=== PATIENT | male | born 1955 | race Caucasian/White ===

== ENCOUNTER → 2016-07-12 | Outpatient (CLI) | payer BC ==
[~2016-07-12] MED LIST: ATOR10TA60 PO; CONTRAST GIVEN MC PRN; DULA0.75 SQ; GLYB1.252 PO; IOHEXOL 240 MG/ML 50ML VIAL. PO ONE; IOHEXOL 300 MG/ML 100ML VIAL. IV ONE; LISI2.5T PO; SITA1TAB11 PO
--- NOTE | 2016-07-12 13:00 | KCIC ---
PROCEDURE CT chest abdomen and pelvis with contrast. HISTORY Lung mass, history of lung abscess about 20 years ago, diabetes, history of CLL, smoker for 41 years of 2.5 packs per day TECHNIQUE After the administration of intravenous and oral contrast, CT imaging was performed of the chest, abdomen, pelvis. Multiplanar reconstruction images are submitted. Exposure: One or more of the following individualized dose reduction techniques were utilized for this exam: 1. Automated exposure control. 2. Adjustment of the mA and/or kV according to patient size. 3. Use of iterative reconstruction technique. Contrast: 100 cc Omnipaque 300 COMPARISON None available FINDINGS Chest: There is prominent mediastinal and axillary lymphadenopathy, mild hilar lymphadenopathy. One of the largest masses of the right paratracheal region measures 3.9 cm short axis, transverse dimension. Largest right axillary node measures 3.7 cm short axis dimension. There is no abnormal pericardial or pleural fluid or pneumothorax. There is no significant infiltrate. Major airways are patent. There is also supraclavicular lymphadenopathy. One of the larger saeid mass of the inferior right neck measures 1.9 cm short axis dimension, located posterior to the common carotid artery. There is fairly prominent coronary calcification. There is right pericardiophrenic node 1.2 cm short axis dimension. There is multilevel thoracic spondylosis. There is centrilobular emphysema. Abdomen pelvis: Spleen is enlarged on the order of 18 x 8.6 by 17.4 cm longitudinal. There is cholelithiasis. No focal abnormality is identified of the liver or pancreas. There is no adrenal nodularity. Both kidneys enhance, no hydronephrosis. There is 3.2 centimeter right renal cyst. There is lymphadenopathy of the retroperitoneum, also of the francy hepatis and about the celiac axis. One of the largest portacaval nodes measures 2.4 cm short axis dimension. One of the larger right retroperitoneal nodes axial image 52 measures 2.4 cm short axis dimension although also other prominent nodes superiorly. There are enlarged nodes along the iliac chains bilaterally, also of the inguinal regions. One of the largest right iliac nodes measures up to 2.4 cm short axis dimension. Bowel is not significantly dilated. There is no free air, or free fluid. Normal appendix is visualized. There is minimal fat in the left inguinal canal, no bowel. There is fairly advanced degenerative disc disease with vacuum phenomenon at L5-S1. IMPRESSION 1. There is extensive lymphadenopathy of the chest, abdomen, pelvis. There is splenomegaly. 2. No discrete lung mass is identified. There is centrilobular emphysema. 3. There is prominent coronary calcification. 4. There is cholelithiasis. Electronically signed by: Govind Taveras MD (Jul 12, 2016 12:58:50)
== END | disposition home or self-care (01) ==
LOC: KCIC CT 10:36
PROVIDERS: ATTEND Internal Medicine
DX: M47.894 Other spondylosis, thoracic region (principal); R59.1 Generalized enlarged lymph nodes; R16.1 Splenomegaly, not elsewhere classified; J43.2 Centrilobular emphysema; K80.20 Calculus of gallbladder without cholecystitis without obstruction; M51.37 Other intervertebral disc degeneration, lumbosacral region; N28.1 Cyst of kidney, acquired
CPT/HCPCS: 71260; 74177; 82565; Q9966; Q9967

== ENCOUNTER 2016-09-17 14:34 | Inpatient (IN) | payer BC ==
[~2016-09-17] VITALS: Ht 182.9 cm; Wt 129.3 kg
[~2016-09-17 14:34] MED LIST changes: -CONTRAST GIVEN MC PRN; -IOHEXOL 240 MG/ML 50ML VIAL. PO ONE; -IOHEXOL 300 MG/ML 100ML VIAL. IV ONE
[2016-09-17] MEDS ORDERED: IPRATRPIUM/ALBUTEROL 0.5/2.5MG 3 ML NEBU. NEB ONE (15:00)
[2016-09-17] MEDS: IV NORMAL SALINE 1000ML BAG 1,000 ML IV SCH ×4 (15:22→20:41)
--- NOTE | 2016-09-17 15:29 | PHYS DOC ---
Past Medical History Past Medical History: Cancer, Diabetes-Type II, High Cholesterol, Hypertension , Other Additional Past Medical Histor: SLEEP APNEA, LYMPHOMA, LEFT LUNG COLLAPSE Past Surgical History: Other Additional Past Surgical Histo: LEFY LUNG SURGERY, RIGHT ARM SURGERY, LEFT KNEE Smoking: Cigarettes Additional Information: QUIT FEW DAYS AGO Alcohol Use: Rarely Drug Use: None Adult General Chief Complaint Chief Complaint: SHORTNESS OF BREATH HPI HPI Patient is a 61 year old male who presents with 2 weeks of cough, dyspnea, bilateral chest pain with cough that has been persistent and worse over the past couple of days and prior. He has chills without measured fever. States he has some diarrhea that is nonbloody as well. He denies hemoptysis, leg pain or swelling, abdominal pain, dysuria, nausea or vomiting, headache, lightheadedness. No recent hospitalizations. Quit smoking during this illness because he is too sick to smoke. Review of Systems Review of Systems Constitutional: Denies fever or chills [] Eyes: Denies change in visual acuity, redness, or eye pain [] HENT: Denies nasal congestion or sore throat [] Respiratory: Denies cough or shortness of breath [] Cardiovascular: No additional information not addressed in HPI [] GI: Denies abdominal pain, nausea, vomiting, bloody stools or diarrhea [] : Denies dysuria or hematuria [] Musculoskeletal: Denies back pain or joint pain [] Integument: Denies rash or skin lesions [] Neurologic: Denies headache, focal weakness or sensory changes [] Endocrine: Denies polyuria or polydipsia [] Current Medications Current Medications Current Medications Medications (Trade) Dose Ordered Sig/Nemesio Start Time Stop Time Status Last Admin Dose Admin Acetaminophen (Tylenol) 650 mg PRN Q4HRS PRN 09/17/16 16:45 09/18/16 16:44 Albuterol Sulfate (Ventolin Neb Soln) 10 mg 1X ONCE 09/17/16 16:00 09/17/16 16:01 DC 09/17/16 16:02 10 MG Albuterol/ Ipratropium (Duoneb) 3 ml RTQID 09/17/16 20:00 09/18/16 19:59 Fentanyl Citrate (Fentanyl 2ml Vial) 50 mcg PRN Q2HR PRN 09/17/16 16:45 09/18/16 16:44 Levofloxacin/ Dextrose 150 ml @ 100 mls/hr 1X ONCE 09/17/16 15:30 09/17/16 16:59 Levofloxacin/ Dextrose (Levaquin Per Pharmacy) 1 each PRN DAILY PRN 09/17/16 15:30 UNV Methylprednisolone Sodium Succinate (SOLU-Medrol 125MG VIAL) 125 mg 1X ONCE 09/17/16 16:00 09/17/16 16:01 DC 09/17/16 15:54 125 MG Ondansetron HCl (Zofran) 4 mg PRN Q8HRS PRN 09/17/16 16:45 09/18/16 16:44 Piperacillin Sod/ Tazobactam Sod (Zosyn Per Pharmacy) 1 each PRN DAILY PRN 09/17/16 15:30 UNV Piperacillin Sod/ Tazobactam Sod 4.5 gm/Sodium Chloride 100 ml @ 200 mls/hr 1X ONCE 09/17/16 15:30 09/17/16 15:59 DC 09/17/16 15:57 200 MLS/HR Sodium Chloride 1,000 ml @ 937.5 mls/ hr Q1H4M 09/17/16 14:49 09/17/16 18:48 09/17/16 15:22 937.5 MLS/HR Vancomycin HCl (Vanco Per Pharmacy) 1 each PRN DAILY PRN 09/17/16 15:30 UNV Vancomycin HCl 2 gm/Sodium Chloride 500 ml @ 250 mls/hr 1X ONCE 09/17/16 15:30 09/17/16 17:29 Allergies Allergies Allergies Coded Allergies Type Severity Reaction Last Updated Verified No Known Drug Allergies 07/12/16 No Physical Exam Physical Exam Constitutional: Well developed, well nourished, no acute distress, non-toxic appearance. [] HENT: Normocephalic, atraumatic, bilateral external ears normal, oropharynx moist, no oral exudates, nose normal. [] Eyes: PERRLA, EOMI, conjunctiva normal, no discharge. [] Neck: Normal range of motion, no tenderness, supple, no stridor. [] Cardiovascular:Heart rate regular rhythm, no murmur [] Lungs & Thorax: Bilateral breath sounds clear to auscultation [] Abdomen: Bowel sounds normal, soft, no tenderness, no masses, no pulsatile masses. [] Skin: Warm, dry, no erythema, no rash. [] Back: No tenderness, no CVA tenderness. [] Extremities: No tenderness, no cyanosis, no clubbing, ROM intact, no edema. [] Neurologic: Alert and oriented X 3, normal motor function, normal sensory function, no focal deficits noted. [] Psychologic: Affect normal, judgement normal, mood normal. [] Current Patient Data Vital Signs Vital Signs Date Time Temp Pulse Resp B/P (MAP) Pulse Ox O2 Delivery O2 Flow Rate FiO2 09/17/16 16:08 93 CONTINOUS TX 15.0 09/17/16 14:35 101.4 142 30 143/66 (91) 101.4 Lab Values Laboratory Tests Test 09/17/16 15:29 09/17/16 15:42 09/17/16 15:43 Influenza Type A Antigen Negative (NEGATIVE) Influenza Type B Antigen Negative (NEGATIVE) White Blood Count 52.4 x10^3/uL (4.0-11.0) *H Red Blood Count 3.85 x10^6/uL (4.30-5.70) L Hemoglobin 11.7 g/dL (13.0-17.5) L Hematocrit 36.2 % (39.0-53.0) L Mean Corpuscular Volume 94 fL (79-100) Mean Corpuscular Hemoglobin 30 pg (25-35) Mean Corpuscular Hemoglobin Concent 32 g/dL (31-37) Red Cell Distribution Width 17.5 % (11.5-14.5) H Platelet Count 117 x10^3/uL (140-400) L Neutrophils (%) (Auto) 18 % (31-73) L Lymphocytes (%) (Auto) 80 % (24-48) H Monocytes (%) (Auto) 2 % (0-9) Eosinophils (%) (Auto) 0 % (0-3) Basophils (%) (Auto) 0 % (0-3) Neutrophils # (Auto) 9.3 x10^3uL (1.8-7.7) H Lymphocytes # (Auto) 41.8 x10^3/uL (1.0-4.8) H Monocytes # (Auto) 1.2 x10^3/uL (0.0-1.1) H Eosinophils # (Auto) 0.1 x10^3/uL (0.0-0.7) Basophils # (Auto) 0.0 x10^3/uL (0.0-0.2) Platelet Estimate Pending Sodium Level 132 mmol/L (136-145) L Potassium Level 4.1 mmol/L (3.5-5.1) Chloride Level 95 mmol/L (98-107) L Carbon Dioxide Level 26 mmol/L (21-32) Anion Gap 11 (6-14) Blood Urea Nitrogen 16 mg/dL (8-26) Creatinine 1.2 mg/dL (0.7-1.3) Estimated GFR (Cockcroft-Gault) 61.8 BUN/Creatinine Ratio 13 (6-20) Glucose Level 260 mg/dL (70-99) H Lactic Acid Level 1.8 mmol/L (0.4-2.0) Calcium Level 8.5 mg/dL (8.5-10.1) Total Bilirubin 1.2 mg/dL (0.2-1.0) H Aspartate Amino Transferase (AST) 34 U/L (15-37) Alanine Aminotransferase (ALT) 35 U/L (16-63) Alkaline Phosphatase 88 U/L (46-116) Total Protein 6.6 g/dL (6.4-8.2) Albumin 2.6 g/dL (3.4-5.0) L Albumin/Globulin Ratio 0.7 (1.0-1.7) L O2 Saturation 95 % (92-99) Arterial Blood pH 7.34 (7.35-7.45) L Arterial Blood pCO2 at Patient Temp 43 mmHg (35-46) Arterial Blood pO2 at Patient Temp 85 mmHg (65-108) Arterial Blood HCO3 23 mmol/L (21-28) Arterial Blood Base Excess -3 mmol/L (-3-3) Oxyhemoglobin 93.7 % Methemoglobin 0.5 % (0.0-1.9) Carbon Monoxide, Quantitative 0.4 % (0.0-1.9) FiO2 100 Laboratory Tests 09/17/16 15:42 Laboratory Tests 09/17/16 15:42 EKG EKG EKG as interpreted by me as sinus tachycardia, rate 141, no ST-T changes, normal intervals, no ectopy Radiology/Procedures Radiology/Procedures Chest x-ray as interpreted by me showing consolidation right middle lobe and bibasilar infiltrates versus atelectasis Course & Med Decision Making Course & Med Decision Making Pertinent Labs and Imaging studies reviewed. (See chart for details) He has severe community acquired pneumonia versus postviral pneumonia. Started on broad-spectrum antibiotics and give steroids as his prior CT shows emphysema as well. Has some improvement after neb, but still require supplemental oxygen. ABG shows hypoxemia. He has elevated WBCs and low Plts with unknown baseline; laboratory evaluation is otherwise largely unremarkable. Discussed case with Dr. Worthy, who will admit. Pulmonology consults placed. Milagros Disclaimer Dragon Disclaimer This electronic medical record was generated, in whole or in part, using a voice recognition dictation system. Departure Departure Impression: Primary Impression: Acute hypoxemic respiratory failure Additional Impressions: Community acquired pneumonia Lymphoma Disposition: ADMITTED INPATIENT Condition: STABLE Referrals: JOHNNY WORTHY MD (PCP) Problem Qualifiers Additional Impressions: Lymphoma Lymphoma type: unspecified type Lymphoma site: unspecified region Qualified Codes: C85.90 - Non-Hodgkin lymphoma, unspecified, unspecified site Martínez ARRIAGA MD September 17, 2016 15:29
[2016-09-17] MEDS ORDERED: PIP/TAZO PER PHARMACY MC PRN (15:30)
[2016-09-17] MEDS ORDERED: VANCOMYCIN 2 GM in IV NORMAL SALINE 500ML BAG 500 ML IV ONE (15:30)
[2016-09-17] MEDS ORDERED: PIPERACILLIN/TAZOBACTAM 4.5 GM in IV NORMAL SALINE 100ML 100 ML IV ONE (15:30)
[2016-09-17] MEDS ORDERED: levOFLOXacin PER PHARMACY. MC PRN (15:30)
--- NOTE | 2016-09-17 15:30 | RAD ---
Indication shortness of breath. History of hypertension and diabetes. A single view of the chest was obtained. Comparison is made to a previous examination 07/03/2016. Peritracheal soft tissue mass compatible with adenopathy is noted. This is slightly less apparent than on the previous exam. (Note is made of the CT examination of the chest abdomen and pelvis 07/12/2016). There is a density overlying the right lower lung. It is uncertain whether this is secondary to a soft tissue abnormality in the lower chest or whether it is in the lung itself. Pneumonia is not excluded. There is a moderate left pleural effusion with some associated volume loss. This may reflect atelectasis or pneumonia. IMPRESSION: Paratracheal adenopathy similar to slightly improved when compared to the previous plain film exam. Left pleural effusion. Associated volume loss at the left lung base may reflect atelectasis or pneumonia. Opacity overlying the right lower lung field. See above discussion
[2016-09-17 15:57] LABS: BASE EXCESS COOX -3 mmol/L (-3-3); CARBON MONOXIDE 0.4 % (0.0-1.9); HCO3 COOX 23 mmol/L (21-28); METHEMOGLOBIN 0.5 % (0.0-1.9); OXYHEMOGLOBIN 93.7 %; PCO2 COOX 43 mmHg (35-46); PO2 COOX 85 mmHg (65-108); SAT O2 COOX 95 % (92-99); TOTAL HEMOGLOBIN 12.9 g/dL
[2016-09-17] MEDS ORDERED: methylPREDNISolone SOD SUCC PF 125 MG/2 ML VIAL. IV ONE (16:00)
[2016-09-17] MEDS ORDERED: ALBUTEROL SULFATE 2.5 MG/3 ML NEBU. CONT NEB ONE (16:00)
[2016-09-17 16:03] LABS: OBC FLU VALID
[2016-09-17 16:08] LABS: BASO % 0 % (0-3); EOS % 0 % (0-3); HEMATOCRIT 36.2 % (39.0-53.0); HEMOGLOBIN 11.7 g/dL (13.0-17.5); LYMPH # 41.8 x10^3/uL (1.0-4.8); LYMPH % 80 % (24-48); MEAN CORPUSCULAR HEMOGLOBIN 30 pg (25-35); MEAN CORPUSCULAR HGB CONC 32 g/dL (31-37); MEAN CORPUSCULAR VOLUME 94 fL (79-100); MONO % 2 % (0-9); NEUT % 18 % (31-73); PLATELET COUNT 117 x10^3/uL (140-400); RED BLOOD COUNT 3.85 x10^6/uL (4.30-5.70); RED CELL DISTRIBUTION WIDTH 17.5 % (11.5-14.5)
[2016-09-17 16:12] LABS: WHITE BLOOD COUNT 52.4 x10^3/uL (4.0-11.0)
[2016-09-17 16:13] LABS: CALCIUM 8.5 mg/dL (8.5-10.1); CREATININE 1.2 mg/dL (0.7-1.3); GFR 61.8; POTASSIUM 4.1 mmol/L (3.5-5.1)
[2016-09-17 16:13] LABS: FIO2 COOX 100; PH COOX 7.34 (7.35-7.45)
--- NOTE | 2016-09-17 16:14 | EKG ---
[facility] [address] [place] [address] Test Date: 2016-09-17 Test Time: 14:47:18 Pat Name: KATIUSKA AKERS Department: Room: Gender: M Log Deckman: : 1955 Requested By: REX CALLAHAN Order Number: [id number] Reading MD: Elise Garcia Measurements Intervals [place] Rate: 141 P: 48 ND: 138 QRS: 46 QRSD: 74 T: 26 QT: 256 QTc: 394 Interpretive Statements SINUS TACHYCARDIA QRS(T) CONTOUR ABNORMALITY RI6.01 Unconfirmed report No previous ECG available for comparison Electronically Signed On 09-20-2016 20:42:06 CDT by Elise Garcia
[2016-09-17 16:19] LABS: ALBUMIN 2.6 g/dL (3.4-5.0); ALBUMIN/GLOBULIN RATIO 0.7 (1.0-1.7); TOTAL BILIRUBIN 1.2 mg/dL (0.2-1.0); TOTAL PROTEIN 6.6 g/dL (6.4-8.2)
[2016-09-17] MEDS ORDERED: ACETAMINOPHEN 325 MG TABLET. PO PRN (16:45)
[2016-09-17] MEDS ORDERED: ONDANSETRON PF 4 MG/2 ML VIAL. IV PRN (16:45)
--- NOTE | 2016-09-17 16:51 | ACF ---
Admit Criteria Forms Admit Criteria Forms Admit Criteria Forms PNEUMONIA, COMMUNITY ACQUIRED Clinical Indications for Admission to Inpatient Care ( Place 'X' for any and all applicable criteria): Admission is indicated for ANY ONE of the following (1)(2)(3): [ ]I. Hypoxemia indicated by ANY ONE of the following: [ ]a) Oxygen saturation less than 90% while breathing room air [ ]b) PO2 less than 60 mm Hg (8.0 kPa) while breathing room air [ ]c) Chronic lung disease with significant deterioration from baseline oxygenation [ ]II. Appropriate diagnostic testing and treatment unavailable in outpatient or recovery facility (eg,testing or infection control measures unavailable(10) [ ]III. Moderate-risk or high-risk category patients (Pneumonia Severity Index (PSI) class IV or V, or CURB-65 score of 3 or greater). [ ]IV. Outpatient treatment failure as indicated by ANY ONE of the following(9) : [ ]a) Failure to respond to antibiotic (eg, resistant organism) [ ]b) Clinically significant adverse effects from medication (eg, vomiting) [ ]c) Complications of pneumonia (eg, empyema, bacteremia) [ ]d) Significant worsening of comorbid cond necessitating inpatient care (eg, chronic heart failure) [ ]V. Intermediate-risk category patients (eg, PSI class III or CURB-65 score 2) who do not improve with initial therapy and observation. [ ]. Immunocompromised patients (eg, AIDS, chronic steroid use) at moderate or high risk based on clinical evaluation. [ ]VII. Complicated pleural effusions (eg, exudative, loculated) [ ]VIII.Hemodynamic instability [ ] IX. Altered mental status that is severe or persistent. [ ]X. Dehydration that is severe or persistent. [ ]XI. Bacteremia [X]XII. Respiratory finding (eg. tachypnea) that do not respond to outpatient or observation care treatment Extended stay beyond goal length of stay may be needed for (20) [ ]a) Unclear diagnosis [ ]b) Pleural disease [ ]c) Severe pneumonia or treatment failure (25 [ ]d) Respiratory failure (anticipate invasive or noninvasive ventilatory support) [ ]e) Abnormal serum electrolytes (serum Na concentration less than 135 mEq/L (mmol/L) (32)(33) [ ]f) Clinically significant comorbid illness (eg, heart failure, atrial fibrillation with rapid heart rate, alcohol withdrawal, renal insufficiency)(34)(35) [ ]g) Comorbid acute exacerbation of COPD(36) [ ]h) Concomitant diagnosis of malignancy that may be associated with malnutrition, immunologic impairment, or bronchial obstruction. [ ]i) Concomitant altered mental status [ ]j) Culture-identified Gram-negative or antibiotic-resistant organism (eg, Pseudomonas, methicillin-resistant Staphylococcus aureus)(30) [ ]k) Healthcare-associated pneumonia The original [employer] content created by [employer] has been revised. The portions of the content which have been revised are identified through the use of italic text or in bold, and [facility] has neither reviewed nor approved the modified material. All other unmodified content is copyright [facility] [facility]. Please see references footnoted in the original [employer] [facility] edition 2016 WALLACE WRAY September 17, 2016 16:51
[2016-09-17 17:20] LABS: PLT ESTIMATE ADEQUATE (ADEQUATE)
[2016-09-17 17:21] LABS: CRENATED RBC PRESENT; OVALOCYTES OCC; SCHISTOCYTES OCC; STOMATOCYTES OCC
[2016-09-17] MEDS: fentaNYL PF VIAL 100 MCG/2 ML VIAL IV PRN ×2 (17:21→20:40)
[2016-09-17] MEDS: VANCOMYCIN PER PHARMACY MC PRN (17:57)
[2016-09-17 18:30] VITALS: BP 126/65
[2016-09-17 20:20] LABS: BILIRUBIN,URINE NEGATIVE (NEG); GLUCOSE,URINE >=1000 mg/dL (NEG); NITRITE,URINE NEGATIVE (NEG); PH,URINE 5.5; PROTEIN,URINE 100 mg/dL (NEG-TRACE); UROBILINOGEN,URINE 0.2 mg/dL (0.2 mg/dL)
[2016-09-17 20:28] LABS: BACTERIA,URINE 0 /HPF (0-FEW); SQUAMOUS EPITHELIAL CELL,UR OCC /LPF; WBC,URINE OCC /HPF (0-4)
[2016-09-17] MEDS: IPRATRPIUM/ALBUTEROL 0.5/2.5MG 3 ML NEBU. NEB SCH (20:34)
[2016-09-17] MEDS ORDERED: DEXTROSE 50% 25 GM / 50ML DISP.SYRIN. IV PRN (21:15)
[2016-09-17] MEDS: INSULIN ASPART 300 UNITS/3 ML INSULN.PEN SQ SCH (21:42)
[2016-09-17] MEDS: ATORVASTATIN CALCIUM 10 MG TABLET. PO SCH (22:00)
[2016-09-17 23:00] VITALS: BP 139/77
[2016-09-17] MEDS: PIPERACILLIN/TAZOBACTAM 4.5 GM in IV NORMAL SALINE 100ML 100 ML IV SCH (23:51)
[2016-09-17] MEDS: POTASSIUM CL 20MEQ-0.45% NACL 1,000 ML IV SCH (23:51)
[2016-09-18 03:10] VITALS: BP 130/74
[2016-09-18] MEDS: VANCOMYCIN 2 GM in IV NORMAL SALINE 500ML BAG 500 ML IV SCH ×2 (05:00→17:02)
[2016-09-18] MEDS: PIPERACILLIN/TAZOBACTAM 4.5 GM in IV NORMAL SALINE 100ML 100 ML IV SCH ×3 (05:34→20:08)
[2016-09-18 07:00] VITALS: BP 131/78
[2016-09-18] MEDS: IPRATRPIUM/ALBUTEROL 0.5/2.5MG 3 ML NEBU. NEB SCH ×3 (08:29→15:11)
[2016-09-18] MEDS: LINAGLIPTIN 5 MG TABLET PO SCH (08:59)
[2016-09-18] MEDS: LISINOPRIL 20 MG TABLET PO SCH (08:59)
[2016-09-18] MEDS: ASPIRIN ENTERIC COATED 81 MG TABLET.DR. PO SCH (09:00)
[2016-09-18] MEDS: INSULIN ASPART 300 UNITS/3 ML INSULN.PEN SQ SCH ×4 (09:06→21:08)
--- NOTE | 2016-09-18 09:34 | PDOC ---
OBJECTIVE Vital Signs Vital Signs Date Time Temp Pulse Resp B/P (MAP) Pulse Ox O2 Delivery O2 Flow Rate FiO2 09/18/16 08:59 109 131/78 09/18/16 08:32 93 NonRebreather Mask 15.0 09/18/16 07:00 97.7 109 20 131/78 (95) 100 Venturi Mask 97.7 09/18/16 03:10 97.5 118 20 130/74 (92) 95 Venturi Mask 97.5 09/17/16 23:22 93 BiPAP/CPAP 09/17/16 23:00 97.8 130 20 139/77 (97) 94 Venturi Mask 97.8 09/17/16 22:46 Non-Rebreather 15.0 09/17/16 21:10 95 15.0 09/17/16 20:40 95 15.0 09/17/16 20:36 97 NonRebreather Mask 15.0 09/17/16 20:00 Non-Rebreather 15.0 09/17/16 18:41 22 09/17/16 18:30 97.5 127 22 126/65 (85) 95 NonRebreather Mask 97.5 09/17/16 17:30 136 32 126/60 (82) 93 NonRebreather Mask 15.0 09/17/16 17:21 33 95 NonRebreather Mask 15.0 09/17/16 17:00 138 29 121/60 (80) 93 NonRebreather Mask 15.0 09/17/16 16:30 142 32 148/70 (96) 93 CONTINUOUS NEB 09/17/16 16:08 93 CONTINOUS TX 15.0 09/17/16 16:00 140 30 157/70 (99) 93 CONTINUOUS NEB 09/17/16 15:30 138 32 147/74 (98) 93 CONTINUOUS NEB 09/17/16 15:01 96 NonRebreather Mask 15.0 09/17/16 15:00 138 30 132/60 (84) 95 CONTINUOUS NEB 09/17/16 14:35 101.4 142 30 143/66 (91) 76 Room Air 101.4 I & O Intake and Output 09/18/16 07:00 Intake Total 1350 ml Output Total 1700 ml Balance -350 ml Intake IV Total 1350 ml Output Urine Total 1700 ml # Voids 2 # Bowel Movements 1 ASSESSMENT/PLAN Assessment/Plan [id number] H&P dictated Problems: COMMENT Lab Laboratory Tests Test 09/17/16 15:29 09/17/16 15:42 09/17/16 15:43 09/17/16 20:05 Influenza Type A Antigen Negative (NEGATIVE) Influenza Type B Antigen Negative (NEGATIVE) White Blood Count 52.4 x10^3/uL (4.0-11.0) Red Blood Count 3.85 x10^6/uL (4.30-5.70) Hemoglobin 11.7 g/dL (13.0-17.5) Hematocrit 36.2 % (39.0-53.0) Mean Corpuscular Volume 94 fL (79-100) Mean Corpuscular Hemoglobin 30 pg (25-35) Mean Corpuscular Hemoglobin Concent 32 g/dL (31-37) Red Cell Distribution Width 17.5 % (11.5-14.5) Platelet Count 117 x10^3/uL (140-400) Neutrophils (%) (Auto) 18 % (31-73) Lymphocytes (%) (Auto) 80 % (24-48) Monocytes (%) (Auto) 2 % (0-9) Eosinophils (%) (Auto) 0 % (0-3) Basophils (%) (Auto) 0 % (0-3) Neutrophils # (Auto) 9.3 x10^3uL (1.8-7.7) Lymphocytes # (Auto) 41.8 x10^3/uL (1.0-4.8) Monocytes # (Auto) 1.2 x10^3/uL (0.0-1.1) Eosinophils # (Auto) 0.1 x10^3/uL (0.0-0.7) Basophils # (Auto) 0.0 x10^3/uL (0.0-0.2) Segmented Neutrophils % 11 % (35-66) Lymphocytes % 87 % (24-48) Monocytes % 2 % (0-10) Platelet Estimate Adequate (ADEQUATE) Ovalocytes Occ Stomatocytes Occ Crenated Cell Present Schistocytes Occ Sodium Level 132 mmol/L (136-145) Potassium Level 4.1 mmol/L (3.5-5.1) Chloride Level 95 mmol/L (98-107) Carbon Dioxide Level 26 mmol/L (21-32) Anion Gap 11 (6-14) Blood Urea Nitrogen 16 mg/dL (8-26) Creatinine 1.2 mg/dL (0.7-1.3) Estimated GFR (Cockcroft-Gault) 61.8 BUN/Creatinine Ratio 13 (6-20) Glucose Level 260 mg/dL (70-99) Lactic Acid Level 1.8 mmol/L (0.4-2.0) Calcium Level 8.5 mg/dL (8.5-10.1) Total Bilirubin 1.2 mg/dL (0.2-1.0) Aspartate Amino Transf (AST/SGOT) 34 U/L (15-37) Alanine Aminotransferase (ALT/SGPT) 35 U/L (16-63) Alkaline Phosphatase 88 U/L (46-116) Total Protein 6.6 g/dL (6.4-8.2) Albumin 2.6 g/dL (3.4-5.0) Albumin/Globulin Ratio 0.7 (1.0-1.7) O2 Saturation 95 % (92-99) Arterial Blood pH 7.34 (7.35-7.45) Arterial Blood pCO2 at Patient Temp 43 mmHg (35-46) Arterial Blood pO2 at Patient Temp 85 mmHg (65-108) Arterial Blood HCO3 23 mmol/L (21-28) Arterial Blood Base Excess -3 mmol/L (-3-3) Oxyhemoglobin 93.7 % Methemoglobin 0.5 % (0.0-1.9) Carbon Monoxide, Quantitative 0.4 % (0.0-1.9) FiO2 100 Urine Color Yellow Urine Clarity Clear Urine pH 5.5 Urine Specific [place] >=1.030 Urine Protein 100 mg/dL (NEG-TRACE) Urine Glucose (UA) >=1000 mg/dL (NEG) Urine Ketones (Stick) 15 mg/dL (NEG) Urine Blood Moderate (NEG) Urine Nitrite Negative (NEG) Urine Bilirubin Negative (NEG) Urine Urobilinogen Dipstick 0.2 mg/dL (0.2 mg/dL) Urine Leukocyte Esterase Negative (NEG) Urine RBC 3-5 /HPF (0-2) Urine WBC Occ /HPF (0-4) Urine Squamous Epithelial Cells Occ /LPF Urine Bacteria 0 /HPF (0-FEW) Test 09/17/16 20:20 09/18/16 04:35 09/18/16 07:19 Glucose (Fingerstick) 291 mg/dL (70-99) 231 mg/dL (70-99) Vancomycin Level Trough 6.0 mcg/mL (10.0-20.0) Vancomycin Last Dose Date 09/18/16 Vancomycin Last Dose Time 2300 JOHNNY WORTHY MD September 18, 2016 09:34
[2016-09-18 11:00] VITALS: BP 134/73
--- NOTE | 2016-09-18 12:06 | HP ---
ADMIT DATE: 09/17/2016 PMCL NUMBER: [id number] HISTORY OF PRESENT ILLNESS: He is admitted to room 532. The patient is a 61-year-old gentleman who presented to the Emergency Room complaining of cough and increasing shortness of breath and chest pain due to coughing and feeling weak. The symptoms have been getting worse over the last 2 days prior to his presentation. He does report having chills and feeling cold, but no fever. He had some diarrhea on the day of admission. He denies hemoptysis. He does produce yellow sputum when coughing. He denies leg pain or swelling. Denies abdominal pain, dysuria, nausea or vomiting. PAST MEDICAL HISTORY: Significant for diabetes mellitus type 2 and chronic lymphocytic lymphoma. He is under the care of Oncology, but has not had any treatment lately. He does have a history of hypertension, hyperlipidemia, sleep apnea. He does have a remote history of pneumothorax on the left lung, history of right arm surgery and left knee surgery. FAMILY HISTORY: Positive for hypertension and diabetes. SOCIAL HISTORY: He is a smoker, continues to smoke. He drinks alcohol occasionally. Denies use of illicit drug. He had received his flu vaccine and tetanus in the past, not sure about his pneumonia vaccine. REVIEW OF SYSTEMS: CONSTITUTIONAL: He denies fever, but has experienced some chills. EYES: Denies visual changes or drainage from his eye. HENT: He does have some congestion ____ sore throat. RESPIRATORY: He does have cough as mentioned above and shortness of breath increasingly as in HPI. CARDIOVASCULAR: He only has chest pain with coughing. GASTROINTESTINAL: Denies abdominal pain, nausea, vomiting or diarrhea. GENITOURINARY: Denies dysuria or hematuria. He does have urinary frequency. MUSCULOSKELETAL: He does have osteoarthritis and back pain. NEUROLOGY: Denies headache or focal weakness. PHYSICAL EXAMINATION: GENERAL: He is a well-developed, well-nourished, obese, in mild distress due to the shortness of breath. HEENT: Normocephalic, atraumatic. Eyes, conjunctivae normal color. Pupils equal, round, reactive to light and accommodation. NECK: Supple. HEART: Tachycardic. LUNGS: With bilateral wheezes and rhonchi. ABDOMEN: Soft, obese, nontender. No organomegaly. SKIN: Warm and dry. No erythema, but he does have some bruises on his upper extremities, he reports due to trying to start an IV in the Emergency Room. BACK: Without CVA tenderness. EXTREMITIES: Without edema, clubbing or cyanosis. NEUROLOGY: Alert and oriented and does not have any focal deficits. His chest x-ray in the Emergency Room showed infiltrate on the left lower lung with pleural effusion. He did have temperature upon his arrival to the Emergency Room of 101.4. IMPRESSION: 1. Acute hypoxic respiratory failure. 2. Pneumonia, left lower lung. 3. Chronic lymphocytic leukemia. His white count normally is around 30,000. His white count on this admission is elevated ____, it is probably due to the acute illness and the pneumonia. 4. Diabetes mellitus type 2. 5. Tobaccoism. 6. Chronic obstructive pulmonary disease. 7. Hypertension and hyperlipidemia. 8. Sleep apnea. JOHNNY WORTHY MD DR: SARAH/lowell JOB#: [id number] / [id number]
[2016-09-18 15:00] VITALS: BP 122/63
--- NOTE | 2016-09-18 17:55 | PDOC ---
PULMONARY PROGRESS NOTES Vitals Vital Signs Date Time Temp Pulse Resp B/P (MAP) Pulse Ox O2 Delivery O2 Flow Rate FiO2 09/18/16 15:12 NonRebreather Mask 15.0 09/18/16 15:00 98.0 111 22 122/63 (82) 99 98.0 Labs Laboratory Tests Test 09/17/16 15:29 09/17/16 15:42 09/17/16 15:43 09/17/16 20:05 Influenza Type A Antigen Negative (NEGATIVE) Influenza Type B Antigen Negative (NEGATIVE) White Blood Count 52.4 x10^3/uL (4.0-11.0) Red Blood Count 3.85 x10^6/uL (4.30-5.70) Hemoglobin 11.7 g/dL (13.0-17.5) Hematocrit 36.2 % (39.0-53.0) Mean Corpuscular Volume 94 fL (79-100) Mean Corpuscular Hemoglobin 30 pg (25-35) Mean Corpuscular Hemoglobin Concent 32 g/dL (31-37) Red Cell Distribution Width 17.5 % (11.5-14.5) Platelet Count 117 x10^3/uL (140-400) Neutrophils (%) (Auto) 18 % (31-73) Lymphocytes (%) (Auto) 80 % (24-48) Monocytes (%) (Auto) 2 % (0-9) Eosinophils (%) (Auto) 0 % (0-3) Basophils (%) (Auto) 0 % (0-3) Neutrophils # (Auto) 9.3 x10^3uL (1.8-7.7) Lymphocytes # (Auto) 41.8 x10^3/uL (1.0-4.8) Monocytes # (Auto) 1.2 x10^3/uL (0.0-1.1) Eosinophils # (Auto) 0.1 x10^3/uL (0.0-0.7) Basophils # (Auto) 0.0 x10^3/uL (0.0-0.2) Segmented Neutrophils % 11 % (35-66) Lymphocytes % 87 % (24-48) Monocytes % 2 % (0-10) Platelet Estimate Adequate (ADEQUATE) Ovalocytes Occ Stomatocytes Occ Crenated Cell Present Schistocytes Occ Sodium Level 132 mmol/L (136-145) Potassium Level 4.1 mmol/L (3.5-5.1) Chloride Level 95 mmol/L (98-107) Carbon Dioxide Level 26 mmol/L (21-32) Anion Gap 11 (6-14) Blood Urea Nitrogen 16 mg/dL (8-26) Creatinine 1.2 mg/dL (0.7-1.3) Estimated GFR (Cockcroft-Gault) 61.8 BUN/Creatinine Ratio 13 (6-20) Glucose Level 260 mg/dL (70-99) Lactic Acid Level 1.8 mmol/L (0.4-2.0) Calcium Level 8.5 mg/dL (8.5-10.1) Total Bilirubin 1.2 mg/dL (0.2-1.0) Aspartate Amino Transf (AST/SGOT) 34 U/L (15-37) Alanine Aminotransferase (ALT/SGPT) 35 U/L (16-63) Alkaline Phosphatase 88 U/L (46-116) Total Protein 6.6 g/dL (6.4-8.2) Albumin 2.6 g/dL (3.4-5.0) Albumin/Globulin Ratio 0.7 (1.0-1.7) O2 Saturation 95 % (92-99) Arterial Blood pH 7.34 (7.35-7.45) Arterial Blood pCO2 at Patient Temp 43 mmHg (35-46) Arterial Blood pO2 at Patient Temp 85 mmHg (65-108) Arterial Blood HCO3 23 mmol/L (21-28) Arterial Blood Base Excess -3 mmol/L (-3-3) Oxyhemoglobin 93.7 % Methemoglobin 0.5 % (0.0-1.9) Carbon Monoxide, Quantitative 0.4 % (0.0-1.9) FiO2 100 Urine Color Yellow Urine Clarity Clear Urine pH 5.5 Urine Specific [place] >=1.030 Urine Protein 100 mg/dL (NEG-TRACE) Urine Glucose (UA) >=1000 mg/dL (NEG) Urine Ketones (Stick) 15 mg/dL (NEG) Urine Blood Moderate (NEG) Urine Nitrite Negative (NEG) Urine Bilirubin Negative (NEG) Urine Urobilinogen Dipstick 0.2 mg/dL (0.2 mg/dL) Urine Leukocyte Esterase Negative (NEG) Urine RBC 3-5 /HPF (0-2) Urine WBC Occ /HPF (0-4) Urine Squamous Epithelial Cells Occ /LPF Urine Bacteria 0 /HPF (0-FEW) Test 09/17/16 20:20 09/18/16 04:35 09/18/16 07:19 09/18/16 11:53 Glucose (Fingerstick) 291 mg/dL (70-99) 231 mg/dL (70-99) 278 mg/dL (70-99) Vancomycin Level Trough 6.0 mcg/mL (10.0-20.0) Vancomycin Last Dose Date 09/18/16 Vancomycin Last Dose Time 2299 Test 09/18/16 16:24 Glucose (Fingerstick) 242 mg/dL (70-99) Laboratory Tests Test 09/17/16 20:05 09/17/16 20:20 09/18/16 04:35 09/18/16 07:19 Urine Color Yellow Urine Clarity Clear Urine pH 5.5 Urine Specific [place] >=1.030 Urine Protein 100 mg/dL (NEG-TRACE) Urine Glucose (UA) >=1000 mg/dL (NEG) Urine Ketones (Stick) 15 mg/dL (NEG) Urine Blood Moderate (NEG) Urine Nitrite Negative (NEG) Urine Bilirubin Negative (NEG) Urine Urobilinogen Dipstick 0.2 mg/dL (0.2 mg/dL) Urine Leukocyte Esterase Negative (NEG) Urine RBC 3-5 /HPF (0-2) Urine WBC Occ /HPF (0-4) Urine Squamous Epithelial Cells Occ /LPF Urine Bacteria 0 /HPF (0-FEW) Glucose (Fingerstick) 291 mg/dL (70-99) 231 mg/dL (70-99) Vancomycin Level Trough 6.0 mcg/mL (10.0-20.0) Vancomycin Last Dose Date 09/18/16 Vancomycin Last Dose Time 2299 Test 09/18/16 11:53 09/18/16 16:24 Glucose (Fingerstick) 278 mg/dL (70-99) 242 mg/dL (70-99) Medications Active Scripts Medications Dose Route/Sig Max Daily Dose Days Date Category Atorvastatin Calcium 10 Mg Tablet 1 Tab PO DAILY 07/12/16 Reported Glyburide 1.25 Mg Tablet 1.25 Mg PO DAILY 07/12/16 Reported Janumet 50-1,000 Mg Tablet (Sitagliptin Phos/Metformin Hcl) 1 Each Tablet 1 Tab PO BID 07/12/16 Reported Trulicity (Dulaglutide) 0.75 Mg/0.5 Ml Pen.injctr 0.75 Mg SQ 07/12/16 Reported Lisinopril 2.5 Mg Tablet 1 Tab PO DAILY 07/12/16 Reported Impression . full note dictated will check CT of chest concur with current RX for pneumonia thanks PAYTON CHAVIRA MD September 18, 2016 17:55
[2016-09-18] MEDS: ENOXAPARIN 40 MG/0.4 ML SYRINGE. SQ SCH (18:09)
[2016-09-18 19:00] VITALS: BP 116/64
[2016-09-18] MEDS ORDERED: HYDROcodone/APAP 7.5/325MG 1 TAB TABLET PO PRN (20:45)
[2016-09-18] MEDS: ATORVASTATIN CALCIUM 10 MG TABLET. PO SCH (21:00)
[2016-09-18] MEDS: INSULIN DETEMIR 300 UNITS/3 ML INSULN.PEN. SQ SCH (21:07)
[2016-09-18] MEDS: oxyCODONE/APAP 5/325 1 TAB TABLET PO PRN (22:17)
[2016-09-18] MEDS ORDERED: ALBUTEROL SULFATE 2.5 MG/3 ML NEBU. NEB PRN (22:30)
[2016-09-18 23:00] VITALS: BP 109/59
[2016-09-19] MEDS: POTASSIUM CL 20MEQ-0.45% NACL 1,000 ML IV SCH ×3 (00:40→14:00)
[2016-09-19] MEDS: PIPERACILLIN/TAZOBACTAM 4.5 GM in IV NORMAL SALINE 100ML 100 ML IV SCH ×4 (00:54→18:44)
[2016-09-19] MEDS: ALPRAZolam 0.5 MG TABLET PO PRN (00:54)
[2016-09-19 03:00] VITALS: BP 139/72
[2016-09-19 04:52] LABS: HEMATOCRIT 35.9 % (39.0-53.0); HEMOGLOBIN 11.7 g/dL (13.0-17.5); RED BLOOD COUNT 3.82 x10^6/uL (4.30-5.70); WHITE BLOOD COUNT 37.9 x10^3/uL (4.0-11.0)
[2016-09-19 05:15] LABS: CALCIUM 8.6 mg/dL (8.5-10.1); GFR 76.2; POTASSIUM 4.8 mmol/L (3.5-5.1)
[2016-09-19] MEDS: IPRATRPIUM/ALBUTEROL 0.5/2.5MG 3 ML NEBU. NEB SCH ×4 (05:50→19:11)
--- NOTE | 2016-09-19 06:15 | CONS ---
DATE OF CONSULTATION: 09/18/2016 ATTENDING PHYSICIAN: Abdulaziz Hampton M.D. REASON FOR CONSULTATION: The patient is seen in pulmonary consultation at the request of Dr. Hampton for abnormal chest x-ray. HISTORY OF PRESENT ILLNESS: The patient is a 61-year-old who presented to the Emergency Room with increasing shortness of breath, cough productive of discolored sputum. He states he has had a cough now for several days, cough sometimes productive of mucus mixed in with blood. Denies fever or chills. No massive hemoptysis. Denies nausea, vomiting, diarrhea. PAST MEDICAL HISTORY: Type 2 diabetes, chronic lymphocytic lymphoma, hypertension, hyperlipidemia, sleep apnea, prior history of pneumothorax. PAST SURGICAL HISTORY: Status post right arm surgery, left knee surgery. FAMILY HISTORY: Positive for hypertension and diabetes. SOCIAL HISTORY: He is a smoker, continues to smoke. Denies any illicit drugs. Drinks occasional alcohol. REVIEW OF SYSTEMS: As indicated above, otherwise a 10-point system was reviewed and negative. CURRENT MEDICATIONS: List was reviewed. Please see the MRAD. ALLERGIES: No known drug allergies. PHYSICAL EXAMINATION: GENERAL: The patient appeared to be older than stated age. VITAL SIGNS: Stable. O2 saturation was greater than 92%. He had a T-max of 101.4. HEENT: Eyes: The sclerae were nonicteric. NECK: Jugular venous distention was not elevated. No lymphadenopathy. CHEST: Full expansion. LUNGS: Crackles and diminished breath sounds in the bases. CARDIOVASCULAR: Regular rate and rhythm with S1 and S2. No S3. ABDOMEN: Soft, nontender, nondistended. EXTREMITIES: No clubbing, cyanosis or edema. NEUROLOGIC: The patient was awake, alert, following commands. A detailed neuro exam was not performed. LABORATORY DATA: White count was 52,000; hemoglobin and hematocrit were noted; platelet count was 117. Arterial blood gas with pH of 7.34, PaCO2 of 43, pO2 of 85. Influenza A and B was negative. UA was noted. IMAGING DATA: Chest x-ray was reviewed. There are several findings including opacity of the right lower lobe, paratracheal adenopathy and left pleural effusion with some volume loss. IMPRESSION: 1. Abnormal x-ray revealing left pleural effusion with volume loss along with right lower lobe opacity compatible with pneumonia. 2. Fever, suspect secondary to pneumonia. 3. Acute respiratory failure secondary to above. 4. Abnormal x-ray compatible with pneumonia. Cover for both gram-positive and gram-negative organisms. 5. Chronic lymphocytic leukemia. 6. Obstructive sleep apnea. 7. Type 2 diabetes. 8. Tobacco dependence. 9. Acute exacerbation of chronic obstructive pulmonary disease. PLAN: 1. We will concur with current broad-coverage antibiotics. 2. CT of the chest. 3. I will make further recommendation depending on the CT scan findings. 4. We will add DVT prophylaxis. Dr. Hampton, I do appreciate the privilege in sharing the patient's care. PAYTON CHAVIRA MD DR: RAUL/lowell JOB#: [id number] / [id number]
[2016-09-19] MEDS: VANCOMYCIN 2 GM in IV NORMAL SALINE 500ML BAG 500 ML IV SCH (06:18)
[2016-09-19] MEDS: VANCOMYCIN PER PHARMACY MC PRN (06:35)
[2016-09-19 07:00] VITALS: BP 124/62
[2016-09-19] MEDS ORDERED: CONTRAST GIVEN MC PRN (07:00)
[2016-09-19] MEDS ORDERED: IOHEXOL 300 MG/ML 75 ML VIAL IV ONE (07:00)
[2016-09-19] MEDS: ASPIRIN ENTERIC COATED 81 MG TABLET.DR. PO SCH (09:29)
[2016-09-19] MEDS: oxyCODONE/APAP 5/325 1 TAB TABLET PO PRN (09:29)
[2016-09-19] MEDS: LINAGLIPTIN 5 MG TABLET PO SCH (09:29)
[2016-09-19] MEDS: LISINOPRIL 20 MG TABLET PO SCH (09:31)
[2016-09-19] MEDS: INSULIN ASPART 300 UNITS/3 ML INSULN.PEN SQ SCH ×4 (09:36→21:00)
--- NOTE | 2016-09-19 09:37 | PDOC ---
SUBJECTIVE Subjective feels better, less SOB but still require nonerebreather mask OBJECTIVE Vital Signs Vital Signs Date Time Temp Pulse Resp B/P (MAP) Pulse Ox O2 Delivery O2 Flow Rate FiO2 09/19/16 07:00 97.7 111 18 124/62 (82) 95 Venturi Mask 15.0 97.7 09/19/16 05:49 NonRebreather Mask 15.0 09/19/16 04:43 24 Venturi Mask 15.0 09/19/16 04:33 96.3 96.3 09/19/16 04:01 20 Ventilator 15.0 09/19/16 03:00 95.9 109 22 139/72 (94) 96 Venturi Mask 15.0 95.9 09/18/16 23:00 97.5 105 20 109/59 (76) 99 Venturi Mask 15.0 97.5 09/18/16 22:17 20 Venturi Mask 15.0 09/18/16 20:00 Venturi Mask 15.0 09/18/16 19:00 97.7 109 20 116/64 (81) 99 Venturi Mask 15.0 97.7 09/18/16 15:12 NonRebreather Mask 15.0 09/18/16 15:00 98.0 111 22 122/63 (82) 99 Venturi Mask 98.0 09/18/16 11:52 NonRebreather Mask 15.0 09/18/16 11:00 97.9 119 22 134/73 (93) 97 Venturi Mask 97.9 I & O Intake and Output 09/19/16 07:00 Intake Total 840 ml Output Total 1725 ml Balance -885 ml Intake Oral 840 ml Output Urine Total 1725 ml # Voids 1 # Bowel Movements 4 PHYSICAL EXAM Physical Exam lungs better air movement still some coarse BS heart less tachy ext no edema ASSESSMENT/PLAN Assessment/Plan 1. Acute hypoxic respiratory failure. 2. Pneumonia, both lower lobes 3. Chronic lymphocytic leukemia. His white count normally is around 30,000. improving 4. Diabetes mellitus type 2. 5. Tobaccoism. 6. Chronic obstructive pulmonary disease. 7. Hypertension and hyperlipidemia. 8. Sleep apnea. CT reviewed , continue current plans Problems: COMMENT Lab Laboratory Tests Test 09/18/16 11:53 09/18/16 16:24 09/18/16 20:48 09/19/16 01:02 Glucose (Fingerstick) 278 mg/dL (70-99) 242 mg/dL (70-99) 227 mg/dL (70-99) 180 mg/dL (70-99) Test 09/19/16 04:12 09/19/16 04:53 09/19/16 07:24 White Blood Count 37.9 x10^3/uL (4.0-11.0) Red Blood Count 3.82 x10^6/uL (4.30-5.70) Hemoglobin 11.7 g/dL (13.0-17.5) Hematocrit 35.9 % (39.0-53.0) Mean Corpuscular Volume 94 fL (79-100) Mean Corpuscular Hemoglobin 31 pg (25-35) Mean Corpuscular Hemoglobin Concent 33 g/dL (31-37) Red Cell Distribution Width 18.0 % (11.5-14.5) Platelet Count 133 x10^3/uL (140-400) Sodium Level 138 mmol/L (136-145) Potassium Level 4.8 mmol/L (3.5-5.1) Chloride Level 102 mmol/L (98-107) Carbon Dioxide Level 31 mmol/L (21-32) Anion Gap 5 (6-14) Blood Urea Nitrogen 22 mg/dL (8-26) Creatinine 1.0 mg/dL (0.7-1.3) Estimated GFR (Cockcroft-Gault) 76.2 Glucose Level 183 mg/dL (70-99) Calcium Level 8.6 mg/dL (8.5-10.1) Vancomycin Level Trough 12.4 mcg/mL (10.0-20.0) Vancomycin Last Dose Date 09/18/16 Vancomycin Last Dose Time 1702 Glucose (Fingerstick) 174 mg/dL (70-99) 173 mg/dL (70-99) JOHNNY WORTHY MD September 19, 2016 09:37
--- NOTE | 2016-09-19 09:38 | RAD ---
Indication pneumonia. Difficulty breathing. History of lymphoma. Contrast imaging through the chest was performed and is compared to an examination 07/12/2016. 75 cc of Omnipaque 300 was administered. Imaging through the upper abdomen demonstrates some mild retroperitoneal adenopathy. There is cholelithiasis. An acute finding in the upper abdomen is not seen. There is moderate splenomegaly similar to the previous exam. Bulky mediastinal adenopathy is seen similar to slightly more pronounced than on the prior exam. Extensive axillary adenopathy is noted. Mild hilar adenopathy is noted. There is dense consolidation, compatible with pneumonia in the lower lobes right greater than left. Additional patchy nonsolid parenchymal opacities are seen, also probably inflammatory in nature in the upper lobes and lingula. The right middle lobe is relatively spared. There is a small right pleural effusion and a trace amount of left. Coronary artery calcification is noted. IMPRESSION: Marked consolidation in the lower lobes right greater than left compatible with pneumonia. Additional patchy nonsolid opacities are seen in the upper lobes which are probably inflammatory in nature. Extensive axillary and mediastinal adenopathy slightly worse than on the prior exam. Known splenomegaly and cholelithiasis is reproduced PQRS Compliance Statement: One or more of the following individualized dose reduction techniques were utilized for this examination: 1. Automated exposure control 2. Adjustment of the mA and/or kV according to patient size 3. Use of iterative reconstruction technique
[2016-09-19 11:00] VITALS: BP 120/64
--- NOTE | 2016-09-19 12:41 | PDOC ---
PULMONARY PROGRESS NOTES Subjective PT FEEL BETTER LESS SOA Vitals Vital Signs Date Time Temp Pulse Resp B/P (MAP) Pulse Ox O2 Delivery O2 Flow Rate FiO2 09/19/16 11:39 93 Nasal Cannula 5.0 09/19/16 11:00 97.5 105 18 120/64 (82) 97.5 ROS: No Nausea, No Chest Pain, No Abdominal Pain, No Increase Cough General: Alert Lungs: Crackles Cardiovascular: S1, S2 Abdomen: Soft Neuro Exam: Alert Extremities: No Edema Skin: Warm Labs Laboratory Tests Test 09/17/16 15:29 09/17/16 15:42 09/17/16 15:43 09/17/16 20:05 Influenza Type A Antigen Negative (NEGATIVE) Influenza Type B Antigen Negative (NEGATIVE) White Blood Count 52.4 x10^3/uL (4.0-11.0) Red Blood Count 3.85 x10^6/uL (4.30-5.70) Hemoglobin 11.7 g/dL (13.0-17.5) Hematocrit 36.2 % (39.0-53.0) Mean Corpuscular Volume 94 fL (79-100) Mean Corpuscular Hemoglobin 30 pg (25-35) Mean Corpuscular Hemoglobin Concent 32 g/dL (31-37) Red Cell Distribution Width 17.5 % (11.5-14.5) Platelet Count 117 x10^3/uL (140-400) Neutrophils (%) (Auto) 18 % (31-73) Lymphocytes (%) (Auto) 80 % (24-48) Monocytes (%) (Auto) 2 % (0-9) Eosinophils (%) (Auto) 0 % (0-3) Basophils (%) (Auto) 0 % (0-3) Neutrophils # (Auto) 9.3 x10^3uL (1.8-7.7) Lymphocytes # (Auto) 41.8 x10^3/uL (1.0-4.8) Monocytes # (Auto) 1.2 x10^3/uL (0.0-1.1) Eosinophils # (Auto) 0.1 x10^3/uL (0.0-0.7) Basophils # (Auto) 0.0 x10^3/uL (0.0-0.2) Segmented Neutrophils % 11 % (35-66) Lymphocytes % 87 % (24-48) Monocytes % 2 % (0-10) Platelet Estimate Adequate (ADEQUATE) Ovalocytes Occ Stomatocytes Occ Crenated Cell Present Schistocytes Occ Sodium Level 132 mmol/L (136-145) Potassium Level 4.1 mmol/L (3.5-5.1) Chloride Level 95 mmol/L (98-107) Carbon Dioxide Level 26 mmol/L (21-32) Anion Gap 11 (6-14) Blood Urea Nitrogen 16 mg/dL (8-26) Creatinine 1.2 mg/dL (0.7-1.3) Estimated GFR (Cockcroft-Gault) 61.8 BUN/Creatinine Ratio 13 (6-20) Glucose Level 260 mg/dL (70-99) Lactic Acid Level 1.8 mmol/L (0.4-2.0) Calcium Level 8.5 mg/dL (8.5-10.1) Total Bilirubin 1.2 mg/dL (0.2-1.0) Aspartate Amino Transf (AST/SGOT) 34 U/L (15-37) Alanine Aminotransferase (ALT/SGPT) 35 U/L (16-63) Alkaline Phosphatase 88 U/L (46-116) Total Protein 6.6 g/dL (6.4-8.2) Albumin 2.6 g/dL (3.4-5.0) Albumin/Globulin Ratio 0.7 (1.0-1.7) O2 Saturation 95 % (92-99) Arterial Blood pH 7.34 (7.35-7.45) Arterial Blood pCO2 at Patient Temp 43 mmHg (35-46) Arterial Blood pO2 at Patient Temp 85 mmHg (65-108) Arterial Blood HCO3 23 mmol/L (21-28) Arterial Blood Base Excess -3 mmol/L (-3-3) Oxyhemoglobin 93.7 % Methemoglobin 0.5 % (0.0-1.9) Carbon Monoxide, Quantitative 0.4 % (0.0-1.9) FiO2 100 Urine Color Yellow Urine Clarity Clear Urine pH 5.5 Urine Specific [place] >=1.030 Urine Protein 100 mg/dL (NEG-TRACE) Urine Glucose (UA) >=1000 mg/dL (NEG) Urine Ketones (Stick) 15 mg/dL (NEG) Urine Blood Moderate (NEG) Urine Nitrite Negative (NEG) Urine Bilirubin Negative (NEG) Urine Urobilinogen Dipstick 0.2 mg/dL (0.2 mg/dL) Urine Leukocyte Esterase Negative (NEG) Urine RBC 3-5 /HPF (0-2) Urine WBC Occ /HPF (0-4) Urine Squamous Epithelial Cells Occ /LPF Urine Bacteria 0 /HPF (0-FEW) Test 09/17/16 20:20 09/18/16 04:35 09/18/16 07:19 09/18/16 11:53 Glucose (Fingerstick) 291 mg/dL (70-99) 231 mg/dL (70-99) 278 mg/dL (70-99) Vancomycin Level Trough 6.0 mcg/mL (10.0-20.0) Vancomycin Last Dose Date 09/18/16 Vancomycin Last Dose Time 2300 Test 09/18/16 16:24 09/18/16 20:48 09/19/16 01:02 09/19/16 04:12 Glucose (Fingerstick) 242 mg/dL (70-99) 227 mg/dL (70-99) 180 mg/dL (70-99) White Blood Count 37.9 x10^3/uL (4.0-11.0) Red Blood Count 3.82 x10^6/uL (4.30-5.70) Hemoglobin 11.7 g/dL (13.0-17.5) Hematocrit 35.9 % (39.0-53.0) Mean Corpuscular Volume 94 fL (79-100) Mean Corpuscular Hemoglobin 31 pg (25-35) Mean Corpuscular Hemoglobin Concent 33 g/dL (31-37) Red Cell Distribution Width 18.0 % (11.5-14.5) Platelet Count 133 x10^3/uL (140-400) Sodium Level 138 mmol/L (136-145) Potassium Level 4.8 mmol/L (3.5-5.1) Chloride Level 102 mmol/L (98-107) Carbon Dioxide Level 31 mmol/L (21-32) Anion Gap 5 (6-14) Blood Urea Nitrogen 22 mg/dL (8-26) Creatinine 1.0 mg/dL (0.7-1.3) Estimated GFR (Cockcroft-Gault) 76.2 Glucose Level 183 mg/dL (70-99) Calcium Level 8.6 mg/dL (8.5-10.1) Vancomycin Level Trough 12.4 mcg/mL (10.0-20.0) Vancomycin Last Dose Date 09/18/16 Vancomycin Last Dose Time 1701 Test 09/19/16 04:53 09/19/16 07:24 09/19/16 10:35 Glucose (Fingerstick) 174 mg/dL (70-99) 173 mg/dL (70-99) 206 mg/dL (70-99) Laboratory Tests Test 09/18/16 16:24 09/18/16 20:48 09/19/16 01:02 09/19/16 04:12 Glucose (Fingerstick) 242 mg/dL (70-99) 227 mg/dL (70-99) 180 mg/dL (70-99) White Blood Count 37.9 x10^3/uL (4.0-11.0) Red Blood Count 3.82 x10^6/uL (4.30-5.70) Hemoglobin 11.7 g/dL (13.0-17.5) Hematocrit 35.9 % (39.0-53.0) Mean Corpuscular Volume 94 fL (79-100) Mean Corpuscular Hemoglobin 31 pg (25-35) Mean Corpuscular Hemoglobin Concent 33 g/dL (31-37) Red Cell Distribution Width 18.0 % (11.5-14.5) Platelet Count 133 x10^3/uL (140-400) Sodium Level 138 mmol/L (136-145) Potassium Level 4.8 mmol/L (3.5-5.1) Chloride Level 102 mmol/L (98-107) Carbon Dioxide Level 31 mmol/L (21-32) Anion Gap 5 (6-14) Blood Urea Nitrogen 22 mg/dL (8-26) Creatinine 1.0 mg/dL (0.7-1.3) Estimated GFR (Cockcroft-Gault) 76.2 Glucose Level 183 mg/dL (70-99) Calcium Level 8.6 mg/dL (8.5-10.1) Vancomycin Level Trough 12.4 mcg/mL (10.0-20.0) Vancomycin Last Dose Date 09/18/16 Vancomycin Last Dose Time 1701 Test 09/19/16 04:53 09/19/16 07:24 09/19/16 10:35 Glucose (Fingerstick) 174 mg/dL (70-99) 173 mg/dL (70-99) 206 mg/dL (70-99) Medications Active Scripts Medications Dose Route/Sig Max Daily Dose Days Date Category Atorvastatin Calcium 10 Mg Tablet 1 Tab PO DAILY 07/12/16 Reported Glyburide 1.25 Mg Tablet 1.25 Mg PO DAILY 07/12/16 Reported Janumet 50-1,000 Mg Tablet (Sitagliptin Phos/Metformin Hcl) 1 Each Tablet 1 Tab PO BID 07/12/16 Reported Trulicity (Dulaglutide) 0.75 Mg/0.5 Ml Pen.injctr 0.75 Mg SQ 07/12/16 Reported Lisinopril 2.5 Mg Tablet 1 Tab PO DAILY 07/12/16 Reported Impression . 1. Abnormal x-ray revealing left pleural effusion with volume loss along with right lower lobe opacity compatible with pneumonia. 2. Fever, suspect secondary to pneumonia. 3. Acute respiratory failure secondary to above. 4. Abnormal x-ray compatible with pneumonia. Cover for both gram-positive and gram-negative organisms. 5. Chronic lymphocytic leukemia. 6. Obstructive sleep apnea. 7. Type 2 diabetes. 8. Tobacco dependence. 9. Acute exacerbation of chronic obstructive pulmonary disease. CT REPORT Marked consolidation in the lower lobes right greater than left compatible with pneumonia. Additional patchy non solid opacities are seen in the upper lobes which are probably inflammatory in nature. Extensive axillary and mediastinal adenopathy slightly worse than on the prior exam. Known splenomegaly and cholelithiasis is reproduced Plan . NO SIGN OF MALIGNANCY ON CT I THINK IT IS ALL PNEUMONIA WILL NEED A REPEAT CT IN 6 WEEKS 1. We will concur with current broad-coverage antibiotics. 2. CT of the chest.SE REPORT 3. DECREASE 02 4. We will add DVT prophylaxis. PAYTON CHAVIRA MD September 19, 2016 12:41
[2016-09-19] MEDS ORDERED: VANCOMYCIN 1.75 GM in IV NORMAL SALINE 500ML BAG 500 ML IV SCH (14:00)
[2016-09-19 15:24] VITALS: BP 112/59
[2016-09-19] MEDS: VANCOMYCIN 1.5 GM in IV NORMAL SALINE 500ML BAG 500 ML IV SCH ×2 (16:10→22:08)
[2016-09-19] MEDS: ENOXAPARIN 40 MG/0.4 ML SYRINGE. SQ SCH (18:44)
[2016-09-19 19:00] VITALS: BP 145/70
[2016-09-19] MEDS: ATORVASTATIN CALCIUM 10 MG TABLET. PO SCH (22:05)
[2016-09-19] MEDS: INSULIN DETEMIR 300 UNITS/3 ML INSULN.PEN. SQ SCH (22:20)
[2016-09-19 23:00] VITALS: BP 136/64
[2016-09-20 03:00] VITALS: BP 143/74
[2016-09-20] MEDS: POTASSIUM CL 20MEQ-0.45% NACL 1,000 ML IV SCH (03:20)
[2016-09-20] MEDS: VANCOMYCIN 1.5 GM in IV NORMAL SALINE 500ML BAG 500 ML IV SCH (06:00)
[2016-09-20 06:10] LABS: HEMATOCRIT 31.1 % (39.0-53.0); HEMOGLOBIN 10.5 g/dL (13.0-17.5); RED BLOOD COUNT 3.36 x10^6/uL (4.30-5.70); RED CELL DISTRIBUTION WIDTH 17.5 % (11.5-14.5); WHITE BLOOD COUNT 26.1 x10^3/uL (4.0-11.0)
[2016-09-20 06:23] LABS: CALCIUM 8.1 mg/dL (8.5-10.1); CREATININE 0.8 mg/dL (0.7-1.3); GFR 98.6; POTASSIUM 4.4 mmol/L (3.5-5.1)
[2016-09-20] MEDS: PIPERACILLIN/TAZOBACTAM 4.5 GM in IV NORMAL SALINE 100ML 100 ML IV SCH ×5 (06:41→18:00)
[2016-09-20 07:00] VITALS: BP 139/71
[2016-09-20] MEDS: VANCOMYCIN PER PHARMACY MC PRN (07:10)
[2016-09-20] MEDS: IPRATRPIUM/ALBUTEROL 0.5/2.5MG 3 ML NEBU. NEB SCH ×4 (07:53→20:16)
[2016-09-20] MEDS: ASPIRIN ENTERIC COATED 81 MG TABLET.DR. PO SCH (08:30)
[2016-09-20] MEDS: LINAGLIPTIN 5 MG TABLET PO SCH (08:31)
[2016-09-20] MEDS: LISINOPRIL 20 MG TABLET PO SCH (08:31)
[2016-09-20] MEDS: INSULIN ASPART 300 UNITS/3 ML INSULN.PEN SQ SCH ×4 (08:38→21:00)
--- NOTE | 2016-09-20 09:25 | PDOC ---
SUBJECTIVE Subjective feels better on O2 [facility]. OBJECTIVE Vital Signs Vital Signs Date Time Temp Pulse Resp B/P (MAP) Pulse Ox O2 Delivery O2 Flow Rate FiO2 09/20/16 08:31 139/71 09/20/16 07:55 92 Nasal Cannula 5.0 09/20/16 03:00 97.7 114 20 143/74 (97) 91 Nasal Cannula 5.0 97.7 09/19/16 23:00 97.9 116 20 136/64 (88) 92 Nasal Cannula 5.0 97.9 09/19/16 22:26 94 Nasal Cannula 5.0 09/19/16 20:00 Nasal Cannula 5.0 09/19/16 19:11 Nasal Cannula 5.0 09/19/16 19:00 97.7 118 20 145/70 (95) 94 Nasal Cannula 5.0 97.7 09/19/16 16:14 93 Nasal Cannula 5.0 09/19/16 15:24 97.7 109 18 112/59 (76) 95 Nasal Cannula 5.0 97.7 09/19/16 11:39 93 Nasal Cannula 5.0 09/19/16 11:00 97.5 105 18 120/64 (82) 93 Venturi Mask 15.0 97.5 09/19/16 10:29 Nasal Cannula 5.0 09/19/16 09:31 111 124/62 09/19/16 09:29 Room Air I & O Intake and Output 09/20/16 07:00 Output Total 725 ml Balance -725 ml Output Urine Total 725 ml # Voids 1 PHYSICAL EXAM Physical Exam lungs fairly good air movement, few ronchi in bases her RRR abd obese soft ext trace edema ASSESSMENT/PLAN Assessment/Plan 1. Acute hypoxic respiratory failure due to pneumonia and COPD execerbation 2. Pneumonia, both lower lobes 3. Chronic lymphocytic leukemia. His white count normally is around 30,000. improved significantly seeems close to baseline now 4. Diabetes mellitus type 2. 5. Tobaccoism. 6. Chronic obstructive pulmonary disease. 7. Hypertension and hyperlipidemia. 8. Sleep apnea. continue supportive plans still requiring high O2, will try to wean hope for discharge in couple more days Dr. Sinha is covering starting tomorrow Problems: COMMENT Lab Laboratory Tests Test 09/19/16 10:35 09/19/16 16:51 09/19/16 21:02 09/20/16 05:50 Glucose (Fingerstick) 206 mg/dL (70-99) 189 mg/dL (70-99) 167 mg/dL (70-99) White Blood Count 26.1 x10^3/uL (4.0-11.0) Red Blood Count 3.36 x10^6/uL (4.30-5.70) Hemoglobin 10.5 g/dL (13.0-17.5) Hematocrit 31.1 % (39.0-53.0) Mean Corpuscular Volume 92 fL (79-100) Mean Corpuscular Hemoglobin 31 pg (25-35) Mean Corpuscular Hemoglobin Concent 34 g/dL (31-37) Red Cell Distribution Width 17.5 % (11.5-14.5) Platelet Count 117 x10^3/uL (140-400) Sodium Level 137 mmol/L (136-145) Potassium Level 4.4 mmol/L (3.5-5.1) Chloride Level 101 mmol/L (98-107) Carbon Dioxide Level 32 mmol/L (21-32) Anion Gap 4 (6-14) Blood Urea Nitrogen 16 mg/dL (8-26) Creatinine 0.8 mg/dL (0.7-1.3) Estimated GFR (Cockcroft-Gault) 98.6 Glucose Level 177 mg/dL (70-99) Calcium Level 8.1 mg/dL (8.5-10.1) Vancomycin Level Trough 20.6 mcg/mL (10.0-20.0) Vancomycin Last Dose Date 09/19/16 Vancomycin Last Dose Time 2200 JOHNNY WORTHY MD September 20, 2016 09:25
--- NOTE | 2016-09-20 09:38 | RAD ---
Chest, 2 views, 09/20/2016: History: Pneumonia, shortness of breath, lymphoma Comparison is made to a study from 09/17/2016. The heart is within normal limits in size. There is ongoing mediastinal adenopathy. There are moderate infiltrates in the lower chest with bilateral pleural effusions. The infiltrates have worsened slightly with increasing pleural fluid on the right. There is no evidence of pneumothorax. Moderate spurring is present in the spine. IMPRESSION: Moderate bilateral lower chest infiltrates have worsened slightly with increasing small pleural effusions. The findings suggest pneumonia, although a component of pulmonary edema is possible.
[2016-09-20 11:00] VITALS: BP 139/72
[2016-09-20] MEDS: VANCOMYCIN 1.25 GM in IV NORMAL SALINE 250ML 250 ML IV SCH ×2 (11:18→16:00)
--- NOTE | 2016-09-20 12:22 | PDOC ---
PULMONARY PROGRESS NOTES Subjective PT FEEL BETTER LESS SOA Vitals Vital Signs Date Time Temp Pulse Resp B/P (MAP) Pulse Ox O2 Delivery O2 Flow Rate FiO2 09/20/16 11:51 Nasal Cannula 5.0 09/20/16 11:00 97.9 109 20 139/72 (94) 95 97.9 ROS: No Nausea, No Chest Pain, No Abdominal Pain, No Increase Cough General: Alert Lungs: Crackles Cardiovascular: S1, S2 Abdomen: Soft Neuro Exam: Alert Extremities: No Edema Skin: Warm Labs Laboratory Tests Test 09/18/16 16:24 09/18/16 20:48 09/19/16 01:02 09/19/16 04:12 Glucose (Fingerstick) 242 mg/dL (70-99) 227 mg/dL (70-99) 180 mg/dL (70-99) White Blood Count 37.9 x10^3/uL (4.0-11.0) Red Blood Count 3.82 x10^6/uL (4.30-5.70) Hemoglobin 11.7 g/dL (13.0-17.5) Hematocrit 35.9 % (39.0-53.0) Mean Corpuscular Volume 94 fL (79-100) Mean Corpuscular Hemoglobin 31 pg (25-35) Mean Corpuscular Hemoglobin Concent 33 g/dL (31-37) Red Cell Distribution Width 18.0 % (11.5-14.5) Platelet Count 133 x10^3/uL (140-400) Sodium Level 138 mmol/L (136-145) Potassium Level 4.8 mmol/L (3.5-5.1) Chloride Level 102 mmol/L (98-107) Carbon Dioxide Level 31 mmol/L (21-32) Anion Gap 5 (6-14) Blood Urea Nitrogen 22 mg/dL (8-26) Creatinine 1.0 mg/dL (0.7-1.3) Estimated GFR (Cockcroft-Gault) 76.2 Glucose Level 183 mg/dL (70-99) Calcium Level 8.6 mg/dL (8.5-10.1) Vancomycin Level Trough 12.4 mcg/mL (10.0-20.0) Vancomycin Last Dose Date 09/18/16 Vancomycin Last Dose Time 1702 Test 09/19/16 04:53 09/19/16 07:24 09/19/16 10:35 09/19/16 16:51 Glucose (Fingerstick) 174 mg/dL (70-99) 173 mg/dL (70-99) 206 mg/dL (70-99) 189 mg/dL (70-99) Test 09/19/16 21:02 09/20/16 05:50 09/20/16 10:49 Glucose (Fingerstick) 167 mg/dL (70-99) 221 mg/dL (70-99) White Blood Count 26.1 x10^3/uL (4.0-11.0) Red Blood Count 3.36 x10^6/uL (4.30-5.70) Hemoglobin 10.5 g/dL (13.0-17.5) Hematocrit 31.1 % (39.0-53.0) Mean Corpuscular Volume 92 fL (79-100) Mean Corpuscular Hemoglobin 31 pg (25-35) Mean Corpuscular Hemoglobin Concent 34 g/dL (31-37) Red Cell Distribution Width 17.5 % (11.5-14.5) Platelet Count 117 x10^3/uL (140-400) Sodium Level 137 mmol/L (136-145) Potassium Level 4.4 mmol/L (3.5-5.1) Chloride Level 101 mmol/L (98-107) Carbon Dioxide Level 32 mmol/L (21-32) Anion Gap 4 (6-14) Blood Urea Nitrogen 16 mg/dL (8-26) Creatinine 0.8 mg/dL (0.7-1.3) Estimated GFR (Cockcroft-Gault) 98.6 Glucose Level 177 mg/dL (70-99) Calcium Level 8.1 mg/dL (8.5-10.1) Vancomycin Level Trough 20.6 mcg/mL (10.0-20.0) Vancomycin Last Dose Date 09/19/16 Vancomycin Last Dose Time 2200 Laboratory Tests Test 09/19/16 16:51 09/19/16 21:02 09/20/16 05:50 09/20/16 10:49 Glucose (Fingerstick) 189 mg/dL (70-99) 167 mg/dL (70-99) 221 mg/dL (70-99) White Blood Count 26.1 x10^3/uL (4.0-11.0) Red Blood Count 3.36 x10^6/uL (4.30-5.70) Hemoglobin 10.5 g/dL (13.0-17.5) Hematocrit 31.1 % (39.0-53.0) Mean Corpuscular Volume 92 fL (79-100) Mean Corpuscular Hemoglobin 31 pg (25-35) Mean Corpuscular Hemoglobin Concent 34 g/dL (31-37) Red Cell Distribution Width 17.5 % (11.5-14.5) Platelet Count 117 x10^3/uL (140-400) Sodium Level 137 mmol/L (136-145) Potassium Level 4.4 mmol/L (3.5-5.1) Chloride Level 101 mmol/L (98-107) Carbon Dioxide Level 32 mmol/L (21-32) Anion Gap 4 (6-14) Blood Urea Nitrogen 16 mg/dL (8-26) Creatinine 0.8 mg/dL (0.7-1.3) Estimated GFR (Cockcroft-Gault) 98.6 Glucose Level 177 mg/dL (70-99) Calcium Level 8.1 mg/dL (8.5-10.1) Vancomycin Level Trough 20.6 mcg/mL (10.0-20.0) Vancomycin Last Dose Date 09/19/16 Vancomycin Last Dose Time 2200 Medications Active Scripts Medications Dose Route/Sig Max Daily Dose Days Date Category Atorvastatin Calcium 10 Mg Tablet 1 Tab PO DAILY 07/12/16 Reported Glyburide 1.25 Mg Tablet 1.25 Mg PO DAILY 07/12/16 Reported Janumet 50-1,000 Mg Tablet (Sitagliptin Phos/Metformin Hcl) 1 Each Tablet 1 Tab PO BID 07/12/16 Reported Trulicity (Dulaglutide) 0.75 Mg/0.5 Ml Pen.injctr 0.75 Mg SQ 07/12/16 Reported Lisinopril 2.5 Mg Tablet 1 Tab PO DAILY 07/12/16 Reported Impression . 1. Abnormal x-ray revealing left pleural effusion with volume loss along with right lower lobe opacity compatible with pneumonia. 2. Fever, suspect secondary to pneumonia. 3. Acute respiratory failure secondary to above. 4. Abnormal x-ray compatible with pneumonia. Cover for both gram-positive and gram-negative organisms. 5. Chronic lymphocytic leukemia. 6. Obstructive sleep apnea. 7. Type 2 diabetes. 8. Tobacco dependence. 9. Acute exacerbation of chronic obstructive pulmonary disease. CT REPORT Marked consolidation in the lower lobes right greater than left compatible with pneumonia. Additional patchy non solid opacities are seen in the upper lobes which are probably inflammatory in nature. Extensive axillary and mediastinal adenopathy slightly worse than on the prior exam. Known splenomegaly and cholelithiasis is reproduced Plan . NO SIGN OF MALIGNANCY ON CT I THINK IT IS ALL PNEUMONIA WILL NEED A REPEAT CT IN 6 WEEKS CONTINUE ANTIBX PT WISHES TO GO HOME PRIOR TO WEEKEND OK BY ME POSSIBLE D/C SAT WILL SET UP 02 FOLLOW UP IN MY OFFICE IN 4-6 WEEKS PAYTON CHAVIRA MD September 20, 2016 12:22
[2016-09-20 15:00] VITALS: BP 141/72
[2016-09-20] MEDS: ENOXAPARIN 40 MG/0.4 ML SYRINGE. SQ SCH (17:18)
[2016-09-20 19:00] VITALS: BP 146/77
[2016-09-20] MEDS: ALPRAZolam 0.5 MG TABLET PO PRN (21:19)
[2016-09-20] MEDS: ATORVASTATIN CALCIUM 10 MG TABLET. PO SCH (21:19)
[2016-09-20] MEDS: INSULIN DETEMIR 300 UNITS/3 ML INSULN.PEN. SQ SCH (21:32)
[2016-09-20 23:00] VITALS: BP 137/69
[2016-09-21 03:00] VITALS: BP 141/79
[2016-09-21 05:25] LABS: HEMATOCRIT 34.4 % (39.0-53.0); RED BLOOD COUNT 3.64 x10^6/uL (4.30-5.70); RED CELL DISTRIBUTION WIDTH 17.6 % (11.5-14.5)
[2016-09-21 05:52] LABS: CALCIUM 8.4 mg/dL (8.5-10.1); CREATININE 0.9 mg/dL (0.7-1.3); GFR 86.1; POTASSIUM 4.1 mmol/L (3.5-5.1)
[2016-09-21] MEDS: PIPERACILLIN/TAZOBACTAM 4.5 GM in IV NORMAL SALINE 100ML 100 ML IV SCH ×6 (06:00→23:09)
[2016-09-21 07:00] VITALS: BP 147/78
[2016-09-21] MEDS: IPRATRPIUM/ALBUTEROL 0.5/2.5MG 3 ML NEBU. NEB SCH ×4 (07:22→19:58)
[2016-09-21] MEDS: VANCOMYCIN 1.25 GM in IV NORMAL SALINE 250ML 250 ML IV SCH ×5 (08:00→20:38)
[2016-09-21] MEDS: INSULIN ASPART 300 UNITS/3 ML INSULN.PEN SQ SCH ×4 (08:21→20:42)
[2016-09-21] MEDS: LISINOPRIL 20 MG TABLET PO SCH (08:23)
[2016-09-21] MEDS: LINAGLIPTIN 5 MG TABLET PO SCH (08:24)
[2016-09-21] MEDS: ASPIRIN ENTERIC COATED 81 MG TABLET.DR. PO SCH (08:24)
--- NOTE | 2016-09-21 08:25 | PDOC ---
Provider Note Provider Note vss, no temp- still c/o prod cough, more orthoopnea- looks wet, bibasilar rales , 2+ leg edema- will give iv lasix, echo, tsh- may be Na+ retention from zosyn- vanc dose reduced re high trough level. may not need as CAP but copd/cll THOMAS TRINH MD September 21, 2016 08:25
[2016-09-21] MEDS ORDERED: FUROSEMIDE 40 MG/4 ML VIAL. IVP ONE (08:30)
[2016-09-21 11:00] VITALS: BP 151/77
--- NOTE | 2016-09-21 13:23 | CARD ---
APPROVED REPORT EXAM: Two-dimensional and M-mode echocardiogram with Doppler and color Doppler. Other Information Quality : Good Rhythm : Tachycardia INDICATION Dyspnea Peripheral Edema 2D DIMENSIONS RVDd3.0 (2.9-3.5cm)Left Atrium(2D)3.8 (1.6-4.0cm) IVSd0.9 (0.7-1.1cm)Aortic Root(2D)2.5 (2.0-3.7cm) LVDd5.1 (3.9-5.9cm)LVOT Diameter2.3 (1.8-2.4cm) PWd1.0 (0.7-1.1cm)LVDs3.1 (2.5-4.0cm) FS (%) 30.0 %SV83.8 ml LVEF(%)60.0 (>50%) Aortic Valve AoV Peak Mehran.188.2cm/sAoV VTI30.3cm AO Peak GR.14.2mmHgLVOT Peak Mehran.134.9cm/s LVOT VTI 22.72cmAO Mean GR.8mmHg ANIYA (VMAX)3.12pr5NJV (VTI)3.24cm2 Mitral Valve MV E Cqlnzkvr027.4cm/sMV DECEL IYQI169de MV A Erftoibi511.2cm/sMV RHC81vu E/A Ratio1.1MVA (PHT)3.31cm2 TDI E/Lateral E'8.7E/Medial E'13.9 Pulmonary Vein S1 Uneitwpk00.3cm/sD2 Lmddizwc33.5cm/s LEFT VENTRICLE The left ventricle is normal size. There is normal left ventricular wall thickness. The left ventricu lar systolic function is normal and the ejection fraction is within normal range. The Ejection Fracti on is 60%. There is normal LV segmental wall motion. Transmitral Doppler flow pattern is Grade I-abno rmal relaxation pattern. RIGHT VENTRICLE The right ventricle is normal size. The right ventricular systolic function is normal. ATRIA The left atrium size is normal. The right atrium size is normal. The interatrial septum is intact wit h no evidence for an atrial septal defect or patent foramen ovale as noted on 2-D or Doppler imaging. AORTIC VALVE The aortic valve is calcified but opens well. Doppler and Color Flow revealed no significant aortic r egurgitation. There is no significant aortic valvular stenosis. MITRAL VALVE The mitral valve is normal in structure There is no evidence of mitral valve prolapse. There is no mi tral valve stenosis. Doppler and Color-flow revealed mild to moderate mitral regurgitation. TRICUSPID VALVE The tricuspid valve is normal in structure and function. Doppler and Color Flow revealed no tricuspid valve regurgitation noted. There is no tricuspid valve stenosis. PULMONIC VALVE The pulmonary valve is normal in structure Doppler and Color Flow revealed trace pulmonic valvular re gurgitation. There is no pulmonic valvular stenosis. GREAT VESSELS The aortic root is normal in size. The ascending aorta is normal in size. The IVC is dilated and cameron apses >50% with inspiration. PERICARDIAL EFFUSION There is no evidence of significant pericardial effusion. Critical Notification Critical Value: No <Conclusion> The left ventricular systolic function is normal and the ejection fraction is within normal range. The Ejection Fraction is 60%. Transmitral Doppler flow pattern is Grade I-abnormal relaxation pattern. The left atrium size is normal. The right atrium size is normal. The aortic valve is calcified but opens well. Doppler and Color-flow revealed mild to moderate mitral regurgitation. The tricuspid valve is normal in structure and function. Doppler and Color Flow revealed trace pulmonic valvular regurgitation. There is no evidence of significant pericardial effusion.
[2016-09-21 14:50] VITALS: BP 128/65
[2016-09-21] MEDS: VANCOMYCIN PER PHARMACY MC PRN (14:52)
--- NOTE | 2016-09-21 16:48 | PDOC ---
PULMONARY PROGRESS NOTES Subjective PT FEEL BETTER LESS SOA Vitals Vital Signs Date Time Temp Pulse Resp B/P (MAP) Pulse Ox O2 Delivery O2 Flow Rate FiO2 09/21/16 15:31 90 Nasal Cannula 5.0 09/21/16 14:50 98.1 114 22 128/65 (86) 98.1 ROS: No Nausea, No Chest Pain, No Abdominal Pain, No Increase Cough General: Alert Lungs: Crackles Cardiovascular: S1, S2 Abdomen: Soft Neuro Exam: Alert Extremities: No Edema Skin: Warm Labs Laboratory Tests Test 09/19/16 16:51 09/19/16 21:02 09/20/16 05:50 09/20/16 08:20 Glucose (Fingerstick) 189 mg/dL (70-99) 167 mg/dL (70-99) 160 mg/dL (70-99) White Blood Count 26.1 x10^3/uL (4.0-11.0) Red Blood Count 3.36 x10^6/uL (4.30-5.70) Hemoglobin 10.5 g/dL (13.0-17.5) Hematocrit 31.1 % (39.0-53.0) Mean Corpuscular Volume 92 fL (79-100) Mean Corpuscular Hemoglobin 31 pg (25-35) Mean Corpuscular Hemoglobin Concent 34 g/dL (31-37) Red Cell Distribution Width 17.5 % (11.5-14.5) Platelet Count 117 x10^3/uL (140-400) Sodium Level 137 mmol/L (136-145) Potassium Level 4.4 mmol/L (3.5-5.1) Chloride Level 101 mmol/L (98-107) Carbon Dioxide Level 32 mmol/L (21-32) Anion Gap 4 (6-14) Blood Urea Nitrogen 16 mg/dL (8-26) Creatinine 0.8 mg/dL (0.7-1.3) Estimated GFR (Cockcroft-Gault) 98.6 Glucose Level 177 mg/dL (70-99) Calcium Level 8.1 mg/dL (8.5-10.1) Vancomycin Level Trough 20.6 mcg/mL (10.0-20.0) Vancomycin Last Dose Date 09/19/16 Vancomycin Last Dose Time 2200 Test 09/20/16 10:49 09/20/16 16:42 09/20/16 20:54 09/21/16 04:35 Glucose (Fingerstick) 221 mg/dL (70-99) 190 mg/dL (70-99) 202 mg/dL (70-99) White Blood Count 24.0 x10^3/uL (4.0-11.0) Red Blood Count 3.64 x10^6/uL (4.30-5.70) Hemoglobin 11.0 g/dL (13.0-17.5) Hematocrit 34.4 % (39.0-53.0) Mean Corpuscular Volume 95 fL (79-100) Mean Corpuscular Hemoglobin 30 pg (25-35) Mean Corpuscular Hemoglobin Concent 32 g/dL (31-37) Red Cell Distribution Width 17.6 % (11.5-14.5) Platelet Count 115 x10^3/uL (140-400) Sodium Level 138 mmol/L (136-145) Potassium Level 4.1 mmol/L (3.5-5.1) Chloride Level 99 mmol/L (98-107) Carbon Dioxide Level 32 mmol/L (21-32) Anion Gap 7 (6-14) Blood Urea Nitrogen 12 mg/dL (8-26) Creatinine 0.9 mg/dL (0.7-1.3) Estimated GFR (Cockcroft-Gault) 86.1 Glucose Level 190 mg/dL (70-99) Calcium Level 8.4 mg/dL (8.5-10.1) Thyroid Stimulating Hormone (TSH) 0.363 uIU/mL (0.358-3.74) Test 09/21/16 07:29 09/21/16 10:54 09/21/16 16:30 Glucose (Fingerstick) 178 mg/dL (70-99) 227 mg/dL (70-99) 200 mg/dL (70-99) Laboratory Tests Test 09/20/16 20:54 09/21/16 04:35 09/21/16 07:29 09/21/16 10:54 Glucose (Fingerstick) 202 mg/dL (70-99) 178 mg/dL (70-99) 227 mg/dL (70-99) White Blood Count 24.0 x10^3/uL (4.0-11.0) Red Blood Count 3.64 x10^6/uL (4.30-5.70) Hemoglobin 11.0 g/dL (13.0-17.5) Hematocrit 34.4 % (39.0-53.0) Mean Corpuscular Volume 95 fL (79-100) Mean Corpuscular Hemoglobin 30 pg (25-35) Mean Corpuscular Hemoglobin Concent 32 g/dL (31-37) Red Cell Distribution Width 17.6 % (11.5-14.5) Platelet Count 115 x10^3/uL (140-400) Sodium Level 138 mmol/L (136-145) Potassium Level 4.1 mmol/L (3.5-5.1) Chloride Level 99 mmol/L (98-107) Carbon Dioxide Level 32 mmol/L (21-32) Anion Gap 7 (6-14) Blood Urea Nitrogen 12 mg/dL (8-26) Creatinine 0.9 mg/dL (0.7-1.3) Estimated GFR (Cockcroft-Gault) 86.1 Glucose Level 190 mg/dL (70-99) Calcium Level 8.4 mg/dL (8.5-10.1) Thyroid Stimulating Hormone (TSH) 0.363 uIU/mL (0.358-3.74) Test 09/21/16 16:30 Glucose (Fingerstick) 200 mg/dL (70-99) Medications Active Scripts Medications Dose Route/Sig Max Daily Dose Days Date Category Atorvastatin Calcium 10 Mg Tablet 1 Tab PO DAILY 07/12/16 Reported Glyburide 1.25 Mg Tablet 1.25 Mg PO DAILY 07/12/16 Reported Janumet 50-1,000 Mg Tablet (Sitagliptin Phos/Metformin Hcl) 1 Each Tablet 1 Tab PO BID 07/12/16 Reported Trulicity (Dulaglutide) 0.75 Mg/0.5 Ml Pen.injctr 0.75 Mg SQ 07/12/16 Reported Lisinopril 2.5 Mg Tablet 1 Tab PO DAILY 07/12/16 Reported Impression . 1. Abnormal x-ray revealing left pleural effusion with volume loss along with right lower lobe opacity compatible with pneumonia. 2. Fever, suspect secondary to pneumonia. 3. Acute respiratory failure secondary to above. 4. Abnormal x-ray compatible with pneumonia. Cover for both gram-positive and gram-negative organisms. 5. Chronic lymphocytic leukemia. 6. Obstructive sleep apnea. 7. Type 2 diabetes. 8. Tobacco dependence. 9. Acute exacerbation of chronic obstructive pulmonary disease. CT REPORT Marked consolidation in the lower lobes right greater than left compatible with pneumonia. Additional patchy non solid opacities are seen in the upper lobes which are probably inflammatory in nature. Extensive axillary and mediastinal adenopathy slightly worse than on the prior exam. Known splenomegaly and cholelithiasis is reproduced Plan . DIURESE AGREE NO SIGN OF MALIGNANCY ON CT I THINK IT IS ALL PNEUMONIA WILL NEED A REPEAT CT IN 6 WEEKS CONTINUE ANTIBX POSSIBLE D/C SAT WILL SET UP 02 FOLLOW UP IN MY OFFICE IN 4-6 WEEKS ECHO The left ventricular systolic function is normal and the ejection fraction is within normal range. The Ejection Fraction is 60%. Transmitral Doppler flow pattern is Grade I-abnormal relaxation pattern. The left atrium size is normal. The right atrium size is normal. The aortic valve is calcified but opens well. Doppler and Color-flow revealed mild to moderate mitral regurgitation. The tricuspid valve is normal in structure and function. Doppler and Color Flow revealed trace pulmonic valvular regurgitation. There is no evidence of significant pericardial effusion. PAYTON CHAVIRA MD September 21, 2016 16:48
[2016-09-21] MEDS: ENOXAPARIN 40 MG/0.4 ML SYRINGE. SQ SCH (17:21)
[2016-09-21 19:00] VITALS: BP 120/65
[2016-09-21] MEDS: ATORVASTATIN CALCIUM 10 MG TABLET. PO SCH (20:37)
[2016-09-21] MEDS: INSULIN DETEMIR 300 UNITS/3 ML INSULN.PEN. SQ SCH (20:41)
[2016-09-21 23:00] VITALS: BP 128/67
[2016-09-22] MEDS ORDERED: ALPRAZolam 0.5 MG TABLET PO PRN (00:45)
[2016-09-22 03:00] VITALS: BP 134/73
[2016-09-22] MEDS: oxyCODONE/APAP 5/325 1 TAB TABLET PO PRN ×2 (05:30→21:39)
[2016-09-22] MEDS: PIPERACILLIN/TAZOBACTAM 4.5 GM in IV NORMAL SALINE 100ML 100 ML IV SCH (05:30)
[2016-09-22 07:00] VITALS: BP 110/61
[2016-09-22] MEDS: IPRATRPIUM/ALBUTEROL 0.5/2.5MG 3 ML NEBU. NEB SCH ×4 (07:01→20:02)
[2016-09-22] MEDS: LINAGLIPTIN 5 MG TABLET PO SCH (08:26)
[2016-09-22] MEDS: ASPIRIN ENTERIC COATED 81 MG TABLET.DR. PO SCH (08:26)
[2016-09-22] MEDS: INSULIN ASPART 300 UNITS/3 ML INSULN.PEN SQ SCH ×4 (08:33→21:00)
[2016-09-22] MEDS: VANCOMYCIN PER PHARMACY MC PRN (08:37)
[2016-09-22] MEDS: LISINOPRIL 20 MG TABLET PO SCH (08:56)
[2016-09-22] MEDS ORDERED: VANCOMYCIN 1.25 GM in IV NORMAL SALINE 250ML 250 ML IV SCH (09:00)
--- NOTE | 2016-09-22 10:30 | PDOC ---
PULMONARY PROGRESS NOTES Subjective PT FEEL BETTER LESS SOA Vitals Vital Signs Date Time Temp Pulse Resp B/P (MAP) Pulse Ox O2 Delivery O2 Flow Rate FiO2 09/22/16 08:56 103 134/73 09/22/16 07:01 97 Nasal Cannula 5.0 09/22/16 07:00 97.8 20 97.8 ROS: No Nausea, No Chest Pain, No Abdominal Pain, No Increase Cough General: Alert Lungs: Crackles Cardiovascular: S1, S2 Abdomen: Soft Neuro Exam: Alert Extremities: No Edema Skin: Warm Labs Laboratory Tests Test 09/20/16 10:49 09/20/16 16:42 09/20/16 20:54 09/21/16 04:35 Glucose (Fingerstick) 221 mg/dL (70-99) 190 mg/dL (70-99) 202 mg/dL (70-99) White Blood Count 24.0 x10^3/uL (4.0-11.0) Red Blood Count 3.64 x10^6/uL (4.30-5.70) Hemoglobin 11.0 g/dL (13.0-17.5) Hematocrit 34.4 % (39.0-53.0) Mean Corpuscular Volume 95 fL (79-100) Mean Corpuscular Hemoglobin 30 pg (25-35) Mean Corpuscular Hemoglobin Concent 32 g/dL (31-37) Red Cell Distribution Width 17.6 % (11.5-14.5) Platelet Count 115 x10^3/uL (140-400) Sodium Level 138 mmol/L (136-145) Potassium Level 4.1 mmol/L (3.5-5.1) Chloride Level 99 mmol/L (98-107) Carbon Dioxide Level 32 mmol/L (21-32) Anion Gap 7 (6-14) Blood Urea Nitrogen 12 mg/dL (8-26) Creatinine 0.9 mg/dL (0.7-1.3) Estimated GFR (Cockcroft-Gault) 86.1 Glucose Level 190 mg/dL (70-99) Hemoglobin A1c 7.3 % (4.8-5.6) Calcium Level 8.4 mg/dL (8.5-10.1) Thyroid Stimulating Hormone (TSH) 0.363 uIU/mL (0.358-3.74) Test 09/21/16 07:29 09/21/16 10:54 09/21/16 16:30 09/22/16 08:13 Glucose (Fingerstick) 178 mg/dL (70-99) 227 mg/dL (70-99) 200 mg/dL (70-99) 179 mg/dL (70-99) Laboratory Tests Test 09/21/16 10:54 09/21/16 16:30 09/22/16 08:13 Glucose (Fingerstick) 227 mg/dL (70-99) 200 mg/dL (70-99) 179 mg/dL (70-99) Medications Active Scripts Medications Dose Route/Sig Max Daily Dose Days Date Category Atorvastatin Calcium 10 Mg Tablet 1 Tab PO DAILY 07/12/16 Reported Glyburide 1.25 Mg Tablet 1.25 Mg PO DAILY 07/12/16 Reported Janumet 50-1,000 Mg Tablet (Sitagliptin Phos/Metformin Hcl) 1 Each Tablet 1 Tab PO BID 07/12/16 Reported Trulicity (Dulaglutide) 0.75 Mg/0.5 Ml Pen.injctr 0.75 Mg SQ 07/12/16 Reported Lisinopril 2.5 Mg Tablet 1 Tab PO DAILY 07/12/16 Reported Impression . 1. Abnormal x-ray revealing left pleural effusion with volume loss along with right lower lobe opacity compatible with pneumonia. 2. Fever, suspect secondary to pneumonia. 3. Acute respiratory failure secondary to above. 4. Abnormal x-ray compatible with pneumonia. Cover for both gram-positive and gram-negative organisms. 5. Chronic lymphocytic leukemia. 6. Obstructive sleep apnea. 7. Type 2 diabetes. 8. Tobacco dependence. 9. Acute exacerbation of chronic obstructive pulmonary disease. CT REPORT Marked consolidation in the lower lobes right greater than left compatible with pneumonia. Additional patchy non solid opacities are seen in the upper lobes which are probably inflammatory in nature. Extensive axillary and mediastinal adenopathy slightly worse than on the prior exam. Known splenomegaly and cholelithiasis is reproduced Plan . DIURESE DAILY LASIX REPEAT CXR NO SIGN OF MALIGNANCY ON CT I THINK IT IS ALL PNEUMONIA, D/C VANCO, PO ANTIBX WILL NEED A REPEAT CT IN 6 WEEKS CONTINUE ANTIBX WILL SET UP 02 ONCE D/C FOLLOW UP IN MY OFFICE IN 4-6 WEEKS ECHO The left ventricular systolic function is normal and the ejection fraction is within normal range. The Ejection Fraction is 60%. Transmitral Doppler flow pattern is Grade I-abnormal relaxation pattern. The left atrium size is normal. The right atrium size is normal. The aortic valve is calcified but opens well. Doppler and Color-flow revealed mild to moderate mitral regurgitation. The tricuspid valve is normal in structure and function. Doppler and Color Flow revealed trace pulmonic valvular regurgitation. There is no evidence of significant pericardial effusion. PAYTON CHAVIRA MD September 22, 2016 10:30
--- NOTE | 2016-09-22 10:50 | PDOC ---
Provider Note Provider Note vss, no temp, still high flow O2- feels /looks a little better, still sleepy- echo ok, ef 60%, high PA, tsh ok, edema less w/ lasix- cont same today, maybe home 09/23 but will need home O2 THOMAS TRINH MD September 22, 2016 10:50
[2016-09-22] MEDS: FUROSEMIDE 40 MG TABLET. PO SCH (10:52)
[2016-09-22 11:00] VITALS: BP 120/62
[2016-09-22] MEDS: POTASSIUM CHLORIDE 10 MEQ TABLET.ER. PO SCH ×2 (12:15→18:00)
[2016-09-22 15:58] VITALS: BP 136/69
[2016-09-22] MEDS: ENOXAPARIN 40 MG/0.4 ML SYRINGE. SQ SCH (17:42)
[2016-09-22 19:00] VITALS: BP 126/66
[2016-09-22] MEDS: ATORVASTATIN CALCIUM 10 MG TABLET. PO SCH (21:39)
[2016-09-22] MEDS: INSULIN DETEMIR 300 UNITS/3 ML INSULN.PEN. SQ SCH (21:45)
[2016-09-22 23:00] VITALS: BP 121/63
[2016-09-23 03:00] VITALS: BP 125/67
[2016-09-23 07:00] VITALS: BP 123/69
[2016-09-23] MEDS: IPRATRPIUM/ALBUTEROL 0.5/2.5MG 3 ML NEBU. NEB SCH ×4 (07:37→19:21)
[2016-09-23] MEDS: POTASSIUM CHLORIDE 10 MEQ TABLET.ER. PO SCH ×2 (08:04→17:27)
[2016-09-23] MEDS: FUROSEMIDE 40 MG TABLET. PO SCH (08:04)
[2016-09-23] MEDS: ASPIRIN ENTERIC COATED 81 MG TABLET.DR. PO SCH (08:05)
[2016-09-23] MEDS: LISINOPRIL 20 MG TABLET PO SCH (08:05)
[2016-09-23] MEDS: INSULIN ASPART 300 UNITS/3 ML INSULN.PEN SQ SCH (08:10)
--- NOTE | 2016-09-23 09:04 | PDOC ---
PULMONARY PROGRESS NOTES Subjective PT FEEL BETTER LESS SOA Vitals Vital Signs Date Time Temp Pulse Resp B/P (MAP) Pulse Ox O2 Delivery O2 Flow Rate FiO2 09/23/16 08:05 95 123/69 09/23/16 07:41 93 Nasal Cannula 4.0 09/23/16 07:00 97.9 22 97.9 ROS: No Nausea, No Chest Pain, No Abdominal Pain, No Increase Cough General: Alert Lungs: Crackles Cardiovascular: S1, S2 Abdomen: Soft Neuro Exam: Alert Extremities: No Edema Skin: Warm Labs Laboratory Tests Test 09/21/16 10:54 09/21/16 16:30 09/21/16 20:41 09/22/16 08:13 Glucose (Fingerstick) 227 mg/dL (70-99) 200 mg/dL (70-99) 222 mg/dL (70-99) 179 mg/dL (70-99) Test 09/22/16 11:31 09/22/16 16:49 09/22/16 20:45 09/23/16 07:35 Glucose (Fingerstick) 231 mg/dL (70-99) 244 mg/dL (70-99) 187 mg/dL (70-99) 185 mg/dL (70-99) Test 09/23/16 08:20 Vancomycin Level Trough 4.3 mcg/mL (10.0-20.0) Vancomycin Last Dose Date 09/23/16 Vancomycin Last Dose Time 99 Laboratory Tests Test 09/22/16 11:31 09/22/16 16:49 09/22/16 20:45 09/23/16 07:35 Glucose (Fingerstick) 231 mg/dL (70-99) 244 mg/dL (70-99) 187 mg/dL (70-99) 185 mg/dL (70-99) Test 09/23/16 08:20 Vancomycin Level Trough 4.3 mcg/mL (10.0-20.0) Vancomycin Last Dose Date 09/23/16 Vancomycin Last Dose Time 99 Medications Active Scripts Medications Dose Route/Sig Max Daily Dose Days Date Category Atorvastatin Calcium 10 Mg Tablet 1 Tab PO DAILY 07/12/16 Reported Glyburide 1.25 Mg Tablet 1.25 Mg PO DAILY 07/12/16 Reported Janumet 50-1,000 Mg Tablet (Sitagliptin Phos/Metformin Hcl) 1 Each Tablet 1 Tab PO BID 07/12/16 Reported Trulicity (Dulaglutide) 0.75 Mg/0.5 Ml Pen.injctr 0.75 Mg SQ 07/12/16 Reported Lisinopril 2.5 Mg Tablet 1 Tab PO DAILY 07/12/16 Reported Impression . 1. Abnormal x-ray revealing left pleural effusion with volume loss along with right lower lobe opacity compatible with pneumonia. 2. Fever, suspect secondary to pneumonia. 3. Acute respiratory failure secondary to above. 4. Abnormal x-ray compatible with pneumonia. Cover for both gram-positive and gram-negative organisms. 5. Chronic lymphocytic leukemia. 6. Obstructive sleep apnea. 7. Type 2 diabetes. 8. Tobacco dependence. 9. Acute exacerbation of chronic obstructive pulmonary disease. CT REPORT Marked consolidation in the lower lobes right greater than left compatible with pneumonia. Additional patchy non solid opacities are seen in the upper lobes which are probably inflammatory in nature. Extensive axillary and mediastinal adenopathy slightly worse than on the prior exam. Known splenomegaly and cholelithiasis is reproduced Plan . DIURESE DAILY LASIX, CLINICALLY IMPROVED 6 MIN WALK REPEAT CXR NO SIGN OF MALIGNANCY ON CT I THINK IT IS ALL PNEUMONIA, D/C VANCO, PO ANTIBX WILL NEED A REPEAT CT IN 6 WEEKS CONTINUE ANTIBX WILL SET UP 02 ONCE D/C FOLLOW UP IN MY OFFICE IN 4-6 WEEKS ECHO The left ventricular systolic function is normal and the ejection fraction is within normal range. The Ejection Fraction is 60%. Transmitral Doppler flow pattern is Grade I-abnormal relaxation pattern. The left atrium size is normal. The right atrium size is normal. The aortic valve is calcified but opens well. Doppler and Color-flow revealed mild to moderate mitral regurgitation. The tricuspid valve is normal in structure and function. Doppler and Color Flow revealed trace pulmonic valvular regurgitation. There is no evidence of significant pericardial effusion. PAYTON CHAVIRA MD September 23, 2016 09:04
--- NOTE | 2016-09-23 09:26 | RAD ---
EXAM: Chest, single view. HISTORY: Congestive heart failure. COMPARISON: 09/20/2016. FINDINGS: A frontal view of the chest is obtained. There is minimal interval decrease in diffuse lower lobe predominant interstitial infiltrate. There is stable small pleural effusions. The heart is normal in size for portable technique. There is stable widening of the right paratracheal stripe. There is no pneumothorax. IMPRESSION: 1. Minimal interval decrease in diffuse lower lobe predominant infiltrate. 2. Stable small pleural effusions.
--- NOTE | 2016-09-23 10:53 | PDOC ---
Provider Note Provider Note still mildly dyspneic at rest , mild orthopnea- edema same as is cxr- on 4 l at rest, need 8 l per 6 min walk - will resume home metformin and dc insulin he does not take at home- one dose iv lasix as po ineffective clinically THOMAS TRINH MD September 23, 2016 10:53
[2016-09-23 11:00] VITALS: BP 111/59
[2016-09-23] MEDS ORDERED: FUROSEMIDE 100 MG/10 ML VIAL. IVP ONE (11:30)
[2016-09-23] MEDS: GLIMEPIRIDE 2 MG TABLET. PO SCH (11:33)
[2016-09-23] MEDS: LISINOPRIL 2.5 MG TABLET PO SCH (11:33)
[2016-09-23] MEDS: LINAGLIPTIN 5 MG TABLET PO SCH (11:34)
[2016-09-23] MEDS ORDERED: LINAGLIPTIN 5 MG TABLET PO SCH (12:00)
[2016-09-23] MEDS: oxyCODONE/APAP 5/325 1 TAB TABLET PO PRN (12:06)
[2016-09-23] MEDS: glyBURIDE 1.25 MG TABLET PO SCH (12:06)
[2016-09-23 15:00] VITALS: BP 97/56
[2016-09-23] MEDS: ENOXAPARIN 40 MG/0.4 ML SYRINGE. SQ SCH (17:28)
[2016-09-23 19:00] VITALS: BP 118/68
[2016-09-23] MEDS: ATORVASTATIN CALCIUM 10 MG TABLET. PO SCH (20:55)
[2016-09-23] MEDS ORDERED: NON FORMULARY ITEM (Sitagliptin Phos/Metformin Hcl (Janumet 50-1,000 Mg Tablet) 1 TAB) PO SCH (21:00)
[2016-09-23] MEDS ORDERED: ATORVASTATIN CALCIUM 10 MG TABLET. PO SCH (21:00)
[2016-09-23 23:00] VITALS: BP 90/49
[2016-09-24 03:00] VITALS: BP 117/63
[2016-09-24] MEDS: IPRATRPIUM/ALBUTEROL 0.5/2.5MG 3 ML NEBU. NEB SCH ×4 (07:22→19:46)
[2016-09-24 07:40] VITALS: BP 102/57
[2016-09-24] MEDS: glyBURIDE 1.25 MG TABLET PO SCH (08:45)
[2016-09-24] MEDS: LINAGLIPTIN 5 MG TABLET PO SCH (08:45)
[2016-09-24] MEDS: POTASSIUM CHLORIDE 10 MEQ TABLET.ER. PO SCH ×2 (08:46→17:51)
[2016-09-24] MEDS: GLIMEPIRIDE 2 MG TABLET. PO SCH (08:46)
[2016-09-24] MEDS: ASPIRIN ENTERIC COATED 81 MG TABLET.DR. PO SCH (08:46)
[2016-09-24] MEDS: LISINOPRIL 2.5 MG TABLET PO SCH (09:00)
[2016-09-24] MEDS: LISINOPRIL 20 MG TABLET PO SCH (09:00)
[2016-09-24 11:00] VITALS: BP 115/65
--- NOTE | 2016-09-24 12:21 | PDOC ---
PULMONARY PROGRESS NOTES Subjective PT FEEL BETTER LESS SOA Vitals Vital Signs Date Time Temp Pulse Resp B/P (MAP) Pulse Ox O2 Delivery O2 Flow Rate FiO2 09/24/16 11:07 Nasal Cannula 4.0 09/24/16 11:00 98.0 107 20 115/65 (82) 94 98.0 ROS: No Nausea, No Chest Pain, No Abdominal Pain, No Increase Cough General: Alert Lungs: Crackles Cardiovascular: S1, S2 Abdomen: Soft Neuro Exam: Alert Extremities: No Edema Skin: Warm Labs Laboratory Tests Test 09/22/16 16:49 09/22/16 20:45 09/23/16 07:35 09/23/16 08:20 Glucose (Fingerstick) 244 mg/dL (70-99) 187 mg/dL (70-99) 185 mg/dL (70-99) Vancomycin Level Trough 4.3 mcg/mL (10.0-20.0) Vancomycin Last Dose Date 09/23/16 Vancomycin Last Dose Time 0100 Test 09/23/16 10:54 09/23/16 15:59 09/23/16 20:35 09/24/16 08:22 Glucose (Fingerstick) 300 mg/dL (70-99) 152 mg/dL (70-99) 211 mg/dL (70-99) 186 mg/dL (70-99) Test 09/24/16 08:45 09/24/16 11:34 Potassium Level 4.2 mmol/L (3.5-5.1) Glucose (Fingerstick) 169 mg/dL (70-99) Laboratory Tests Test 09/23/16 15:59 09/23/16 20:35 09/24/16 08:22 09/24/16 08:45 Glucose (Fingerstick) 152 mg/dL (70-99) 211 mg/dL (70-99) 186 mg/dL (70-99) Potassium Level 4.2 mmol/L (3.5-5.1) Test 09/24/16 11:34 Glucose (Fingerstick) 169 mg/dL (70-99) Medications Active Scripts Medications Dose Route/Sig Max Daily Dose Days Date Category Atorvastatin Calcium 10 Mg Tablet 1 Tab PO DAILY 07/12/16 Reported Glyburide 1.25 Mg Tablet 1.25 Mg PO DAILY 07/12/16 Reported Janumet 50-1,000 Mg Tablet (Sitagliptin Phos/Metformin Hcl) 1 Each Tablet 1 Tab PO BID 07/12/16 Reported Trulicity (Dulaglutide) 0.75 Mg/0.5 Ml Pen.injctr 0.75 Mg SQ 07/12/16 Reported Lisinopril 2.5 Mg Tablet 1 Tab PO DAILY 07/12/16 Reported Impression . 1. Abnormal x-ray revealing left pleural effusion with volume loss along with right lower lobe opacity compatible with pneumonia. 2. Fever, suspect secondary to pneumonia. 3. Acute respiratory failure secondary to above. 4. Abnormal x-ray compatible with pneumonia. Cover for both gram-positive and gram-negative organisms. 5. Chronic lymphocytic leukemia. 6. Obstructive sleep apnea. 7. Type 2 diabetes. 8. Tobacco dependence. 9. Acute exacerbation of chronic obstructive pulmonary disease. CT REPORT Marked consolidation in the lower lobes right greater than left compatible with pneumonia. Additional patchy non solid opacities are seen in the upper lobes which are probably inflammatory in nature. Extensive axillary and mediastinal adenopathy slightly worse than on the prior exam. Known splenomegaly and cholelithiasis is reproduced Plan . DIURESE DAILY LASIX, CLINICALLY IMPROVED 6 MIN WALK NEEDS 4 AT REST AND 8 EXERTION REPEAT CXR IMPROVING NO SIGN OF MALIGNANCY ON CT I THINK IT IS ALL PNEUMONIA, D/C VANCO, PO ANTIBX WILL NEED A REPEAT CT IN 6 WEEKS CONTINUE ANTIBX WILL SET UP 02 ONCE D/C FOLLOW UP IN MY OFFICE IN 4-6 WEEKS ECHO The left ventricular systolic function is normal and the ejection fraction is within normal range. The Ejection Fraction is 60%. Transmitral Doppler flow pattern is Grade I-abnormal relaxation pattern. The left atrium size is normal. The right atrium size is normal. The aortic valve is calcified but opens well. Doppler and Color-flow revealed mild to moderate mitral regurgitation. The tricuspid valve is normal in structure and function. Doppler and Color Flow revealed trace pulmonic valvular regurgitation. There is no evidence of significant pericardial effusion. PAYTON CHAVIRA MD September 24, 2016 12:21
--- NOTE | 2016-09-24 13:38 | PDOC ---
Provider Note Provider Note vss, no temp- K+ 4.2, glucose ok back on po dm meds- less cough and edema less in less w/ iv lasix- looks pale but no recent melena etc- cont same, repeat hb , po lasix now, home soon if ok THOMAS TRINH MD September 24, 2016 13:38
--- NOTE | 2016-09-24 13:41 | PDOC ---
Provider Note Provider Note will hold acei re lower bp, dc lovenox re pallor/cll, pending hb/hct THOMAS TRINH MD September 24, 2016 13:41
[2016-09-24 13:48] LABS: HEMOGLOBIN 11.5 g/dL (13.0-17.5); RED BLOOD COUNT 3.82 x10^6/uL (4.30-5.70); RED CELL DISTRIBUTION WIDTH 17.7 % (11.5-14.5); WHITE BLOOD COUNT 23.1 x10^3/uL (4.0-11.0)
[2016-09-24 15:00] VITALS: BP 110/57
[2016-09-24 19:44] VITALS: BP 108/62
[2016-09-24] MEDS: oxyCODONE/APAP 5/325 1 TAB TABLET PO PRN (19:48)
[2016-09-24] MEDS: ATORVASTATIN CALCIUM 10 MG TABLET. PO SCH (20:36)
[2016-09-24 23:52] VITALS: BP 111/63
[2016-09-25 03:40] VITALS: BP 112/60
[2016-09-25 07:00] VITALS: BP 117/65
[2016-09-25] MEDS: IPRATRPIUM/ALBUTEROL 0.5/2.5MG 3 ML NEBU. NEB SCH ×2 (08:00→11:24)
[2016-09-25] MEDS: LINAGLIPTIN 5 MG TABLET PO SCH (08:25)
[2016-09-25] MEDS: glyBURIDE 1.25 MG TABLET PO SCH (08:25)
[2016-09-25] MEDS: ASPIRIN ENTERIC COATED 81 MG TABLET.DR. PO SCH (08:25)
[2016-09-25] MEDS: POTASSIUM CHLORIDE 10 MEQ TABLET.ER. PO SCH (08:25)
--- NOTE | 2016-09-25 08:45 | PDOC ---
PULMONARY PROGRESS NOTES Subjective PT FEEL BETTER LESS SOA Vitals Vital Signs Date Time Temp Pulse Resp B/P (MAP) Pulse Ox O2 Delivery O2 Flow Rate FiO2 09/25/16 08:02 93 Nasal Cannula 4.0 09/25/16 07:00 97.9 100 20 117/65 (82) 97.9 ROS: No Nausea, No Chest Pain, No Abdominal Pain, No Increase Cough General: Alert Lungs: Crackles (bases) Cardiovascular: S1, S2 Abdomen: Soft Neuro Exam: Alert Extremities: No Edema Skin: Warm Labs Laboratory Tests Test 09/23/16 10:54 09/23/16 15:59 09/23/16 20:35 09/24/16 08:22 Glucose (Fingerstick) 300 mg/dL (70-99) 152 mg/dL (70-99) 211 mg/dL (70-99) 186 mg/dL (70-99) Test 09/24/16 08:45 09/24/16 11:34 09/24/16 16:52 09/24/16 20:37 White Blood Count 23.1 x10^3/uL (4.0-11.0) Red Blood Count 3.82 x10^6/uL (4.30-5.70) Hemoglobin 11.5 g/dL (13.0-17.5) Hematocrit 36.0 % (39.0-53.0) Mean Corpuscular Volume 94 fL (79-100) Mean Corpuscular Hemoglobin 30 pg (25-35) Mean Corpuscular Hemoglobin Concent 32 g/dL (31-37) Red Cell Distribution Width 17.7 % (11.5-14.5) Platelet Count 125 x10^3/uL (140-400) Potassium Level 4.2 mmol/L (3.5-5.1) Glucose (Fingerstick) 169 mg/dL (70-99) 120 mg/dL (70-99) 143 mg/dL (70-99) Test 09/25/16 07:28 Glucose (Fingerstick) 173 mg/dL (70-99) Laboratory Tests Test 09/24/16 08:45 09/24/16 11:34 09/24/16 16:52 09/24/16 20:37 White Blood Count 23.1 x10^3/uL (4.0-11.0) Red Blood Count 3.82 x10^6/uL (4.30-5.70) Hemoglobin 11.5 g/dL (13.0-17.5) Hematocrit 36.0 % (39.0-53.0) Mean Corpuscular Volume 94 fL (79-100) Mean Corpuscular Hemoglobin 30 pg (25-35) Mean Corpuscular Hemoglobin Concent 32 g/dL (31-37) Red Cell Distribution Width 17.7 % (11.5-14.5) Platelet Count 125 x10^3/uL (140-400) Potassium Level 4.2 mmol/L (3.5-5.1) Glucose (Fingerstick) 169 mg/dL (70-99) 120 mg/dL (70-99) 143 mg/dL (70-99) Test 09/25/16 07:28 Glucose (Fingerstick) 173 mg/dL (70-99) Medications Active Scripts Medications Dose Route/Sig Max Daily Dose Days Date Category Atorvastatin Calcium 10 Mg Tablet 1 Tab PO DAILY 07/12/16 Reported Glyburide 1.25 Mg Tablet 1.25 Mg PO DAILY 07/12/16 Reported Janumet 50-1,000 Mg Tablet (Sitagliptin Phos/Metformin Hcl) 1 Each Tablet 1 Tab PO BID 07/12/16 Reported Trulicity (Dulaglutide) 0.75 Mg/0.5 Ml Pen.injctr 0.75 Mg SQ 07/12/16 Reported Lisinopril 2.5 Mg Tablet 1 Tab PO DAILY 07/12/[address] REPORT Marked consolidation in the lower lobes right greater than left compatible with pneumonia. Additional patchy non solid opacities are seen in the upper lobes which are probably inflammatory in nature. Extensive axillary and mediastinal adenopathy slightly worse than on the prior exam. Known splenomegaly and cholelithiasis is reproduced Impression . 1. Abnormal x-ray revealing left pleural effusion with volume loss along with right lower lobe opacity compatible with pneumonia. para pneumonic effusion 2. Fever, suspect secondary to pneumonia. resolved 3. Acute respiratory failure secondary to above. 4. Abnormal x-ray compatible with pneumonia. Cover for both gram-positive and gram-negative organisms. 5. Chronic lymphocytic leukemia. 6. Obstructive sleep apnea. 7. Type 2 diabetes. 8. Tobacco dependence. 9. Acute exacerbation of chronic obstructive pulmonary disease. 10. Mediastinal/axillary adenopathy Plan . DIURESE DAILY LASIX, CLINICALLY IMPROVED 6 MIN WALK NEEDS 4 AT REST AND 8 EXERTION REPEAT CXR IMPROVING NO SIGN OF MALIGNANCY ON CT I THINK IT IS ALL PNEUMONIA, WILL NEED A REPEAT CT IN 6 WEEKS CONTINUE ANTIBX D/W RN. F/U WITH DR CHAVIRA IN 4-[address] CHEST PRIOR TO VISIT WILL SET UP 02 ONCE D/C ECHO The left ventricular systolic function is normal and the ejection fraction is within normal range. The Ejection Fraction is 60%. Transmitral Doppler flow pattern is Grade I-abnormal relaxation pattern. The left atrium size is normal. The right atrium size is normal. The aortic valve is calcified but opens well. Doppler and Color-flow revealed mild to moderate mitral regurgitation. The tricuspid valve is normal in structure and function. Doppler and Color Flow revealed trace pulmonic valvular regurgitation. There is no evidence of significant pericardial effusion. JUDIE MAGANA MD September 25, 2016 08:45
[2016-09-25] MEDS ORDERED: IPRA3AMP NEB (09:42)
[2016-09-25] MEDS ORDERED: LEVO750T31 PO (09:42)
[2016-09-25] MEDS ORDERED: ASPI81TA9 PO (09:42)
--- NOTE | 2016-09-25 09:59 | PDOC ---
SUBJECTIVE Subjective feels better , anxious to go home, requiring O2 OBJECTIVE Vital Signs Vital Signs Date Time Temp Pulse Resp B/P (MAP) Pulse Ox O2 Delivery O2 Flow Rate FiO2 09/25/16 08:02 93 Nasal Cannula 4.0 09/25/16 08:00 Nasal Cannula 4.0 09/25/16 07:00 97.9 100 20 117/65 (82) 94 Nasal Cannula 4.0 97.9 09/25/16 03:40 97.5 98 20 112/60 (77) 94 Nasal Cannula 4.0 97.5 09/24/16 23:52 97.9 88 20 111/63 (79) 94 Nasal Cannula 4.0 97.9 09/24/16 20:47 16 98 Nasal Cannula 4.0 09/24/16 19:48 18 98 Nasal Cannula 4.0 09/24/16 19:46 98 Nasal Cannula 4.0 09/24/16 19:44 98.1 78 20 108/62 (77) 96 Nasal Cannula 4.0 98.1 09/24/16 19:10 Nasal Cannula 4.0 09/24/16 15:36 94 Nasal Cannula 4.0 09/24/16 15:00 98.2 106 24 110/57 (74) 96 Nasal Cannula 4.0 98.2 09/24/16 11:07 Nasal Cannula 4.0 09/24/16 11:00 98.0 107 20 115/65 (82) 94 Nasal Cannula 4.0 98.0 I & O Intake and Output 09/25/16 07:00 Intake Total 2300 ml Output Total 650 ml Balance 1650 ml Intake Oral 2300 ml Output Urine Total 650 ml # Voids 5 # Bowel Movements 1 PHYSICAL EXAM Physical Exam lungs clear upper lobes heart RRR abd soft ext trace edema ASSESSMENT/PLAN Assessment/Plan plan home today Problems: COMMENT Lab Laboratory Tests Test 09/24/16 11:34 09/24/16 16:52 09/24/16 20:37 09/25/16 07:28 Glucose (Fingerstick) 169 mg/dL (70-99) 120 mg/dL (70-99) 143 mg/dL (70-99) 173 mg/dL (70-99) JOHNNY WORTHY MD September 25, 2016 09:59
--- NOTE | 2016-09-25 10:06 | PDOC3 ---
Discharge Summary* Date of Admission: September 17, 2016 Date of Discharge: September 25, 2016 Admitting Diagnosis Problems Medical Problems: (1) Acute hypoxemic respiratory failure Status: Acute (2) Community acquired pneumonia Status: Acute (3) Lymphoma Status: Acute Final Diagnosis 1. Acute hypoxic respiratory failure due to pneumonia and COPD execerbation 2. Pneumonia, both lower lobes worse Right 3. Chronic lymphocytic leukemia. 4. Diabetes mellitus type 2. 5. Tobaccoism. 6. Chronic obstructive pulmonary disease. 7. Hypertension and hyperlipidemia. 8. Sleep apnea. 9. luekocytosis Problems Medical Problems: (1) Acute hypoxemic respiratory failure Status: Acute (2) Community acquired pneumonia Status: Acute (3) Lymphoma Status: Acute CONSULTS pulmonary Procedures CXRseveral last 09/23, CT chest Brief Hospital Course Mr. Baker is a 61 old M who presented with SOB and pneumonia his WBC was 53, 000 treated with ABx and bronchodilators, gradually improved WBC down to 23,000 which is his base line due to CLL, he still requirre O2 will send home with O2 need pulmonaid mashine and finish Abx, repeat CT chest 6 weeks , stress test out pt Disposition/Orders: D/C to Home w/ HH CONDITION AT DISCHARGE: Improved Diet: Cardiac, Consistent Carbohydrate Scheduled Atorvastatin Calcium (Atorvastatin Calcium), 1 TAB PO DAILY, (Reported) Glyburide (Glyburide), 1.25 MG PO DAILY, (Reported) Lisinopril (Lisinopril), 1 TAB PO DAILY, (Reported) Sitagliptin Phos/Metformin Hcl (Janumet 50-1,000 Mg Tablet), 1 TAB PO BID, ( Reported) Miscellaneous Medications Dulaglutide (Trulicity), 0.75 MG SQ, (Reported) FOLLOW UP APPOINTMENT: Dr. Worthy 1 week , need CT chest 6 week and out pt stress test see Dr. Vizcarra [address] results need pulmonaid mashine and O2 at home Time Spent Total time spent with patient [] minutes for coordination of care, counseling, and education. JOHNNY WORTHY MD September 25, 2016 10:06
== END 2016-09-25 12:00 | DRG 193 ==
LOC: ER 14:34 → 5 NORTH 15:30
PROVIDERS: ADMIT Internal Medicine; ATTEND Internal Medicine
PROC: 5A09357 Assistance with Respiratory Ventilation, Less than 24 Consecutive Hours, Continuous Positive Airway Pressure (ICD-10-PCS; principal; 2016-09-17)
DX: J18.9 Pneumonia, unspecified organism (principal); J96.01 Acute respiratory failure with hypoxia; C85.90 Non-Hodgkin lymphoma, unspecified, unspecified site; C91.10 Chronic lymphocytic leukemia of B-cell type not having achieved remission; J44.0 Chronic obstructive pulmonary disease with (acute) lower respiratory infection; J44.1 Chronic obstructive pulmonary disease with (acute) exacerbation; J90 Pleural effusion, not elsewhere classified; Y95 Nosocomial condition; M19.90 Unspecified osteoarthritis, unspecified site; K80.20 Calculus of gallbladder without cholecystitis without obstruction; E66.9 Obesity, unspecified; R16.1 Splenomegaly, not elsewhere classified; I10 Essential (primary) hypertension; E11.9 Type 2 diabetes mellitus without complications; E78.00 Pure hypercholesterolemia, unspecified; G47.33 Obstructive sleep apnea (adult) (pediatric); F17.210 Nicotine dependence, cigarettes, uncomplicated; E78.5 Hyperlipidemia, unspecified; Z82.49 Family history of ischemic heart disease and other diseases of the circulatory system; Z83.3 Family history of diabetes mellitus; Z79.899 Other long term (current) drug therapy; Z68.38 Body mass index [BMI] 38.0-38.9, adult; Z79.1 Long term (current) use of non-steroidal anti-inflammatories (NSAID); Z79.2 Long term (current) use of antibiotics
CPT/HCPCS: 36415; 36600; 71010; 71020; 71260; 80048; 80053; 80202; 81001; 82805; 82962; 83036; 83605; 84132; 84443; 85007; 85027; 87040; 87804; 93005; 93306; 94250; 94620; 94640; 94644; 94660; 94760; 96365; 96374; 96375; J1650; J1815; J1940; J1956; J2543; J2930; J3010; J3370; J7030; J7040; J7050; J7620; Q9967; 97116; 97530; 99285-25

== ENCOUNTER → 2016-11-02 | Outpatient (CLI) | payer BC ==
[~2016-11-02] MED LIST changes: +ASPI-612 PO; +IPRA3AMP NEB; +LEVO750T31 PO
== END | disposition home or self-care (01) ==
LOC: PMGWOUND 08:59
PROVIDERS: ATTEND Preventive Medicine Undersea and Hyperbaric Medicine
DX: I87.2 Venous insufficiency (chronic) (peripheral) (principal); E11.622 Type 2 diabetes mellitus with other skin ulcer; L97.821 Non-pressure chronic ulcer of other part of left lower leg limited to breakdown of skin; E78.00 Pure hypercholesterolemia, unspecified; I10 Essential (primary) hypertension; F17.210 Nicotine dependence, cigarettes, uncomplicated; Z72.89 Other problems related to lifestyle; J44.9 Chronic obstructive pulmonary disease, unspecified; E78.5 Hyperlipidemia, unspecified; M19.90 Unspecified osteoarthritis, unspecified site; J90 Pleural effusion, not elsewhere classified; E66.01 Morbid (severe) obesity due to excess calories; Z68.38 Body mass index [BMI] 38.0-38.9, adult; Z85.6 Personal history of leukemia
CPT/HCPCS: 99214

== ENCOUNTER → 2016-11-07 | Outpatient (CLI) | payer BC ==
--- NOTE | 2016-11-08 11:57 | PDOC4 ---
PROCEDURE Procedure Polysomnography report Date of service 11/07/[address] Abdulaziz Hampton Misael is 61 years old who weighs 280 pounds with a BMI of 38. His [place] score was 5. He had history of sleep apnea diagnosed 3 years ago at another facility and another split night study was requested by primary care physician. During the night's study patient spent 413 minutes in bed and slept for 340 minutes with a sleep efficiency of 82%. Sleep latency was prolonged at 43 minutes with a REM latency of 245 minutes. Overall sleep architecture showed increased stage I and stage II sleep, normal slow wave and reduced REM sleep. During the initial diagnostic portion of the study patient's slept for 126 minutes. During this time there were 48 obstructive apneas, no mixed or central apneas. There were 106 hypopneas. EKG monitoring revealed an average heart rate of 98 bpm. No sustained arrhythmias were observed. normal sinus rhythm. Review of nocturnal oximetry study during the diagnostic portion revealed a mean oxygen saturation of 92% with the lowest of 75%. 74% of the time oxygen saturation remained between 80 and 89%. Periodic limb movements were not seen. Patient met the criteria for CPAP initiation. Patient could not tolerate CPAP pressure lower than 9 cm water. At a maximum CPAP pressure of 16 cm water patient's slept for 30 minutes. Supine sleep was seen as well as REM sleep was observed. AHI was reduced to 2 per hour. Oxygen saturations remained above 88% at the final pressure. Patient used a small size nasal pillows. Impression 1. Severe sleep apnea hypopnea syndrome with an AHI of 74 per hour 2. Severe nocturnal hypoxia secondary to [place], but resolved with CPAP. 3. No clinically significant periodic limb movements. Recommendations 1. CPAP at 16 cm water completely eliminated patient's sleep apnea and should be used on a nightly basis. 2. Follow-up in 4-6 weeks to assess compliance with CPAP and to document clinical improvement. 3. Avoid central nervous system depressants. 4. Cautioned regarding driving until symptoms of sleep apnea have resolved with the use of CPAP. JUDIE MAGANA MD Nov 08, 2016 11:57
== END | disposition home or self-care (01) ==
LOC: SLPLAB 18:34
PROVIDERS: ATTEND Physician Assistant Surgical
DX: G47.33 Obstructive sleep apnea (adult) (pediatric) (principal)
CPT/HCPCS: 95810

== ENCOUNTER 2018-03-31 14:33 | Inpatient (IN) | payer BC ==
[~2018-03-31] VITALS: Ht 182.9 cm; Wt 121.4 kg
[~2018-03-31 14:33] MED LIST changes: -IPRA3AMP NEB; +IPRA3AMP29 NEB
--- NOTE | 2018-03-31 14:59 | EKG ---
[facility] [address] [place] [address] Test Date: 2018-03-31 Test Time: 14:45:41 Pat Name: KATIUSKA AKERS Department: Room: Gender: M Reporting Specialist: : [id number] Requested By: THOMAS PEARCE Order Number: [id number] Reading MD: Farooq Watkins MD Measurements Intervals Fults Rate: 108 P: 146 HI: 140 QRS: 65 QRSD: 84 T: -36 QT: 284 QTc: 383 Interpretive Statements SINUS TACHYCARDIA LVH Electronically Signed On 04-02-2018 18:22:44 [employer] by Farooq Watkins MD
[2018-03-31] MEDS ORDERED: AZITHRMYCN 500MG IVPB FOR OMNI 250 ML IV ONE (15:00)
[2018-03-31] MEDS ORDERED: methylPREDNISolone SOD SUCC PF 125 MG/2 ML VIAL. IV ONE (15:00)
[2018-03-31] MEDS ORDERED: cefTRIAXone IV Push 1 GM VIAL. IVP ONE (15:00)
[2018-03-31] MEDS ORDERED: IPRATRPIUM/ALBUTEROL 0.5/2.5MG 3 ML NEBU. NEB ONE (15:00)
[2018-03-31 15:11] LABS: BASE EXCESS ABG 3 mmol/L (-3-3); HCO3 ABG 31 mmol/L (21-28); PO2 ABG 65 mmHg (65-108)
--- NOTE | 2018-03-31 15:14 | PHYS DOC ---
Past Medical History Past Medical History: Cancer, COPD, Diabetes-Type II, High Cholesterol, Hypertension, Other Additional Past Medical Histor: SLEEP APNEA, LYMPHOMA, LEFT LUNG COLLAPSE Past Surgical History: Other Additional Past Surgical Histo: LEFY LUNG SURGERY, RIGHT ARM SURGERY, LEFT KNEE Alcohol Use: None Drug Use: None Adult General Chief Complaint Chief Complaint: DYSPNEA/RESPIRATOY DISTRESS HPI HPI Patient is a 62-year-old male who presents to the emergency room for evaluation. He states he has been having gradually worsening shortness of breath over the past several weeks. He has had a nonproductive cough. He denies any definite pain. EMS found the patient cyanotic, but without altered mental status, and respiratory distress. His initial oxygen saturation was in the 70s, improved to the 90s on a nonrebreather and a nebulizer treatment. The patient is tachypneic, with a borderline oxygen saturation on 2 L nasal cannula, on 4 L nasal cannula his oxygen saturations rise to the low 90s. He denies any definite pleuritic pain. He does have a history of lymphoma. There are no alleviating or exacerbating factors to his symptoms, although exertion seems to worsen his shortness of breath. Review of Systems Review of Systems Constitutional: Denies fever or chills [] Eyes: Denies change in visual acuity, redness, or eye pain [] HENT: Denies nasal congestion or sore throat [] Respiratory: Denies pleuritic pain.[] Cardiovascular: Denies chest pain. Denies prior history of CHF.[] GI: Denies abdominal pain, nausea, vomiting, bloody stools or diarrhea [] : Denies dysuria or hematuria [] Musculoskeletal: Denies back pain or joint pain [] Integument: Denies rash or skin lesions [] Neurologic: Denies headache, focal weakness or sensory changes [] Endocrine: Denies polyuria or polydipsia [] All other systems were reviewed and found to be within normal limits, except as documented in this note. Current Medications Current Medications Current Medications Medications (Trade) Dose Ordered Sig/Nemesio Start Time Stop Time Status Last Admin Dose Admin Albuterol/ Ipratropium (Duoneb) 3 ml 1X ONCE 03/31/18 15:00 03/31/18 15:01 DC 03/31/18 15:26 3 ML Azithromycin 250 ml @ 250 mls/hr 1X ONCE 03/31/18 15:00 03/31/18 15:59 Ceftriaxone Sodium (Rocephin) 1 gm 1X ONCE 03/31/18 15:00 03/31/18 15:01 DC 03/31/18 15:38 1 GM Methylprednisolone Sodium Succinate (SOLU-Medrol 125MG VIAL) 125 mg 1X ONCE 03/31/18 15:00 03/31/18 15:01 DC 03/31/18 15:35 125 MG Allergies Allergies Allergies Coded Allergies Type Severity Reaction Last Updated Verified No Known Drug Allergies 07/12/16 No Physical Exam Physical Exam PHYSICAL EXAM: CONSTITUTIONAL: Well developed, well nourished HEAD: normocephalic, atraumatic EENT: PERRL, EOMI. Conjunctivae normal color, sclerae non-icteric; moist mucous membranes. NECK: Supple, non-tender; no meningismus. LUNGS: Patient is in moderate respiratory distress, with increased work of breathing. There are globally diminished breath sounds, and the right greater than left bases, with crackles in the bases right greater than left. HEART: Regular rate and rhythm, no murmur CHEST: No deformity; non-tender ABDOMEN: The abdomen is soft, and non-tender, no masses or bruits. EXTREM: Normal ROM; no deformity, no calf tenderness. Normal pulses palpable in all extremities. There are skin changes of the lower extremities bilaterally suggestive of chronic venous stasis, with 2+ pitting pedal edema. SKIN: No rash; no diaphoresis NEURO: Alert; normal speech and cognition; CN's grossly intact; strength grossly intact without focal deficit. BACK: No CVA TTP. Current Patient Data Vital Signs Vital Signs Date Time Temp Pulse Resp B/P (MAP) Pulse Ox O2 Delivery O2 Flow Rate FiO2 03/31/18 15:19 99 BiPAP/CPAP 03/31/18 14:41 98.5 113 23 131/66 (87) 4.0 98.5 Lab Values Laboratory Tests Test 03/31/18 15:00 03/31/18 15:10 O2 Saturation 93 % (92-99) Arterial Blood pH 7.31 (7.35-7.45) L Arterial Blood pCO2 at Patient Temp 63 mmHg (35-46) *H Arterial Blood pO2 at Patient Temp 65 mmHg (65-108) Arterial Blood HCO3 31 mmol/L (21-28) H Arterial Blood Base Excess 3 mmol/L (-3-3) FiO2 4 lpm nc White Blood Count 12.8 x10^3/uL (4.0-11.0) H Red Blood Count 5.32 x10^6/uL (4.30-5.70) Hemoglobin 11.3 g/dL (13.0-17.5) L Hematocrit 36.8 % (39.0-53.0) L Mean Corpuscular Volume 69 fL (79-100) L Mean Corpuscular Hemoglobin 21 pg (25-35) L Mean Corpuscular Hemoglobin Concent 31 g/dL (31-37) Red Cell Distribution Width 16.4 % (11.5-14.5) H Platelet Count 359 x10^3/uL (140-400) Neutrophils (%) (Auto) 74 % (31-73) H Lymphocytes (%) (Auto) 14 % (24-48) L Monocytes (%) (Auto) 10 % (0-9) H Eosinophils (%) (Auto) 1 % (0-3) Basophils (%) (Auto) 2 % (0-3) Neutrophils # (Auto) 9.5 x10^3uL (1.8-7.7) H Lymphocytes # (Auto) 1.7 x10^3/uL (1.0-4.8) Monocytes # (Auto) 1.2 x10^3/uL (0.0-1.1) H Eosinophils # (Auto) 0.1 x10^3/uL (0.0-0.7) Basophils # (Auto) 0.2 x10^3/uL (0.0-0.2) Platelet Estimate Pending Prothrombin Time 14.4 SEC (11.7-14.0) H Prothrombin Time INR 1.2 (0.8-1.1) H Sodium Level 138 mmol/L (136-145) Potassium Level 4.1 mmol/L (3.5-5.1) Chloride Level 100 mmol/L (98-107) Carbon Dioxide Level 31 mmol/L (21-32) Anion Gap 7 (6-14) Blood Urea Nitrogen 10 mg/dL (8-26) Creatinine 0.9 mg/dL (0.7-1.3) Estimated GFR (Cockcroft-Gault) 85.8 BUN/Creatinine Ratio 11 (6-20) Glucose Level 106 mg/dL (70-99) H Lactic Acid Level 1.0 mmol/L (0.4-2.0) Calcium Level 9.1 mg/dL (8.5-10.1) Magnesium Level 1.9 mg/dL (1.8-2.4) Total Bilirubin 0.7 mg/dL (0.2-1.0) Aspartate Amino Transferase (AST) 13 U/L (15-37) L Alanine Aminotransferase (ALT) 17 U/L (16-63) Alkaline Phosphatase 81 U/L (46-116) Creatine Kinase 56 U/L (39-308) Creatine Kinase MB (Mass) 3.6 ng/mL (0.0-3.6) Creatine Kinase MB Relative Index % (0-4) Troponin I Quantitative 0.363 ng/mL (0.000-0.055) IM-Gpr-S-Type Natriuretic Peptide 1245 pg/mL (0-124) H Total Protein 6.7 g/dL (6.4-8.2) Albumin 3.1 g/dL (3.4-5.0) L Albumin/Globulin Ratio 0.9 (1.0-1.7) L Laboratory Tests 03/31/18 15:10 Laboratory Tests 03/31/18 15:10 EKG EKG [Sinus tachycardia at a rate of 108 beats for minute, normal axis, normal intervals, nonspecific ST/T changes. There are no acute ischemic changes noted.] Radiology/Procedures Radiology/Procedures [PROCEDURE: PORTABLE CHEST 1V Portable chest, 03/31/2018: HISTORY: Shortness of breath Comparison is made to a study from 10/11/2016. The heart size is normal. There is calcific plaquing the aorta. A moderate size right pleural effusion has developed. There is moderate underlying infiltrate in the right lower chest. There is unchanged blunting of the left lateral costophrenic angle which may be due to scarring or a small amount of pleural fluid. IMPRESSION: New moderate size right pleural effusion with underlying consolidation in the right lower chest. The findings may represent pneumonia with pleural fluid or empyema. A neoplastic etiology cannot be excluded. ] Course & Med Decision Making Course & Med Decision Making Pertinent Labs and Imaging studies reviewed. (See chart for details) [3:50 PM: The patient's condition remains stable. His respiratory status improved on BiPAP. I spoke with the hospitalist, who accepted the patient to the hospital for further evaluation and treatment. CRITICAL CARE TIME: 45 Minutes, excluding any procedures and care of other patients. Dragon Disclaimer Dragon Disclaimer This electronic medical record was generated, in whole or in part, using a voice recognition dictation system. Departure Departure Impression: Primary Impression: Respiratory distress Additional Impressions: COPD (chronic obstructive pulmonary disease) Lymphoma Elevated troponin Pleural effusion Disposition: ADMITTED INPATIENT Admitting Physician: Xie. Magaña Condition: GUARDED Referrals: JOHNNY WORTHY MD (PCP) Problem Qualifiers THOMAS PEARCE MD Mar 31, 2018 15:14
[2018-03-31 15:15] LABS: PCO2 ABG 63 mmHg (35-46)
[2018-03-31 15:16] LABS: SAT O2 ABG 93 % (92-99)
[2018-03-31 15:22] LABS: BASO # 0.2 x10^3/uL (0.0-0.2); BASO % 2 % (0-3); EOS # 0.1 x10^3/uL (0.0-0.7); EOS % 1 % (0-3); HEMATOCRIT 36.8 % (39.0-53.0); HEMOGLOBIN 11.3 g/dL (13.0-17.5); LYMPH # 1.7 x10^3/uL (1.0-4.8); LYMPH % 14 % (24-48); MEAN CORPUSCULAR HEMOGLOBIN 21 pg (25-35); MEAN CORPUSCULAR HGB CONC 31 g/dL (31-37); MEAN CORPUSCULAR VOLUME 69 fL (79-100); MONO # 1.2 x10^3/uL (0.0-1.1); MONO % 10 % (0-9); NEUT # 9.5 x10^3uL (1.8-7.7); NEUT % 74 % (31-73); PLATELET COUNT 359 x10^3/uL (140-400); RED BLOOD COUNT 5.32 x10^6/uL (4.30-5.70); RED CELL DISTRIBUTION WIDTH 16.4 % (11.5-14.5); WHITE BLOOD COUNT 12.8 x10^3/uL (4.0-11.0)
[2018-03-31 15:32] LABS: PROTHROMBIN TIME PATIENT 14.4 SEC (11.7-14.0)
[2018-03-31 15:35] LABS: CALCIUM 9.1 mg/dL (8.5-10.1); CREATININE 0.9 mg/dL (0.7-1.3); GFR 85.8; POTASSIUM 4.1 mmol/L (3.5-5.1)
--- NOTE | 2018-03-31 15:39 | RAD ---
Portable chest, 03/31/2018: HISTORY: Shortness of breath Comparison is made to a study from 10/11/2016. The heart size is normal. There is calcific plaquing the aorta. A moderate size right pleural effusion has developed. There is moderate underlying infiltrate in the right lower chest. There is unchanged blunting of the left lateral costophrenic angle which may be due to scarring or a small amount of pleural fluid. IMPRESSION: New moderate size right pleural effusion with underlying consolidation in the right lower chest. The findings may represent pneumonia with pleural fluid or empyema. A neoplastic etiology cannot be excluded. Electronically signed by: Rusty Austin MD (03/31/2018 3:35 PM) [facility]
[2018-03-31 15:41] LABS: ALBUMIN 3.1 g/dL (3.4-5.0); ALBUMIN/GLOBULIN RATIO 0.9 (1.0-1.7); MAGNESIUM 1.9 mg/dL (1.8-2.4); TOTAL BILIRUBIN 0.7 mg/dL (0.2-1.0); TOTAL PROTEIN 6.7 g/dL (6.4-8.2)
[2018-03-31 15:48] LABS: CREATINE KINASE 56 U/L (39-308)
[2018-03-31 16:16] LABS: PLT ESTIMATE ADEQUATE (ADEQUATE)
[2018-03-31] MEDS ORDERED: ICOS1CAP PO (16:21)
[2018-03-31] MEDS ORDERED: DULA1.5P SQ (16:21)
[2018-03-31] MEDS ORDERED: FLUT1BLS3 IH (16:21)
[2018-03-31] MEDS ORDERED: ALLO100T PO (16:21)
[2018-03-31] MEDS ORDERED: IBRU140C PO (16:21)
[2018-03-31] MEDS ORDERED: ATOR20TA58 PO (16:21)
[2018-03-31] MEDS ORDERED: GLIM4TAB2 PO (16:21)
[2018-03-31] MEDS ORDERED: LOSA25TA54 PO (16:21)
[2018-03-31 16:26] LABS: HYPOCHROMIA MOD; MICROCYTOSIS MARKED; POLYCHROMASIA SLIGHT
[2018-03-31 16:27] LABS: TOXIC GRANULATION SLIGHT; TOXIC VACUOLATION SLIGHT
[2018-03-31] MEDS ORDERED: ALBUTEROL SULFATE 2.5 MG/3 ML NEBU. NEB PRN (17:15)
[2018-03-31] MEDS ORDERED: DOCUSATE SODIUM 100 MG CAPSULE. PO PRN (17:15)
[2018-03-31] MEDS ORDERED: ACETAMINOPHEN 325 MG TABLET. PO PRN (17:15)
[2018-03-31] MEDS ORDERED: DEXTROSE 50% 25 GM / 50ML DISP.SYRIN. IV PRN (17:15)
[2018-03-31] MEDS ORDERED: traMADol 50 MG TABLET PO PRN (17:15)
[2018-03-31] MEDS ORDERED: ONDANSETRON PF 4 MG/2 ML VIAL. IV PRN (17:15)
--- NOTE | 2018-03-31 17:24 | PDOC1 ---
History and Physical Date of Admission Date of Admission 03/31/18 Identification/Chief Complaint Chief Complaint sob Source Source: Chart review, Patient History of Present Illness History of Present Illness HPI HPI Patient is a 62-year-old male who presents to the emergency room for evaluation Of sob. VERy poor historian. He kept telling me he has been feeling sob for " 6months" , ERP told me 3ds. He also denies other medical problems except lymphoma, and previous records says he has DM, COPD, HTN. HE also denies lymphoma in other places except abd, CT last year showed enlarged lymphonodes everywhere, including chest . Pt has been feeling sob, cough for 6months, seems worse recently with some yellow sputum. denies fever, chills, sick contact. on chemo therapy for lymphoma. as per ERP, EMS found the patient cyanotic, but without altered mental status, and respiratory distress. His initial oxygen saturation was in the 70s, improved to the 90s on a nonrebreather and a nebulizer treatment. The patient is tachypneic, with a borderline oxygen saturation on 2 L nasal cannula, on 4 L nasal cannula his oxygen saturations rise to the low 90s. He denies any definite pleuritic pain. ABG in ER showed PH 7.31. PCO2 63. wbc 112. on bipap. no home o2 Past Medical History Cardiovascular: HTN Endocrine: Diabetes Past Surgical History Past Surgical History lung lobectomy for lung abscess Family History Family History: Hypertension Social History Smoke: 1 pack per day ALCOHOL: rare Drugs: None Current Problem List Problem List Problems Medical Problems: (1) COPD (chronic obstructive pulmonary disease) Status: Acute (2) Elevated troponin Status: Acute (3) Lymphoma Status: Acute (4) Pleural effusion Status: Acute (5) Respiratory distress Status: Acute Current Medications Current Medications Current Medications Medications (Trade) Dose Ordered Sig/Nemesio Start Time Stop Time Status Last Admin Dose Admin Albuterol/ Ipratropium (Duoneb) 3 ml 1X ONCE 03/31/18 15:00 03/31/18 15:01 DC 03/31/18 15:26 3 ML Azithromycin 250 ml @ 250 mls/hr 1X ONCE 03/31/18 15:00 03/31/18 15:59 DC 03/31/18 16:00 250 MLS/HR Ceftriaxone Sodium (Rocephin) 1 gm 1X ONCE 03/31/18 15:00 03/31/18 15:01 DC 03/31/18 15:38 1 GM Lorazepam (Ativan) 1 mg 1X ONCE 03/31/18 16:15 03/31/18 16:16 DC 03/31/18 16:11 1 MG Methylprednisolone Sodium Succinate (SOLU-Medrol 125MG VIAL) 125 mg 1X ONCE 03/31/18 15:00 03/31/18 15:01 DC 03/31/18 15:35 125 MG Allergies Allergies Allergies Coded Allergies Type Severity Reaction Last Updated Verified No Known Drug Allergies 07/12/16 No ROS Review of System CONSTITUTIONAL: No fever or chills EYES: No recent changes SKIN: No rash or itching CARDIOVASCULAR: No chest pain, syncope, palpitations, or edema RESPIRATORY: No SOB or cough GASTROINTESTINAL: No nausea, vomiting or abdominal pain NEUROLOGICAL: No headaches or weakness ENDOCRINE: No cold or heat intolerance GENITOURINARY: No urgency or frequency of urination MUSCULOSKELETAL: No back pain or joint pain LYMPHATICS: No enlarged lymph nodes PSYCHIATRIC: No anxiety or depression Physical Exam Physical Exam GEN.: No apparent distress. Alert and oriented. HEENT: Head is normocephalic, atraumatic NECK: Supple. LUNGS: rt decreased bs. left basilar mild crackles. HEART: RRR, S1, S2 present. Peripheral pulses intact ABDOMEN: Soft, nontender. Positive bowel sounds. EXTREMITIES: Without any cyanosis. NEUROLOGIC: Normal speech, normal tone PSYCHIATRIC: Normal affect, normal mood. SKIN: No ulcerations Vitals Vitals Vital Signs Date Time Temp Pulse Resp B/P (MAP) Pulse Ox O2 Delivery O2 Flow Rate FiO2 03/31/18 16:58 98 BiPAP/CPAP 03/31/18 14:41 98.5 113 23 131/66 (87) 4.0 98.5 Labs Labs Laboratory Tests Test 03/31/18 15:00 03/31/18 15:10 O2 Saturation 93 % (92-99) Arterial Blood pH 7.31 (7.35-7.45) Arterial Blood pCO2 at Patient Temp 63 mmHg (35-46) Arterial Blood pO2 at Patient Temp 65 mmHg (65-108) Arterial Blood HCO3 31 mmol/L (21-28) Arterial Blood Base Excess 3 mmol/L (-3-3) FiO2 4 lpm nc White Blood Count 12.8 x10^3/uL (4.0-11.0) Red Blood Count 5.32 x10^6/uL (4.30-5.70) Hemoglobin 11.3 g/dL (13.0-17.5) Hematocrit 36.8 % (39.0-53.0) Mean Corpuscular Volume 69 fL (79-100) Mean Corpuscular Hemoglobin 21 pg (25-35) Mean Corpuscular Hemoglobin Concent 31 g/dL (31-37) Red Cell Distribution Width 16.4 % (11.5-14.5) Platelet Count 359 x10^3/uL (140-400) Neutrophils (%) (Auto) 74 % (31-73) Lymphocytes (%) (Auto) 14 % (24-48) Monocytes (%) (Auto) 10 % (0-9) Eosinophils (%) (Auto) 1 % (0-3) Basophils (%) (Auto) 2 % (0-3) Neutrophils # (Auto) 9.5 x10^3uL (1.8-7.7) Lymphocytes # (Auto) 1.7 x10^3/uL (1.0-4.8) Monocytes # (Auto) 1.2 x10^3/uL (0.0-1.1) Eosinophils # (Auto) 0.1 x10^3/uL (0.0-0.7) Basophils # (Auto) 0.2 x10^3/uL (0.0-0.2) Toxic Granulation Slight Toxic Vacuolation Slight Platelet Estimate Adequate (ADEQUATE) Polychromasia Slight Hypochromasia Mod Microcytosis Marked Prothrombin Time 14.4 SEC (11.7-14.0) Prothromb Time International Ratio 1.2 (0.8-1.1) Sodium Level 138 mmol/L (136-145) Potassium Level 4.1 mmol/L (3.5-5.1) Chloride Level 100 mmol/L (98-107) Carbon Dioxide Level 31 mmol/L (21-32) Anion Gap 7 (6-14) Blood Urea Nitrogen 10 mg/dL (8-26) Creatinine 0.9 mg/dL (0.7-1.3) Estimated GFR (Cockcroft-Gault) 85.8 BUN/Creatinine Ratio 11 (6-20) Glucose Level 106 mg/dL (70-99) Lactic Acid Level 1.0 mmol/L (0.4-2.0) Calcium Level 9.1 mg/dL (8.5-10.1) Magnesium Level 1.9 mg/dL (1.8-2.4) Total Bilirubin 0.7 mg/dL (0.2-1.0) Aspartate Amino Transf (AST/SGOT) 13 U/L (15-37) Alanine Aminotransferase (ALT/SGPT) 17 U/L (16-63) Alkaline Phosphatase 81 U/L (46-116) Creatine Kinase 56 U/L (39-308) Creatine Kinase MB (Mass) 3.6 ng/mL (0.0-3.6) Creatine Kinase MB Relative Index % (0-4) Troponin I Quantitative 0.363 ng/mL (0.000-0.055) [id number]-Type Natriuretic Peptide 1245 pg/mL (0-124) Total Protein 6.7 g/dL (6.4-8.2) Albumin 3.1 g/dL (3.4-5.0) Albumin/Globulin Ratio 0.9 (1.0-1.7) Laboratory Tests Test 03/31/18 15:00 03/31/18 15:10 O2 Saturation 93 % (92-99) Arterial Blood pH 7.31 (7.35-7.45) Arterial Blood pCO2 at Patient Temp 63 mmHg (35-46) Arterial Blood pO2 at Patient Temp 65 mmHg (65-108) Arterial Blood HCO3 31 mmol/L (21-28) Arterial Blood Base Excess 3 mmol/L (-3-3) FiO2 4 lpm nc White Blood Count 12.8 x10^3/uL (4.0-11.0) Red Blood Count 5.32 x10^6/uL (4.30-5.70) Hemoglobin 11.3 g/dL (13.0-17.5) Hematocrit 36.8 % (39.0-53.0) Mean Corpuscular Volume 69 fL (79-100) Mean Corpuscular Hemoglobin 21 pg (25-35) Mean Corpuscular Hemoglobin Concent 31 g/dL (31-37) Red Cell Distribution Width 16.4 % (11.5-14.5) Platelet Count 359 x10^3/uL (140-400) Neutrophils (%) (Auto) 74 % (31-73) Lymphocytes (%) (Auto) 14 % (24-48) Monocytes (%) (Auto) 10 % (0-9) Eosinophils (%) (Auto) 1 % (0-3) Basophils (%) (Auto) 2 % (0-3) Neutrophils # (Auto) 9.5 x10^3uL (1.8-7.7) Lymphocytes # (Auto) 1.7 x10^3/uL (1.0-4.8) Monocytes # (Auto) 1.2 x10^3/uL (0.0-1.1) Eosinophils # (Auto) 0.1 x10^3/uL (0.0-0.7) Basophils # (Auto) 0.2 x10^3/uL (0.0-0.2) Toxic Granulation Slight Toxic Vacuolation Slight Platelet Estimate Adequate (ADEQUATE) Polychromasia Slight Hypochromasia Mod Microcytosis Marked Prothrombin Time 14.4 SEC (11.7-14.0) Prothromb Time International Ratio 1.2 (0.8-1.1) Sodium Level 138 mmol/L (136-145) Potassium Level 4.1 mmol/L (3.5-5.1) Chloride Level 100 mmol/L (98-107) Carbon Dioxide Level 31 mmol/L (21-32) Anion Gap 7 (6-14) Blood Urea Nitrogen 10 mg/dL (8-26) Creatinine 0.9 mg/dL (0.7-1.3) Estimated GFR (Cockcroft-Gault) 85.8 BUN/Creatinine Ratio 11 (6-20) Glucose Level 106 mg/dL (70-99) Lactic Acid Level 1.0 mmol/L (0.4-2.0) Calcium Level 9.1 mg/dL (8.5-10.1) Magnesium Level 1.9 mg/dL (1.8-2.4) Total Bilirubin 0.7 mg/dL (0.2-1.0) Aspartate Amino Transf (AST/SGOT) 13 U/L (15-37) Alanine Aminotransferase (ALT/SGPT) 17 U/L (16-63) Alkaline Phosphatase 81 U/L (46-116) Creatine Kinase 56 U/L (39-308) Creatine Kinase MB (Mass) 3.6 ng/mL (0.0-3.6) Creatine Kinase MB Relative Index % (0-4) Troponin I Quantitative 0.363 ng/mL (0.000-0.055) BC-[id number]-Type Natriuretic Peptide 1245 pg/mL (0-124) Total Protein 6.7 g/dL (6.4-8.2) Albumin 3.1 g/dL (3.4-5.0) Albumin/Globulin Ratio 0.9 (1.0-1.7) VTE Prophylaxis Ordered VTE Prophylaxis Devices: Yes VTE Pharmacological Prophylaxi: Yes Assessment/Plan Assessment/Plan dyspnea acute hypoxic and hypercapnic resp failure with rt pleural effusion,pna lymphoma on chemo august on cpap dm2 htn tobaccoism copd plan: pulm consult Chest ct, may need thoracentesis add shona rosario for now Onco consult, pt still on chemo cont most home meds, ssi bipap as needed, otherwise NC as needed labs tmr dvt ppx KISHA RICKS MD Mar 31, 2018 17:24
[2018-03-31] MEDS ORDERED: PIP/TAZO PER PHARMACY MC PRN (17:30)
[2018-03-31] MEDS ORDERED: VANCOMYCIN 2 GM in IV NORMAL SALINE 500ML BAG 500 ML IV SCH (17:30)
[2018-03-31] MEDS ORDERED: PIPERACILLIN/TAZOBACTAM 4.5 GM in IV NORMAL SALINE 100ML 100 ML IV ONE (17:30)
[2018-03-31] MEDS ORDERED: VANCOMYCIN 2 GM in IV NORMAL SALINE 500ML BAG 500 ML IV ONE (17:30)
[2018-03-31] MEDS ORDERED: PIPERACILLIN/TAZOBACTAM 4.5 GM in IV NORMAL SALINE 100ML 100 ML IV SCH (18:00)
[2018-03-31 19:00] VITALS: BP 135/69
--- NOTE | 2018-03-31 19:22 | RAD ---
CT chest without contrast dated 03/31/2018. Comparison made to 09/19/2016. Clinical data indication: Evaluate right-sided pleural effusion. Possible pneumonia. TECHNIQUE: Per contiguous axial imaging of the chest performed with thin cut coronal and sagittal reconstruction. No contrast administered. One or more of the following individualized dose reduction techniques were utilized for this examination: 1. Automated exposure control 2. Adjustment of the mA and/or kV according to patient size 3. Use of iterative reconstruction technique. FINDINGS: There is a large heterogeneous right pleural effusion that is partially loculated laterally and anteriorly. There is some associated pleural thickening at the right base. Subtotal collapse of the right lower lobe and right middle lobe. There is no significant left-sided pleural effusion. Patchy groundglass opacity throughout both lungs. No pneumothorax. Heart size within normal limits. Scattered coronary calcifications. No pericardial effusion. There are enlarged mediastinal and hilar lymph nodes. A subcarinal lymph node measures up to 2.4 cm short axis versus 3.5 cm previously. Additional lymph nodes are also decreased in size. Thyroid gland unremarkable. No axillary adenopathy. Images of upper abdomen show calcified gallstones. No acute bony abnormality. Multilevel spondylosis. IMPRESSION: 1. Large heterogeneous loculated right-sided pleural effusion with associated pleural thickening. This is indeterminate and could represent empyema or hemothorax. Correlate clinically. 2. Right-sided airspace disease with subtotal collapse of the right lower lobe and right middle lobe, atelectasis versus pneumonia. 3. Extensive mediastinal and hilar adenopathy, somewhat improved from the 09/19/2016 exam. Consider infectious, inflammatory or neoplastic etiology. 4. Coronary artery calcifications. 5. Cholelithiasis. Electronically signed by: Avelino Varner MD (03/31/2018 7:19 PM) [facility]
[2018-03-31] MEDS: IPRATRPIUM/ALBUTEROL 0.5/2.5MG 3 ML NEBU. NEB SCH (19:37)
[2018-03-31] MEDS: ENOXAPARIN 40 MG/0.4 ML SYRINGE. SQ SCH (20:32)
[2018-03-31] MEDS: ALLOPURINOL 100 MG TABLET. PO SCH (21:00)
[2018-03-31] MEDS ORDERED: LOSARTAN POTASSIUM 25 MG TABLET. PO SCH (21:00)
[2018-03-31] MEDS: ATORVASTATIN CALCIUM 20 MG TABLET PO SCH (21:00)
[2018-03-31] MEDS: VANCOMYCIN PER PHARMACY MC PRN (21:17)
[2018-03-31 23:00] VITALS: BP 117/65
[2018-04-01] VITALS (8 sets, daily range): BP systolic 93–135; BP diastolic 46–73
[2018-04-01] MEDS: PIPERACILLIN/TAZOBACTAM 4.5 GM in IV NORMAL SALINE 100ML 100 ML IV SCH ×4 (00:17→18:00)
[2018-04-01] MEDS: VANCOMYCIN 1.5 GM in IV NORMAL SALINE 500ML BAG 500 ML IV SCH ×3 (04:14→22:42)
[2018-04-01] MEDS: methylPREDNISolone SOD SUCC PF 125 MG/2 ML VIAL. IV SCH ×2 (05:33→18:00)
[2018-04-01 06:20] LABS: BASO % 0 % (0-3); EOS % 0 % (0-3); HEMOGLOBIN 11.4 g/dL (13.0-17.5); LYMPH # 0.9 x10^3/uL (1.0-4.8); LYMPH % 8 % (24-48); MEAN CORPUSCULAR HEMOGLOBIN 21 pg (25-35); MEAN CORPUSCULAR HGB CONC 31 g/dL (31-37); MEAN CORPUSCULAR VOLUME 70 fL (79-100); MONO # 0.4 x10^3/uL (0.0-1.1); MONO % 4 % (0-9); NEUT # 10.5 x10^3uL (1.8-7.7); NEUT % 89 % (31-73); PLATELET COUNT 360 x10^3/uL (140-400); RED BLOOD COUNT 5.33 x10^6/uL (4.30-5.70); RED CELL DISTRIBUTION WIDTH 16.8 % (11.5-14.5); WHITE BLOOD COUNT 11.9 x10^3/uL (4.0-11.0)
[2018-04-01 06:22] LABS: HEMATOCRIT 36.4 % (39.0-53.0)
[2018-04-01 06:46] LABS: CALCIUM 8.6 mg/dL (8.5-10.1); POTASSIUM 4.6 mmol/L (3.5-5.1)
[2018-04-01] MEDS: IPRATRPIUM/ALBUTEROL 0.5/2.5MG 3 ML NEBU. NEB SCH ×4 (08:29→20:00)
[2018-04-01] MEDS: INSULIN LISPRO 300 UNITS/3 ML INSULN.PEN. SQ SCH ×3 (08:48→17:00)
[2018-04-01] MEDS: ALLOPURINOL 100 MG TABLET. PO SCH ×2 (08:56→20:38)
[2018-04-01] MEDS: metFORMIN 500 MG TABLET PO SCH ×2 (08:56→17:33)
[2018-04-01] MEDS: ASPIRIN ENTERIC COATED 81 MG TABLET.DR. PO SCH (08:57)
[2018-04-01] MEDS: LINAGLIPTIN 5 MG TABLET PO SCH (08:57)
[2018-04-01] MEDS ORDERED: IBRUTINIB 420 MG PO SCH (09:00)
[2018-04-01] MEDS: LISINOPRIL 5 MG TABLET. PO SCH (09:04)
--- NOTE | 2018-04-01 11:19 | PDOC ---
PROGRESS NOTES Chief Complaint Chief Complaint Respiratory Distress History of Present Illness History of Present Illness Pt was seen and examined at bedside in the ICU today. He is on Bipap PRN but he was not using it while we were in the room. He is still having trouble breathing and has to take deep breaths at the end of each sentence in order to carry on a conversation. A chest CT was performed yesterday (03/31) and shoed a large Rt sided pleural effusion - he will be getting a Thoracentesis done. He has pipercillin IV hanging and pulmonology and oncology are following. He is currently on chemo for Lymphoma. Vitals Vitals Vital Signs Date Time Temp Pulse Resp B/P (MAP) Pulse Ox O2 Delivery O2 Flow Rate FiO2 04/01/18 09:04 106 129/67 04/01/18 08:29 96 Nasal Cannula 6.0 04/01/18 03:00 21 03/31/18 23:00 98.0 98.0 Physical Exam General: Alert, Oriented X3, Cooperative, No acute distress Heart: Regular rate, Normal S1, Normal S2 Lungs: Crackles, Other (Left basilar mild crackles; Rt lungs decreased BS) Abdomen: Normal bowel sounds, Soft Extremities: No clubbing, No cyanosis Skin: No significant lesion, Other (dry, scaly skin BLE) Labs LABS Laboratory Tests Test 03/31/18 15:00 03/31/18 15:10 04/01/18 00:57 04/01/18 05:00 O2 Saturation 93 % (92-99) Arterial Blood pH 7.31 (7.35-7.45) Arterial Blood pCO2 at Patient Temp 63 mmHg (35-46) Arterial Blood pO2 at Patient Temp 65 mmHg (65-108) Arterial Blood HCO3 31 mmol/L (21-28) Arterial Blood Base Excess 3 mmol/L (-3-3) FiO2 4 lpm nc White Blood Count 12.8 x10^3/uL (4.0-11.0) 11.9 x10^3/uL (4.0-11.0) Red Blood Count 5.32 x10^6/uL (4.30-5.70) 5.33 x10^6/uL (4.30-5.70) Hemoglobin 11.3 g/dL (13.0-17.5) 11.4 g/dL (13.0-17.5) Hematocrit 36.8 % (39.0-53.0) 36.4 % (39.0-53.0) Mean Corpuscular Volume 69 fL (79-100) 70 fL (79-100) Mean Corpuscular Hemoglobin 21 pg (25-35) 21 pg (25-35) Mean Corpuscular Hemoglobin Concent 31 g/dL (31-37) 31 g/dL (31-37) Red Cell Distribution Width 16.4 % (11.5-14.5) 16.8 % (11.5-14.5) Platelet Count 359 x10^3/uL (140-400) 360 x10^3/uL (140-400) Neutrophils (%) (Auto) 74 % (31-73) 89 % (31-73) Lymphocytes (%) (Auto) 14 % (24-48) 8 % (24-48) Monocytes (%) (Auto) 10 % (0-9) 4 % (0-9) Eosinophils (%) (Auto) 1 % (0-3) 0 % (0-3) Basophils (%) (Auto) 2 % (0-3) 0 % (0-3) Neutrophils # (Auto) 9.5 x10^3uL (1.8-7.7) 10.5 x10^3uL (1.8-7.7) Lymphocytes # (Auto) 1.7 x10^3/uL (1.0-4.8) 0.9 x10^3/uL (1.0-4.8) Monocytes # (Auto) 1.2 x10^3/uL (0.0-1.1) 0.4 x10^3/uL (0.0-1.1) Eosinophils # (Auto) 0.1 x10^3/uL (0.0-0.7) 0.0 x10^3/uL (0.0-0.7) Basophils # (Auto) 0.2 x10^3/uL (0.0-0.2) 0.0 x10^3/uL (0.0-0.2) Toxic Granulation Slight Toxic Vacuolation Slight Platelet Estimate Adequate (ADEQUATE) Polychromasia Slight Hypochromasia Mod Microcytosis Marked Prothrombin Time 14.4 SEC (11.7-14.0) Prothromb Time International Ratio 1.2 (0.8-1.1) Sodium Level 138 mmol/L (136-145) 139 mmol/L (136-145) Potassium Level 4.1 mmol/L (3.5-5.1) 4.6 mmol/L (3.5-5.1) Chloride Level 100 mmol/L (98-107) 101 mmol/L (98-107) Carbon Dioxide Level 31 mmol/L (21-32) 31 mmol/L (21-32) Anion Gap 7 (6-14) 7 (6-14) Blood Urea Nitrogen 10 mg/dL (8-26) 13 mg/dL (8-26) Creatinine 0.9 mg/dL (0.7-1.3) 1.0 mg/dL (0.7-1.3) Estimated GFR (Cockcroft-Gault) 85.8 76.0 BUN/Creatinine Ratio 11 (6-20) Glucose Level 106 mg/dL (70-99) 282 mg/dL (70-99) Lactic Acid Level 1.0 mmol/L (0.4-2.0) Calcium Level 9.1 mg/dL (8.5-10.1) 8.6 mg/dL (8.5-10.1) Magnesium Level 1.9 mg/dL (1.8-2.4) Total Bilirubin 0.7 mg/dL (0.2-1.0) Aspartate Amino Transf (AST/SGOT) 13 U/L (15-37) Alanine Aminotransferase (ALT/SGPT) 17 U/L (16-63) Alkaline Phosphatase 81 U/L (46-116) Creatine Kinase 56 U/L (39-308) Creatine Kinase MB (Mass) 3.6 ng/mL (0.0-3.6) Creatine Kinase MB Relative Index % (0-4) Troponin I Quantitative 0.363 ng/mL (0.000-0.055) SX-Pxc-B-Type Natriuretic Peptide 1245 pg/mL (0-124) Total Protein 6.7 g/dL (6.4-8.2) Albumin 3.1 g/dL (3.4-5.0) Albumin/Globulin Ratio 0.9 (1.0-1.7) Glucose (Fingerstick) 154 mg/dL (70-99) Reticulocyte Count (auto) 1.9 % (0.5-2.5) Iron Level 11 ug/dL (65-175) Total Iron Binding Capacity 374 ug/dL (250-450) Iron Saturation 3 % (15-34) Ferritin 35 ng/mL (26-388) Test 04/01/18 08:41 Glucose (Fingerstick) 289 mg/dL (70-99) Review of Systems Review of Systems PULM: Yes sob, cough GENERAL: no fevers, chills HEENT: No visual changes, hearing changes CV: No chest pain, palpitations Assessment and Plan Assessmemt and Plan ASSESSMENT: COPD (chronic obstructive pulmonary disease) Elevated troponin Lymphoma Pleural effusion Respiratory distress PLAN: ICU Monitoring Thoracentesis tbd Subspecialty input appreciated Recheck labs in AM Consult PT/OT Continue abx's Home meds DVT Prophylaxis Comment Review of Relevant I have reviewed the following items kadie (where applicable) has been applied. Labs Laboratory Tests Test 03/31/18 15:00 03/31/18 15:10 04/01/18 00:57 04/01/18 05:00 O2 Saturation 93 % (92-99) Arterial Blood pH 7.31 (7.35-7.45) Arterial Blood pCO2 at Patient Temp 63 mmHg (35-46) Arterial Blood pO2 at Patient Temp 65 mmHg (65-108) Arterial Blood HCO3 31 mmol/L (21-28) Arterial Blood Base Excess 3 mmol/L (-3-3) FiO2 4 lpm nc White Blood Count 12.8 x10^3/uL (4.0-11.0) 11.9 x10^3/uL (4.0-11.0) Red Blood Count 5.32 x10^6/uL (4.30-5.70) 5.33 x10^6/uL (4.30-5.70) Hemoglobin 11.3 g/dL (13.0-17.5) 11.4 g/dL (13.0-17.5) Hematocrit 36.8 % (39.0-53.0) 36.4 % (39.0-53.0) Mean Corpuscular Volume 69 fL (79-100) 70 fL (79-100) Mean Corpuscular Hemoglobin 21 pg (25-35) 21 pg (25-35) Mean Corpuscular Hemoglobin Concent 31 g/dL (31-37) 31 g/dL (31-37) Red Cell Distribution Width 16.4 % (11.5-14.5) 16.8 % (11.5-14.5) Platelet Count 359 x10^3/uL (140-400) 360 x10^3/uL (140-400) Neutrophils (%) (Auto) 74 % (31-73) 89 % (31-73) Lymphocytes (%) (Auto) 14 % (24-48) 8 % (24-48) Monocytes (%) (Auto) 10 % (0-9) 4 % (0-9) Eosinophils (%) (Auto) 1 % (0-3) 0 % (0-3) Basophils (%) (Auto) 2 % (0-3) 0 % (0-3) Neutrophils # (Auto) 9.5 x10^3uL (1.8-7.7) 10.5 x10^3uL (1.8-7.7) Lymphocytes # (Auto) 1.7 x10^3/uL (1.0-4.8) 0.9 x10^3/uL (1.0-4.8) Monocytes # (Auto) 1.2 x10^3/uL (0.0-1.1) 0.4 x10^3/uL (0.0-1.1) Eosinophils # (Auto) 0.1 x10^3/uL (0.0-0.7) 0.0 x10^3/uL (0.0-0.7) Basophils # (Auto) 0.2 x10^3/uL (0.0-0.2) 0.0 x10^3/uL (0.0-0.2) Toxic Granulation Slight Toxic Vacuolation Slight Platelet Estimate Adequate (ADEQUATE) Polychromasia Slight Hypochromasia Mod Microcytosis Marked Prothrombin Time 14.4 SEC (11.7-14.0) Prothromb Time International Ratio 1.2 (0.8-1.1) Sodium Level 138 mmol/L (136-145) 139 mmol/L (136-145) Potassium Level 4.1 mmol/L (3.5-5.1) 4.6 mmol/L (3.5-5.1) Chloride Level 100 mmol/L (98-107) 101 mmol/L (98-107) Carbon Dioxide Level 31 mmol/L (21-32) 31 mmol/L (21-32) Anion Gap 7 (6-14) 7 (6-14) Blood Urea Nitrogen 10 mg/dL (8-26) 13 mg/dL (8-26) Creatinine 0.9 mg/dL (0.7-1.3) 1.0 mg/dL (0.7-1.3) Estimated GFR (Cockcroft-Gault) 85.8 76.0 BUN/Creatinine Ratio 11 (6-20) Glucose Level 106 mg/dL (70-99) 282 mg/dL (70-99) Lactic Acid Level 1.0 mmol/L (0.4-2.0) Calcium Level 9.1 mg/dL (8.5-10.1) 8.6 mg/dL (8.5-10.1) Magnesium Level 1.9 mg/dL (1.8-2.4) Total Bilirubin 0.7 mg/dL (0.2-1.0) Aspartate Amino Transf (AST/SGOT) 13 U/L (15-37) Alanine Aminotransferase (ALT/SGPT) 17 U/L (16-63) Alkaline Phosphatase 81 U/L (46-116) Creatine Kinase 56 U/L (39-308) Creatine Kinase MB (Mass) 3.6 ng/mL (0.0-3.6) Creatine Kinase MB Relative Index % (0-4) Troponin I Quantitative 0.363 ng/mL (0.000-0.055) AQ-Vpv-K-Type Natriuretic Peptide 1245 pg/mL (0-124) Total Protein 6.7 g/dL (6.4-8.2) Albumin 3.1 g/dL (3.4-5.0) Albumin/Globulin Ratio 0.9 (1.0-1.7) Glucose (Fingerstick) 154 mg/dL (70-99) Reticulocyte Count (auto) 1.9 % (0.5-2.5) Iron Level 11 ug/dL (65-175) Total Iron Binding Capacity 374 ug/dL (250-450) Iron Saturation 3 % (15-34) Ferritin 35 ng/mL (26-388) Test 04/01/18 08:41 Glucose (Fingerstick) 289 mg/dL (70-99) Laboratory Tests Test 03/31/18 15:00 03/31/18 15:10 04/01/18 00:57 04/01/18 05:00 O2 Saturation 93 % (92-99) Arterial Blood pH 7.31 (7.35-7.45) Arterial Blood pCO2 at Patient Temp 63 mmHg (35-46) Arterial Blood pO2 at Patient Temp 65 mmHg (65-108) Arterial Blood HCO3 31 mmol/L (21-28) Arterial Blood Base Excess 3 mmol/L (-3-3) FiO2 4 lpm nc White Blood Count 12.8 x10^3/uL (4.0-11.0) 11.9 x10^3/uL (4.0-11.0) Red Blood Count 5.32 x10^6/uL (4.30-5.70) 5.33 x10^6/uL (4.30-5.70) Hemoglobin 11.3 g/dL (13.0-17.5) 11.4 g/dL (13.0-17.5) Hematocrit 36.8 % (39.0-53.0) 36.4 % (39.0-53.0) Mean Corpuscular Volume 69 fL (79-100) 70 fL (79-100) Mean Corpuscular Hemoglobin 21 pg (25-35) 21 pg (25-35) Mean Corpuscular Hemoglobin Concent 31 g/dL (31-37) 31 g/dL (31-37) Red Cell Distribution Width 16.4 % (11.5-14.5) 16.8 % (11.5-14.5) Platelet Count 359 x10^3/uL (140-400) 360 x10^3/uL (140-400) Neutrophils (%) (Auto) 74 % (31-73) 89 % (31-73) Lymphocytes (%) (Auto) 14 % (24-48) 8 % (24-48) Monocytes (%) (Auto) 10 % (0-9) 4 % (0-9) Eosinophils (%) (Auto) 1 % (0-3) 0 % (0-3) Basophils (%) (Auto) 2 % (0-3) 0 % (0-3) Neutrophils # (Auto) 9.5 x10^3uL (1.8-7.7) 10.5 x10^3uL (1.8-7.7) Lymphocytes # (Auto) 1.7 x10^3/uL (1.0-4.8) 0.9 x10^3/uL (1.0-4.8) Monocytes # (Auto) 1.2 x10^3/uL (0.0-1.1) 0.4 x10^3/uL (0.0-1.1) Eosinophils # (Auto) 0.1 x10^3/uL (0.0-0.7) 0.0 x10^3/uL (0.0-0.7) Basophils # (Auto) 0.2 x10^3/uL (0.0-0.2) 0.0 x10^3/uL (0.0-0.2) Toxic Granulation Slight Toxic Vacuolation Slight Platelet Estimate Adequate (ADEQUATE) Polychromasia Slight Hypochromasia Mod Microcytosis Marked Prothrombin Time 14.4 SEC (11.7-14.0) Prothromb Time International Ratio 1.2 (0.8-1.1) Sodium Level 138 mmol/L (136-145) 139 mmol/L (136-145) Potassium Level 4.1 mmol/L (3.5-5.1) 4.6 mmol/L (3.5-5.1) Chloride Level 100 mmol/L (98-107) 101 mmol/L (98-107) Carbon Dioxide Level 31 mmol/L (21-32) 31 mmol/L (21-32) Anion Gap 7 (6-14) 7 (6-14) Blood Urea Nitrogen 10 mg/dL (8-26) 13 mg/dL (8-26) Creatinine 0.9 mg/dL (0.7-1.3) 1.0 mg/dL (0.7-1.3) Estimated GFR (Cockcroft-Gault) 85.8 76.0 BUN/Creatinine Ratio 11 (6-20) Glucose Level 106 mg/dL (70-99) 282 mg/dL (70-99) Lactic Acid Level 1.0 mmol/L (0.4-2.0) Calcium Level 9.1 mg/dL (8.5-10.1) 8.6 mg/dL (8.5-10.1) Magnesium Level 1.9 mg/dL (1.8-2.4) Total Bilirubin 0.7 mg/dL (0.2-1.0) Aspartate Amino Transf (AST/SGOT) 13 U/L (15-37) Alanine Aminotransferase (ALT/SGPT) 17 U/L (16-63) Alkaline Phosphatase 81 U/L (46-116) Creatine Kinase 56 U/L (39-308) Creatine Kinase MB (Mass) 3.6 ng/mL (0.0-3.6) Creatine Kinase MB Relative Index % (0-4) Troponin I Quantitative 0.363 ng/mL (0.000-0.055) OV-Wlz-B-Type Natriuretic Peptide 1245 pg/mL (0-124) Total Protein 6.7 g/dL (6.4-8.2) Albumin 3.1 g/dL (3.4-5.0) Albumin/Globulin Ratio 0.9 (1.0-1.7) Glucose (Fingerstick) 154 mg/dL (70-99) Reticulocyte Count (auto) 1.9 % (0.5-2.5) Iron Level 11 ug/dL (65-175) Total Iron Binding Capacity 374 ug/dL (250-450) Iron Saturation 3 % (15-34) Ferritin 35 ng/mL (26-388) Test 04/01/18 08:41 Glucose (Fingerstick) 289 mg/dL (70-99) Medications Current Medications Albuterol/ Ipratropium (Duoneb) 3 ml 1X ONCE NEB Last administered on at 15:26; Start 03/31/18 at 15:00; Stop 03/31/18 at 15:01; Status DC Methylprednisolone Sodium Succinate (SOLU-Medrol 125MG VIAL) 125 mg 1X ONCE IV Last administered on 03/31/18at 15:35; Start 03/31/18 at 15:00; Stop 03/31/18 at 15:01; Status DC Ceftriaxone Sodium 50 ml @ 100 mls/hr 1X ONCE IV ; Start 03/31/18 at 15:00; Stop 03/31/18 at 15:29; Status UNV Azithromycin 250 ml @ 250 mls/hr 1X ONCE IV Last administered on 03/31/18at 16 :00; Start 03/31/18 at 15:00; Stop 03/31/18 at 15:59; Status DC Ceftriaxone Sodium (Rocephin) 1 gm 1X ONCE IVP Last administered on 03/31/18at 15:38; Start 03/31/18 at 15:00; Stop 03/31/18 at 15:01; Status DC Lorazepam (Ativan) 1 mg 1X ONCE IV Last administered on 03/31/18at 16:11; Start 03/31/18 at 16:15; Stop 03/31/18 at 16:16; Status DC Allopurinol (Zyloprim) 100 mg BID PO Last administered on 04/01/18at 08:56; Start 03/31/18 at 21:00 Aspirin (Ecotrin) 81 mg DAILYWBKFT PO Last administered on 04/01/18at 08:57; Start 04/01/18 at 08:00 Atorvastatin Calcium (Lipitor) 20 mg HS PO ; Start 03/31/18 at 21:00 Albuterol/ Ipratropium (Duoneb) 3 ml RTQID NEB Last administered on 04/01/18at 08:29; Start 03/31/18 at 20:00 Losartan Potassium (Cozaar) 25 mg BID PO ; Start 03/31/18 at 21:00; Stop at 21:00; Status DC Non-Formulary Medication (Ibrutinib (Imbruvica)) 420 mg DAILY PO ; Start at 09:00; Status UNV Lisinopril (Prinivil) 2.5 mg DAILY PO Last administered on 04/01/18at 09:04; Start 04/01/18 at 09:00 Linagliptin (Tradjenta) 5 mg DAILY PO Last administered on 04/01/18at 08:57; Start 04/01/18 at 09:00 Levofloxacin/ Dextrose 150 ml @ 100 mls/hr Q24H IV ; Start 03/31/18 at 17:15; Stop 03/31/18 at 17:21; Status DC Acetaminophen (Tylenol) 650 mg PRN Q6HRS PRN PO FEVER; Start 03/31/18 at 17:15 Ondansetron HCl (Zofran) 4 mg PRN Q6HRS PRN IV NAUSEA/VOMITING; Start 03/31/18 at 17:15 Morphine Sulfate (Morphine Sulfate) 2 mg PRN Q2HR PRN IV MODERATE TO SEVERE PAIN; Start 03/31/18 at 17:15 Tramadol HCl (Ultram) 50 mg PRN Q6HRS PRN PO MILD TO MODERATE PAIN; Start 03/31 at 17:15 Docusate Sodium (Colace) 100 mg PRN DAILY PRN PO CONSTIPATION; Start 03/31/18 at 17:15 Insulin Human Lispro (HumaLOG) 0-9 UNITS TIDWMEALS SQ Last administered on 04/01at 08:48; Start 04/01/18 at 08:00 Dextrose (Dextrose 50%-Water Syringe) 12.5 gm PRN Q15MIN PRN IV SEE COMMENTS; Start 03/31/18 at 17:15 Guaifenesin (Mucinex) 600 mg BID PO Last administered on 04/01/18at 08:57; Start 03/31/18 at 21:00 Albuterol Sulfate (Ventolin Neb Soln) 2.5 mg PRN Q4HRS PRN NEB SHORTNESS OF BREATH; Start 03/31/18 at 17:15 Enoxaparin Sodium (Lovenox 40mg Syringe) 40 mg Q24H SQ Last administered on 03/31/18at 20:32; Start 03/31/18 at 18:00 Piperacillin Sod/ Tazobactam Sod 4.5 gm/Sodium Chloride 100 ml @ 200 mls/hr Q6HRS IV ; Start 03/31/18 at 18:00; Stop 03/31/18 at 18:53; Status DC Piperacillin Sod/ Tazobactam Sod (Zosyn Per Pharmacy) 1 each PRN DAILY PRN MC SEE COMMENTS; Start 03/31/18 at 17:30; Stop 03/31/18 at 18:53; Status DC Vancomycin HCl 2 gm/Sodium Chloride 500 ml @ 250 mls/hr Q12H IV ; Start at 17:30; Status UNV Vancomycin HCl (Vanco Per Pharmacy) 1 each PRN DAILY PRN MC SEE COMMENTS Last administered on 03/31/18at 21:17; Start 03/31/18 at 17:30 Levofloxacin/ Dextrose 150 ml @ 100 mls/hr ONCE ONCE IV ; Start 03/31/18 at 17 :30; Stop 03/31/18 at 18:59; Status Cancel Vancomycin HCl 2 gm/Sodium Chloride 500 ml @ 250 mls/hr 1X ONCE IV Last administered on 03/31/18at 20:32; Start 03/31/18 at 17:30; Stop 03/31/18 at 19:29 ; Status DC Piperacillin Sod/ Tazobactam Sod 4.5 gm/Sodium Chloride 100 ml @ 200 mls/hr 1X ONCE IV Last administered on 03/31/18at 20:32; Start 03/31/18 at 17:30; Stop 03/31/18 at 17:59; Status DC Piperacillin Sod/ Tazobactam Sod 4.5 gm/Sodium Chloride 100 ml @ 200 mls/hr Q6HRS IV Last administered on 04/01/18at 05:33; Start 04/01/18 at 00:00 Metformin HCl (Glucophage) 1,000 mg BIDWMEALS PO Last administered on at 08:56; Start 04/01/18 at 08:00 Methylprednisolone Sodium Succinate (SOLU-Medrol 125MG VIAL) 62.5 mg [id number] IV Last administered on 04/01/18at 05:33; Start 04/01/18 at 06:00 Vancomycin HCl 1.5 gm/Sodium Chloride 500 ml @ 250 mls/hr Q8H IV Last administered on 04/01/18at 04:14; Start 04/01/18 at 04:00 Vancomycin HCl (Vancomycin Trough Level) 1 each 1X ONCE MC ; Start 04/01/18 at 19:30; Stop 04/01/18 at 19:31 Influenza Virus Vaccine (Afluria Trivalent 4665-1545 Syringe) 0.5 ml ONCE ONCE VAX IM ; Start 04/02/18 at 09:00; Stop 04/02/18 at 09:01 Active Scripts Active Levaquin (Levofloxacin) 750 Mg Tablet 750 Mg PO DAILY16 7 Days Duoneb 0.5-3(2.5) Mg/3 Ml (Albuterol/Ipratropium) 3 Ml Ampul.neb 3 Ml NEB RTQID 30 Days Aspirin Ec (Aspirin) 81 Mg Tablet. 81 Mg PO DAILYWBKFT 30 Days Reported Glimepiride 4 Mg Tablet 8 Mg PO DAILY Imbruvica (Ibrutinib) 140 Mg Capsule 420 Mg PO DAILY Vascepa (Icosapent Ethyl) 1 Gm Capsule 2 Gm PO Trelegy Ellipta 100-62.5-25 (Fluticasone/Umeclidin/Vilanter) 1 Each Blst.w.dev 1 Each IH Losartan Potassium 25 Mg Tablet 25 Mg PO BID Allopurinol 100 Mg Tablet 100 Mg PO BID Atorvastatin Calcium 20 Mg Tablet 20 Mg PO HS Trulicity (Dulaglutide) 1.5 Mg/0.5 Ml Pen.injctr 1.5 Mg SQ WEEKLY Janumet 50-1,000 Mg Tablet (Sitagliptin Phos/Metformin Hcl) 1 Each Tablet 1 Tab PO BID Lisinopril 2.5 Mg Tablet 1 Tab PO DAILY Vitals/I & O Vital Sign - Last 24 Hours 03/31/18 03/31/18 03/31/18 03/31/18 14:39 14:41 15:19 16:58 Temp 98.5 98.5 Pulse 112 113 Resp 26 23 B/P (MAP) 131/66 (87) 131/66 (87) Pulse Ox 92 99 98 O2 Delivery BiPAP/CPAP Nasal Cannula BiPAP/CPAP BiPAP/CPAP O2 Flow Rate 4.0 03/31/18 03/31/18 03/31/18 03/31/18 17:42 18:12 19:00 19:30 Temp 97.7 97.7 Pulse 106 104 102 Resp 21 20 21 B/P (MAP) 119/58 (78) 118/57 (77) 135/69 (91) Pulse Ox 96 91 94 O2 Delivery BiPAP/CPAP BiPAP/CPAP BiPAP/CPAP Bi-pap 03/31/18 03/31/18 03/31/18 04/01/18 19:37 21:26 23:00 00:05 Temp 98.0 98.0 Pulse 94 Resp 21 B/P (MAP) 117/65 (82) Pulse Ox 95 95 94 95 O2 Delivery BiPAP/CPAP BiPAP/CPAP BiPAP/CPAP BiPAP/CPAP 04/01/18 04/01/18 04/01/18 04/01/18 03:00 08:00 08:29 09:04 Pulse 102 106 Resp 21 B/P (MAP) 135/73 (93) 129/67 Pulse Ox 94 96 O2 Delivery BiPAP/CPAP Nasal Cannula Nasal Cannula O2 Flow Rate 6.0 6.0 Intake and Output 1203/31/18 04/01/18 15:00 23:00 07:00 Intake Total 250 ml 700 ml Output Total 400 ml 650 ml Balance -150 ml 50 ml KRAIG MARSH III DO Apr 01, 2018 11:19
--- NOTE | 2018-04-01 11:25 | PDOC ---
PULMONARY PROGRESS NOTES Vitals Vital Signs Date Time Temp Pulse Resp B/P (MAP) Pulse Ox O2 Delivery O2 Flow Rate FiO2 04/01/18 09:04 106 129/67 04/01/18 08:29 96 Nasal Cannula 6.0 04/01/18 03:00 21 03/31/18 23:00 98.0 98.0 Labs Laboratory Tests Test 03/31/18 15:00 03/31/18 15:10 04/01/18 00:57 04/01/18 05:00 O2 Saturation 93 % (92-99) Arterial Blood pH 7.31 (7.35-7.45) Arterial Blood pCO2 at Patient Temp 63 mmHg (35-46) Arterial Blood pO2 at Patient Temp 65 mmHg (65-108) Arterial Blood HCO3 31 mmol/L (21-28) Arterial Blood Base Excess 3 mmol/L (-3-3) FiO2 4 lpm nc White Blood Count 12.8 x10^3/uL (4.0-11.0) 11.9 x10^3/uL (4.0-11.0) Red Blood Count 5.32 x10^6/uL (4.30-5.70) 5.33 x10^6/uL (4.30-5.70) Hemoglobin 11.3 g/dL (13.0-17.5) 11.4 g/dL (13.0-17.5) Hematocrit 36.8 % (39.0-53.0) 36.4 % (39.0-53.0) Mean Corpuscular Volume 69 fL (79-100) 70 fL (79-100) Mean Corpuscular Hemoglobin 21 pg (25-35) 21 pg (25-35) Mean Corpuscular Hemoglobin Concent 31 g/dL (31-37) 31 g/dL (31-37) Red Cell Distribution Width 16.4 % (11.5-14.5) 16.8 % (11.5-14.5) Platelet Count 359 x10^3/uL (140-400) 360 x10^3/uL (140-400) Neutrophils (%) (Auto) 74 % (31-73) 89 % (31-73) Lymphocytes (%) (Auto) 14 % (24-48) 8 % (24-48) Monocytes (%) (Auto) 10 % (0-9) 4 % (0-9) Eosinophils (%) (Auto) 1 % (0-3) 0 % (0-3) Basophils (%) (Auto) 2 % (0-3) 0 % (0-3) Neutrophils # (Auto) 9.5 x10^3uL (1.8-7.7) 10.5 x10^3uL (1.8-7.7) Lymphocytes # (Auto) 1.7 x10^3/uL (1.0-4.8) 0.9 x10^3/uL (1.0-4.8) Monocytes # (Auto) 1.2 x10^3/uL (0.0-1.1) 0.4 x10^3/uL (0.0-1.1) Eosinophils # (Auto) 0.1 x10^3/uL (0.0-0.7) 0.0 x10^3/uL (0.0-0.7) Basophils # (Auto) 0.2 x10^3/uL (0.0-0.2) 0.0 x10^3/uL (0.0-0.2) Toxic Granulation Slight Toxic Vacuolation Slight Platelet Estimate Adequate (ADEQUATE) Polychromasia Slight Hypochromasia Mod Microcytosis Marked Prothrombin Time 14.4 SEC (11.7-14.0) Prothromb Time International Ratio 1.2 (0.8-1.1) Sodium Level 138 mmol/L (136-145) 139 mmol/L (136-145) Potassium Level 4.1 mmol/L (3.5-5.1) 4.6 mmol/L (3.5-5.1) Chloride Level 100 mmol/L (98-107) 101 mmol/L (98-107) Carbon Dioxide Level 31 mmol/L (21-32) 31 mmol/L (21-32) Anion Gap 7 (6-14) 7 (6-14) Blood Urea Nitrogen 10 mg/dL (8-26) 13 mg/dL (8-26) Creatinine 0.9 mg/dL (0.7-1.3) 1.0 mg/dL (0.7-1.3) Estimated GFR (Cockcroft-Gault) 85.8 76.0 BUN/Creatinine Ratio 11 (6-20) Glucose Level 106 mg/dL (70-99) 282 mg/dL (70-99) Lactic Acid Level 1.0 mmol/L (0.4-2.0) Calcium Level 9.1 mg/dL (8.5-10.1) 8.6 mg/dL (8.5-10.1) Magnesium Level 1.9 mg/dL (1.8-2.4) Total Bilirubin 0.7 mg/dL (0.2-1.0) Aspartate Amino Transf (AST/SGOT) 13 U/L (15-37) Alanine Aminotransferase (ALT/SGPT) 17 U/L (16-63) Alkaline Phosphatase 81 U/L (46-116) Creatine Kinase 56 U/L (39-308) Creatine Kinase MB (Mass) 3.6 ng/mL (0.0-3.6) Creatine Kinase MB Relative Index % (0-4) Troponin I Quantitative 0.363 ng/mL (0.000-0.055) OE-Wsj-Z-Type Natriuretic Peptide 1245 pg/mL (0-124) Total Protein 6.7 g/dL (6.4-8.2) Albumin 3.1 g/dL (3.4-5.0) Albumin/Globulin Ratio 0.9 (1.0-1.7) Glucose (Fingerstick) 154 mg/dL (70-99) Reticulocyte Count (auto) 1.9 % (0.5-2.5) Iron Level 11 ug/dL (65-175) Total Iron Binding Capacity 374 ug/dL (250-450) Iron Saturation 3 % (15-34) Ferritin 35 ng/mL (26-388) Test 04/01/18 08:41 Glucose (Fingerstick) 289 mg/dL (70-99) Laboratory Tests Test 03/31/18 15:00 03/31/18 15:10 04/01/18 00:57 04/01/18 05:00 O2 Saturation 93 % (92-99) Arterial Blood pH 7.31 (7.35-7.45) Arterial Blood pCO2 at Patient Temp 63 mmHg (35-46) Arterial Blood pO2 at Patient Temp 65 mmHg (65-108) Arterial Blood HCO3 31 mmol/L (21-28) Arterial Blood Base Excess 3 mmol/L (-3-3) FiO2 4 lpm nc White Blood Count 12.8 x10^3/uL (4.0-11.0) 11.9 x10^3/uL (4.0-11.0) Red Blood Count 5.32 x10^6/uL (4.30-5.70) 5.33 x10^6/uL (4.30-5.70) Hemoglobin 11.3 g/dL (13.0-17.5) 11.4 g/dL (13.0-17.5) Hematocrit 36.8 % (39.0-53.0) 36.4 % (39.0-53.0) Mean Corpuscular Volume 69 fL (79-100) 70 fL (79-100) Mean Corpuscular Hemoglobin 21 pg (25-35) 21 pg (25-35) Mean Corpuscular Hemoglobin Concent 31 g/dL (31-37) 31 g/dL (31-37) Red Cell Distribution Width 16.4 % (11.5-14.5) 16.8 % (11.5-14.5) Platelet Count 359 x10^3/uL (140-400) 360 x10^3/uL (140-400) Neutrophils (%) (Auto) 74 % (31-73) 89 % (31-73) Lymphocytes (%) (Auto) 14 % (24-48) 8 % (24-48) Monocytes (%) (Auto) 10 % (0-9) 4 % (0-9) Eosinophils (%) (Auto) 1 % (0-3) 0 % (0-3) Basophils (%) (Auto) 2 % (0-3) 0 % (0-3) Neutrophils # (Auto) 9.5 x10^3uL (1.8-7.7) 10.5 x10^3uL (1.8-7.7) Lymphocytes # (Auto) 1.7 x10^3/uL (1.0-4.8) 0.9 x10^3/uL (1.0-4.8) Monocytes # (Auto) 1.2 x10^3/uL (0.0-1.1) 0.4 x10^3/uL (0.0-1.1) Eosinophils # (Auto) 0.1 x10^3/uL (0.0-0.7) 0.0 x10^3/uL (0.0-0.7) Basophils # (Auto) 0.2 x10^3/uL (0.0-0.2) 0.0 x10^3/uL (0.0-0.2) Toxic Granulation Slight Toxic Vacuolation Slight Platelet Estimate Adequate (ADEQUATE) Polychromasia Slight Hypochromasia Mod Microcytosis Marked Prothrombin Time 14.4 SEC (11.7-14.0) Prothromb Time International Ratio 1.2 (0.8-1.1) Sodium Level 138 mmol/L (136-145) 139 mmol/L (136-145) Potassium Level 4.1 mmol/L (3.5-5.1) 4.6 mmol/L (3.5-5.1) Chloride Level 100 mmol/L (98-107) 101 mmol/L (98-107) Carbon Dioxide Level 31 mmol/L (21-32) 31 mmol/L (21-32) Anion Gap 7 (6-14) 7 (6-14) Blood Urea Nitrogen 10 mg/dL (8-26) 13 mg/dL (8-26) Creatinine 0.9 mg/dL (0.7-1.3) 1.0 mg/dL (0.7-1.3) Estimated GFR (Cockcroft-Gault) 85.8 76.0 BUN/Creatinine Ratio 11 (6-20) Glucose Level 106 mg/dL (70-99) 282 mg/dL (70-99) Lactic Acid Level 1.0 mmol/L (0.4-2.0) Calcium Level 9.1 mg/dL (8.5-10.1) 8.6 mg/dL (8.5-10.1) Magnesium Level 1.9 mg/dL (1.8-2.4) Total Bilirubin 0.7 mg/dL (0.2-1.0) Aspartate Amino Transf (AST/SGOT) 13 U/L (15-37) Alanine Aminotransferase (ALT/SGPT) 17 U/L (16-63) Alkaline Phosphatase 81 U/L (46-116) Creatine Kinase 56 U/L (39-308) Creatine Kinase MB (Mass) 3.6 ng/mL (0.0-3.6) Creatine Kinase MB Relative Index % (0-4) Troponin I Quantitative 0.363 ng/mL (0.000-0.055) HI-Aww-V-Type Natriuretic Peptide 1245 pg/mL (0-124) Total Protein 6.7 g/dL (6.4-8.2) Albumin 3.1 g/dL (3.4-5.0) Albumin/Globulin Ratio 0.9 (1.0-1.7) Glucose (Fingerstick) 154 mg/dL (70-99) Reticulocyte Count (auto) 1.9 % (0.5-2.5) Iron Level 11 ug/dL (65-175) Total Iron Binding Capacity 374 ug/dL (250-450) Iron Saturation 3 % (15-34) Ferritin 35 ng/mL (26-388) Test 04/01/18 08:41 Glucose (Fingerstick) 289 mg/dL (70-99) Medications Active Scripts Medications Dose Route/Sig Max Daily Dose Days Date Category Glimepiride 4 Mg Tablet 8 Mg PO DAILY 03/31/18 Reported Imbruvica (Ibrutinib) 140 Mg Capsule 420 Mg PO DAILY 03/31/18 Reported Vascepa (Icosapent Ethyl) 1 Gm Capsule 2 Gm PO 03/31/18 Reported Trelegy Ellipta 100-62.5-25 (Fluticasone/Umeclidin/Vilanter) 1 Each Blst.w.dev 1 Each IH 03/31/18 Reported Losartan Potassium 25 Mg Tablet 25 Mg PO BID 03/31/18 Reported Allopurinol 100 Mg Tablet 100 Mg PO BID 03/31/18 Reported Atorvastatin Calcium 20 Mg Tablet 20 Mg PO HS 03/31/18 Reported Trulicity (Dulaglutide) 1.5 Mg/0.5 Ml Pen.injctr 1.5 Mg SQ WEEKLY 03/31/18 Reported Levaquin (Levofloxacin) 750 Mg Tablet 750 Mg PO DAILY16 7 09/25/16 Rx Duoneb 0.5-3(2.5) Mg/3 Ml (Albuterol/Ipratropium) 3 Ml Ampul.neb 3 Ml NEB RTQID 30 09/25/16 Rx Aspirin Ec (Aspirin) 81 Mg Tablet.dr 81 Mg PO DAILYWBKFT 30 09/25/16 Rx Janumet 50-1,000 Mg Tablet (Sitagliptin Phos/Metformin Hcl) 1 Each Tablet 1 Tab PO BID 07/12/16 Reported Lisinopril 2.5 Mg Tablet 1 Tab PO DAILY 07/12/16 Reported Impression . FULL NOTE DICTATED THANK POSSIBLE PNEUMONIA WITH PARAPNEUMONIC EFFUSION SEE ORDERS PAYTON CHAVIRA MD Apr 01, 2018 11:25
--- NOTE | 2018-04-01 11:33 | CARD ---
MR#: [id number] Date of Study: 04/01/2018 Ordering Physician: KISHA RICKS, Referring Physician: KISHA RICKS, Tech: Marian Seymour [facility] APPROVED REPORT EXAM: Two-dimensional and M-mode echocardiogram with Doppler and color Doppler. Other Information Quality : AverageHR: 105bpm Rhythm : TachycardiaTechnically limited study due to COPD. INDICATION Congestive Heart Failure 2D DIMENSIONS RVDd3.1 (2.9-3.5cm)Left Atrium(2D)3.4 (1.6-4.0cm) IVSd1.1 (0.7-1.1cm)Aortic Root(2D)3.1 (2.0-3.7cm) LVDd4.7 (3.9-5.9cm)LVOT Diameter2.4 (1.8-2.4cm) PWd0.9 (0.7-1.1cm)LVDs2.6 (2.5-4.0cm) FS (%) 44.6 %SV78.2 ml LVEF(%)75.0 (>50%) Aortic Valve AoV Peak Mehran.163.0cm/sAoV VTI24.8cm AO Peak GR.10.6mmHgLVOT VTI 16.47cm AO Mean GR.5mmHgAVA (VTI)3.00cm2 Mitral Valve MV E Aspkenyp27.4cm/sMV DECEL [id number] MV A Azieohqf20.2cm/sE/A Ratio1.2 MV A [id number] TDI Lateral E' P. V12.74cm/sMedial E' P. V11.84cm/s E/Lateral E'6.6E/Medial E'7.1 Tricuspid Valve TR P. [id number]/sRAP [id number] TR Peak Gr.31auRxMLAV63rxHm LEFT VENTRICLE The left ventricle is normal size. There is normal left ventricular wall thickness. The left ventricu lar systolic function is normal and the ejection fraction is within normal range. The Ejection Fracti on is 65-70%. There is normal LV segmental wall motion. Transmitral Doppler flow pattern is Grade II- pseudonormal filling dynamics. RIGHT VENTRICLE The right ventricle is mildly dilated. There is normal right ventricular wall thickness. The right ve ntricular systolic function is normal. ATRIA The left atrium size is normal. The right atrium is mildly dilated. The interatrial septum is intact with no evidence for an atrial septal defect or patent foramen ovale as noted on 2-D or Doppler imagi ng. AORTIC VALVE The aortic valve is thickened but opens well. The aortic valve is normal in structure and function. D oppler and Color Flow revealed no significant aortic regurgitation. There is no significant aortic va lvular stenosis. MITRAL VALVE The mitral valve is normal in structure and function. There is no evidence of mitral valve prolapse. There is no mitral valve stenosis. Doppler and Color Flow revealed no mitral valve regurgitation note d. TRICUSPID VALVE The tricuspid valve is normal in structure and function. Doppler and Color Flow revealed mild tricusp id regurgitation. There is moderate pulmonary hypertension. The PA pressure was estimated at 52 mmHg. There is no tricuspid valve prolapse or vegetation. There is no tricuspid valve stenosis. PULMONIC VALVE Pulmonic valve not well visualized. GREAT VESSELS The aortic root is normal in size. The ascending aorta is normal in size. The IVC is dilated and cameron apses <50% with inspiration. PERICARDIAL EFFUSION There is a trace pericardial effusion. Critical Notification Critical Value: No <Conclusion> The left ventricular systolic function is normal and the ejection fraction is within normal range. Th e Ejection Fraction is 65-70%. There is normal LV segmental wall motion. Doppler and Color Flow revealed mild tricuspid regurgitation. There is moderate pulmonary hypertensio n. The PA pressure was estimated at 52 mmHg. Signed by : Farooq Watkins, Electronically Approved : 04/01/2018 11:31:52
--- NOTE | 2018-04-01 11:36 | CONS ---
DATE OF CONSULTATION: 04/01/2018 REQUESTING PHYSICIAN: Dr. Radha Pendleton. REASON FOR CONSULTATION: CLL, now admitted with dyspnea and right-sided pleural effusion. HISTORY OF PRESENT ILLNESS: The patient is a 62-year-old gentleman who reports being diagnosed with CLL in [address] bx. He was started on Imbruvica 420 mg daily in [address] Norah Wright at [facility]. He continues to follow up with Dr. Norah Wright for management of CLL. He was admitted to [facility] on 03/31/2018 with complaints of dyspnea that has been going on for several months, but much worse recently that prompted him to be admitted to the hospital. He underwent a CT scan of the chest on 03/31/2018 which revealed large heterogenous right-sided pleural effusion with associated pleural thickening, which is indeterminate and could represent empyema or hemothorax. There is evidence of atelectasis versus pneumonia in the right lower lobe, extensive lymphadenopathy which is slightly better when compared to 2017. I was asked to see the patient for further management of CLL and recommendations regarding treatment. He denies fevers or chills. No nose bleeds or gum bleeding. No hematemesis, melena or hematochezia. PAST MEDICAL HISTORY: Hypertension, diabetes. FAMILY HISTORY: Positive for hypertension. Sister had uterine cancer. Father had blood cancer. SOCIAL HISTORY: He has history of smoking 2-1/2 packs of cigarettes per day since the age of 20 up until 03/30/2018. No alcohol abuse. REVIEW OF SYSTEMS: A 12-point review of systems was performed. Pertinent positives are mentioned in the history of present illness. Rest of the system review is negative. PHYSICAL EXAMINATION: GENERAL APPEARANCE: The patient is a 62-year-old gentleman who is in the ICU, in mild respiratory distress. VITAL SIGNS: Blood pressure 135/73, temperature 98.0. HEENT: Head atraumatic, normocephalic. Eyes: No icterus. NECK: Supple. CHEST: Bilaterally symmetrical, decreased air entry bilaterally. HEART: S1, S2 normal. ABDOMEN: Soft, nontender. CENTRAL NERVOUS SYSTEM: No focal deficits. LYMPHATICS: No lymphadenopathy. SKIN: No rashes. PSYCHOLOGIC: Mood and affect are appropriate. LABORATORY DATA: WBC 11.9, hemoglobin 11.4, platelet count 360. Creatinine 1.0. IMPRESSION AND PLAN: 1. Chronic lymphocytic leukemia. The patient reports that he was diagnosed in 2013 and he is on treatment with Imbruvica and he sees his oncologist at [facility], Dr. Norah Wright, for followup and management. Imbruvica can increase the risk of infection and it can also increase the risk of hemorrhage. He has now developed possible pneumonia and right-sided pleural effusion, which could be empyema versus hemothorax. Hence, I have advised him to hold Imbruvica for now. I also advised him to follow up with his oncologist after discharge. His WBC count is at 11.9 with 89% neutrophils. Review of the old records indicates that his WBC was 52.4 on 09/17/2016 with an absolute lymphocyte count of 41. This indicates that he has been responding to Imbruvica. 2. Right-sided pleural effusion. Consult Pulmonary Medicine for further management. 3. Dyspnea. I suspect this is due to possible pneumonia versus underlying chronic obstructive pulmonary disease, management per Pulmonary Medicine. 4. Anemia with MCV of 69. I will check iron studies. MICHAEL HENRIQUEZ MD DR: GEOVANI/lowell JOB#: [id number] / [id number] ALLA
--- NOTE | 2018-04-01 11:57 | CONS ---
DATE OF CONSULTATION: 04/01/2018 ATTENDING PHYSICIAN: Dr. Pendleton. REASON FOR CONSULTATION: The patient is seen in pulmonary consultation at the request of Dr. Pendleton for abnormal CT chest, acute respiratory failure. HISTORY OF PRESENT ILLNESS: The patient is a 62-year-old male that is somewhat of a poor historian. He actually monitors his saturations at home, but does not wear oxygen at home. He has been having low O2 saturation for several months, but did not seek any medical attention, presented yesterday because his O2 saturations at home were in the 70s. He quit tobacco several weeks ago because he was too sick to smoke. Last night, I was called with this admission information. He had an arterial blood gas revealing a pH of 7.31, PaCO2 of 63, pO2 of 65. The patient was placed on BiPAP overnight. He also had a chest x-ray and CT chest. I reviewed the CT of the chest, which revealed a loculated right pleural effusion with some pleural thickening. He also had some right-sided airspace disease and some collapse of right lower lobe and right middle lobe. He also had some extensive mediastinal and hilar adenopathy, which had improved from the previous film on 09/09/2016. I reviewed old records, the patient was last seen by our service back in 08/2016. He was actually due to follow up in the office with a repeat scan, but failed to do so. He denies hemoptysis. No fever or chills. No nausea, vomiting, diarrhea. PAST MEDICAL HISTORY: Otherwise remarkable for 1. Chronic lymphocytic lymphoma. The patient is currently at home receiving Imbruvica 420 mg p.o. daily. 2. COPD, utilizes nebulizers at home. 3. Hyperlipidemia, is currently on atorvastatin. 4. He has a history of hypertension, currently taking lisinopril. 5. Type 2 diabetes, on metformin, Trulicity, along with glyburide. He is also taking allopurinol. There is a prior history of sleep apnea, uses CPAP at home and prior pneumothorax. PAST SURGICAL HISTORY: He has had right arm surgery, left knee surgery. FAMILY HISTORY: Positive for hypertension, diabetes. 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 He continues to smoke. Denies any illicit drugs. REVIEW OF SYSTEMS: CONSTITUTIONAL: No fever or chills. EYES: No change in visual acuity. HENT: No nasal congestion or sore throat. PULMONARY: As indicated above. He has not had a previous PPD, no recent travel. CARDIOVASCULAR: As indicated above. GASTROINTESTINAL: No nausea, vomiting, diarrhea. GENITOURINARY: No dysuria or frequency. MUSCULOSKELETAL: No localized muscle aches or joint pain. SKIN: No new skin lesions. NEUROLOGIC: No headaches, diplopia or blurred vision. PHYSICAL EXAMINATION: VITAL SIGNS: The patient was in no respiratory distress. Since admission, he has been afebrile, currently on 6 liters. HEENT: Eyes, the sclerae were nonicteric. NECK: Jugular venous distention was not elevated. No lymphadenopathy. CHEST: Full expansion. LUNGS: Diminished breath sounds in the right. No wheezes. CARDIOVASCULAR: Regular rate and rhythm with S1, S2, no S3. ABDOMEN: Soft, nontender, nondistended. EXTREMITIES: No clubbing, cyanosis, some edema. SKIN: He has some chronic skin changes in the lower extremities compatible with venous insufficiency. NEUROLOGIC: The patient was awake, alert, following commands. A detailed neuro exam was not performed. LABORATORY DATA: White count was elevated at 12,000, hemoglobin and hematocrit were noted. Arterial blood gas as indicated above. INR was 1.2. Electrolytes were normal. Iron level was low. Troponin was elevated. BNP was elevated. Albumin was low. CT as indicated above. IMPRESSION: 1. Yvtod-gu-zrhnajg hypercapnic hypoxemic respiratory failure. 2. Abnormal CT of the chest revealing loculated effusion on the right, along with some airspace disease and atelectasis. 3. Mediastinal hilar adenopathy, somewhat improved in comparison of film of 09/19/2016. 4. Chronic lymphocytic leukemia. 5. Tobacco dependent. 6. Chronic obstructive pulmonary disease. 7. Obstructive sleep apnea. 8. Type 2 diabetes. 9. Leukocytosis. 10. Protein malnutrition, present upon admission. PLAN: 1. We will continue empiric antibiotics. 2. Case discussed with interventional radiologist, will insert chest tube. 3. Pleural fluid analysis. 4. DVT and GI prophylaxis. 5. Continue home meds. 6. We will make further recommendations depending on the pleural fluid analysis. 7. Continue p.r.n. BiPAP and BiPAP at bedtime. The patient is encouraged to discontinue tobacco use. I suspect patient has pneumonia with parapneumonic effusion versus a malignant effusion. I do appreciate the privilege in sharing in the patient's care. Total cumulative critical care time of 50 minutes. PAYTON CHAVIRA MD DR: RAUL/lowell JOB#: [id number] / [id number]
[2018-04-01 12:02] LABS: TOTAL PROTEIN 5.9 g/dL (6.4-8.2)
[2018-04-01] MEDS: VANCOMYCIN PER PHARMACY MC PRN ×3 (12:34→23:17)
[2018-04-01 16:12] LABS: HEMOGLOBIN 8.2 g/dL (13.0-17.5); RED BLOOD COUNT 3.79 x10^6/uL (4.30-5.70); RED CELL DISTRIBUTION WIDTH 16.7 % (11.5-14.5); WHITE BLOOD COUNT 13.1 x10^3/uL (4.0-11.0)
--- NOTE | 2018-04-01 16:21 | RAD ---
Ultrasound-guided placement of a right thoracostomy tube 04/01/2018 Indication: Complex right pleural fluid collection Discussion: The risks and benefits of the procedure were discussed the patient. Informed consent was obtained. Timeout procedure was performed. The right posterior chest was prepped and draped using sterile barrier technique. 1% lidocaine was measured for local anesthesia. Ultrasound demonstrates a multiloculated right pleural effusion. This was accessed using a 5 Spanish Yueh needle. A guidewire was advanced into the pleural space under ultrasound. Following dilatation a 12 Spanish pigtail catheter was placed. Serosanguineous aspirate was obtained. The catheter was connected to a Pleur-evac device at -20 cm of water. Sterile dressings were applied. Impression: Ultrasound-guided placement of a right-sided pigtail thoracostomy tube
--- NOTE | 2018-04-01 16:40 | RAD ---
Portable chest, 04/01/2018: HISTORY: Chest tube placement Comparison is made to yesterday's study. A pigtail pleural drain has been placed on the right with decrease in volume of the right pleural effusion. There is considerable residual pleural thickening on the right. There is moderate persistent atelectasis and consolidation in the right middle and lower lobes. There is no evidence of pneumothorax. The heart size and pulmonary vascularity are normal. There is unchanged blunting of the left lateral costophrenic angle which has been shown to be due to scarring. No left lung infiltrate is seen. IMPRESSION: 1. Decrease in volume of the right pleural effusion status post right pleural drain placement. 2. Moderate ongoing atelectasis and consolidation in the right middle and lower lobes. Electronically signed by: Rusty Austin MD (04/01/2018 4:36 PM) [facility]
[2018-04-01] MEDS: ENOXAPARIN 40 MG/0.4 ML SYRINGE. SQ SCH (17:33)
[2018-04-01] MEDS: ATORVASTATIN CALCIUM 20 MG TABLET PO SCH (20:38)
[2018-04-01] MEDS: MORPHINE SULFATE 2 MG/ML VIAL. IV PRN (20:41)
[2018-04-01 22:09] LABS: HEMATOCRIT 36.1 % (39.0-53.0); RED BLOOD COUNT 5.14 x10^6/uL (4.30-5.70); WHITE BLOOD COUNT 18.1 x10^3/uL (4.0-11.0)
[2018-04-01 22:31] LABS: VANC TR 16.6 mcg/mL (10.0-20.0)
[2018-04-02] MEDS: PIPERACILLIN/TAZOBACTAM 4.5 GM in IV NORMAL SALINE 100ML 100 ML IV SCH ×4 (00:15→18:04)
[2018-04-02] MEDS: methylPREDNISolone SOD SUCC PF 125 MG/2 ML VIAL. IV SCH ×2 (05:45→18:05)
[2018-04-02] MEDS: MORPHINE SULFATE 2 MG/ML VIAL. IV PRN (05:46)
[2018-04-02 06:08] LABS: CREATININE 1.3 mg/dL (0.7-1.3); GFR 56.1
[2018-04-02] MEDS: VANCOMYCIN 1.5 GM in IV NORMAL SALINE 500ML BAG 500 ML IV SCH ×3 (06:12→22:50)
[2018-04-02 06:42] LABS: HEMATOCRIT 36.8 % (39.0-53.0); HEMOGLOBIN 11.1 g/dL (13.0-17.5); RED BLOOD COUNT 5.17 x10^6/uL (4.30-5.70); RED CELL DISTRIBUTION WIDTH 17.2 % (11.5-14.5); WHITE BLOOD COUNT 15.2 x10^3/uL (4.0-11.0)
[2018-04-02 07:00] VITALS: BP 110/58
[2018-04-02] MEDS: INSULIN LISPRO 300 UNITS/3 ML INSULN.PEN. SQ SCH ×3 (08:00→18:07)
[2018-04-02] MEDS: IPRATRPIUM/ALBUTEROL 0.5/2.5MG 3 ML NEBU. NEB SCH ×4 (08:17→19:42)
[2018-04-02] MEDS: ASPIRIN ENTERIC COATED 81 MG TABLET.DR. PO SCH (09:11)
[2018-04-02] MEDS: LINAGLIPTIN 5 MG TABLET PO SCH (09:11)
[2018-04-02] MEDS: ALLOPURINOL 100 MG TABLET. PO SCH ×2 (09:11→21:26)
[2018-04-02] MEDS: LISINOPRIL 5 MG TABLET. PO SCH (09:13)
[2018-04-02] MEDS: metFORMIN 500 MG TABLET PO SCH ×2 (09:13→18:04)
[2018-04-02 11:00] VITALS: BP 126/55
[2018-04-02] MEDS: VANCOMYCIN PER PHARMACY MC PRN (11:14)
--- NOTE | 2018-04-02 12:47 | PDOC ---
PROGRESS NOTES Chief Complaint Chief Complaint Respiratory Distress History of Present Illness History of Present Illness Pt was seen and examined at bedside in the ICU today.He had a chest tube placed yesterday (04/01) and seems to be breathing much better, can now talk in multiple sentences without having to pause to take a deep breath after each sentence. he has no new complaints. Pulm and Onc are following, cards has been consulted for possible heart failure (BNP was > than 1000). Vitals Vitals Vital Signs Date Time Temp Pulse Resp B/P (MAP) Pulse Ox O2 Delivery O2 Flow Rate FiO2 04/02/18 11:37 95 Nasal Cannula 4.0 04/02/18 11:00 98.0 102 20 126/55 (78) 98.0 Physical Exam General: Alert, Oriented X3, Cooperative, No acute distress Heart: Regular rate, Normal S1, Normal S2 Lungs: Crackles, Other (distant bs b/l) Abdomen: Normal bowel sounds, Soft Extremities: No clubbing, No cyanosis Skin: No significant lesion, Other (dry, scaly skin BLE) Labs LABS Laboratory Tests Test 04/01/18 13:35 04/01/18 14:57 04/01/18 16:10 04/01/18 16:15 Body Fluid pH 7.15 Body Fluid Total Protein 3.6 g/dL (.) Body Fluid Lactate Dehydrogenase 608 IU/L (.) Glucose (Fingerstick) 150 mg/dL (70-99) White Blood Count 13.1 x10^3/uL (4.0-11.0) Red Blood Count 3.79 x10^6/uL (4.30-5.70) Hemoglobin 8.2 g/dL (13.0-17.5) Hematocrit 27.0 % (39.0-53.0) Mean Corpuscular Volume 71 fL (79-100) Mean Corpuscular Hemoglobin 22 pg (25-35) Mean Corpuscular Hemoglobin Concent 31 g/dL (31-37) Red Cell Distribution Width 16.7 % (11.5-14.5) Platelet Count 273 x10^3/uL (140-400) Special Test - Miscellaneous See separate report Test 04/01/18 17:40 04/01/18 22:00 04/02/18 04:50 04/02/18 09:00 Glucose (Fingerstick) 147 mg/dL (70-99) 169 mg/dL (70-99) White Blood Count 18.1 x10^3/uL (4.0-11.0) 15.2 x10^3/uL (4.0-11.0) Red Blood Count 5.14 x10^6/uL (4.30-5.70) 5.17 x10^6/uL (4.30-5.70) Hemoglobin 11.0 g/dL (13.0-17.5) 11.1 g/dL (13.0-17.5) Hematocrit 36.1 % (39.0-53.0) 36.8 % (39.0-53.0) Mean Corpuscular Volume 70 fL (79-100) 71 fL (79-100) Mean Corpuscular Hemoglobin 22 pg (25-35) 21 pg (25-35) Mean Corpuscular Hemoglobin Concent 31 g/dL (31-37) 30 g/dL (31-37) Red Cell Distribution Width 17.0 % (11.5-14.5) 17.2 % (11.5-14.5) Platelet Count 398 x10^3/uL (140-400) 390 x10^3/uL (140-400) Vancomycin Level Trough 16.6 mcg/mL (10.0-20.0) Vancomycin Last Dose Date Unk Vancomycin Last Dose Time Unk Creatinine 1.3 mg/dL (0.7-1.3) Estimated GFR (Cockcroft-Gault) 56.1 Review of Systems Review of Systems CV: No chest pain, palpitations PULM: Yes sob, cough GI: No n/v, abdominal pain Assessment and Plan Assessmemt and Plan ASSESSMENT: COPD (chronic obstructive pulmonary disease) Elevated troponin Lymphoma Pleural effusion Respiratory distress PLAN: Chest tube in place and still draining Continue pleural suction continue IV Abx's Recheck labs in am Home meds Consult PT/OT Subspecialty input appreciated Cardiology has been consulted Comment Review of Relevant I have reviewed the following items kadie (where applicable) has been applied. Labs Laboratory Tests Test 03/31/18 15:00 03/31/18 15:10 03/31/18 18:40 04/01/18 00:57 O2 Saturation 93 % (92-99) Arterial Blood pH 7.31 (7.35-7.45) Arterial Blood pCO2 at Patient Temp 63 mmHg (35-46) Arterial Blood pO2 at Patient Temp 65 mmHg (65-108) Arterial Blood HCO3 31 mmol/L (21-28) Arterial Blood Base Excess 3 mmol/L (-3-3) FiO2 4 lpm nc White Blood Count 12.8 x10^3/uL (4.0-11.0) Red Blood Count 5.32 x10^6/uL (4.30-5.70) Hemoglobin 11.3 g/dL (13.0-17.5) Hematocrit 36.8 % (39.0-53.0) Mean Corpuscular Volume 69 fL (79-100) Mean Corpuscular Hemoglobin 21 pg (25-35) Mean Corpuscular Hemoglobin Concent 31 g/dL (31-37) Red Cell Distribution Width 16.4 % (11.5-14.5) Platelet Count 359 x10^3/uL (140-400) Neutrophils (%) (Auto) 74 % (31-73) Lymphocytes (%) (Auto) 14 % (24-48) Monocytes (%) (Auto) 10 % (0-9) Eosinophils (%) (Auto) 1 % (0-3) Basophils (%) (Auto) 2 % (0-3) Neutrophils # (Auto) 9.5 x10^3uL (1.8-7.7) Lymphocytes # (Auto) 1.7 x10^3/uL (1.0-4.8) Monocytes # (Auto) 1.2 x10^3/uL (0.0-1.1) Eosinophils # (Auto) 0.1 x10^3/uL (0.0-0.7) Basophils # (Auto) 0.2 x10^3/uL (0.0-0.2) Toxic Granulation Slight Toxic Vacuolation Slight Platelet Estimate Adequate (ADEQUATE) Polychromasia Slight Hypochromasia Mod Microcytosis Marked Prothrombin Time 14.4 SEC (11.7-14.0) Prothromb Time International Ratio 1.2 (0.8-1.1) Sodium Level 138 mmol/L (136-145) Potassium Level 4.1 mmol/L (3.5-5.1) Chloride Level 100 mmol/L (98-107) Carbon Dioxide Level 31 mmol/L (21-32) Anion Gap 7 (6-14) Blood Urea Nitrogen 10 mg/dL (8-26) Creatinine 0.9 mg/dL (0.7-1.3) Estimated GFR (Cockcroft-Gault) 85.8 BUN/Creatinine Ratio 11 (6-20) Glucose Level 106 mg/dL (70-99) Lactic Acid Level 1.0 mmol/L (0.4-2.0) Calcium Level 9.1 mg/dL (8.5-10.1) Magnesium Level 1.9 mg/dL (1.8-2.4) Total Bilirubin 0.7 mg/dL (0.2-1.0) Aspartate Amino Transf (AST/SGOT) 13 U/L (15-37) Alanine Aminotransferase (ALT/SGPT) 17 U/L (16-63) Alkaline Phosphatase 81 U/L (46-116) Creatine Kinase 56 U/L (39-308) Creatine Kinase MB (Mass) 3.6 ng/mL (0.0-3.6) Creatine Kinase MB Relative Index % (0-4) Troponin I Quantitative 0.363 ng/mL (0.000-0.055) HB-Jdo-A-Type Natriuretic Peptide 1245 pg/mL (0-124) Total Protein 6.7 g/dL (6.4-8.2) Albumin 3.1 g/dL (3.4-5.0) Albumin/Globulin Ratio 0.9 (1.0-1.7) Nasal Screen MRSA (PCR) Negative (Negative) Glucose (Fingerstick) 154 mg/dL (70-99) Test 04/01/18 05:00 04/01/18 08:41 04/01/18 13:35 04/01/18 14:57 White Blood Count 11.9 x10^3/uL (4.0-11.0) Red Blood Count 5.33 x10^6/uL (4.30-5.70) Hemoglobin 11.4 g/dL (13.0-17.5) Hematocrit 36.4 % (39.0-53.0) Mean Corpuscular Volume 70 fL (79-100) Mean Corpuscular Hemoglobin 21 pg (25-35) Mean Corpuscular Hemoglobin Concent 31 g/dL (31-37) Red Cell Distribution Width 16.8 % (11.5-14.5) Platelet Count 360 x10^3/uL (140-400) Neutrophils (%) (Auto) 89 % (31-73) Lymphocytes (%) (Auto) 8 % (24-48) Monocytes (%) (Auto) 4 % (0-9) Eosinophils (%) (Auto) 0 % (0-3) Basophils (%) (Auto) 0 % (0-3) Neutrophils # (Auto) 10.5 x10^3uL (1.8-7.7) Lymphocytes # (Auto) 0.9 x10^3/uL (1.0-4.8) Monocytes # (Auto) 0.4 x10^3/uL (0.0-1.1) Eosinophils # (Auto) 0.0 x10^3/uL (0.0-0.7) Basophils # (Auto) 0.0 x10^3/uL (0.0-0.2) Reticulocyte Count (auto) 1.9 % (0.5-2.5) Sodium Level 139 mmol/L (136-145) Potassium Level 4.6 mmol/L (3.5-5.1) Chloride Level 101 mmol/L (98-107) Carbon Dioxide Level 31 mmol/L (21-32) Anion Gap 7 (6-14) Blood Urea Nitrogen 13 mg/dL (8-26) Creatinine 1.0 mg/dL (0.7-1.3) Estimated GFR (Cockcroft-Gault) 76.0 Glucose Level 282 mg/dL (70-99) Calcium Level 8.6 mg/dL (8.5-10.1) Iron Level 11 ug/dL (65-175) Total Iron Binding Capacity 374 ug/dL (250-450) Iron Saturation 3 % (15-34) Ferritin 35 ng/mL (26-388) Lactate Dehydrogenase 156 U/L (85-227) Total Protein 5.9 g/dL (6.4-8.2) Glucose (Fingerstick) 289 mg/dL (70-99) 150 mg/dL (70-99) Body Fluid pH 7.15 Body Fluid Total Protein 3.6 g/dL (.) Body Fluid Lactate Dehydrogenase 608 IU/L (.) Test 04/01/18 16:10 04/01/18 16:15 04/01/18 17:40 04/01/18 22:00 White Blood Count 13.1 x10^3/uL (4.0-11.0) 18.1 x10^3/uL (4.0-11.0) Red Blood Count 3.79 x10^6/uL (4.30-5.70) 5.14 x10^6/uL (4.30-5.70) Hemoglobin 8.2 g/dL (13.0-17.5) 11.0 g/dL (13.0-17.5) Hematocrit 27.0 % (39.0-53.0) 36.1 % (39.0-53.0) Mean Corpuscular Volume 71 fL (79-100) 70 fL (79-100) Mean Corpuscular Hemoglobin 22 pg (25-35) 22 pg (25-35) Mean Corpuscular Hemoglobin Concent 31 g/dL (31-37) 31 g/dL (31-37) Red Cell Distribution Width 16.7 % (11.5-14.5) 17.0 % (11.5-14.5) Platelet Count 273 x10^3/uL (140-400) 398 x10^3/uL (140-400) Special Test - Miscellaneous See separate report Glucose (Fingerstick) 147 mg/dL (70-99) Vancomycin Level Trough 16.6 mcg/mL (10.0-20.0) Vancomycin Last Dose Date Unk Vancomycin Last Dose Time Unk Test 04/02/18 04:50 04/02/18 09:00 White Blood Count 15.2 x10^3/uL (4.0-11.0) Red Blood Count 5.17 x10^6/uL (4.30-5.70) Hemoglobin 11.1 g/dL (13.0-17.5) Hematocrit 36.8 % (39.0-53.0) Mean Corpuscular Volume 71 fL (79-100) Mean Corpuscular Hemoglobin 21 pg (25-35) Mean Corpuscular Hemoglobin Concent 30 g/dL (31-37) Red Cell Distribution Width 17.2 % (11.5-14.5) Platelet Count 390 x10^3/uL (140-400) Creatinine 1.3 mg/dL (0.7-1.3) Estimated GFR (Cockcroft-Gault) 56.1 Glucose (Fingerstick) 169 mg/dL (70-99) Laboratory Tests Test 04/01/18 13:35 04/01/18 14:57 04/01/18 16:10 04/01/18 16:15 Body Fluid pH 7.15 Body Fluid Total Protein 3.6 g/dL (.) Body Fluid Lactate Dehydrogenase 608 IU/L (.) Glucose (Fingerstick) 150 mg/dL (70-99) White Blood Count 13.1 x10^3/uL (4.0-11.0) Red Blood Count 3.79 x10^6/uL (4.30-5.70) Hemoglobin 8.2 g/dL (13.0-17.5) Hematocrit 27.0 % (39.0-53.0) Mean Corpuscular Volume 71 fL (79-100) Mean Corpuscular Hemoglobin 22 pg (25-35) Mean Corpuscular Hemoglobin Concent 31 g/dL (31-37) Red Cell Distribution Width 16.7 % (11.5-14.5) Platelet Count 273 x10^3/uL (140-400) Special Test - Miscellaneous See separate report Test 04/01/18 17:40 04/01/18 22:00 04/02/18 04:50 04/02/18 09:00 Glucose (Fingerstick) 147 mg/dL (70-99) 169 mg/dL (70-99) White Blood Count 18.1 x10^3/uL (4.0-11.0) 15.2 x10^3/uL (4.0-11.0) Red Blood Count 5.14 x10^6/uL (4.30-5.70) 5.17 x10^6/uL (4.30-5.70) Hemoglobin 11.0 g/dL (13.0-17.5) 11.1 g/dL (13.0-17.5) Hematocrit 36.1 % (39.0-53.0) 36.8 % (39.0-53.0) Mean Corpuscular Volume 70 fL (79-100) 71 fL (79-100) Mean Corpuscular Hemoglobin 22 pg (25-35) 21 pg (25-35) Mean Corpuscular Hemoglobin Concent 31 g/dL (31-37) 30 g/dL (31-37) Red Cell Distribution Width 17.0 % (11.5-14.5) 17.2 % (11.5-14.5) Platelet Count 398 x10^3/uL (140-400) 390 x10^3/uL (140-400) Vancomycin Level Trough 16.6 mcg/mL (10.0-20.0) Vancomycin Last Dose Date Unk Vancomycin Last Dose Time Unk Creatinine 1.3 mg/dL (0.7-1.3) Estimated GFR (Cockcroft-Gault) 56.1 Microbiology 03/31/18 Blood Culture - Preliminary, Resulted NO GROWTH AFTER 1 DAY Medications Current Medications Albuterol/ Ipratropium (Duoneb) 3 ml 1X ONCE NEB Last administered on at 15:26; Start 03/31/18 at 15:00; Stop 03/31/18 at 15:01; Status DC Methylprednisolone Sodium Succinate (SOLU-Medrol 125MG VIAL) 125 mg 1X ONCE IV Last administered on 03/31/18at 15:35; Start 03/31/18 at 15:00; Stop 03/31/18 at 15:01; Status DC Ceftriaxone Sodium 50 ml @ 100 mls/hr 1X ONCE IV ; Start 03/31/18 at 15:00; Stop 03/31/18 at 15:29; Status UNV Azithromycin 250 ml @ 250 mls/hr 1X ONCE IV Last administered on 03/31/18at 16 :00; Start 03/31/18 at 15:00; Stop 03/31/18 at 15:59; Status DC Ceftriaxone Sodium (Rocephin) 1 gm 1X ONCE IVP Last administered on 03/31/18at 15:38; Start 03/31/18 at 15:00; Stop 03/31/18 at 15:01; Status DC Lorazepam (Ativan) 1 mg 1X ONCE IV Last administered on 03/31/18at 16:11; Start 03/31/18 at 16:15; Stop 03/31/18 at 16:16; Status DC Allopurinol (Zyloprim) 100 mg BID PO Last administered on 04/02/18at 09:11; Start 03/31/18 at 21:00 Aspirin (Ecotrin) 81 mg DAILYWBKFT PO Last administered on 04/02/18at 09:11; Start 04/01/18 at 08:00 Atorvastatin Calcium (Lipitor) 20 mg HS PO Last administered on 04/01/18at 20:38 ; Start 03/31/18 at 21:00 Albuterol/ Ipratropium (Duoneb) 3 ml RTQID NEB Last administered on 04/02/18at 08:17; Start 03/31/18 at 20:00 Losartan Potassium (Cozaar) 25 mg BID PO ; Start 03/31/18 at 21:00; Stop at 21:00; Status DC Non-Formulary Medication (Ibrutinib (Imbruvica)) 420 mg DAILY PO ; Start at 09:00; Stop 04/01/18 at 12:30; Status DC Lisinopril (Prinivil) 2.5 mg DAILY PO Last administered on 04/02/18at 09:13; Start 04/01/18 at 09:00 Linagliptin (Tradjenta) 5 mg DAILY PO Last administered on 04/02/18at 09:11; Start 04/01/18 at 09:00 Levofloxacin/ Dextrose 150 ml @ 100 mls/hr Q24H IV ; Start 03/31/18 at 17:15; Stop 03/31/18 at 17:21; Status DC Acetaminophen (Tylenol) 650 mg PRN Q6HRS PRN PO FEVER; Start 03/31/18 at 17:15 Ondansetron HCl (Zofran) 4 mg PRN Q6HRS PRN IV NAUSEA/VOMITING; Start 03/31/18 at 17:15 Morphine Sulfate (Morphine Sulfate) 2 mg PRN Q2HR PRN IV MODERATE TO SEVERE PAIN Last administered on 04/02/18at 05:46; Start 03/31/18 at 17:15 Tramadol HCl (Ultram) 50 mg PRN Q6HRS PRN PO MILD TO MODERATE PAIN; Start 03/31 at 17:15 Docusate Sodium (Colace) 100 mg PRN DAILY PRN PO CONSTIPATION; Start 03/31/18 at 17:15 Insulin Human Lispro (HumaLOG) 0-9 UNITS TIDWMEALS SQ Last administered on 04/01at 08:48; Start 04/01/18 at 08:00 Dextrose (Dextrose 50%-Water Syringe) 12.5 gm PRN Q15MIN PRN IV SEE COMMENTS; Start 03/31/18 at 17:15 Guaifenesin (Mucinex) 600 mg BID PO Last administered on 04/02/18at 09:11; Start 03/31/18 at 21:00 Albuterol Sulfate (Ventolin Neb Soln) 2.5 mg PRN Q4HRS PRN NEB SHORTNESS OF BREATH; Start 03/31/18 at 17:15 Enoxaparin Sodium (Lovenox 40mg Syringe) 40 mg Q24H SQ Last administered on 04/01/18at 17:33; Start 03/31/18 at 18:00 Piperacillin Sod/ Tazobactam Sod 4.5 gm/Sodium Chloride 100 ml @ 200 mls/hr Q6HRS IV ; Start 03/31/18 at 18:00; Stop 03/31/18 at 18:53; Status DC Piperacillin Sod/ Tazobactam Sod (Zosyn Per Pharmacy) 1 each PRN DAILY PRN MC SEE COMMENTS; Start 03/31/18 at 17:30; Stop 03/31/18 at 18:53; Status DC Vancomycin HCl 2 gm/Sodium Chloride 500 ml @ 250 mls/hr Q12H IV ; Start at 17:30; Status UNV Vancomycin HCl (Vanco Per Pharmacy) 1 each PRN DAILY PRN MC SEE COMMENTS Last administered on 04/02/18at 11:14; Start 03/31/18 at 17:30 Levofloxacin/ Dextrose 150 ml @ 100 mls/hr ONCE ONCE IV ; Start 03/31/18 at 17 :30; Stop 03/31/18 at 18:59; Status Cancel Vancomycin HCl 2 gm/Sodium Chloride 500 ml @ 250 mls/hr 1X ONCE IV Last administered on 03/31/18at 20:32; Start 03/31/18 at 17:30; Stop 03/31/18 at 19:29 ; Status DC Piperacillin Sod/ Tazobactam Sod 4.5 gm/Sodium Chloride 100 ml @ 200 mls/hr 1X ONCE IV Last administered on 03/31/18at 20:32; Start 03/31/18 at 17:30; Stop 03/31/18 at 17:59; Status DC Piperacillin Sod/ Tazobactam Sod 4.5 gm/Sodium Chloride 100 ml @ 200 mls/hr Q6HRS IV Last administered on 04/02/18at 05:45; Start 04/01/18 at 00:00 Metformin HCl (Glucophage) 1,000 mg BIDWMEALS PO Last administered on at 09:13; Start 04/01/18 at 08:00 Methylprednisolone Sodium Succinate (SOLU-Medrol 125MG VIAL) 62.5 mg BID66 IV Last administered on 04/02/18at 05:45; Start 04/01/18 at 06:00 Vancomycin HCl 1.5 gm/Sodium Chloride 500 ml @ 250 mls/hr Q8H IV Last administered on 04/02/18at 06:12; Start 04/01/18 at 04:00 Vancomycin HCl (Vancomycin Trough Level) 1 each 1X ONCE MC Last administered on 04/01/18at 22:00; Start 04/01/18 at 22:00; Stop 04/01/18 at 22:01; Status DC Influenza Virus Vaccine (Afluria Trivalent 2541-1188 Syringe) 0.5 ml ONCE ONCE VAX IM ; Start 04/02/18 at 09:00; Stop 04/02/18 at 09:01; Status DC Active Scripts Active Levaquin (Levofloxacin) 750 Mg Tablet 750 Mg PO DAILY16 7 Days Duoneb 0.5-3(2.5) Mg/3 Ml (Albuterol/Ipratropium) 3 Ml Ampul.neb 3 Ml NEB RTQID 30 Days Aspirin Ec (Aspirin) 81 Mg Tablet.dr 81 Mg PO DAILYWBKFT 30 Days Reported Glimepiride 4 Mg Tablet 8 Mg PO DAILY Imbruvica (Ibrutinib) 140 Mg Capsule 420 Mg PO DAILY Vascepa (Icosapent Ethyl) 1 Gm Capsule 2 Gm PO Trelegy Ellipta 100-62.5-25 (Fluticasone/Umeclidin/Vilanter) 1 Each Blst.w.dev 1 Each IH Losartan Potassium 25 Mg Tablet 25 Mg PO BID Allopurinol 100 Mg Tablet 100 Mg PO BID Atorvastatin Calcium 20 Mg Tablet 20 Mg PO HS Trulicity (Dulaglutide) 1.5 Mg/0.5 Ml Pen.injctr 1.5 Mg SQ WEEKLY Janumet 50-1,000 Mg Tablet (Sitagliptin Phos/Metformin Hcl) 1 Each Tablet 1 Tab PO BID Lisinopril 2.5 Mg Tablet 1 Tab PO DAILY Vitals/I & O Vital Sign - Last 24 Hours 04/01/18 04/01/18 04/01/18 04/01/18 13:45 14:00 14:30 15:30 Pulse 102 98 94 Resp 14 16 22 B/P (MAP) 131/61 (84) 119/58 (78) 104/51 (68) Pulse Ox 99 99 99 O2 Delivery Nasal Cannula Nasal Cannula Nasal Cannula Nasal Cannula O2 Flow Rate 6.0 6.0 6.0 4.0 04/01/18 04/01/18 04/01/18 04/01/18 16:50 19:00 20:00 20:00 Pulse 94 Resp 22 B/P (MAP) 105/54 (71) Pulse Ox 96 96 96 O2 Delivery BiPAP/CPAP Nasal Cannula Nasal Cannula Nasal Cannula O2 Flow Rate 6.0 6.0 3.0 04/01/18 04/01/18 04/02/18 04/02/18 20:41 23:00 00:16 00:20 Temp 97.8 97.8 Pulse 84 88 Resp 18 22 22 B/P (MAP) 93/46 (62) Pulse Ox 98 97 99 96 O2 Delivery Nasal Cannula Nasal Cannula BiPAP/CPAP BiPAP/CPAP O2 Flow Rate 6.0 6.0 04/02/18 04/02/18 04/02/18 04/02/18 01:05 03:00 03:20 05:46 Pulse 87 Resp 18 14 Pulse Ox 94 100 100 O2 Delivery BiPAP/CPAP BiPAP/CPAP BiPAP/CPAP Nasal Cannula O2 Flow Rate 6.0 04/02/18 04/02/18 04/02/18 04/02/18 06:16 07:00 08:00 08:20 Temp 98.0 98.0 Pulse 90 Resp 15 20 B/P (MAP) 110/58 (75) Pulse Ox 100 94 94 O2 Delivery Nasal Cannula Nasal Cannula Nasal Cannula Nasal Cannula O2 Flow Rate 6.0 5.0 6.0 4.0 04/02/18 04/02/18 04/02/18 09:13 11:00 11:37 Temp 98.0 98.0 Pulse 90 102 Resp 20 B/P (MAP) 110/58 126/55 (78) Pulse Ox 94 95 O2 Delivery Nasal Cannula Nasal Cannula O2 Flow Rate 3.0 4.0 Intake and Output 04/01/18 04/01/18 04/02/18 15:00 23:00 07:00 Intake Total 400 ml 720 ml 1600 ml Output Total 2150 ml 501 ml 400 ml Balance -1750 ml 219 ml 1200 ml Nutrition Consultation Dietary Evaluation: Recommendations by RD: Increase Calorie Intake Comments: REC continue w/cardiac diet, honor food preferences, and provide snacks as requested Will offer/encourage oral supplements if unable to meet nutrition needs via PO intake of meals Expected Outcomes/Goals: PO intake to meet >75% est needs Interpretation of weight loss: >7.5% in 3 months Malnutrition Findings: Food and Nutrition Intake (Mod: <75% est energy req 7days Weight Status: Obese KRAIG MARSH III DO Apr 02, 2018 12:47
--- NOTE | 2018-04-02 13:39 | PDOC2 ---
DARIEN MONTOYA [facility]MENT[employer] HELPER 04/02/18 1339: CARDIAC CONSULT DATE OF CONSULT Date of Consult DATE: 04/02/18 TIME: 13:10 REASON FOR CONSULT Reason for Consult: CHF, elevated BNP REFERRING PHYSICIAN Referring Physician: bree SOURCE Source: Chart review, Patient HISTORY OF PRESENT ILLNESS HISTORY OF PRESENT ILLNESS This is a 62 yo male admitted for complains of increasing SOA. This has been going on and getting worse in the last several weeks with nonproductive cough. 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 Upon admission he was noted to be hypoxic with significant right pleural effusion prompting chest tube placement. Reports no chest pain, no palpitations. Denies any indigestion or intermittent nausea, jaw or arm pain. No prior cardiac workup and denies any past hx of VTE, CAD or arrhythmias. PAST MEDICAL HISTORY Cardiovascular: HTN, Hyperlipidemia Pulmonary: COPD, Other (TRINIDAD; left chest penumothorax) Heme/Onc: Cancer Musculoskeletal: Osteoarthritis Endocrine: Diabetes (2) PAST SURGICAL HISTORY Past Surgical History: Arthroscopy (right arm and left knee) FAMILY HISTORY Family History noncontributory to CV SOCIAL HISTORY Smoke: <1 pack per day ALCOHOL: occassional Drugs: None Lives: with Family CURRENT MEDICATIONS CURRENT MEDICATIONS Current Medications Medications (Trade) Dose Ordered Sig/Nemesio Route PRN Reason Start Time Stop Time Status Last Admin Dose Admin Vancomycin HCl (Vancomycin Trough Level) 1 each 1X ONCE 04/01/18 22:00 04/01/18 22:01 DC 04/01/18 22:00 ALLERGIES ALLERGIES: Coded Allergies: No Known Drug Allergies (Unverified , 07/12/16) ROS Review of System 14 point ROS evaluated with pertinent positives noted per HPI PHYSICAL EXAM Lungs: Other (basilar crackles, right chest tube with serosanguinous drain) Heart: Regular rate (SR/ST), Other (2/6 systolic murmur to LLS border) Abdomen: Soft, No tenderness Extremities: No cyanosis, Other (trace to 1+ bilateral LE pitting edema) Skin: No breakdown, No significant lesion Neuro: Normal speech, Sensation intact Psych/Mental Status: Mental status NL, Mood NL MUSCULOSKELETAL: Osteoarthritic changes both hands VITALS VITALS Vital Signs Date Time Temp Pulse Resp B/P (MAP) Pulse Ox O2 Delivery O2 Flow Rate FiO2 04/02/18 11:37 95 Nasal Cannula 4.0 04/02/18 11:00 98.0 102 20 126/55 (78) 98.0 LABS Lab: Laboratory Tests Test 04/01/18 13:35 04/01/18 14:57 04/01/18 16:10 04/01/18 16:15 Body Fluid pH 7.15 Body Fluid Total Protein 3.6 g/dL (.) Body Fluid Lactate Dehydrogenase 608 IU/L (.) Glucose (Fingerstick) 150 mg/dL (70-99) White Blood Count 13.1 x10^3/uL (4.0-11.0) Red Blood Count 3.79 x10^6/uL (4.30-5.70) Hemoglobin 8.2 g/dL (13.0-17.5) Hematocrit 27.0 % (39.0-53.0) Mean Corpuscular Volume 71 fL (79-100) Mean Corpuscular Hemoglobin 22 pg (25-35) Mean Corpuscular Hemoglobin Concent 31 g/dL (31-37) Red Cell Distribution Width 16.7 % (11.5-14.5) Platelet Count 273 x10^3/uL (140-400) Special Test - Miscellaneous See separate report Test 04/01/18 17:40 04/01/18 22:00 04/02/18 04:50 04/02/18 09:00 Glucose (Fingerstick) 147 mg/dL (70-99) 169 mg/dL (70-99) White Blood Count 18.1 x10^3/uL (4.0-11.0) 15.2 x10^3/uL (4.0-11.0) Red Blood Count 5.14 x10^6/uL (4.30-5.70) 5.17 x10^6/uL (4.30-5.70) Hemoglobin 11.0 g/dL (13.0-17.5) 11.1 g/dL (13.0-17.5) Hematocrit 36.1 % (39.0-53.0) 36.8 % (39.0-53.0) Mean Corpuscular Volume 70 fL (79-100) 71 fL (79-100) Mean Corpuscular Hemoglobin 22 pg (25-35) 21 pg (25-35) Mean Corpuscular Hemoglobin Concent 31 g/dL (31-37) 30 g/dL (31-37) Red Cell Distribution Width 17.0 % (11.5-14.5) 17.2 % (11.5-14.5) Platelet Count 398 x10^3/uL (140-400) 390 x10^3/uL (140-400) Vancomycin Level Trough 16.6 mcg/mL (10.0-20.0) Vancomycin Last Dose Date Unk Vancomycin Last Dose Time Unk Creatinine 1.3 mg/dL (0.7-1.3) Estimated GFR (Cockcroft-Gault) 56.1 ECHOCARDIOGRAM ECHOCARDIOGRAM <Conclusion> The left ventricular systolic function is normal and the ejection fraction is within normal range. The Ejection Fraction is 65-70%. There is normal LV segmental wall motion. Doppler and Color Flow revealed mild tricuspid regurgitation. There is moderate pulmonary hypertension. The PA pressure was estimated at 52 mmHg. DATE: 04/01/18 1131 ASSESSMENT/PLAN ASSESSMENT/PLAN 1. Acute on chronic respiratory failure with COPD/TRINIDAD/right pleural effusion with possible pneumonia 2. Chronic lymphocytic leukemia: on imbruvika. No arrhythmias. 3. Chronic diastolic CHF: dyspnea more from pulmonary issues. EF and WM nml no significant valvular abn. 4. DM2/HLP 5. Obesity 6. Tobaccoism 7. elevated troponin: x1 trop at 0.363. CP free. Suspect demand mediated, type 2. 8. HTN: controlled 9. Tobaccoism Recommendations 1. S/P right chest tube placement, antibiotics per pulmonary 2. Continue ASA. BP meds per BP trend and statin. Motion artifact, repeat EKG. Repeat trop 3. Follow up as an outpt, will consider for outpt stress test pending pulmonary workup. 4. Smoking cessation DELILAH HARDY MD 04/02/18 3721: CARDIAC CONSULT ASSESSMENT/PLAN ASSESSMENT/PLAN Pt. seen and examined. Agree with above [employer] ADMINISTRATOR note with following comments: 62 y.o male with complex right pleural effusion s/p chest tube. Continue drainage per pulmonary He has extensive coronary calcifications with normal echo and no clear cardiac symptoms at this time. Will plan for outpatient stress test and f/u in the office when acute pulm issues resolved. Thanks for the consultation. We will follow along peripherally. Continue asa. Monitor for anemia with CLL. No need for ayan-inh from CV standpoint, ok to use for BP if needed. Supportive care. DARIEN MONTOYA APRN Apr 02, 2018 13:39 DELILAH HARDY MD Apr 02, 2018 18:31
--- NOTE | 2018-04-02 14:03 | PDOC ---
PULMONARY PROGRESS NOTES Subjective PT FEEL LESS SOA WITH TUBE IN PLACE Vitals Vital Signs Date Time Temp Pulse Resp B/P (MAP) Pulse Ox O2 Delivery O2 Flow Rate FiO2 04/02/18 11:37 95 Nasal Cannula 4.0 04/02/18 11:00 98.0 102 20 126/55 (78) 98.0 ROS: No Nausea, No Chest Pain, No Abdominal Pain, No Increase Cough Lungs: Crackles, Other (distant bs b/l) Cardiovascular: S1, S2 Abdomen: Soft Neuro Exam: Alert Extremities: Other (EDEMA) Skin: Warm Labs Laboratory Tests Test 03/31/18 15:00 03/31/18 15:10 03/31/18 18:40 04/01/18 00:57 O2 Saturation 93 % (92-99) Arterial Blood pH 7.31 (7.35-7.45) Arterial Blood pCO2 at Patient Temp 63 mmHg (35-46) Arterial Blood pO2 at Patient Temp 65 mmHg (65-108) Arterial Blood HCO3 31 mmol/L (21-28) Arterial Blood Base Excess 3 mmol/L (-3-3) FiO2 4 lpm nc White Blood Count 12.8 x10^3/uL (4.0-11.0) Red Blood Count 5.32 x10^6/uL (4.30-5.70) Hemoglobin 11.3 g/dL (13.0-17.5) Hematocrit 36.8 % (39.0-53.0) Mean Corpuscular Volume 69 fL (79-100) Mean Corpuscular Hemoglobin 21 pg (25-35) Mean Corpuscular Hemoglobin Concent 31 g/dL (31-37) Red Cell Distribution Width 16.4 % (11.5-14.5) Platelet Count 359 x10^3/uL (140-400) Neutrophils (%) (Auto) 74 % (31-73) Lymphocytes (%) (Auto) 14 % (24-48) Monocytes (%) (Auto) 10 % (0-9) Eosinophils (%) (Auto) 1 % (0-3) Basophils (%) (Auto) 2 % (0-3) Neutrophils # (Auto) 9.5 x10^3uL (1.8-7.7) Lymphocytes # (Auto) 1.7 x10^3/uL (1.0-4.8) Monocytes # (Auto) 1.2 x10^3/uL (0.0-1.1) Eosinophils # (Auto) 0.1 x10^3/uL (0.0-0.7) Basophils # (Auto) 0.2 x10^3/uL (0.0-0.2) Toxic Granulation Slight Toxic Vacuolation Slight Platelet Estimate Adequate (ADEQUATE) Polychromasia Slight Hypochromasia Mod Microcytosis Marked Prothrombin Time 14.4 SEC (11.7-14.0) Prothromb Time International Ratio 1.2 (0.8-1.1) Sodium Level 138 mmol/L (136-145) Potassium Level 4.1 mmol/L (3.5-5.1) Chloride Level 100 mmol/L (98-107) Carbon Dioxide Level 31 mmol/L (21-32) Anion Gap 7 (6-14) Blood Urea Nitrogen 10 mg/dL (8-26) Creatinine 0.9 mg/dL (0.7-1.3) Estimated GFR (Cockcroft-Gault) 85.8 BUN/Creatinine Ratio 11 (6-20) Glucose Level 106 mg/dL (70-99) Lactic Acid Level 1.0 mmol/L (0.4-2.0) Calcium Level 9.1 mg/dL (8.5-10.1) Magnesium Level 1.9 mg/dL (1.8-2.4) Total Bilirubin 0.7 mg/dL (0.2-1.0) Aspartate Amino Transf (AST/SGOT) 13 U/L (15-37) Alanine Aminotransferase (ALT/SGPT) 17 U/L (16-63) Alkaline Phosphatase 81 U/L (46-116) Creatine Kinase 56 U/L (39-308) Creatine Kinase MB (Mass) 3.6 ng/mL (0.0-3.6) Creatine Kinase MB Relative Index % (0-4) Troponin I Quantitative 0.363 ng/mL (0.000-0.055) XU-Ard-C-Type Natriuretic Peptide 1245 pg/mL (0-124) Total Protein 6.7 g/dL (6.4-8.2) Albumin 3.1 g/dL (3.4-5.0) Albumin/Globulin Ratio 0.9 (1.0-1.7) Nasal Screen MRSA (PCR) Negative (Negative) Glucose (Fingerstick) 154 mg/dL (70-99) Test 04/01/18 05:00 04/01/18 08:41 04/01/18 13:35 04/01/18 14:57 White Blood Count 11.9 x10^3/uL (4.0-11.0) Red Blood Count 5.33 x10^6/uL (4.30-5.70) Hemoglobin 11.4 g/dL (13.0-17.5) Hematocrit 36.4 % (39.0-53.0) Mean Corpuscular Volume 70 fL (79-100) Mean Corpuscular Hemoglobin 21 pg (25-35) Mean Corpuscular Hemoglobin Concent 31 g/dL (31-37) Red Cell Distribution Width 16.8 % (11.5-14.5) Platelet Count 360 x10^3/uL (140-400) Neutrophils (%) (Auto) 89 % (31-73) Lymphocytes (%) (Auto) 8 % (24-48) Monocytes (%) (Auto) 4 % (0-9) Eosinophils (%) (Auto) 0 % (0-3) Basophils (%) (Auto) 0 % (0-3) Neutrophils # (Auto) 10.5 x10^3uL (1.8-7.7) Lymphocytes # (Auto) 0.9 x10^3/uL (1.0-4.8) Monocytes # (Auto) 0.4 x10^3/uL (0.0-1.1) Eosinophils # (Auto) 0.0 x10^3/uL (0.0-0.7) Basophils # (Auto) 0.0 x10^3/uL (0.0-0.2) Reticulocyte Count (auto) 1.9 % (0.5-2.5) Sodium Level 139 mmol/L (136-145) Potassium Level 4.6 mmol/L (3.5-5.1) Chloride Level 101 mmol/L (98-107) Carbon Dioxide Level 31 mmol/L (21-32) Anion Gap 7 (6-14) Blood Urea Nitrogen 13 mg/dL (8-26) Creatinine 1.0 mg/dL (0.7-1.3) Estimated GFR (Cockcroft-Gault) 76.0 Glucose Level 282 mg/dL (70-99) Calcium Level 8.6 mg/dL (8.5-10.1) Iron Level 11 ug/dL (65-175) Total Iron Binding Capacity 374 ug/dL (250-450) Iron Saturation 3 % (15-34) Ferritin 35 ng/mL (26-388) Lactate Dehydrogenase 156 U/L (85-227) Total Protein 5.9 g/dL (6.4-8.2) Glucose (Fingerstick) 289 mg/dL (70-99) 150 mg/dL (70-99) Body Fluid pH 7.15 Body Fluid Total Protein 3.6 g/dL (.) Body Fluid Lactate Dehydrogenase 608 IU/L (.) Test 04/01/18 16:10 04/01/18 16:15 04/01/18 17:40 04/01/18 22:00 White Blood Count 13.1 x10^3/uL (4.0-11.0) 18.1 x10^3/uL (4.0-11.0) Red Blood Count 3.79 x10^6/uL (4.30-5.70) 5.14 x10^6/uL (4.30-5.70) Hemoglobin 8.2 g/dL (13.0-17.5) 11.0 g/dL (13.0-17.5) Hematocrit 27.0 % (39.0-53.0) 36.1 % (39.0-53.0) Mean Corpuscular Volume 71 fL (79-100) 70 fL (79-100) Mean Corpuscular Hemoglobin 22 pg (25-35) 22 pg (25-35) Mean Corpuscular Hemoglobin Concent 31 g/dL (31-37) 31 g/dL (31-37) Red Cell Distribution Width 16.7 % (11.5-14.5) 17.0 % (11.5-14.5) Platelet Count 273 x10^3/uL (140-400) 398 x10^3/uL (140-400) Special Test - Miscellaneous See separate report Glucose (Fingerstick) 147 mg/dL (70-99) Vancomycin Level Trough 16.6 mcg/mL (10.0-20.0) Vancomycin Last Dose Date Unk Vancomycin Last Dose Time Unk Test 04/02/18 04:50 04/02/18 09:00 White Blood Count 15.2 x10^3/uL (4.0-11.0) Red Blood Count 5.17 x10^6/uL (4.30-5.70) Hemoglobin 11.1 g/dL (13.0-17.5) Hematocrit 36.8 % (39.0-53.0) Mean Corpuscular Volume 71 fL (79-100) Mean Corpuscular Hemoglobin 21 pg (25-35) Mean Corpuscular Hemoglobin Concent 30 g/dL (31-37) Red Cell Distribution Width 17.2 % (11.5-14.5) Platelet Count 390 x10^3/uL (140-400) Creatinine 1.3 mg/dL (0.7-1.3) Estimated GFR (Cockcroft-Gault) 56.1 Troponin I Quantitative 0.740 ng/mL (0.000-0.055) Glucose (Fingerstick) 169 mg/dL (70-99) Laboratory Tests Test 04/01/18 14:57 04/01/18 16:10 04/01/18 16:15 04/01/18 17:40 Glucose (Fingerstick) 150 mg/dL (70-99) 147 mg/dL (70-99) White Blood Count 13.1 x10^3/uL (4.0-11.0) Red Blood Count 3.79 x10^6/uL (4.30-5.70) Hemoglobin 8.2 g/dL (13.0-17.5) Hematocrit 27.0 % (39.0-53.0) Mean Corpuscular Volume 71 fL (79-100) Mean Corpuscular Hemoglobin 22 pg (25-35) Mean Corpuscular Hemoglobin Concent 31 g/dL (31-37) Red Cell Distribution Width 16.7 % (11.5-14.5) Platelet Count 273 x10^3/uL (140-400) Special Test - Miscellaneous See separate report Test 04/01/18 22:00 04/02/18 04:50 04/02/18 09:00 White Blood Count 18.1 x10^3/uL (4.0-11.0) 15.2 x10^3/uL (4.0-11.0) Red Blood Count 5.14 x10^6/uL (4.30-5.70) 5.17 x10^6/uL (4.30-5.70) Hemoglobin 11.0 g/dL (13.0-17.5) 11.1 g/dL (13.0-17.5) Hematocrit 36.1 % (39.0-53.0) 36.8 % (39.0-53.0) Mean Corpuscular Volume 70 fL (79-100) 71 fL (79-100) Mean Corpuscular Hemoglobin 22 pg (25-35) 21 pg (25-35) Mean Corpuscular Hemoglobin Concent 31 g/dL (31-37) 30 g/dL (31-37) Red Cell Distribution Width 17.0 % (11.5-14.5) 17.2 % (11.5-14.5) Platelet Count 398 x10^3/uL (140-400) 390 x10^3/uL (140-400) Vancomycin Level Trough 16.6 mcg/mL (10.0-20.0) Vancomycin Last Dose Date Unk Vancomycin Last Dose Time Unk Creatinine 1.3 mg/dL (0.7-1.3) Estimated GFR (Cockcroft-Gault) 56.1 Troponin I Quantitative 0.740 ng/mL (0.000-0.055) Glucose (Fingerstick) 169 mg/dL (70-99) Medications Active Scripts Medications Dose Route/Sig Max Daily Dose Days Date Category Glimepiride 4 Mg Tablet 8 Mg PO DAILY 03/31/18 Reported Imbruvica (Ibrutinib) 140 Mg Capsule 420 Mg PO DAILY 03/31/18 Reported Vascepa (Icosapent Ethyl) 1 Gm Capsule 2 Gm PO 03/31/18 Reported Trelegy Ellipta 100-62.5-25 (Fluticasone/Umeclidin/Vilanter) 1 Each Blst.w.dev 1 Each IH 03/31/18 Reported Losartan Potassium 25 Mg Tablet 25 Mg PO BID 03/31/18 Reported Allopurinol 100 Mg Tablet 100 Mg PO BID 03/31/18 Reported Atorvastatin Calcium 20 Mg Tablet 20 Mg PO HS 03/31/18 Reported Trulicity (Dulaglutide) 1.5 Mg/0.5 Ml Pen.injctr 1.5 Mg SQ WEEKLY 03/31/18 Reported Levaquin (Levofloxacin) 750 Mg Tablet 750 Mg PO DAILY16 7 09/25/16 Rx Duoneb 0.5-3(2.5) Mg/3 Ml (Albuterol/Ipratropium) 3 Ml Ampul.neb 3 Ml NEB RTQID 30 09/25/16 Rx Aspirin Ec (Aspirin) 81 Mg Tablet.dr 81 Mg PO DAILYWBKFT 30 09/25/16 Rx Janumet 50-1,000 Mg Tablet (Sitagliptin Phos/Metformin Hcl) 1 Each Tablet 1 Tab PO BID 07/12/16 Reported Lisinopril 2.5 Mg Tablet 1 Tab PO DAILY 07/12/16 Reported Impression . 1. Lmxyj-[id number] hypercapnic hypoxemic respiratory failure. 2. Abnormal CT of the chest revealing loculated effusion on the right, along with some airspace disease and atelectasis. 3. Mediastinal hilar adenopathy, somewhat improved in comparison of film of . 4. Chronic lymphocytic leukemia. 5. Tobacco dependent. 6. Chronic obstructive pulmonary disease. 7. Obstructive sleep apnea. 8. Type 2 diabetes. 9. Leukocytosis. 10. Protein malnutrition, present upon admission. 11. S/P THORACENTESIS Plan . WILL REPAT CT CHEST PRN BIPAP 1. We will continue empiric antibiotics. 2. FOLLOW FLUID ANALYSIS 3. Pleural fluid analysis. 4. DVT and GI prophylaxis. PAYTON CHAVIRA MD Apr 02, 2018 14:03
[2018-04-02 15:00] VITALS: BP 117/55
--- NOTE | 2018-04-02 16:09 | RAD ---
CT of the chest without contrast, 04/02/2018: HISTORY: Lymphoma, effusion Noncontrast scans were obtained as requested and compared to a study from 03/31/2018. A right pleural drain has been inserted with decrease in volume of the right pleural effusion. There is residual pleural fluid which contains medium density complex appearing components. There is a small amount of gas in the pleural space on an iatrogenic basis. No large pneumothorax is evident. There is considerable residual atelectasis/infiltrate in the right lower lobe. No central bronchial obstructive process is seen. There is mild streaky atelectasis/infiltrate inferiorly in the right middle lobe. There is minimal linear atelectasis or scarring in the left base. There is minimal mosaic attenuation in the left lung which appears to be due to minimal nonspecific scattered groundglass opacities. No dense consolidation or significant pleural fluid is evident on the left. Mild mediastinal adenopathy is unchanged. There is calcific plaquing of the aorta with extensive coronary artery calcifications again noted. IMPRESSION: 1. Decrease in volume of the complicated right pleural effusion following pleural tube placement. 2. Moderate residual right lower lobe atelectasis/consolidation. 3. Mild mediastinal adenopathy. 4. Extensive coronary artery disease. PQRS Compliance Statement: One or more of the following individualized dose reduction techniques were utilized for this examination: 1. Automated exposure control 2. Adjustment of the mA and/or kV according to patient size 3. Use of iterative reconstruction technique Electronically signed by: Rusty Austin MD (04/02/2018 4:05 PM) [facility]
--- NOTE | 2018-04-02 17:10 | PATHOLOGY ---
Note [facility] Accession Number: [id number] TESTS RESULT FLAG UNITS REF RANGE LAB Clinician Provided Cytology Information No. of containers..01 Other (Miscellaneous) Source: RIGHT PLEURAL FLUID DIAGNOSIS: RIGHT PLEURAL FLUID NEGATIVE FOR MALIGNANT CELLS. SCANT CELLULARITY. RARE MESOTHELIAL CELLS, FEW INFLAMMATORY CELLS,AND RED BLOOD CELLS PRESENT. THIS INTERPRETATION INCLUDES EVALUATION OF A CELL BLOCK. Signed out by: 02 Emeterio Hodgson MD, Pathologist NPI- [id number] Performed by: Noé Hope, Electronics Instructor ([facility]) Gross description: 32ML, RED, SOLID /LCS FLAG LEGEND: L-Low Normal,H-High Normal,LL-Alert Low,HH-Alert High <-Panic Low,>-Panic High,A-Abnormal,AA-Critical Abnormal Performed at: [address] [id number] Ken Mcghee MD, 02 [facility] [address] [place] [address] Emeterio Hodgson MD, Specimen Comment: A courtesy copy of this report has been sent to Specimen Comment: [phone]. Specimen Comment: Report sent to Specimen Comment: A duplicate report has been generated due to demographic updates. Performed at: [address], [place] [id number] MD Ken Mcghee MD Phone: [phone]
[2018-04-02] MEDS: ENOXAPARIN 40 MG/0.4 ML SYRINGE. SQ SCH (18:05)
[2018-04-02 20:00] VITALS: BP 101/56
[2018-04-02] MEDS: ATORVASTATIN CALCIUM 20 MG TABLET PO SCH (21:26)
[2018-04-02 23:00] VITALS: BP 104/53
[2018-04-03] MEDS: PIPERACILLIN/TAZOBACTAM 4.5 GM in IV NORMAL SALINE 100ML 100 ML IV SCH ×4 (00:10→17:48)
[2018-04-03 03:30] VITALS: BP 119/59
[2018-04-03 03:39] LABS: BASO % 0 % (0-3); EOS % 0 % (0-3); HEMATOCRIT 33.9 % (39.0-53.0); HEMOGLOBIN 10.5 g/dL (13.0-17.5); LYMPH # 0.8 x10^3/uL (1.0-4.8); LYMPH % 6 % (24-48); MEAN CORPUSCULAR HEMOGLOBIN 22 pg (25-35); MEAN CORPUSCULAR HGB CONC 31 g/dL (31-37); MEAN CORPUSCULAR VOLUME 70 fL (79-100); MONO # 0.4 x10^3/uL (0.0-1.1); MONO % 3 % (0-9); NEUT # 12.2 x10^3uL (1.8-7.7); NEUT % 91 % (31-73); PLATELET COUNT 336 x10^3/uL (140-400); RED BLOOD COUNT 4.84 x10^6/uL (4.30-5.70); RED CELL DISTRIBUTION WIDTH 16.7 % (11.5-14.5); WHITE BLOOD COUNT 13.4 x10^3/uL (4.0-11.0)
[2018-04-03 03:50] LABS: CALCIUM 8.5 mg/dL (8.5-10.1); POTASSIUM 4.9 mmol/L (3.5-5.1)
[2018-04-03 04:16] LABS: % LYMPHS 4 % (24-48); % MONOS 3 % (0-10); % SEGS 93 % (35-66); ANISOCYTOSIS SLIGHT; HYPOCHROMIA MOD; MICROCYTOSIS MOD; NUCLEATED RBC 1; OVALOCYTES FEW; PLT ESTIMATE ADEQUATE (ADEQUATE); POIKILOCYTOSIS SLIGHT
[2018-04-03] MEDS: methylPREDNISolone SOD SUCC PF 125 MG/2 ML VIAL. IV SCH ×2 (05:47→17:48)
[2018-04-03] MEDS: VANCOMYCIN 1.5 GM in IV NORMAL SALINE 500ML BAG 500 ML IV SCH ×3 (06:30→21:34)
--- NOTE | 2018-04-03 06:48 | EKG ---
[facility] [address] [place] [address] Test Date: 2018-04-03 Test Time: 03:49:49 Pat Name: KATIUSKA AKERS Department: Room: 104 1 Gender: M Insurance Processor: WILTON : 1955 Requested By: DARIEN MONTOYA Order Number: [id number] Reading MD: Measurements Intervals [place] Rate: 92 P: 66 AL: 142 QRS: 56 QRSD: 84 T: -28 QT: 330 QTc: 413 Interpretive Statements SINUS RHYTHM QRS(T) CONTOUR ABNORMALITY CONSISTENT WITH ANTEROSEPTAL INFARCT AGE UNDETERMINED T ABNORMALITY IN ANTERIOR LEADS INFEROLATERAL LEADS ABNORMAL ECG RI6.01 Compared to ECG 03/31/2018 14:45:41 Myocardial infarct finding now present T-wave abnormality now present Sinus tachycardia no longer present Left ventricular hypertrophy no longer present
[2018-04-03 07:00] VITALS: BP 109/61
[2018-04-03] MEDS: IPRATRPIUM/ALBUTEROL 0.5/2.5MG 3 ML NEBU. NEB SCH ×4 (07:48→20:47)
--- NOTE | 2018-04-03 08:26 | PDOC ---
PULMONARY PROGRESS NOTES Subjective BETTER EATING BREAKFAST Vitals Vital Signs Date Time Temp Pulse Resp B/P (MAP) Pulse Ox O2 Delivery O2 Flow Rate FiO2 04/03/18 07:51 97 Nasal Cannula 3.0 04/03/18 07:00 97.9 86 18 109/61 (77) 97.9 ROS: No Nausea, No Chest Pain, No Abdominal Pain, No Increase Cough Lungs: Crackles, Other (distant bs b/l) Cardiovascular: S1, S2 Abdomen: Soft Neuro Exam: Alert Extremities: Other (EDEMA) Skin: Warm Labs Laboratory Tests Test 04/01/18 08:41 04/01/18 13:35 04/01/18 14:57 04/01/18 16:10 Glucose (Fingerstick) 289 mg/dL (70-99) 150 mg/dL (70-99) Body Fluid pH 7.15 Body Fluid Total Protein 3.6 g/dL (.) Body Fluid Lactate Dehydrogenase 608 IU/L (.) White Blood Count 13.1 x10^3/uL (4.0-11.0) Red Blood Count 3.79 x10^6/uL (4.30-5.70) Hemoglobin 8.2 g/dL (13.0-17.5) Hematocrit 27.0 % (39.0-53.0) Mean Corpuscular Volume 71 fL (79-100) Mean Corpuscular Hemoglobin 22 pg (25-35) Mean Corpuscular Hemoglobin Concent 31 g/dL (31-37) Red Cell Distribution Width 16.7 % (11.5-14.5) Platelet Count 273 x10^3/uL (140-400) Test 04/01/18 16:15 04/01/18 17:40 04/01/18 22:00 04/02/18 04:50 Special Test - Miscellaneous See separate report Glucose (Fingerstick) 147 mg/dL (70-99) White Blood Count 18.1 x10^3/uL (4.0-11.0) 15.2 x10^3/uL (4.0-11.0) Red Blood Count 5.14 x10^6/uL (4.30-5.70) 5.17 x10^6/uL (4.30-5.70) Hemoglobin 11.0 g/dL (13.0-17.5) 11.1 g/dL (13.0-17.5) Hematocrit 36.1 % (39.0-53.0) 36.8 % (39.0-53.0) Mean Corpuscular Volume 70 fL (79-100) 71 fL (79-100) Mean Corpuscular Hemoglobin 22 pg (25-35) 21 pg (25-35) Mean Corpuscular Hemoglobin Concent 31 g/dL (31-37) 30 g/dL (31-37) Red Cell Distribution Width 17.0 % (11.5-14.5) 17.2 % (11.5-14.5) Platelet Count 398 x10^3/uL (140-400) 390 x10^3/uL (140-400) Vancomycin Level Trough 16.6 mcg/mL (10.0-20.0) Vancomycin Last Dose Date Unk Vancomycin Last Dose Time Unk Creatinine 1.3 mg/dL (0.7-1.3) Estimated GFR (Cockcroft-Gault) 56.1 Troponin I Quantitative 0.740 ng/mL (0.000-0.055) Test 04/02/18 09:00 04/02/18 17:39 04/02/18 21:27 04/03/18 03:25 Glucose (Fingerstick) 169 mg/dL (70-99) 179 mg/dL (70-99) 171 mg/dL (70-99) White Blood Count 13.4 x10^3/uL (4.0-11.0) Red Blood Count 4.84 x10^6/uL (4.30-5.70) Hemoglobin 10.5 g/dL (13.0-17.5) Hematocrit 33.9 % (39.0-53.0) Mean Corpuscular Volume 70 fL (79-100) Mean Corpuscular Hemoglobin 22 pg (25-35) Mean Corpuscular Hemoglobin Concent 31 g/dL (31-37) Red Cell Distribution Width 16.7 % (11.5-14.5) Platelet Count 336 x10^3/uL (140-400) Neutrophils (%) (Auto) 91 % (31-73) Lymphocytes (%) (Auto) 6 % (24-48) Monocytes (%) (Auto) 3 % (0-9) Eosinophils (%) (Auto) 0 % (0-3) Basophils (%) (Auto) 0 % (0-3) Neutrophils # (Auto) 12.2 x10^3uL (1.8-7.7) Lymphocytes # (Auto) 0.8 x10^3/uL (1.0-4.8) Monocytes # (Auto) 0.4 x10^3/uL (0.0-1.1) Eosinophils # (Auto) 0.0 x10^3/uL (0.0-0.7) Basophils # (Auto) 0.0 x10^3/uL (0.0-0.2) Segmented Neutrophils % 93 % (35-66) Lymphocytes % 4 % (24-48) Monocytes % 3 % (0-10) Nucleated Red Blood Cells 1 Platelet Estimate Adequate (ADEQUATE) Hypochromasia Mod Poikilocytosis Slight Anisocytosis Slight Microcytosis Mod Ovalocytes Few Sodium Level 138 mmol/L (136-145) Potassium Level 4.9 mmol/L (3.5-5.1) Chloride Level 102 mmol/L (98-107) Carbon Dioxide Level 31 mmol/L (21-32) Anion Gap 5 (6-14) Blood Urea Nitrogen 17 mg/dL (8-26) Creatinine 1.0 mg/dL (0.7-1.3) Estimated GFR (Cockcroft-Gault) 76.0 Glucose Level 223 mg/dL (70-99) Calcium Level 8.5 mg/dL (8.5-10.1) Laboratory Tests Test 04/02/18 09:00 04/02/18 17:39 04/02/18 21:27 04/03/18 03:25 Glucose (Fingerstick) 169 mg/dL (70-99) 179 mg/dL (70-99) 171 mg/dL (70-99) White Blood Count 13.4 x10^3/uL (4.0-11.0) Red Blood Count 4.84 x10^6/uL (4.30-5.70) Hemoglobin 10.5 g/dL (13.0-17.5) Hematocrit 33.9 % (39.0-53.0) Mean Corpuscular Volume 70 fL (79-100) Mean Corpuscular Hemoglobin 22 pg (25-35) Mean Corpuscular Hemoglobin Concent 31 g/dL (31-37) Red Cell Distribution Width 16.7 % (11.5-14.5) Platelet Count 336 x10^3/uL (140-400) Neutrophils (%) (Auto) 91 % (31-73) Lymphocytes (%) (Auto) 6 % (24-48) Monocytes (%) (Auto) 3 % (0-9) Eosinophils (%) (Auto) 0 % (0-3) Basophils (%) (Auto) 0 % (0-3) Neutrophils # (Auto) 12.2 x10^3uL (1.8-7.7) Lymphocytes # (Auto) 0.8 x10^3/uL (1.0-4.8) Monocytes # (Auto) 0.4 x10^3/uL (0.0-1.1) Eosinophils # (Auto) 0.0 x10^3/uL (0.0-0.7) Basophils # (Auto) 0.0 x10^3/uL (0.0-0.2) Segmented Neutrophils % 93 % (35-66) Lymphocytes % 4 % (24-48) Monocytes % 3 % (0-10) Nucleated Red Blood Cells 1 Platelet Estimate Adequate (ADEQUATE) Hypochromasia Mod Poikilocytosis Slight Anisocytosis Slight Microcytosis Mod Ovalocytes Few Sodium Level 138 mmol/L (136-145) Potassium Level 4.9 mmol/L (3.5-5.1) Chloride Level 102 mmol/L (98-107) Carbon Dioxide Level 31 mmol/L (21-32) Anion Gap 5 (6-14) Blood Urea Nitrogen 17 mg/dL (8-26) Creatinine 1.0 mg/dL (0.7-1.3) Estimated GFR (Cockcroft-Gault) 76.0 Glucose Level 223 mg/dL (70-99) Calcium Level 8.5 mg/dL (8.5-10.1) Medications Active Scripts Medications Dose Route/Sig Max Daily Dose Days Date Category Glimepiride 4 Mg Tablet 8 Mg PO DAILY 03/31/18 Reported Imbruvica (Ibrutinib) 140 Mg Capsule 420 Mg PO DAILY 03/31/18 Reported Vascepa (Icosapent Ethyl) 1 Gm Capsule 2 Gm PO 03/31/18 Reported Trelegy Ellipta 100-62.5-25 (Fluticasone/Umeclidin/Vilanter) 1 Each Blst.w.dev 1 Each IH 03/31/18 Reported Losartan Potassium 25 Mg Tablet 25 Mg PO BID 03/31/18 Reported Allopurinol 100 Mg Tablet 100 Mg PO BID 03/31/18 Reported Atorvastatin Calcium 20 Mg Tablet 20 Mg PO HS 03/31/18 Reported Trulicity (Dulaglutide) 1.5 Mg/0.5 Ml Pen.injctr 1.5 Mg SQ WEEKLY 03/31/18 Reported Levaquin (Levofloxacin) 750 Mg Tablet 750 Mg PO DAILY16 7 09/25/16 Rx Duoneb 0.5-3(2.5) Mg/3 Ml (Albuterol/Ipratropium) 3 Ml Ampul.neb 3 Ml NEB RTQID 30 09/25/16 Rx Aspirin Ec (Aspirin) 81 Mg Tablet.dr 81 Mg PO DAILYWBKFT 30 09/25/16 Rx Janumet 50-1,000 Mg Tablet (Sitagliptin Phos/Metformin Hcl) 1 Each Tablet 1 Tab PO BID 07/12/16 Reported Lisinopril 2.5 Mg Tablet 1 Tab PO DAILY 07/12/16 Reported Comments IMPRESSION: CT CHEST REPEAT . Decrease in volume of the complicated right pleural effusion following pleural tube placement. 2. Moderate residual right lower lobe atelectasis/consolidation. 3. Mild mediastinal adenopathy. 4. Extensive coronary artery disease. Impression . 1. [id number]-jv-rulixzl hypercapnic hypoxemic respiratory failure. 2. Abnormal CT of the chest revealing loculated effusion on the right, along with some airspace disease and atelectasis. 3. Mediastinal hilar adenopathy, somewhat improved in comparison of film of . 4. Chronic lymphocytic leukemia. 5. Tobacco dependent. 6. Chronic obstructive pulmonary disease. 7. Obstructive sleep apnea. 8. Type 2 diabetes. 9. Leukocytosis. 10. Protein malnutrition, present upon admission. 11. S/P THORACENTESIS EXUDATE EFFUSION REPEAT CT BETTER CYTOLOGY RIGHT PLEURAL FLUID DIAGNOSIS: 02 RIGHT PLEURAL FLUID NEGATIVE FOR MALIGNANT CELLS. SCANT CELLULARITY. RARE MESOTHELIAL CELLS, FEW INFLAMMATORY CELLS,AND RED BLOOD CELLS PRESENT. THIS INTERPRETATION INCLUDES EVALUATION OF A CELL BLOCK. ANAEROBIC-AEROBIC CULTURE PENDING ANAEROBIC RES 1 PENDING AEROBIC CULT PENDING AEROBIC RES 1 PENDING GRAM STAIN Final Final report GRAM STAIN RES 1 Final No organisms seen GRAM STAIN RES 2 Final Comment No white blood cells seen. Performed at: DA - [facility] [address], [place], [place] [id number] Certified Health Education Specialist: SIMONE Richards MD, Phone: [phone] Plan . PT BETTER SO FAR CULTURES NEGATIVE NO FURTHER DRAINAGE WILL DC TUBE TRANSFER OUT OF ICU SPOKE WITH DR FLORENCE LEVINE CLL MED ON SATURDAY HOME ON [place] AND FOLLOW UP WITH ME IN 2 MONTHS WITH A REPEAT CT CHEST PT OT PAYTON CHAVIRA MD Apr 03, 2018 08:26
--- NOTE | 2018-04-03 09:01 | RAD ---
Portable chest, 04/03/2018: HISTORY: Follow-up effusion Comparison is made to a study from 04/01/2018. The pigtail pleural drain in the right lower chest is unchanged. There is residual pleural thickening and right basilar atelectasis/ infiltrate which is unchanged. No significant pneumothorax is seen. There is unchanged blunting of the left lateral costophrenic angle. The heart size and pulmonary vascularity appear to be within normal limits. No new abnormality is detected. IMPRESSION: Unchanged residual right pleural fluid and right basilar atelectasis/consolidation. Electronically signed by: Rusty Austin MD (04/03/2018 8:58 AM) [facility]
[2018-04-03] MEDS: ASPIRIN ENTERIC COATED 81 MG TABLET.DR. PO SCH (09:34)
[2018-04-03] MEDS: metFORMIN 500 MG TABLET PO SCH ×2 (09:34→17:48)
[2018-04-03] MEDS: LISINOPRIL 5 MG TABLET. PO SCH (09:35)
[2018-04-03] MEDS: LINAGLIPTIN 5 MG TABLET PO SCH (09:35)
[2018-04-03] MEDS: ALLOPURINOL 100 MG TABLET. PO SCH ×2 (09:35→21:28)
[2018-04-03] MEDS: INSULIN LISPRO 300 UNITS/3 ML INSULN.PEN. SQ SCH ×3 (09:38→17:58)
[2018-04-03] MEDS: MORPHINE SULFATE 2 MG/ML VIAL. IV PRN (09:54)
--- NOTE | 2018-04-03 10:55 | PDOC ---
PROGRESS NOTES Subjective Subjective HPI - f/u of Chronic lymphocytic leukemia. ROS - no CP, dyspnea better Objective Objective Vital Signs Date Time Temp Pulse Resp B/P (MAP) Pulse Ox O2 Delivery O2 Flow Rate FiO2 04/03/18 10:34 16 94 Nasal Cannula 2.0 04/03/18 09:35 96 137/63 04/03/18 07:00 97.9 97.9 Intake and Output 04/03/18 07:00 Intake Total 1820 ml Output Total 1395 ml Balance 425 ml Intake Oral 650 ml IV Total 1170 ml Output Urine Total 1200 ml Chest Tube Drainage Total 195 ml # Bowel Movements 3 Physical Exam Heart: Normal S1, Normal S2 General: Alert, Oriented X3 Lungs: Clear to auscultation Neuro: Normal speech Psych/Mental Status: Mental status NL Assessment Assessment Problems Medical Problems: (1) COPD (chronic obstructive pulmonary disease) Status: Acute (2) Elevated troponin Status: Acute (3) Lymphoma Status: Acute (4) Pleural effusion Status: Acute (5) Respiratory distress Status: Acute IMPRESSION AND PLAN: 1. Chronic lymphocytic leukemia. The patient reports that he was diagnosed in 2013 and he is on treatment with Imbruvica and he sees his oncologist at [facility], Dr. Norah Wright, for followup and management. Imbruvica can increase the risk of infection and it can also increase the risk of hemorrhage. He has now developed possible pneumonia and right-sided pleural effusion, which could be empyema versus hemothorax. Hence, I have advised him to hold Imbruvica for now. I also advised him to follow up with his oncologist after discharge. His WBC count is at 11.9 with 89% neutrophils. Review of the old records indicates that his WBC was 52.4 on 09/17/2016 with an absolute lymphocyte count of 41. This indicates that he has been responding to Imbruvica. Plan to resume Imbrivica on 04/07/18. 2. Right-sided pleural effusion. Consulted Pulmonary Medicine for further management. s/p CT placement. No hemorrhagic fluid. Serosanguineous fluid thought to be exudate, likely parapneumonic effusion. 3. Dyspnea. I suspect this is due to possible pneumonia versus underlying chronic obstructive pulmonary disease, management per Pulmonary Medicine. 4. Anemia with MCV of 69. I will check iron studies. Comment Review of Relevant I have reviewed the following items kadie (where applicable) has been applied. Labs Laboratory Tests Test 04/01/18 13:35 04/01/18 14:57 04/01/18 16:10 04/01/18 16:15 Body Fluid pH 7.15 Body Fluid Total Protein 3.6 g/dL (.) Body Fluid Lactate Dehydrogenase 608 IU/L (.) Glucose (Fingerstick) 150 mg/dL (70-99) White Blood Count 13.1 x10^3/uL (4.0-11.0) Red Blood Count 3.79 x10^6/uL (4.30-5.70) Hemoglobin 8.2 g/dL (13.0-17.5) Hematocrit 27.0 % (39.0-53.0) Mean Corpuscular Volume 71 fL (79-100) Mean Corpuscular Hemoglobin 22 pg (25-35) Mean Corpuscular Hemoglobin Concent 31 g/dL (31-37) Red Cell Distribution Width 16.7 % (11.5-14.5) Platelet Count 273 x10^3/uL (140-400) Special Test - Miscellaneous See separate report Test 04/01/18 17:40 04/01/18 22:00 04/02/18 04:50 04/02/18 09:00 Glucose (Fingerstick) 147 mg/dL (70-99) 169 mg/dL (70-99) White Blood Count 18.1 x10^3/uL (4.0-11.0) 15.2 x10^3/uL (4.0-11.0) Red Blood Count 5.14 x10^6/uL (4.30-5.70) 5.17 x10^6/uL (4.30-5.70) Hemoglobin 11.0 g/dL (13.0-17.5) 11.1 g/dL (13.0-17.5) Hematocrit 36.1 % (39.0-53.0) 36.8 % (39.0-53.0) Mean Corpuscular Volume 70 fL (79-100) 71 fL (79-100) Mean Corpuscular Hemoglobin 22 pg (25-35) 21 pg (25-35) Mean Corpuscular Hemoglobin Concent 31 g/dL (31-37) 30 g/dL (31-37) Red Cell Distribution Width 17.0 % (11.5-14.5) 17.2 % (11.5-14.5) Platelet Count 398 x10^3/uL (140-400) 390 x10^3/uL (140-400) Vancomycin Level Trough 16.6 mcg/mL (10.0-20.0) Vancomycin Last Dose Date Unk Vancomycin Last Dose Time Unk Creatinine 1.3 mg/dL (0.7-1.3) Estimated GFR (Cockcroft-Gault) 56.1 Troponin I Quantitative 0.740 ng/mL (0.000-0.055) Test 04/02/18 17:39 04/02/18 21:27 04/03/18 03:25 Glucose (Fingerstick) 179 mg/dL (70-99) 171 mg/dL (70-99) White Blood Count 13.4 x10^3/uL (4.0-11.0) Red Blood Count 4.84 x10^6/uL (4.30-5.70) Hemoglobin 10.5 g/dL (13.0-17.5) Hematocrit 33.9 % (39.0-53.0) Mean Corpuscular Volume 70 fL (79-100) Mean Corpuscular Hemoglobin 22 pg (25-35) Mean Corpuscular Hemoglobin Concent 31 g/dL (31-37) Red Cell Distribution Width 16.7 % (11.5-14.5) Platelet Count 336 x10^3/uL (140-400) Neutrophils (%) (Auto) 91 % (31-73) Lymphocytes (%) (Auto) 6 % (24-48) Monocytes (%) (Auto) 3 % (0-9) Eosinophils (%) (Auto) 0 % (0-3) Basophils (%) (Auto) 0 % (0-3) Neutrophils # (Auto) 12.2 x10^3uL (1.8-7.7) Lymphocytes # (Auto) 0.8 x10^3/uL (1.0-4.8) Monocytes # (Auto) 0.4 x10^3/uL (0.0-1.1) Eosinophils # (Auto) 0.0 x10^3/uL (0.0-0.7) Basophils # (Auto) 0.0 x10^3/uL (0.0-0.2) Segmented Neutrophils % 93 % (35-66) Lymphocytes % 4 % (24-48) Monocytes % 3 % (0-10) Nucleated Red Blood Cells 1 Platelet Estimate Adequate (ADEQUATE) Hypochromasia Mod Poikilocytosis Slight Anisocytosis Slight Microcytosis Mod Ovalocytes Few Sodium Level 138 mmol/L (136-145) Potassium Level 4.9 mmol/L (3.5-5.1) Chloride Level 102 mmol/L (98-107) Carbon Dioxide Level 31 mmol/L (21-32) Anion Gap 5 (6-14) Blood Urea Nitrogen 17 mg/dL (8-26) Creatinine 1.0 mg/dL (0.7-1.3) Estimated GFR (Cockcroft-Gault) 76.0 Glucose Level 223 mg/dL (70-99) Calcium Level 8.5 mg/dL (8.5-10.1) Laboratory Tests Test 04/02/18 17:39 04/02/18 21:27 04/03/18 03:25 Glucose (Fingerstick) 179 mg/dL (70-99) 171 mg/dL (70-99) White Blood Count 13.4 x10^3/uL (4.0-11.0) Red Blood Count 4.84 x10^6/uL (4.30-5.70) Hemoglobin 10.5 g/dL (13.0-17.5) Hematocrit 33.9 % (39.0-53.0) Mean Corpuscular Volume 70 fL (79-100) Mean Corpuscular Hemoglobin 22 pg (25-35) Mean Corpuscular Hemoglobin Concent 31 g/dL (31-37) Red Cell Distribution Width 16.7 % (11.5-14.5) Platelet Count 336 x10^3/uL (140-400) Neutrophils (%) (Auto) 91 % (31-73) Lymphocytes (%) (Auto) 6 % (24-48) Monocytes (%) (Auto) 3 % (0-9) Eosinophils (%) (Auto) 0 % (0-3) Basophils (%) (Auto) 0 % (0-3) Neutrophils # (Auto) 12.2 x10^3uL (1.8-7.7) Lymphocytes # (Auto) 0.8 x10^3/uL (1.0-4.8) Monocytes # (Auto) 0.4 x10^3/uL (0.0-1.1) Eosinophils # (Auto) 0.0 x10^3/uL (0.0-0.7) Basophils # (Auto) 0.0 x10^3/uL (0.0-0.2) Segmented Neutrophils % 93 % (35-66) Lymphocytes % 4 % (24-48) Monocytes % 3 % (0-10) Nucleated Red Blood Cells 1 Platelet Estimate Adequate (ADEQUATE) Hypochromasia Mod Poikilocytosis Slight Anisocytosis Slight Microcytosis Mod Ovalocytes Few Sodium Level 138 mmol/L (136-145) Potassium Level 4.9 mmol/L (3.5-5.1) Chloride Level 102 mmol/L (98-107) Carbon Dioxide Level 31 mmol/L (21-32) Anion Gap 5 (6-14) Blood Urea Nitrogen 17 mg/dL (8-26) Creatinine 1.0 mg/dL (0.7-1.3) Estimated GFR (Cockcroft-Gault) 76.0 Glucose Level 223 mg/dL (70-99) Calcium Level 8.5 mg/dL (8.5-10.1) Microbiology 03/31/18 Blood Culture - Preliminary, Resulted NO GROWTH AFTER 2 DAYS 04/01/18 Anaerobic/Aerobic Culture, Resulted Pending 04/01/18 Anaerobic Culture Result 1 (GERARDO), Resulted Pending 04/01/18 Aerobic Culture, Resulted Pending 04/01/18 Aerobic Culture Result 1 (GERARDO), Resulted Pending 04/01/18 Gram Stain - Final, Resulted 04/01/18 Gram Stain Result 1 (GERARDO) - Final, Resulted 04/01/18 Gram Stain Result 2 (GERARDO) - Final, Resulted 04/01/18 - Final, Resulted 04/01/18 - Final, Resulted 04/01/18 - Final, Resulted 04/01/18 - Final, Resulted 04/01/18 Gram Stain Evaluation - Final, Resulted 04/01/18 Sputum Culture, Resulted Pending Medications Current Medications Albuterol/ Ipratropium (Duoneb) 3 ml 1X ONCE NEB Last administered on at 15:26; Start 03/31/18 at 15:00; Stop 03/31/18 at 15:01; Status DC Methylprednisolone Sodium Succinate (SOLU-Medrol 125MG VIAL) 125 mg 1X ONCE IV Last administered on 03/31/18at 15:35; Start 03/31/18 at 15:00; Stop 03/31/18 at 15:01; Status DC Ceftriaxone Sodium 50 ml @ 100 mls/hr 1X ONCE IV ; Start 03/31/18 at 15:00; Stop 03/31/18 at 15:29; Status UNV Azithromycin 250 ml @ 250 mls/hr 1X ONCE IV Last administered on 03/31/18at 16 :00; Start 03/31/18 at 15:00; Stop 03/31/18 at 15:59; Status DC Ceftriaxone Sodium (Rocephin) 1 gm 1X ONCE IVP Last administered on 03/31/18at 15:38; Start 03/31/18 at 15:00; Stop 03/31/18 at 15:01; Status DC Lorazepam (Ativan) 1 mg 1X ONCE IV Last administered on 03/31/18at 16:11; Start 03/31/18 at 16:15; Stop 03/31/18 at 16:16; Status DC Allopurinol (Zyloprim) 100 mg BID PO Last administered on 04/03/18at 09:35; Start 03/31/18 at 21:00 Aspirin (Ecotrin) 81 mg DAILYWBKFT PO Last administered on 04/03/18at 09:34; Start 04/01/18 at 08:00 Atorvastatin Calcium (Lipitor) 20 mg HS PO Last administered on 04/02/18at 21:26 ; Start 03/31/18 at 21:00 Albuterol/ Ipratropium (Duoneb) 3 ml RTQID NEB Last administered on 04/03/18at 07:48; Start 03/31/18 at 20:00 Losartan Potassium (Cozaar) 25 mg BID PO ; Start 03/31/18 at 21:00; Stop at 21:00; Status DC Non-Formulary Medication (Ibrutinib (Imbruvica)) 420 mg DAILY PO ; Start at 09:00; Stop 04/01/18 at 12:30; Status DC Lisinopril (Prinivil) 2.5 mg DAILY PO Last administered on 04/03/18at 09:35; Start 04/01/18 at 09:00 Linagliptin (Tradjenta) 5 mg DAILY PO Last administered on 04/03/18at 09:35; Start 04/01/18 at 09:00 Levofloxacin/ Dextrose 150 ml @ 100 mls/hr Q24H IV ; Start 03/31/18 at 17:15; Stop 03/31/18 at 17:21; Status DC Acetaminophen (Tylenol) 650 mg PRN Q6HRS PRN PO FEVER; Start 03/31/18 at 17:15 Ondansetron HCl (Zofran) 4 mg PRN Q6HRS PRN IV NAUSEA/VOMITING; Start 03/31/18 at 17:15 Morphine Sulfate (Morphine Sulfate) 2 mg PRN Q2HR PRN IV MODERATE TO SEVERE PAIN Last administered on 04/03/18at 09:54; Start 03/31/18 at 17:15 Tramadol HCl (Ultram) 50 mg PRN Q6HRS PRN PO MILD TO MODERATE PAIN; Start 03/31 at 17:15 Docusate Sodium (Colace) 100 mg PRN DAILY PRN PO CONSTIPATION; Start 03/31/18 at 17:15 Insulin Human Lispro (HumaLOG) 0-9 UNITS TIDWMEALS SQ Last administered on 04/03at 09:38; Start 04/01/18 at 08:00 Dextrose (Dextrose 50%-Water Syringe) 12.5 gm PRN Q15MIN PRN IV SEE COMMENTS; Start 03/31/18 at 17:15 Guaifenesin (Mucinex) 600 mg BID PO Last administered on 04/03/18at 09:35; Start 03/31/18 at 21:00 Albuterol Sulfate (Ventolin Neb Soln) 2.5 mg PRN Q4HRS PRN NEB SHORTNESS OF BREATH; Start 03/31/18 at 17:15 Enoxaparin Sodium (Lovenox 40mg Syringe) 40 mg Q24H SQ Last administered on 04/02/18at 18:05; Start 03/31/18 at 18:00 Piperacillin Sod/ Tazobactam Sod 4.5 gm/Sodium Chloride 100 ml @ 200 mls/hr Q6HRS IV ; Start 03/31/18 at 18:00; Stop 03/31/18 at 18:53; Status DC Piperacillin Sod/ Tazobactam Sod (Zosyn Per Pharmacy) 1 each PRN DAILY PRN MC SEE COMMENTS; Start 03/31/18 at 17:30; Stop 03/31/18 at 18:53; Status DC Vancomycin HCl 2 gm/Sodium Chloride 500 ml @ 250 mls/hr Q12H IV ; Start at 17:30; Status UNV Vancomycin HCl (Vanco Per Pharmacy) 1 each PRN DAILY PRN MC SEE COMMENTS Last administered on 04/02/18at 11:14; Start 03/31/18 at 17:30 Levofloxacin/ Dextrose 150 ml @ 100 mls/hr ONCE ONCE IV ; Start 03/31/18 at 17 :30; Stop 03/31/18 at 18:59; Status Cancel Vancomycin HCl 2 gm/Sodium Chloride 500 ml @ 250 mls/hr 1X ONCE IV Last administered on 03/31/18at 20:32; Start 03/31/18 at 17:30; Stop 03/31/18 at 19:29 ; Status DC Piperacillin Sod/ Tazobactam Sod 4.5 gm/Sodium Chloride 100 ml @ 200 mls/hr 1X ONCE IV Last administered on 03/31/18at 20:32; Start 03/31/18 at 17:30; Stop 03/31/18 at 17:59; Status DC Piperacillin Sod/ Tazobactam Sod 4.5 gm/Sodium Chloride 100 ml @ 200 mls/hr Q6HRS IV Last administered on 04/03/18at 05:48; Start 04/01/18 at 00:00 Metformin HCl (Glucophage) 1,000 mg BIDWMEALS PO Last administered on at 09:34; Start 04/01/18 at 08:00 Methylprednisolone Sodium Succinate (SOLU-Medrol 125MG VIAL) 62.5 mg BID66 IV Last administered on 04/03/18at 05:47; Start 04/01/18 at 06:00 Vancomycin HCl 1.5 gm/Sodium Chloride 500 ml @ 250 mls/hr Q8H IV Last administered on 04/03/18at 06:30; Start 04/01/18 at 04:00 Vancomycin HCl (Vancomycin Trough Level) 1 each 1X ONCE MC Last administered on 04/01/18at 22:00; Start 04/01/18 at 22:00; Stop 04/01/18 at 22:01; Status DC Influenza Virus Vaccine (Afluria Trivalent [id number] Syringe) 0.5 ml ONCE ONCE VAX IM ; Start 04/02/18 at 09:00; Stop 04/02/18 at 09:01; Status DC Active Scripts Active Levaquin (Levofloxacin) 750 Mg Tablet 750 Mg PO DAILY16 7 Days Duoneb 0.5-3(2.5) Mg/3 Ml (Albuterol/Ipratropium) 3 Ml Ampul.neb 3 Ml NEB RTQID 30 Days Aspirin Ec (Aspirin) 81 Mg Tablet.dr 81 Mg PO DAILYWBKFT 30 Days Reported Glimepiride 4 Mg Tablet 8 Mg PO DAILY Imbruvica (Ibrutinib) 140 Mg Capsule 420 Mg PO DAILY Vascepa (Icosapent Ethyl) 1 Gm Capsule 2 Gm PO Trelegy Ellipta 100-62.5-25 (Fluticasone/Umeclidin/Vilanter) 1 Each Blst.w.dev 1 Each IH Losartan Potassium 25 Mg Tablet 25 Mg PO BID Allopurinol 100 Mg Tablet 100 Mg PO BID Atorvastatin Calcium 20 Mg Tablet 20 Mg PO HS Trulicity (Dulaglutide) 1.5 Mg/0.5 Ml Pen.injctr 1.5 Mg SQ WEEKLY Janumet 50-1,000 Mg Tablet (Sitagliptin Phos/Metformin Hcl) 1 Each Tablet 1 Tab PO BID Lisinopril 2.5 Mg Tablet 1 Tab PO DAILY Vitals/I & O Vital Sign - Last 24 Hours 04/02/18 04/02/18 04/02/18 04/02/18 11:00 11:37 15:00 15:25 Temp 98.0 98.0 98.0 98.0 Pulse 102 103 Resp 20 20 B/P (MAP) 126/55 (78) 117/55 (75) Pulse Ox 94 95 94 94 O2 Delivery Nasal Cannula Nasal Cannula Nasal Cannula Nasal Cannula O2 Flow Rate 3.0 4.0 3.0 3.0 04/02/18 04/02/18 04/02/18 04/02/18 19:41 20:00 20:00 23:00 Temp 98.1 98.3 98.1 98.3 Pulse 95 105 Resp 18 19 B/P (MAP) 101/56 (71) 104/53 (70) Pulse Ox 96 99 92 O2 Delivery Nasal Cannula Nasal Cannula Nasal Cannula Nasal Cannula O2 Flow Rate 3.0 3.0 3.0 3.0 04/02/18 04/03/18 04/03/18 04/03/18 23:29 03:30 07:00 07:51 Temp 98.4 97.9 98.4 97.9 Pulse 96 86 Resp 19 18 B/P (MAP) 119/59 (79) 109/61 (77) Pulse Ox 94 98 97 O2 Delivery BiPAP/CPAP Nasal Cannula Room Air Nasal Cannula O2 Flow Rate 3.0 3.0 04/03/18 04/03/18 04/03/18 09:35 09:54 10:34 Pulse 96 Resp 18 16 B/P (MAP) 137/63 Pulse Ox 94 94 O2 Delivery Nasal Cannula Nasal Cannula O2 Flow Rate 2.0 2.0 Intake and Output 04/02/18 04/02/18 04/03/18 15:00 23:00 07:00 Intake Total 200 ml 1120 ml 500 ml Output Total 725 ml 670 ml Balance 200 ml 395 ml -170 ml Nutrition Consultation Dietary Evaluation: Recommendations by RD: Increase Calorie Intake Comments: REC continue w/cardiac diet, honor food preferences, and provide snacks as requested Will offer/encourage oral supplements if unable to meet nutrition needs via PO intake of meals Expected Outcomes/Goals: PO intake to meet >75% est needs Interpretation of weight loss: >7.5% in 3 months Malnutrition Findings: Food and Nutrition Intake (Mod: <75% est energy req 7days Weight Status: Obese MICHAEL HENRIQUEZ MD Apr 03, 2018 10:55
[2018-04-03 11:00] VITALS: BP 126/59
--- NOTE | 2018-04-03 11:16 | PDOC ---
PROGRESS NOTES Chief Complaint Chief Complaint Respiratory Distress History of Present Illness History of Present Illness Pt was seen and examined at bedside in the ICU today.His chest tube (placed 04/01 ) is still draining some bloody fluid, but much less compared to yesterday. Path report on the pleural fluid analysis showed no malignant cells. CT done yesterday (04/02) showed decrease of pt's effusion and extensive CAD. Cardiology was consulted and they believe pt would be benefited by getting an outpatient stress test. Pulm, card, and Onc are following. Vitals Vitals Vital Signs Date Time Temp Pulse Resp B/P (MAP) Pulse Ox O2 Delivery O2 Flow Rate FiO2 04/03/18 10:34 16 94 Nasal Cannula 2.0 04/03/18 09:35 96 137/63 04/03/18 07:00 97.9 97.9 Physical Exam General: Alert, Oriented X3, Cooperative Heart: Regular rate, Normal S1, Normal S2 Lungs: Crackles, Other (distant bs b/l) Abdomen: Soft, No tenderness Extremities: No cyanosis, Other (trace to 1+ bilateral LE pitting edema) Skin: No breakdown, No significant lesion Labs LABS Laboratory Tests Test 04/02/18 17:39 04/02/18 21:27 04/03/18 03:25 Glucose (Fingerstick) 179 mg/dL (70-99) 171 mg/dL (70-99) White Blood Count 13.4 x10^3/uL (4.0-11.0) Red Blood Count 4.84 x10^6/uL (4.30-5.70) Hemoglobin 10.5 g/dL (13.0-17.5) Hematocrit 33.9 % (39.0-53.0) Mean Corpuscular Volume 70 fL (79-100) Mean Corpuscular Hemoglobin 22 pg (25-35) Mean Corpuscular Hemoglobin Concent 31 g/dL (31-37) Red Cell Distribution Width 16.7 % (11.5-14.5) Platelet Count 336 x10^3/uL (140-400) Neutrophils (%) (Auto) 91 % (31-73) Lymphocytes (%) (Auto) 6 % (24-48) Monocytes (%) (Auto) 3 % (0-9) Eosinophils (%) (Auto) 0 % (0-3) Basophils (%) (Auto) 0 % (0-3) Neutrophils # (Auto) 12.2 x10^3uL (1.8-7.7) Lymphocytes # (Auto) 0.8 x10^3/uL (1.0-4.8) Monocytes # (Auto) 0.4 x10^3/uL (0.0-1.1) Eosinophils # (Auto) 0.0 x10^3/uL (0.0-0.7) Basophils # (Auto) 0.0 x10^3/uL (0.0-0.2) Segmented Neutrophils % 93 % (35-66) Lymphocytes % 4 % (24-48) Monocytes % 3 % (0-10) Nucleated Red Blood Cells 1 Platelet Estimate Adequate (ADEQUATE) Hypochromasia Mod Poikilocytosis Slight Anisocytosis Slight Microcytosis Mod Ovalocytes Few Sodium Level 138 mmol/L (136-145) Potassium Level 4.9 mmol/L (3.5-5.1) Chloride Level 102 mmol/L (98-107) Carbon Dioxide Level 31 mmol/L (21-32) Anion Gap 5 (6-14) Blood Urea Nitrogen 17 mg/dL (8-26) Creatinine 1.0 mg/dL (0.7-1.3) Estimated GFR (Cockcroft-Gault) 76.0 Glucose Level 223 mg/dL (70-99) Calcium Level 8.5 mg/dL (8.5-10.1) Review of Systems Review of Systems PULM: Yes sob, cough GI: No abd pain, n/v GENERAL: No unexpected wt loss, fever/chills Assessment and Plan Assessmemt and Plan ASSESSMENT: Respiratory Distress COPD (chronic obstructive pulmonary disease) Elevated troponin Lymphoma Pleural effusion PLAN: ICU Monitoring Recheck labs in AM Home meds Consult PT/OT DVT Prophylaxis Subspecialty input appreciated Comment Review of Relevant I have reviewed the following items kadie (where applicable) has been applied. Labs Laboratory Tests Test 04/01/18 13:35 04/01/18 14:57 04/01/18 16:10 04/01/18 16:15 Body Fluid pH 7.15 Body Fluid Total Protein 3.6 g/dL (.) Body Fluid Lactate Dehydrogenase 608 IU/L (.) Glucose (Fingerstick) 150 mg/dL (70-99) White Blood Count 13.1 x10^3/uL (4.0-11.0) Red Blood Count 3.79 x10^6/uL (4.30-5.70) Hemoglobin 8.2 g/dL (13.0-17.5) Hematocrit 27.0 % (39.0-53.0) Mean Corpuscular Volume 71 fL (79-100) Mean Corpuscular Hemoglobin 22 pg (25-35) Mean Corpuscular Hemoglobin Concent 31 g/dL (31-37) Red Cell Distribution Width 16.7 % (11.5-14.5) Platelet Count 273 x10^3/uL (140-400) Special Test - Miscellaneous See separate report Test 04/01/18 17:40 04/01/18 22:00 04/02/18 04:50 04/02/18 09:00 Glucose (Fingerstick) 147 mg/dL (70-99) 169 mg/dL (70-99) White Blood Count 18.1 x10^3/uL (4.0-11.0) 15.2 x10^3/uL (4.0-11.0) Red Blood Count 5.14 x10^6/uL (4.30-5.70) 5.17 x10^6/uL (4.30-5.70) Hemoglobin 11.0 g/dL (13.0-17.5) 11.1 g/dL (13.0-17.5) Hematocrit 36.1 % (39.0-53.0) 36.8 % (39.0-53.0) Mean Corpuscular Volume 70 fL (79-100) 71 fL (79-100) Mean Corpuscular Hemoglobin 22 pg (25-35) 21 pg (25-35) Mean Corpuscular Hemoglobin Concent 31 g/dL (31-37) 30 g/dL (31-37) Red Cell Distribution Width 17.0 % (11.5-14.5) 17.2 % (11.5-14.5) Platelet Count 398 x10^3/uL (140-400) 390 x10^3/uL (140-400) Vancomycin Level Trough 16.6 mcg/mL (10.0-20.0) Vancomycin Last Dose Date Unk Vancomycin Last Dose Time Unk Creatinine 1.3 mg/dL (0.7-1.3) Estimated GFR (Cockcroft-Gault) 56.1 Troponin I Quantitative 0.740 ng/mL (0.000-0.055) Test 04/02/18 17:39 04/02/18 21:27 04/03/18 03:25 Glucose (Fingerstick) 179 mg/dL (70-99) 171 mg/dL (70-99) White Blood Count 13.4 x10^3/uL (4.0-11.0) Red Blood Count 4.84 x10^6/uL (4.30-5.70) Hemoglobin 10.5 g/dL (13.0-17.5) Hematocrit 33.9 % (39.0-53.0) Mean Corpuscular Volume 70 fL (79-100) Mean Corpuscular Hemoglobin 22 pg (25-35) Mean Corpuscular Hemoglobin Concent 31 g/dL (31-37) Red Cell Distribution Width 16.7 % (11.5-14.5) Platelet Count 336 x10^3/uL (140-400) Neutrophils (%) (Auto) 91 % (31-73) Lymphocytes (%) (Auto) 6 % (24-48) Monocytes (%) (Auto) 3 % (0-9) Eosinophils (%) (Auto) 0 % (0-3) Basophils (%) (Auto) 0 % (0-3) Neutrophils # (Auto) 12.2 x10^3uL (1.8-7.7) Lymphocytes # (Auto) 0.8 x10^3/uL (1.0-4.8) Monocytes # (Auto) 0.4 x10^3/uL (0.0-1.1) Eosinophils # (Auto) 0.0 x10^3/uL (0.0-0.7) Basophils # (Auto) 0.0 x10^3/uL (0.0-0.2) Segmented Neutrophils % 93 % (35-66) Lymphocytes % 4 % (24-48) Monocytes % 3 % (0-10) Nucleated Red Blood Cells 1 Platelet Estimate Adequate (ADEQUATE) Hypochromasia Mod Poikilocytosis Slight Anisocytosis Slight Microcytosis Mod Ovalocytes Few Sodium Level 138 mmol/L (136-145) Potassium Level 4.9 mmol/L (3.5-5.1) Chloride Level 102 mmol/L (98-107) Carbon Dioxide Level 31 mmol/L (21-32) Anion Gap 5 (6-14) Blood Urea Nitrogen 17 mg/dL (8-26) Creatinine 1.0 mg/dL (0.7-1.3) Estimated GFR (Cockcroft-Gault) 76.0 Glucose Level 223 mg/dL (70-99) Calcium Level 8.5 mg/dL (8.5-10.1) Laboratory Tests Test 04/02/18 17:39 04/02/18 21:27 04/03/18 03:25 Glucose (Fingerstick) 179 mg/dL (70-99) 171 mg/dL (70-99) White Blood Count 13.4 x10^3/uL (4.0-11.0) Red Blood Count 4.84 x10^6/uL (4.30-5.70) Hemoglobin 10.5 g/dL (13.0-17.5) Hematocrit 33.9 % (39.0-53.0) Mean Corpuscular Volume 70 fL (79-100) Mean Corpuscular Hemoglobin 22 pg (25-35) Mean Corpuscular Hemoglobin Concent 31 g/dL (31-37) Red Cell Distribution Width 16.7 % (11.5-14.5) Platelet Count 336 x10^3/uL (140-400) Neutrophils (%) (Auto) 91 % (31-73) Lymphocytes (%) (Auto) 6 % (24-48) Monocytes (%) (Auto) 3 % (0-9) Eosinophils (%) (Auto) 0 % (0-3) Basophils (%) (Auto) 0 % (0-3) Neutrophils # (Auto) 12.2 x10^3uL (1.8-7.7) Lymphocytes # (Auto) 0.8 x10^3/uL (1.0-4.8) Monocytes # (Auto) 0.4 x10^3/uL (0.0-1.1) Eosinophils # (Auto) 0.0 x10^3/uL (0.0-0.7) Basophils # (Auto) 0.0 x10^3/uL (0.0-0.2) Segmented Neutrophils % 93 % (35-66) Lymphocytes % 4 % (24-48) Monocytes % 3 % (0-10) Nucleated Red Blood Cells 1 Platelet Estimate Adequate (ADEQUATE) Hypochromasia Mod Poikilocytosis Slight Anisocytosis Slight Microcytosis Mod Ovalocytes Few Sodium Level 138 mmol/L (136-145) Potassium Level 4.9 mmol/L (3.5-5.1) Chloride Level 102 mmol/L (98-107) Carbon Dioxide Level 31 mmol/L (21-32) Anion Gap 5 (6-14) Blood Urea Nitrogen 17 mg/dL (8-26) Creatinine 1.0 mg/dL (0.7-1.3) Estimated GFR (Cockcroft-Gault) 76.0 Glucose Level 223 mg/dL (70-99) Calcium Level 8.5 mg/dL (8.5-10.1) Microbiology 03/31/18 Blood Culture - Preliminary, Resulted NO GROWTH AFTER 2 DAYS 04/01/18 Anaerobic/Aerobic Culture, Resulted Pending 04/01/18 Anaerobic Culture Result 1 (GERARDO), Resulted Pending 04/01/18 Aerobic Culture, Resulted Pending 04/01/18 Aerobic Culture Result 1 (GERARDO), Resulted Pending 04/01/18 Gram Stain - Final, Resulted 04/01/18 Gram Stain Result 1 (GERARDO) - Final, Resulted 04/01/18 Gram Stain Result 2 (GERARDO) - Final, Resulted 04/01/18 - Final, Resulted 04/01/18 - Final, Resulted 04/01/18 - Final, Resulted 04/01/18 - Final, Resulted 04/01/18 Gram Stain Evaluation - Final, Resulted 04/01/18 Sputum Culture, Resulted Pending Medications Current Medications Albuterol/ Ipratropium (Duoneb) 3 ml 1X ONCE NEB Last administered on at 15:26; Start 03/31/18 at 15:00; Stop 03/31/18 at 15:01; Status DC Methylprednisolone Sodium Succinate (SOLU-Medrol 125MG VIAL) 125 mg 1X ONCE IV Last administered on 03/31/18at 15:35; Start 03/31/18 at 15:00; Stop 03/31/18 at 15:01; Status DC Ceftriaxone Sodium 50 ml @ 100 mls/hr 1X ONCE IV ; Start 03/31/18 at 15:00; Stop 03/31/18 at 15:29; Status UNV Azithromycin 250 ml @ 250 mls/hr 1X ONCE IV Last administered on 03/31/18at 16 :00; Start 03/31/18 at 15:00; Stop 03/31/18 at 15:59; Status DC Ceftriaxone Sodium (Rocephin) 1 gm 1X ONCE IVP Last administered on 03/31/18at 15:38; Start 03/31/18 at 15:00; Stop 03/31/18 at 15:01; Status DC Lorazepam (Ativan) 1 mg 1X ONCE IV Last administered on 03/31/18at 16:11; Start 03/31/18 at 16:15; Stop 03/31/18 at 16:16; Status DC Allopurinol (Zyloprim) 100 mg BID PO Last administered on 04/03/18at 09:35; Start 03/31/18 at 21:00 Aspirin (Ecotrin) 81 mg DAILYWBKFT PO Last administered on 04/03/18at 09:34; Start 04/01/18 at 08:00 Atorvastatin Calcium (Lipitor) 20 mg HS PO Last administered on 04/02/18at 21:26 ; Start 03/31/18 at 21:00 Albuterol/ Ipratropium (Duoneb) 3 ml RTQID NEB Last administered on 04/03/18at 07:48; Start 03/31/18 at 20:00 Losartan Potassium (Cozaar) 25 mg BID PO ; Start 03/31/18 at 21:00; Stop at 21:00; Status DC Non-Formulary Medication (Ibrutinib (Imbruvica)) 420 mg DAILY PO ; Start at 09:00; Stop 04/01/18 at 12:30; Status DC Lisinopril (Prinivil) 2.5 mg DAILY PO Last administered on 04/03/18at 09:35; Start 04/01/18 at 09:00 Linagliptin (Tradjenta) 5 mg DAILY PO Last administered on 04/03/18at 09:35; Start 04/01/18 at 09:00 Levofloxacin/ Dextrose 150 ml @ 100 mls/hr Q24H IV ; Start 03/31/18 at 17:15; Stop 03/31/18 at 17:21; Status DC Acetaminophen (Tylenol) 650 mg PRN Q6HRS PRN PO FEVER; Start 03/31/18 at 17:15 Ondansetron HCl (Zofran) 4 mg PRN Q6HRS PRN IV NAUSEA/VOMITING; Start 03/31/18 at 17:15 Morphine Sulfate (Morphine Sulfate) 2 mg PRN Q2HR PRN IV MODERATE TO SEVERE PAIN Last administered on 04/03/18at 09:54; Start 03/31/18 at 17:15 Tramadol HCl (Ultram) 50 mg PRN Q6HRS PRN PO MILD TO MODERATE PAIN; Start 03/31 at 17:15 Docusate Sodium (Colace) 100 mg PRN DAILY PRN PO CONSTIPATION; Start 03/31/18 at 17:15 Insulin Human Lispro (HumaLOG) 0-9 UNITS TIDWMEALS SQ Last administered on 04/03at 09:38; Start 04/01/18 at 08:00 Dextrose (Dextrose 50%-Water Syringe) 12.5 gm PRN Q15MIN PRN IV SEE COMMENTS; Start 03/31/18 at 17:15 Guaifenesin (Mucinex) 600 mg BID PO Last administered on 04/03/18at 09:35; Start 03/31/18 at 21:00 Albuterol Sulfate (Ventolin Neb Soln) 2.5 mg PRN Q4HRS PRN NEB SHORTNESS OF BREATH; Start 03/31/18 at 17:15 Enoxaparin Sodium (Lovenox 40mg Syringe) 40 mg Q24H SQ Last administered on 04/02/18at 18:05; Start 03/31/18 at 18:00 Piperacillin Sod/ Tazobactam Sod 4.5 gm/Sodium Chloride 100 ml @ 200 mls/hr Q6HRS IV ; Start 03/31/18 at 18:00; Stop 03/31/18 at 18:53; Status DC Piperacillin Sod/ Tazobactam Sod (Zosyn Per Pharmacy) 1 each PRN DAILY PRN MC SEE COMMENTS; Start 03/31/18 at 17:30; Stop 03/31/18 at 18:53; Status DC Vancomycin HCl 2 gm/Sodium Chloride 500 ml @ 250 mls/hr Q12H IV ; Start at 17:30; Status UNV Vancomycin HCl (Vanco Per Pharmacy) 1 each PRN DAILY PRN MC SEE COMMENTS Last administered on 04/02/18at 11:14; Start 03/31/18 at 17:30 Levofloxacin/ Dextrose 150 ml @ 100 mls/hr ONCE ONCE IV ; Start 03/31/18 at 17 :30; Stop 03/31/18 at 18:59; Status Cancel Vancomycin HCl 2 gm/Sodium Chloride 500 ml @ 250 mls/hr 1X ONCE IV Last administered on 03/31/18at 20:32; Start 03/31/18 at 17:30; Stop 03/31/18 at 19:29 ; Status DC Piperacillin Sod/ Tazobactam Sod 4.5 gm/Sodium Chloride 100 ml @ 200 mls/hr 1X ONCE IV Last administered on 03/31/18at 20:32; Start 03/31/18 at 17:30; Stop 03/31/18 at 17:59; Status DC Piperacillin Sod/ Tazobactam Sod 4.5 gm/Sodium Chloride 100 ml @ 200 mls/hr Q6HRS IV Last administered on 04/03/18at 05:48; Start 04/01/18 at 00:00 Metformin HCl (Glucophage) 1,000 mg BIDWMEALS PO Last administered on at 09:34; Start 04/01/18 at 08:00 Methylprednisolone Sodium Succinate (SOLU-Medrol 125MG VIAL) 62.5 mg BID66 IV Last administered on 04/03/18at 05:47; Start 04/01/18 at 06:00 Vancomycin HCl 1.5 gm/Sodium Chloride 500 ml @ 250 mls/hr Q8H IV Last administered on 04/03/18at 06:30; Start 04/01/18 at 04:00 Vancomycin HCl (Vancomycin Trough Level) 1 each 1X ONCE MC Last administered on 04/01/18at 22:00; Start 04/01/18 at 22:00; Stop 04/01/18 at 22:01; Status DC Influenza Virus Vaccine (Afluria Trivalent 3912-1893 Syringe) 0.5 ml ONCE ONCE VAX IM ; Start 04/02/18 at 09:00; Stop 04/02/18 at 09:01; Status DC Active Scripts Active Levaquin (Levofloxacin) 750 Mg Tablet 750 Mg PO DAILY16 7 Days Duoneb 0.5-3(2.5) Mg/3 Ml (Albuterol/Ipratropium) 3 Ml Ampul.neb 3 Ml NEB RTQID 30 Days Aspirin Ec (Aspirin) 81 Mg Tablet.dr 81 Mg PO DAILYWBKFT 30 Days Reported Glimepiride 4 Mg Tablet 8 Mg PO DAILY Imbruvica (Ibrutinib) 140 Mg Capsule 420 Mg PO DAILY Vascepa (Icosapent Ethyl) 1 Gm Capsule 2 Gm PO Trelegy Ellipta 100-62.5-25 (Fluticasone/Umeclidin/Vilanter) 1 Each Blst.w.dev 1 Each IH Losartan Potassium 25 Mg Tablet 25 Mg PO BID Allopurinol 100 Mg Tablet 100 Mg PO BID Atorvastatin Calcium 20 Mg Tablet 20 Mg PO HS Trulicity (Dulaglutide) 1.5 Mg/0.5 Ml Pen.injctr 1.5 Mg SQ WEEKLY Janumet 50-1,000 Mg Tablet (Sitagliptin Phos/Metformin Hcl) 1 Each Tablet 1 Tab PO BID Lisinopril 2.5 Mg Tablet 1 Tab PO DAILY Vitals/I & O Vital Sign - Last 24 Hours 04/02/18 04/02/18 04/02/18 04/02/18 11:37 15:00 15:25 19:41 Temp 98.0 98.0 Pulse 103 Resp 20 B/P (MAP) 117/55 (75) Pulse Ox 95 94 94 96 O2 Delivery Nasal Cannula Nasal Cannula Nasal Cannula Nasal Cannula O2 Flow Rate 4.0 3.0 3.0 3.0 04/02/18 04/02/18 04/02/18 04/02/18 20:00 20:00 23:00 23:29 Temp 98.1 98.3 98.1 98.3 Pulse 95 105 Resp 18 19 B/P (MAP) 101/56 (71) 104/53 (70) Pulse Ox 99 92 O2 Delivery Nasal Cannula Nasal Cannula Nasal Cannula BiPAP/CPAP O2 Flow Rate 3.0 3.0 3.0 04/03/18 04/03/18 04/03/18 04/03/18 03:30 07:00 07:51 09:35 Temp 98.4 97.9 98.4 97.9 Pulse 96 86 96 Resp 19 18 B/P (MAP) 119/59 (79) 109/61 (77) 137/63 Pulse Ox 94 98 97 O2 Delivery Nasal Cannula Room Air Nasal Cannula O2 Flow Rate 3.0 3.0 04/03/18 04/03/18 09:54 10:34 Resp 18 16 Pulse Ox 94 94 O2 Delivery Nasal Cannula Nasal Cannula O2 Flow Rate 2.0 2.0 Intake and Output 04/02/18 04/02/18 04/03/18 15:00 23:00 07:00 Intake Total 200 ml 1120 ml 500 ml Output Total 725 ml 670 ml Balance 200 ml 395 ml -170 ml Nutrition Consultation Dietary Evaluation: Recommendations by RD: Increase Calorie Intake Comments: REC continue w/cardiac diet, honor food preferences, and provide snacks as requested Will offer/encourage oral supplements if unable to meet nutrition needs via PO intake of meals Expected Outcomes/Goals: PO intake to meet >75% est needs Interpretation of weight loss: >7.5% in 3 months Malnutrition Findings: Food and Nutrition Intake (Mod: <75% est energy req 7days Weight Status: Obese KRAIG MARSH III DO Apr 03, 2018 11:16
[2018-04-03] MEDS: VANCOMYCIN PER PHARMACY MC PRN (11:40)
[2018-04-03 15:00] VITALS: BP 123/68
[2018-04-03] MEDS: ENOXAPARIN 40 MG/0.4 ML SYRINGE. SQ SCH (17:47)
[2018-04-03 19:55] VITALS: BP 133/60
[2018-04-03] MEDS: ATORVASTATIN CALCIUM 20 MG TABLET PO SCH (21:28)
[2018-04-03 22:52] VITALS: BP 139/61
[2018-04-04 02:27] VITALS: BP 127/57
[2018-04-04 03:29] LABS: BASO % 0 % (0-3); EOS % 0 % (0-3); HEMATOCRIT 33.3 % (39.0-53.0); HEMOGLOBIN 10.2 g/dL (13.0-17.5); LYMPH # 0.9 x10^3/uL (1.0-4.8); LYMPH % 8 % (24-48); MEAN CORPUSCULAR HEMOGLOBIN 21 pg (25-35); MEAN CORPUSCULAR HGB CONC 31 g/dL (31-37); MEAN CORPUSCULAR VOLUME 70 fL (79-100); MONO # 0.5 x10^3/uL (0.0-1.1); MONO % 4 % (0-9); NEUT # 10.4 x10^3uL (1.8-7.7); NEUT % 88 % (31-73); PLATELET COUNT 316 x10^3/uL (140-400); RED BLOOD COUNT 4.75 x10^6/uL (4.30-5.70); RED CELL DISTRIBUTION WIDTH 16.5 % (11.5-14.5); WHITE BLOOD COUNT 11.8 x10^3/uL (4.0-11.0)
[2018-04-04 03:44] LABS: CALCIUM 8.7 mg/dL (8.5-10.1); POTASSIUM 4.2 mmol/L (3.5-5.1)
[2018-04-04] MEDS: methylPREDNISolone SOD SUCC PF 125 MG/2 ML VIAL. IV SCH ×2 (06:15→17:45)
[2018-04-04] MEDS: PIPERACILLIN/TAZOBACTAM 4.5 GM in IV NORMAL SALINE 100ML 100 ML IV SCH ×5 (06:16→17:46)
[2018-04-04] MEDS: VANCOMYCIN 1.5 GM in IV NORMAL SALINE 500ML BAG 500 ML IV SCH (06:30)
[2018-04-04 07:00] VITALS: BP 132/63
--- NOTE | 2018-04-04 08:40 | PDOC ---
PROGRESS NOTES Subjective Subjective HPI - f/u of Chronic lymphocytic leukemia. ROS - dyspnea stable Objective Objective Vital Signs Date Time Temp Pulse Resp B/P (MAP) Pulse Ox O2 Delivery O2 Flow Rate FiO2 04/04/18 07:00 98.4 87 18 132/63 (86) 95 Nasal Cannula 2.0 98.4 Intake and Output 04/04/18 07:00 Intake Total 3680 ml Output Total 120 ml Balance 3560 ml Intake Oral 2580 ml IV Total 1100 ml Output Urine Total 0 ml Chest Tube Drainage Total 120 ml # Voids 1 # Bowel Movements 1 Physical Exam Heart: Normal S1, Normal S2 General: Alert, Oriented X3, No acute distress Lungs: Clear to auscultation Neuro: Normal speech Psych/Mental Status: Mental status NL Assessment Assessment Problems Medical Problems: (1) COPD (chronic obstructive pulmonary disease) Status: Acute (2) Elevated troponin Status: Acute (3) Lymphoma Status: Acute (4) Pleural effusion Status: Acute (5) Respiratory distress Status: Acute IMPRESSION AND PLAN: 1. Chronic lymphocytic leukemia. The patient reports that he was diagnosed in 2013 and he is on treatment with Imbruvica and he sees his oncologist at [facility], Dr. Norah Wright, for followup and management. Imbruvica can increase the risk of infection and it can also increase the risk of hemorrhage. He has now developed possible pneumonia and right-sided pleural effusion, which could be empyema versus hemothorax. Hence, I have advised him to hold Imbruvica for now. I also advised him to follow up with his oncologist after discharge. His WBC count is at 11.9 with 89% neutrophils. Review of the old records indicates that his WBC was 52.4 on 09/17/2016 with an absolute lymphocyte count of 41. This indicates that he has been responding to Imbruvica. s/p thoracentesis, no hemothorax. Plan to resume Imbrivica on 04/07/18. 2. Right-sided pleural effusion. Consulted Pulmonary Medicine for further management. s/p CT placement. No hemorrhagic fluid. Serosanguineous fluid thought to be exudate, likely parapneumonic effusion. 3. Dyspnea. I suspect this is due to possible pneumonia versus underlying chronic obstructive pulmonary disease, management per Pulmonary Medicine. 4. Anemia with MCV of 69. Iron studies are consistent with anemia due to chronic disease.. Comment Review of Relevant I have reviewed the following items kadie (where applicable) has been applied. Labs Laboratory Tests Test 04/02/18 09:00 04/02/18 17:39 04/02/18 21:27 04/03/18 03:25 Glucose (Fingerstick) 169 mg/dL (70-99) 179 mg/dL (70-99) 171 mg/dL (70-99) White Blood Count 13.4 x10^3/uL (4.0-11.0) Red Blood Count 4.84 x10^6/uL (4.30-5.70) Hemoglobin 10.5 g/dL (13.0-17.5) Hematocrit 33.9 % (39.0-53.0) Mean Corpuscular Volume 70 fL (79-100) Mean Corpuscular Hemoglobin 22 pg (25-35) Mean Corpuscular Hemoglobin Concent 31 g/dL (31-37) Red Cell Distribution Width 16.7 % (11.5-14.5) Platelet Count 336 x10^3/uL (140-400) Neutrophils (%) (Auto) 91 % (31-73) Lymphocytes (%) (Auto) 6 % (24-48) Monocytes (%) (Auto) 3 % (0-9) Eosinophils (%) (Auto) 0 % (0-3) Basophils (%) (Auto) 0 % (0-3) Neutrophils # (Auto) 12.2 x10^3uL (1.8-7.7) Lymphocytes # (Auto) 0.8 x10^3/uL (1.0-4.8) Monocytes # (Auto) 0.4 x10^3/uL (0.0-1.1) Eosinophils # (Auto) 0.0 x10^3/uL (0.0-0.7) Basophils # (Auto) 0.0 x10^3/uL (0.0-0.2) Segmented Neutrophils % 93 % (35-66) Lymphocytes % 4 % (24-48) Monocytes % 3 % (0-10) Nucleated Red Blood Cells 1 Platelet Estimate Adequate (ADEQUATE) Hypochromasia Mod Poikilocytosis Slight Anisocytosis Slight Microcytosis Mod Ovalocytes Few Sodium Level 138 mmol/L (136-145) Potassium Level 4.9 mmol/L (3.5-5.1) Chloride Level 102 mmol/L (98-107) Carbon Dioxide Level 31 mmol/L (21-32) Anion Gap 5 (6-14) Blood Urea Nitrogen 17 mg/dL (8-26) Creatinine 1.0 mg/dL (0.7-1.3) Estimated GFR (Cockcroft-Gault) 76.0 Glucose Level 223 mg/dL (70-99) Calcium Level 8.5 mg/dL (8.5-10.1) Test 04/03/18 12:09 04/03/18 16:48 04/04/18 03:00 04/04/18 08:08 Glucose (Fingerstick) 292 mg/dL (70-99) 205 mg/dL (70-99) 179 mg/dL (70-99) White Blood Count 11.8 x10^3/uL (4.0-11.0) Red Blood Count 4.75 x10^6/uL (4.30-5.70) Hemoglobin 10.2 g/dL (13.0-17.5) Hematocrit 33.3 % (39.0-53.0) Mean Corpuscular Volume 70 fL (79-100) Mean Corpuscular Hemoglobin 21 pg (25-35) Mean Corpuscular Hemoglobin Concent 31 g/dL (31-37) Red Cell Distribution Width 16.5 % (11.5-14.5) Platelet Count 316 x10^3/uL (140-400) Neutrophils (%) (Auto) 88 % (31-73) Lymphocytes (%) (Auto) 8 % (24-48) Monocytes (%) (Auto) 4 % (0-9) Eosinophils (%) (Auto) 0 % (0-3) Basophils (%) (Auto) 0 % (0-3) Neutrophils # (Auto) 10.4 x10^3uL (1.8-7.7) Lymphocytes # (Auto) 0.9 x10^3/uL (1.0-4.8) Monocytes # (Auto) 0.5 x10^3/uL (0.0-1.1) Eosinophils # (Auto) 0.0 x10^3/uL (0.0-0.7) Basophils # (Auto) 0.0 x10^3/uL (0.0-0.2) Sodium Level 139 mmol/L (136-145) Potassium Level 4.2 mmol/L (3.5-5.1) Chloride Level 102 mmol/L (98-107) Carbon Dioxide Level 31 mmol/L (21-32) Anion Gap 6 (6-14) Blood Urea Nitrogen 18 mg/dL (8-26) Creatinine 1.0 mg/dL (0.7-1.3) Estimated GFR (Cockcroft-Gault) 76.0 Glucose Level 249 mg/dL (70-99) Calcium Level 8.7 mg/dL (8.5-10.1) Laboratory Tests Test 04/03/18 12:09 04/03/18 16:48 04/04/18 03:00 04/04/18 08:08 Glucose (Fingerstick) 292 mg/dL (70-99) 205 mg/dL (70-99) 179 mg/dL (70-99) White Blood Count 11.8 x10^3/uL (4.0-11.0) Red Blood Count 4.75 x10^6/uL (4.30-5.70) Hemoglobin 10.2 g/dL (13.0-17.5) Hematocrit 33.3 % (39.0-53.0) Mean Corpuscular Volume 70 fL (79-100) Mean Corpuscular Hemoglobin 21 pg (25-35) Mean Corpuscular Hemoglobin Concent 31 g/dL (31-37) Red Cell Distribution Width 16.5 % (11.5-14.5) Platelet Count 316 x10^3/uL (140-400) Neutrophils (%) (Auto) 88 % (31-73) Lymphocytes (%) (Auto) 8 % (24-48) Monocytes (%) (Auto) 4 % (0-9) Eosinophils (%) (Auto) 0 % (0-3) Basophils (%) (Auto) 0 % (0-3) Neutrophils # (Auto) 10.4 x10^3uL (1.8-7.7) Lymphocytes # (Auto) 0.9 x10^3/uL (1.0-4.8) Monocytes # (Auto) 0.5 x10^3/uL (0.0-1.1) Eosinophils # (Auto) 0.0 x10^3/uL (0.0-0.7) Basophils # (Auto) 0.0 x10^3/uL (0.0-0.2) Sodium Level 139 mmol/L (136-145) Potassium Level 4.2 mmol/L (3.5-5.1) Chloride Level 102 mmol/L (98-107) Carbon Dioxide Level 31 mmol/L (21-32) Anion Gap 6 (6-14) Blood Urea Nitrogen 18 mg/dL (8-26) Creatinine 1.0 mg/dL (0.7-1.3) Estimated GFR (Cockcroft-Gault) 76.0 Glucose Level 249 mg/dL (70-99) Calcium Level 8.7 mg/dL (8.5-10.1) Microbiology 03/31/18 Blood Culture - Preliminary, Resulted NO GROWTH AFTER 3 DAYS 04/01/18 Anaerobic/Aerobic Culture, Resulted Pending 04/01/18 Anaerobic Culture Result 1 (GERARDO), Resulted Pending 04/01/18 Aerobic Culture - Preliminary, Resulted 04/01/18 Aerobic Culture Result 1 (GERARDO) - Preliminary, Resulted 04/01/18 Gram Stain - Final, Resulted 04/01/18 Gram Stain Result 1 (GERARDO) - Final, Resulted 04/01/18 Gram Stain Result 2 (GERARDO) - Final, Resulted 04/01/18 - Final, Complete 04/01/18 - Final, Complete 04/01/18 - Final, Complete 04/01/18 - Final, Complete 04/01/18 Gram Stain Evaluation - Final, Complete 04/01/18 Sputum Culture - Final, Complete 04/01/18 Sputum Result 1 - Final, Complete 04/01/18 Sputum Result 2 - Final, Complete Medications Current Medications Albuterol/ Ipratropium (Duoneb) 3 ml 1X ONCE NEB Last administered on at 15:26; Start 03/31/18 at 15:00; Stop 03/31/18 at 15:01; Status DC Methylprednisolone Sodium Succinate (SOLU-Medrol 125MG VIAL) 125 mg 1X ONCE IV Last administered on 03/31/18at 15:35; Start 03/31/18 at 15:00; Stop 03/31/18 at 15:01; Status DC Ceftriaxone Sodium 50 ml @ 100 mls/hr 1X ONCE IV ; Start 03/31/18 at 15:00; Stop 03/31/18 at 15:29; Status UNV Azithromycin 250 ml @ 250 mls/hr 1X ONCE IV Last administered on 03/31/18at 16 :00; Start 03/31/18 at 15:00; Stop 03/31/18 at 15:59; Status DC Ceftriaxone Sodium (Rocephin) 1 gm 1X ONCE IVP Last administered on 03/31/18at 15:38; Start 03/31/18 at 15:00; Stop 03/31/18 at 15:01; Status DC Lorazepam (Ativan) 1 mg 1X ONCE IV Last administered on 03/31/18at 16:11; Start 03/31/18 at 16:15; Stop 03/31/18 at 16:16; Status DC Allopurinol (Zyloprim) 100 mg BID PO Last administered on 04/03/18at 21:28; Start 03/31/18 at 21:00 Aspirin (Ecotrin) 81 mg DAILYWBKFT PO Last administered on 04/03/18at 09:34; Start 04/01/18 at 08:00 Atorvastatin Calcium (Lipitor) 20 mg HS PO Last administered on 04/03/18at 21:28 ; Start 03/31/18 at 21:00 Albuterol/ Ipratropium (Duoneb) 3 ml RTQID NEB Last administered on 04/03/18at 20:47; Start 03/31/18 at 20:00 Losartan Potassium (Cozaar) 25 mg BID PO ; Start 03/31/18 at 21:00; Stop at 21:00; Status DC Non-Formulary Medication (Ibrutinib (Imbruvica)) 420 mg DAILY PO ; Start at 09:00; Stop 04/01/18 at 12:30; Status DC Lisinopril (Prinivil) 2.5 mg DAILY PO Last administered on 04/03/18at 09:35; Start 04/01/18 at 09:00 Linagliptin (Tradjenta) 5 mg DAILY PO Last administered on 04/03/18at 09:35; Start 04/01/18 at 09:00 Levofloxacin/ Dextrose 150 ml @ 100 mls/hr Q24H IV ; Start 03/31/18 at 17:15; Stop 03/31/18 at 17:21; Status DC Acetaminophen (Tylenol) 650 mg PRN Q6HRS PRN PO FEVER; Start 03/31/18 at 17:15 Ondansetron HCl (Zofran) 4 mg PRN Q6HRS PRN IV NAUSEA/VOMITING; Start 03/31/18 at 17:15 Morphine Sulfate (Morphine Sulfate) 2 mg PRN Q2HR PRN IV MODERATE TO SEVERE PAIN Last administered on 04/03/18at 09:54; Start 03/31/18 at 17:15 Tramadol HCl (Ultram) 50 mg PRN Q6HRS PRN PO MILD TO MODERATE PAIN; Start 03/31 at 17:15 Docusate Sodium (Colace) 100 mg PRN DAILY PRN PO CONSTIPATION; Start 03/31/18 at 17:15 Insulin Human Lispro (HumaLOG) 0-9 UNITS TIDWMEALS SQ Last administered on 04/03at 17:58; Start 04/01/18 at 08:00 Dextrose (Dextrose 50%-Water Syringe) 12.5 gm PRN Q15MIN PRN IV SEE COMMENTS; Start 03/31/18 at 17:15 Guaifenesin (Mucinex) 600 mg BID PO Last administered on 04/03/18at 21:28; Start 03/31/18 at 21:00 Albuterol Sulfate (Ventolin Neb Soln) 2.5 mg PRN Q4HRS PRN NEB SHORTNESS OF BREATH; Start 03/31/18 at 17:15 Enoxaparin Sodium (Lovenox 40mg Syringe) 40 mg Q24H SQ Last administered on 04/03/18at 17:47; Start 03/31/18 at 18:00 Piperacillin Sod/ Tazobactam Sod 4.5 gm/Sodium Chloride 100 ml @ 200 mls/hr Q6HRS IV ; Start 03/31/18 at 18:00; Stop 03/31/18 at 18:53; Status DC Piperacillin Sod/ Tazobactam Sod (Zosyn Per Pharmacy) 1 each PRN DAILY PRN MC SEE COMMENTS; Start 03/31/18 at 17:30; Stop 03/31/18 at 18:53; Status DC Vancomycin HCl 2 gm/Sodium Chloride 500 ml @ 250 mls/hr Q12H IV ; Start at 17:30; Status UNV Vancomycin HCl (Vanco Per Pharmacy) 1 each PRN DAILY PRN MC SEE COMMENTS Last administered on 04/03/18at 11:40; Start 03/31/18 at 17:30 Levofloxacin/ Dextrose 150 ml @ 100 mls/hr ONCE ONCE IV ; Start 03/31/18 at 17 :30; Stop 03/31/18 at 18:59; Status Cancel Vancomycin HCl 2 gm/Sodium Chloride 500 ml @ 250 mls/hr 1X ONCE IV Last administered on 03/31/18at 20:32; Start 03/31/18 at 17:30; Stop 03/31/18 at 19:29 ; Status DC Piperacillin Sod/ Tazobactam Sod 4.5 gm/Sodium Chloride 100 ml @ 200 mls/hr 1X ONCE IV Last administered on 03/31/18at 20:32; Start 03/31/18 at 17:30; Stop 03/31/18 at 17:59; Status DC Piperacillin Sod/ Tazobactam Sod 4.5 gm/Sodium Chloride 100 ml @ 200 mls/hr Q6HRS IV Last administered on 04/04/18at 06:16; Start 04/01/18 at 00:00 Metformin HCl (Glucophage) 1,000 mg BIDWMEALS PO Last administered on at 17:48; Start 04/01/18 at 08:00 Methylprednisolone Sodium Succinate (SOLU-Medrol 125MG VIAL) 62.5 mg BID66 IV Last administered on 04/04/18at 06:15; Start 04/01/18 at 06:00 Vancomycin HCl 1.5 gm/Sodium Chloride 500 ml @ 250 mls/hr Q8H IV Last administered on 04/04/18at 06:30; Start 04/01/18 at 04:00 Vancomycin HCl (Vancomycin Trough Level) 1 each 1X ONCE MC Last administered on 04/01/18at 22:00; Start 04/01/18 at 22:00; Stop 04/01/18 at 22:01; Status DC Influenza Virus Vaccine (Afluria Trivalent 2534-2984 Syringe) 0.5 ml ONCE ONCE VAX IM ; Start 04/02/18 at 09:00; Stop 04/02/18 at 09:01; Status DC Active Scripts Active Levaquin (Levofloxacin) 750 Mg Tablet 750 Mg PO DAILY16 7 Days Duoneb 0.5-3(2.5) Mg/3 Ml (Albuterol/Ipratropium) 3 Ml Ampul.neb 3 Ml NEB RTQID 30 Days Aspirin Ec (Aspirin) 81 Mg Tablet. 81 Mg PO DAILYWBKFT 30 Days Reported Glimepiride 4 Mg Tablet 8 Mg PO DAILY Imbruvica (Ibrutinib) 140 Mg Capsule 420 Mg PO DAILY Vascepa (Icosapent Ethyl) 1 Gm Capsule 2 Gm PO Trelegy Ellipta 100-62.5-25 (Fluticasone/Umeclidin/Vilanter) 1 Each Blst.w.dev 1 Each IH Losartan Potassium 25 Mg Tablet 25 Mg PO BID Allopurinol 100 Mg Tablet 100 Mg PO BID Atorvastatin Calcium 20 Mg Tablet 20 Mg PO HS Trulicity (Dulaglutide) 1.5 Mg/0.5 Ml Pen.injctr 1.5 Mg SQ WEEKLY Janumet 50-1,000 Mg Tablet (Sitagliptin Phos/Metformin Hcl) 1 Each Tablet 1 Tab PO BID Lisinopril 2.5 Mg Tablet 1 Tab PO DAILY Vitals/I & O Vital Sign - Last 24 Hours 04/03/18 04/03/18 04/03/18 04/03/18 09:35 09:54 10:34 11:00 Temp 98.6 98.6 Pulse 96 97 Resp 18 16 20 B/P (MAP) 137/63 126/59 (81) Pulse Ox 94 94 97 O2 Delivery Nasal Cannula Nasal Cannula Nasal Cannula O2 Flow Rate 2.0 2.0 2.0 04/03/18 04/03/18 04/03/18 04/03/18 12:01 15:00 15:58 19:55 Temp 97.8 97.4 97.8 97.4 Pulse 97 90 Resp 18 18 B/P (MAP) 123/68 (86) 133/60 (84) Pulse Ox 95 96 95 95 O2 Delivery Nasal Cannula Nasal Cannula Nasal Cannula Nasal Cannula O2 Flow Rate 2.0 2.0 2.0 2.0 04/03/18 04/03/18 04/03/18 04/04/18 20:29 20:48 22:52 02:27 Temp 97.8 98.1 97.8 98.1 Pulse 102 97 Resp 18 B/P (MAP) 139/61 (87) 127/57 (80) Pulse Ox 95 94 95 O2 Delivery Nasal Cannula Nasal Cannula Nasal Cannula Nasal Cannula O2 Flow Rate 2.0 2.0 2.0 2.0 04/04/18 07:00 Temp 98.4 98.4 Pulse 87 Resp 18 B/P (MAP) 132/63 (86) Pulse Ox 95 O2 Delivery Nasal Cannula O2 Flow Rate 2.0 Intake and Output 04/03/18 04/03/18 04/04/18 15:00 23:00 07:00 Intake Total 1210 ml 2070 ml 400 ml Output Total 120 ml Balance 1090 ml 2070 ml 400 ml Nutrition Consultation Dietary Evaluation: Recommendations by RD: Increase Calorie Intake Comments: REC continue w/cardiac diet, honor food preferences, and provide snacks as requested Will offer/encourage oral supplements if unable to meet nutrition needs via PO intake of meals Expected Outcomes/Goals: PO intake to meet >75% est needs Interpretation of weight loss: >7.5% in 3 months Malnutrition Findings: Food and Nutrition Intake (Mod: <75% est energy req 7days Weight Status: Obese MICHAEL HENRIQUEZ MD Apr 04, 2018 08:40
[2018-04-04] MEDS: metFORMIN 500 MG TABLET PO SCH ×2 (08:45→17:35)
[2018-04-04] MEDS: ALLOPURINOL 100 MG TABLET. PO SCH ×2 (08:45→20:36)
[2018-04-04] MEDS: ASPIRIN ENTERIC COATED 81 MG TABLET.DR. PO SCH (08:46)
[2018-04-04] MEDS: LINAGLIPTIN 5 MG TABLET PO SCH (08:46)
[2018-04-04] MEDS: LISINOPRIL 5 MG TABLET. PO SCH (08:47)
[2018-04-04] MEDS: INSULIN LISPRO 300 UNITS/3 ML INSULN.PEN. SQ SCH ×3 (08:51→17:41)
[2018-04-04] MEDS: IPRATRPIUM/ALBUTEROL 0.5/2.5MG 3 ML NEBU. NEB SCH ×4 (09:16→20:04)
--- NOTE | 2018-04-04 10:59 | PDOC ---
PULMONARY PROGRESS NOTES Subjective BETTER EATING BREAKFAST Vitals Vital Signs Date Time Temp Pulse Resp B/P (MAP) Pulse Ox O2 Delivery O2 Flow Rate FiO2 04/04/18 09:17 91 Nasal Cannula 2.0 04/04/18 08:47 87 132/63 04/04/18 07:00 98.4 18 98.4 ROS: No Nausea, No Chest Pain, No Abdominal Pain, No Increase Cough Lungs: Other (distant bs b/l) Cardiovascular: S1, S2 Abdomen: Soft Neuro Exam: Alert Extremities: Other (EDEMA) Skin: Warm Labs Laboratory Tests Test 04/02/18 17:39 04/02/18 21:27 04/03/18 03:25 04/03/18 12:09 Glucose (Fingerstick) 179 mg/dL (70-99) 171 mg/dL (70-99) 292 mg/dL (70-99) White Blood Count 13.4 x10^3/uL (4.0-11.0) Red Blood Count 4.84 x10^6/uL (4.30-5.70) Hemoglobin 10.5 g/dL (13.0-17.5) Hematocrit 33.9 % (39.0-53.0) Mean Corpuscular Volume 70 fL (79-100) Mean Corpuscular Hemoglobin 22 pg (25-35) Mean Corpuscular Hemoglobin Concent 31 g/dL (31-37) Red Cell Distribution Width 16.7 % (11.5-14.5) Platelet Count 336 x10^3/uL (140-400) Neutrophils (%) (Auto) 91 % (31-73) Lymphocytes (%) (Auto) 6 % (24-48) Monocytes (%) (Auto) 3 % (0-9) Eosinophils (%) (Auto) 0 % (0-3) Basophils (%) (Auto) 0 % (0-3) Neutrophils # (Auto) 12.2 x10^3uL (1.8-7.7) Lymphocytes # (Auto) 0.8 x10^3/uL (1.0-4.8) Monocytes # (Auto) 0.4 x10^3/uL (0.0-1.1) Eosinophils # (Auto) 0.0 x10^3/uL (0.0-0.7) Basophils # (Auto) 0.0 x10^3/uL (0.0-0.2) Segmented Neutrophils % 93 % (35-66) Lymphocytes % 4 % (24-48) Monocytes % 3 % (0-10) Nucleated Red Blood Cells 1 Platelet Estimate Adequate (ADEQUATE) Hypochromasia Mod Poikilocytosis Slight Anisocytosis Slight Microcytosis Mod Ovalocytes Few Sodium Level 138 mmol/L (136-145) Potassium Level 4.9 mmol/L (3.5-5.1) Chloride Level 102 mmol/L (98-107) Carbon Dioxide Level 31 mmol/L (21-32) Anion Gap 5 (6-14) Blood Urea Nitrogen 17 mg/dL (8-26) Creatinine 1.0 mg/dL (0.7-1.3) Estimated GFR (Cockcroft-Gault) 76.0 Glucose Level 223 mg/dL (70-99) Calcium Level 8.5 mg/dL (8.5-10.1) Test 04/03/18 16:48 04/04/18 03:00 04/04/18 08:08 Glucose (Fingerstick) 205 mg/dL (70-99) 179 mg/dL (70-99) White Blood Count 11.8 x10^3/uL (4.0-11.0) Red Blood Count 4.75 x10^6/uL (4.30-5.70) Hemoglobin 10.2 g/dL (13.0-17.5) Hematocrit 33.3 % (39.0-53.0) Mean Corpuscular Volume 70 fL (79-100) Mean Corpuscular Hemoglobin 21 pg (25-35) Mean Corpuscular Hemoglobin Concent 31 g/dL (31-37) Red Cell Distribution Width 16.5 % (11.5-14.5) Platelet Count 316 x10^3/uL (140-400) Neutrophils (%) (Auto) 88 % (31-73) Lymphocytes (%) (Auto) 8 % (24-48) Monocytes (%) (Auto) 4 % (0-9) Eosinophils (%) (Auto) 0 % (0-3) Basophils (%) (Auto) 0 % (0-3) Neutrophils # (Auto) 10.4 x10^3uL (1.8-7.7) Lymphocytes # (Auto) 0.9 x10^3/uL (1.0-4.8) Monocytes # (Auto) 0.5 x10^3/uL (0.0-1.1) Eosinophils # (Auto) 0.0 x10^3/uL (0.0-0.7) Basophils # (Auto) 0.0 x10^3/uL (0.0-0.2) Sodium Level 139 mmol/L (136-145) Potassium Level 4.2 mmol/L (3.5-5.1) Chloride Level 102 mmol/L (98-107) Carbon Dioxide Level 31 mmol/L (21-32) Anion Gap 6 (6-14) Blood Urea Nitrogen 18 mg/dL (8-26) Creatinine 1.0 mg/dL (0.7-1.3) Estimated GFR (Cockcroft-Gault) 76.0 Glucose Level 249 mg/dL (70-99) Calcium Level 8.7 mg/dL (8.5-10.1) Laboratory Tests Test 04/03/18 12:09 04/03/18 16:48 04/04/18 03:00 04/04/18 08:08 Glucose (Fingerstick) 292 mg/dL (70-99) 205 mg/dL (70-99) 179 mg/dL (70-99) White Blood Count 11.8 x10^3/uL (4.0-11.0) Red Blood Count 4.75 x10^6/uL (4.30-5.70) Hemoglobin 10.2 g/dL (13.0-17.5) Hematocrit 33.3 % (39.0-53.0) Mean Corpuscular Volume 70 fL (79-100) Mean Corpuscular Hemoglobin 21 pg (25-35) Mean Corpuscular Hemoglobin Concent 31 g/dL (31-37) Red Cell Distribution Width 16.5 % (11.5-14.5) Platelet Count 316 x10^3/uL (140-400) Neutrophils (%) (Auto) 88 % (31-73) Lymphocytes (%) (Auto) 8 % (24-48) Monocytes (%) (Auto) 4 % (0-9) Eosinophils (%) (Auto) 0 % (0-3) Basophils (%) (Auto) 0 % (0-3) Neutrophils # (Auto) 10.4 x10^3uL (1.8-7.7) Lymphocytes # (Auto) 0.9 x10^3/uL (1.0-4.8) Monocytes # (Auto) 0.5 x10^3/uL (0.0-1.1) Eosinophils # (Auto) 0.0 x10^3/uL (0.0-0.7) Basophils # (Auto) 0.0 x10^3/uL (0.0-0.2) Sodium Level 139 mmol/L (136-145) Potassium Level 4.2 mmol/L (3.5-5.1) Chloride Level 102 mmol/L (98-107) Carbon Dioxide Level 31 mmol/L (21-32) Anion Gap 6 (6-14) Blood Urea Nitrogen 18 mg/dL (8-26) Creatinine 1.0 mg/dL (0.7-1.3) Estimated GFR (Cockcroft-Gault) 76.0 Glucose Level 249 mg/dL (70-99) Calcium Level 8.7 mg/dL (8.5-10.1) Medications Active Scripts Medications Dose Route/Sig Max Daily Dose Days Date Category Glimepiride 4 Mg Tablet 8 Mg PO DAILY 03/31/18 Reported Imbruvica (Ibrutinib) 140 Mg Capsule 420 Mg PO DAILY 03/31/18 Reported Vascepa (Icosapent Ethyl) 1 Gm Capsule 2 Gm PO 03/31/18 Reported Trelegy Ellipta 100-62.5-25 (Fluticasone/Umeclidin/Vilanter) 1 Each Blst.w.dev 1 Each IH 03/31/18 Reported Losartan Potassium 25 Mg Tablet 25 Mg PO BID 03/31/18 Reported Allopurinol 100 Mg Tablet 100 Mg PO BID 03/31/18 Reported Atorvastatin Calcium 20 Mg Tablet 20 Mg PO HS 03/31/18 Reported Trulicity (Dulaglutide) 1.5 Mg/0.5 Ml Pen.injctr 1.5 Mg SQ WEEKLY 03/31/18 Reported Levaquin (Levofloxacin) 750 Mg Tablet 750 Mg PO DAILY16 7 09/25/16 Rx Duoneb 0.5-3(2.5) Mg/3 Ml (Albuterol/Ipratropium) 3 Ml Ampul.neb 3 Ml NEB RTQID 30 09/25/16 Rx Aspirin Ec (Aspirin) 81 Mg Tablet. 81 Mg PO DAILYWBKFT 30 09/25/16 Rx Janumet 50-1,000 Mg Tablet (Sitagliptin Phos/Metformin Hcl) 1 Each Tablet 1 Tab PO BID 07/12/16 Reported Lisinopril 2.5 Mg Tablet 1 Tab PO DAILY 07/12/16 Reported Comments IMPRESSION: CT CHEST REPEAT . Decrease in volume of the complicated right pleural effusion following pleural tube placement. 2. Moderate residual right lower lobe atelectasis/consolidation. 3. Mild mediastinal adenopathy. 4. Extensive coronary artery disease. Impression . 1. [id number] hypercapnic hypoxemic respiratory failure. 2. Abnormal CT of the chest revealing loculated effusion on the right, along with some airspace disease and atelectasis. 3. Mediastinal hilar adenopathy, somewhat improved in comparison of film of . 4. Chronic lymphocytic leukemia. 5. Tobacco dependent. 6. Chronic obstructive pulmonary disease. 7. Obstructive sleep apnea. 8. Type 2 diabetes. 9. Leukocytosis. 10. Protein malnutrition, present upon admission. 11. S/P THORACENTESIS EXUDATE EFFUSION REPEAT CT BETTER CYTOLOGY RIGHT PLEURAL FLUID DIAGNOSIS: 02 RIGHT PLEURAL FLUID NEGATIVE FOR MALIGNANT CELLS. SCANT CELLULARITY. RARE MESOTHELIAL CELLS, FEW INFLAMMATORY CELLS,AND RED BLOOD CELLS PRESENT. THIS INTERPRETATION INCLUDES EVALUATION OF A CELL BLOCK. ANAEROBIC-AEROBIC CULTURE PENDING ANAEROBIC RES 1 PENDING AEROBIC CULT PENDING AEROBIC RES 1 PENDING GRAM STAIN Final Final report GRAM STAIN RES 1 Final No organisms seen GRAM STAIN RES 2 Final Comment No white blood cells seen. Performed at: DA - [facility], [place], [place] [id number] Power Superintendent: SIMONE Richards MD, Phone: [phone] Plan . PT BETTER SO FAR CULTURES NEGATIVE CHEST TUBE OUT PER DR HENRIQUEZ RESUME CLL MED ON SATURDAY HOME ON AUGMENTIN / DC VANC TODAY AND ZOSYN IN AM. FOLLOW UP WITH DR CHAVIRA IN 2 MONTHS WITH A REPEAT CT CHEST PT JUDIE BANKS MD Apr 04, 2018 10:59
[2018-04-04 11:10] VITALS: BP 130/61
--- NOTE | 2018-04-04 11:12 | PDOC ---
PROGRESS NOTES Chief Complaint Chief Complaint Respiratory Distress History of Present Illness History of Present Illness Pt was seen and examined at bedside today.His chest tube (placed 04/01) is still draining some bloody fluid, but much less compared to yesterday. Path report on the pleural fluid analysis showed no malignant cells. CT done yesterday (04/02) showed decrease of pt's effusion and extensive CAD. Cardiology was consulted and they believe pt would be benefited by getting an outpatient stress test. Pulm, card, and Onc are following. post thoracentesis Decrease in volume of the complicated right pleural effusion following pleural tube placement. Moderate residual right lower lobe atelectasis/consolidation. d/c iv zosyn in AM, D/C IN AM planned Vitals Vitals Vital Signs Date Time Temp Pulse Resp B/P (MAP) Pulse Ox O2 Delivery O2 Flow Rate FiO2 04/04/18 11:10 98.4 103 20 130/61 (84) 92 Nasal Cannula 2.0 98.4 Physical Exam General: Alert, Oriented X3, No acute distress Heart: Normal S1, Normal S2 Lungs: Other (distant bs b/l) Abdomen: Soft, No tenderness Extremities: No cyanosis, Other (trace to 1+ bilateral LE pitting edema) Skin: No breakdown, No significant lesion Labs LABS CT of the chest without contrast, 04/02/2018: HISTORY: Lymphoma, effusion Noncontrast scans were obtained as requested and compared to a study from 03/31/2018. A right pleural drain has been inserted with decrease in volume of the right pleural effusion. There is residual pleural fluid which contains medium density complex appearing components. There is a small amount of gas in the pleural space on an iatrogenic basis. No large pneumothorax is evident. There is considerable residual atelectasis/infiltrate in the right lower lobe. No central bronchial obstructive process is seen. There is mild streaky atelectasis/infiltrate inferiorly in the right middle lobe. There is minimal linear atelectasis or scarring in the left base. There is minimal mosaic attenuation in the left lung which appears to be due to minimal nonspecific scattered groundglass opacities. No dense consolidation or significant pleural fluid is evident on the left. Mild mediastinal adenopathy is unchanged. There is calcific plaquing of the aorta with extensive coronary artery calcifications again noted. IMPRESSION: 1. Decrease in volume of the complicated right pleural effusion following pleural tube placement. 2. Moderate residual right lower lobe atelectasis/consolidation. 3. Mild mediastinal adenopathy. 4. Extensive coronary artery disease. Portable chest, 04/04/2018: HISTORY: Pleural effusion Comparison is made to yesterday's study. The right pleural drain has been removed. There is moderate residual pleural thickening on the right with underlying right basilar atelectasis/infiltrate. This is unchanged. There is no evidence of pneumothorax. There is unchanged blunting of the left lateral costophrenic angle. No left lung infiltrate is seen. No new abnormality is detected. IMPRESSION: 1. The right pleural drain has been removed with no significant pneumothorax. 2. Unchanged pleural thickening and residual infiltrate on the right. Electronically signed by: Rusty Austin MD (04/04/2018 11:55 AM) [facility] DICTATED and SIGNED BY: RUSTY AUSTIN MD DATE: 04/04/18 1154 Laboratory Tests Test 04/03/18 12:09 04/03/18 16:48 04/04/18 03:00 04/04/18 08:08 Glucose (Fingerstick) 292 mg/dL (70-99) 205 mg/dL (70-99) 179 mg/dL (70-99) White Blood Count 11.8 x10^3/uL (4.0-11.0) Red Blood Count 4.75 x10^6/uL (4.30-5.70) Hemoglobin 10.2 g/dL (13.0-17.5) Hematocrit 33.3 % (39.0-53.0) Mean Corpuscular Volume 70 fL (79-100) Mean Corpuscular Hemoglobin 21 pg (25-35) Mean Corpuscular Hemoglobin Concent 31 g/dL (31-37) Red Cell Distribution Width 16.5 % (11.5-14.5) Platelet Count 316 x10^3/uL (140-400) Neutrophils (%) (Auto) 88 % (31-73) Lymphocytes (%) (Auto) 8 % (24-48) Monocytes (%) (Auto) 4 % (0-9) Eosinophils (%) (Auto) 0 % (0-3) Basophils (%) (Auto) 0 % (0-3) Neutrophils # (Auto) 10.4 x10^3uL (1.8-7.7) Lymphocytes # (Auto) 0.9 x10^3/uL (1.0-4.8) Monocytes # (Auto) 0.5 x10^3/uL (0.0-1.1) Eosinophils # (Auto) 0.0 x10^3/uL (0.0-0.7) Basophils # (Auto) 0.0 x10^3/uL (0.0-0.2) Sodium Level 139 mmol/L (136-145) Potassium Level 4.2 mmol/L (3.5-5.1) Chloride Level 102 mmol/L (98-107) Carbon Dioxide Level 31 mmol/L (21-32) Anion Gap 6 (6-14) Blood Urea Nitrogen 18 mg/dL (8-26) Creatinine 1.0 mg/dL (0.7-1.3) Estimated GFR (Cockcroft-Gault) 76.0 Glucose Level 249 mg/dL (70-99) Calcium Level 8.7 mg/dL (8.5-10.1) Assessment and Plan Assessmemt and Plan Problems Medical Problems: (1) COPD (chronic obstructive pulmonary disease) Status: Acute (2) Elevated troponin Status: Acute (3) Lymphoma Status: Acute (4) Pleural effusion Status: Acute (5) Respiratory distress Status: Acute Comment Review of Relevant I have reviewed the following items kadie (where applicable) has been applied. Labs Laboratory Tests Test 04/02/18 17:39 04/02/18 21:27 04/03/18 03:25 04/03/18 12:09 Glucose (Fingerstick) 179 mg/dL (70-99) 171 mg/dL (70-99) 292 mg/dL (70-99) White Blood Count 13.4 x10^3/uL (4.0-11.0) Red Blood Count 4.84 x10^6/uL (4.30-5.70) Hemoglobin 10.5 g/dL (13.0-17.5) Hematocrit 33.9 % (39.0-53.0) Mean Corpuscular Volume 70 fL (79-100) Mean Corpuscular Hemoglobin 22 pg (25-35) Mean Corpuscular Hemoglobin Concent 31 g/dL (31-37) Red Cell Distribution Width 16.7 % (11.5-14.5) Platelet Count 336 x10^3/uL (140-400) Neutrophils (%) (Auto) 91 % (31-73) Lymphocytes (%) (Auto) 6 % (24-48) Monocytes (%) (Auto) 3 % (0-9) Eosinophils (%) (Auto) 0 % (0-3) Basophils (%) (Auto) 0 % (0-3) Neutrophils # (Auto) 12.2 x10^3uL (1.8-7.7) Lymphocytes # (Auto) 0.8 x10^3/uL (1.0-4.8) Monocytes # (Auto) 0.4 x10^3/uL (0.0-1.1) Eosinophils # (Auto) 0.0 x10^3/uL (0.0-0.7) Basophils # (Auto) 0.0 x10^3/uL (0.0-0.2) Segmented Neutrophils % 93 % (35-66) Lymphocytes % 4 % (24-48) Monocytes % 3 % (0-10) Nucleated Red Blood Cells 1 Platelet Estimate Adequate (ADEQUATE) Hypochromasia Mod Poikilocytosis Slight Anisocytosis Slight Microcytosis Mod Ovalocytes Few Sodium Level 138 mmol/L (136-145) Potassium Level 4.9 mmol/L (3.5-5.1) Chloride Level 102 mmol/L (98-107) Carbon Dioxide Level 31 mmol/L (21-32) Anion Gap 5 (6-14) Blood Urea Nitrogen 17 mg/dL (8-26) Creatinine 1.0 mg/dL (0.7-1.3) Estimated GFR (Cockcroft-Gault) 76.0 Glucose Level 223 mg/dL (70-99) Calcium Level 8.5 mg/dL (8.5-10.1) Test 04/03/18 16:48 04/04/18 03:00 04/04/18 08:08 Glucose (Fingerstick) 205 mg/dL (70-99) 179 mg/dL (70-99) White Blood Count 11.8 x10^3/uL (4.0-11.0) Red Blood Count 4.75 x10^6/uL (4.30-5.70) Hemoglobin 10.2 g/dL (13.0-17.5) Hematocrit 33.3 % (39.0-53.0) Mean Corpuscular Volume 70 fL (79-100) Mean Corpuscular Hemoglobin 21 pg (25-35) Mean Corpuscular Hemoglobin Concent 31 g/dL (31-37) Red Cell Distribution Width 16.5 % (11.5-14.5) Platelet Count 316 x10^3/uL (140-400) Neutrophils (%) (Auto) 88 % (31-73) Lymphocytes (%) (Auto) 8 % (24-48) Monocytes (%) (Auto) 4 % (0-9) Eosinophils (%) (Auto) 0 % (0-3) Basophils (%) (Auto) 0 % (0-3) Neutrophils # (Auto) 10.4 x10^3uL (1.8-7.7) Lymphocytes # (Auto) 0.9 x10^3/uL (1.0-4.8) Monocytes # (Auto) 0.5 x10^3/uL (0.0-1.1) Eosinophils # (Auto) 0.0 x10^3/uL (0.0-0.7) Basophils # (Auto) 0.0 x10^3/uL (0.0-0.2) Sodium Level 139 mmol/L (136-145) Potassium Level 4.2 mmol/L (3.5-5.1) Chloride Level 102 mmol/L (98-107) Carbon Dioxide Level 31 mmol/L (21-32) Anion Gap 6 (6-14) Blood Urea Nitrogen 18 mg/dL (8-26) Creatinine 1.0 mg/dL (0.7-1.3) Estimated GFR (Cockcroft-Gault) 76.0 Glucose Level 249 mg/dL (70-99) Calcium Level 8.7 mg/dL (8.5-10.1) Laboratory Tests Test 04/03/18 12:09 04/03/18 16:48 04/04/18 03:00 04/04/18 08:08 Glucose (Fingerstick) 292 mg/dL (70-99) 205 mg/dL (70-99) 179 mg/dL (70-99) White Blood Count 11.8 x10^3/uL (4.0-11.0) Red Blood Count 4.75 x10^6/uL (4.30-5.70) Hemoglobin 10.2 g/dL (13.0-17.5) Hematocrit 33.3 % (39.0-53.0) Mean Corpuscular Volume 70 fL (79-100) Mean Corpuscular Hemoglobin 21 pg (25-35) Mean Corpuscular Hemoglobin Concent 31 g/dL (31-37) Red Cell Distribution Width 16.5 % (11.5-14.5) Platelet Count 316 x10^3/uL (140-400) Neutrophils (%) (Auto) 88 % (31-73) Lymphocytes (%) (Auto) 8 % (24-48) Monocytes (%) (Auto) 4 % (0-9) Eosinophils (%) (Auto) 0 % (0-3) Basophils (%) (Auto) 0 % (0-3) Neutrophils # (Auto) 10.4 x10^3uL (1.8-7.7) Lymphocytes # (Auto) 0.9 x10^3/uL (1.0-4.8) Monocytes # (Auto) 0.5 x10^3/uL (0.0-1.1) Eosinophils # (Auto) 0.0 x10^3/uL (0.0-0.7) Basophils # (Auto) 0.0 x10^3/uL (0.0-0.2) Sodium Level 139 mmol/L (136-145) Potassium Level 4.2 mmol/L (3.5-5.1) Chloride Level 102 mmol/L (98-107) Carbon Dioxide Level 31 mmol/L (21-32) Anion Gap 6 (6-14) Blood Urea Nitrogen 18 mg/dL (8-26) Creatinine 1.0 mg/dL (0.7-1.3) Estimated GFR (Cockcroft-Gault) 76.0 Glucose Level 249 mg/dL (70-99) Calcium Level 8.7 mg/dL (8.5-10.1) Microbiology 03/31/18 Blood Culture - Preliminary, Resulted NO GROWTH AFTER 3 DAYS 04/01/18 Anaerobic/Aerobic Culture, Resulted Pending 04/01/18 Anaerobic Culture Result 1 (GERARDO), Resulted Pending 04/01/18 Aerobic Culture - Preliminary, Resulted 04/01/18 Aerobic Culture Result 1 (GERARDO) - Preliminary, Resulted 04/01/18 Gram Stain - Final, Resulted 04/01/18 Gram Stain Result 1 (GERARDO) - Final, Resulted 04/01/18 Gram Stain Result 2 (GERARDO) - Final, Resulted 04/01/18 - Final, Complete 04/01/18 - Final, Complete 04/01/18 - Final, Complete 04/01/18 - Final, Complete 04/01/18 Gram Stain Evaluation - Final, Complete 04/01/18 Sputum Culture - Final, Complete 04/01/18 Sputum Result 1 - Final, Complete 04/01/18 Sputum Result 2 - Final, Complete Medications Current Medications Albuterol/ Ipratropium (Duoneb) 3 ml 1X ONCE NEB Last administered on at 15:26; Start 03/31/18 at 15:00; Stop 03/31/18 at 15:01; Status DC Methylprednisolone Sodium Succinate (SOLU-Medrol 125MG VIAL) 125 mg 1X ONCE IV Last administered on 03/31/18at 15:35; Start 03/31/18 at 15:00; Stop 03/31/18 at 15:01; Status DC Ceftriaxone Sodium 50 ml @ 100 mls/hr 1X ONCE IV ; Start 03/31/18 at 15:00; Stop 03/31/18 at 15:29; Status UNV Azithromycin 250 ml @ 250 mls/hr 1X ONCE IV Last administered on 03/31/18at 16 :00; Start 03/31/18 at 15:00; Stop 03/31/18 at 15:59; Status DC Ceftriaxone Sodium (Rocephin) 1 gm 1X ONCE IVP Last administered on 03/31/18at 15:38; Start 03/31/18 at 15:00; Stop 03/31/18 at 15:01; Status DC Lorazepam (Ativan) 1 mg 1X ONCE IV Last administered on 03/31/18at 16:11; Start 03/31/18 at 16:15; Stop 03/31/18 at 16:16; Status DC Allopurinol (Zyloprim) 100 mg BID PO Last administered on 04/04/18at 08:45; Start 03/31/18 at 21:00 Aspirin (Ecotrin) 81 mg DAILYWBKFT PO Last administered on 04/04/18at 08:46; Start 04/01/18 at 08:00 Atorvastatin Calcium (Lipitor) 20 mg HS PO Last administered on 04/03/18at 21:28 ; Start 03/31/18 at 21:00 Albuterol/ Ipratropium (Duoneb) 3 ml RTQID NEB Last administered on 04/04/18at 09:16; Start 03/31/18 at 20:00 Losartan Potassium (Cozaar) 25 mg BID PO ; Start 03/31/18 at 21:00; Stop at 21:00; Status DC Non-Formulary Medication (Ibrutinib (Imbruvica)) 420 mg DAILY PO ; Start at 09:00; Stop 04/01/18 at 12:30; Status DC Lisinopril (Prinivil) 2.5 mg DAILY PO Last administered on 04/04/18at 08:47; Start 04/01/18 at 09:00 Linagliptin (Tradjenta) 5 mg DAILY PO Last administered on 04/04/18at 08:46; Start 04/01/18 at 09:00 Levofloxacin/ Dextrose 150 ml @ 100 mls/hr Q24H IV ; Start 03/31/18 at 17:15; Stop 03/31/18 at 17:21; Status DC Acetaminophen (Tylenol) 650 mg PRN Q6HRS PRN PO FEVER; Start 03/31/18 at 17:15 Ondansetron HCl (Zofran) 4 mg PRN Q6HRS PRN IV NAUSEA/VOMITING; Start 03/31/18 at 17:15 Morphine Sulfate (Morphine Sulfate) 2 mg PRN Q2HR PRN IV MODERATE TO SEVERE PAIN Last administered on 04/03/18at 09:54; Start 03/31/18 at 17:15 Tramadol HCl (Ultram) 50 mg PRN Q6HRS PRN PO MILD TO MODERATE PAIN; Start 03/31 at 17:15 Docusate Sodium (Colace) 100 mg PRN DAILY PRN PO CONSTIPATION; Start 03/31/18 at 17:15 Insulin Human Lispro (HumaLOG) 0-9 UNITS TIDWMEALS SQ Last administered on 04/04at 08:51; Start 04/01/18 at 08:00 Dextrose (Dextrose 50%-Water Syringe) 12.5 gm PRN Q15MIN PRN IV SEE COMMENTS; Start 03/31/18 at 17:15 Guaifenesin (Mucinex) 600 mg BID PO Last administered on 04/04/18at 08:47; Start 03/31/18 at 21:00 Albuterol Sulfate (Ventolin Neb Soln) 2.5 mg PRN Q4HRS PRN NEB SHORTNESS OF BREATH; Start 03/31/18 at 17:15 Enoxaparin Sodium (Lovenox 40mg Syringe) 40 mg Q24H SQ Last administered on 04/03/18at 17:47; Start 03/31/18 at 18:00 Piperacillin Sod/ Tazobactam Sod 4.5 gm/Sodium Chloride 100 ml @ 200 mls/hr Q6HRS IV ; Start 03/31/18 at 18:00; Stop 03/31/18 at 18:53; Status DC Piperacillin Sod/ Tazobactam Sod (Zosyn Per Pharmacy) 1 each PRN DAILY PRN MC SEE COMMENTS; Start 03/31/18 at 17:30; Stop 03/31/18 at 18:53; Status DC Vancomycin HCl 2 gm/Sodium Chloride 500 ml @ 250 mls/hr Q12H IV ; Start at 17:30; Status UNV Vancomycin HCl (Vanco Per Pharmacy) 1 each PRN DAILY PRN MC SEE COMMENTS Last administered on 04/03/18at 11:40; Start 03/31/18 at 17:30; Stop 04/04/18 at 11:02 ; Status DC Levofloxacin/ Dextrose 150 ml @ 100 mls/hr ONCE ONCE IV ; Start 03/31/18 at 17 :30; Stop 03/31/18 at 18:59; Status Cancel Vancomycin HCl 2 gm/Sodium Chloride 500 ml @ 250 mls/hr 1X ONCE IV Last administered on 03/31/18at 20:32; Start 03/31/18 at 17:30; Stop 03/31/18 at 19:29 ; Status DC Piperacillin Sod/ Tazobactam Sod 4.5 gm/Sodium Chloride 100 ml @ 200 mls/hr 1X ONCE IV Last administered on 03/31/18at 20:32; Start 03/31/18 at 17:30; Stop 03/31/18 at 17:59; Status DC Piperacillin Sod/ Tazobactam Sod 4.5 gm/Sodium Chloride 100 ml @ 200 mls/hr Q6HRS IV Last administered on 04/04/18at 06:16; Start 04/01/18 at 00:00 Metformin HCl (Glucophage) 1,000 mg BIDWMEALS PO Last administered on at 08:45; Start 04/01/18 at 08:00 Methylprednisolone Sodium Succinate (SOLU-Medrol 125MG VIAL) 62.5 mg BID66 IV Last administered on 04/04/18at 06:15; Start 04/01/18 at 06:00 Vancomycin HCl 1.5 gm/Sodium Chloride 500 ml @ 250 mls/hr Q8H IV Last administered on 04/04/18at 06:30; Start 04/01/18 at 04:00; Stop 04/04/18 at 11:00 ; Status DC Vancomycin HCl (Vancomycin Trough Level) 1 each 1X ONCE MC Last administered on 04/01/18at 22:00; Start 04/01/18 at 22:00; Stop 04/01/18 at 22:01; Status DC Influenza Virus Vaccine (Afluria Trivalent 2951-5650 Syringe) 0.5 ml ONCE ONCE VAX IM ; Start 04/02/18 at 09:00; Stop 04/02/18 at 09:01; Status DC Active Scripts Active Levaquin (Levofloxacin) 750 Mg Tablet 750 Mg PO DAILY16 7 Days Duoneb 0.5-3(2.5) Mg/3 Ml (Albuterol/Ipratropium) 3 Ml Ampul.neb 3 Ml NEB RTQID 30 Days Aspirin Ec (Aspirin) 81 Mg Tablet.dr 81 Mg PO DAILYWBKFT 30 Days Reported Glimepiride 4 Mg Tablet 8 Mg PO DAILY Imbruvica (Ibrutinib) 140 Mg Capsule 420 Mg PO DAILY Vascepa (Icosapent Ethyl) 1 Gm Capsule 2 Gm PO Trelegy Ellipta 100-62.5-25 (Fluticasone/Umeclidin/Vilanter) 1 Each Blst.w.dev 1 Each IH Losartan Potassium 25 Mg Tablet 25 Mg PO BID Allopurinol 100 Mg Tablet 100 Mg PO BID Atorvastatin Calcium 20 Mg Tablet 20 Mg PO HS Trulicity (Dulaglutide) 1.5 Mg/0.5 Ml Pen.injctr 1.5 Mg SQ WEEKLY Janumet 50-1,000 Mg Tablet (Sitagliptin Phos/Metformin Hcl) 1 Each Tablet 1 Tab PO BID Lisinopril 2.5 Mg Tablet 1 Tab PO DAILY Vitals/I & O Vital Sign - Last 24 Hours 04/03/18 04/03/18 04/03/18 04/03/18 12:01 15:00 15:58 19:55 Temp 97.8 97.4 97.8 97.4 Pulse 97 90 Resp 18 18 B/P (MAP) 123/68 (86) 133/60 (84) Pulse Ox 95 96 95 95 O2 Delivery Nasal Cannula Nasal Cannula Nasal Cannula Nasal Cannula O2 Flow Rate 2.0 2.0 2.0 2.0 04/03/18 04/03/18 04/03/18 04/04/18 20:29 20:48 22:52 02:27 Temp 97.8 98.1 97.8 98.1 Pulse 102 97 Resp 18 18 B/P (MAP) 139/61 (87) 127/57 (80) Pulse Ox 95 94 95 O2 Delivery Nasal Cannula Nasal Cannula Nasal Cannula Nasal Cannula O2 Flow Rate 2.0 2.0 2.0 2.0 04/04/18 04/04/18 04/04/18 04/04/18 07:00 08:47 09:17 11:10 Temp 98.4 98.4 98.4 98.4 Pulse 87 87 103 Resp 18 20 B/P (MAP) 132/63 (86) 132/63 130/61 (84) Pulse Ox 95 91 92 O2 Delivery Nasal Cannula Nasal Cannula Nasal Cannula O2 Flow Rate 2.0 2.0 2.0 Intake and Output 04/03/18 04/03/18 04/04/18 15:00 23:00 07:00 Intake Total 1210 ml 2070 ml 400 ml Output Total 120 ml Balance 1090 ml 2070 ml 400 ml Nutrition Consultation Dietary Evaluation: Recommendations by RD: Increase Calorie Intake Comments: REC continue w/cardiac diet, honor food preferences, and provide snacks as requested Will offer/encourage oral supplements if unable to meet nutrition needs via PO intake of meals Expected Outcomes/Goals: PO intake to meet >75% est needs Interpretation of weight loss: >7.5% in 3 months Malnutrition Findings: Food and Nutrition Intake (Mod: <75% est energy req 7days Weight Status: Obese KATY HANNAH MD Apr 04, 2018 11:12
--- NOTE | 2018-04-04 11:59 | RAD ---
Portable chest, 04/04/2018: HISTORY: Pleural effusion Comparison is made to yesterday's study. The right pleural drain has been removed. There is moderate residual pleural thickening on the right with underlying right basilar atelectasis/infiltrate. This is unchanged. There is no evidence of pneumothorax. There is unchanged blunting of the left lateral costophrenic angle. No left lung infiltrate is seen. No new abnormality is detected. IMPRESSION: 1. The right pleural drain has been removed with no significant pneumothorax. 2. Unchanged pleural thickening and residual infiltrate on the right. Electronically signed by: Rusty Austin MD (04/04/2018 11:55 AM) [facility]
[2018-04-04 14:39] VITALS: BP 138/63
[2018-04-04] MEDS: ENOXAPARIN 40 MG/0.4 ML SYRINGE. SQ SCH (17:37)
[2018-04-04 19:30] VITALS: BP 138/66
[2018-04-04] MEDS: ATORVASTATIN CALCIUM 20 MG TABLET PO SCH (20:36)
[2018-04-04 23:51] VITALS: BP 137/62
[2018-04-05] MEDS: PIPERACILLIN/TAZOBACTAM 4.5 GM in IV NORMAL SALINE 100ML 100 ML IV SCH ×3 (00:07→12:00)
[2018-04-05 03:56] VITALS: BP 130/66
[2018-04-05 05:31] LABS: BASO % 0 % (0-3); EOS % 0 % (0-3); HEMATOCRIT 33.3 % (39.0-53.0); HEMOGLOBIN 10.5 g/dL (13.0-17.5); LYMPH # 1.3 x10^3/uL (1.0-4.8); LYMPH % 12 % (24-48); MEAN CORPUSCULAR HEMOGLOBIN 22 pg (25-35); MEAN CORPUSCULAR HGB CONC 32 g/dL (31-37); MEAN CORPUSCULAR VOLUME 69 fL (79-100); MONO # 0.7 x10^3/uL (0.0-1.1); MONO % 6 % (0-9); NEUT # 8.8 x10^3uL (1.8-7.7); NEUT % 82 % (31-73); PLATELET COUNT 322 x10^3/uL (140-400); RED BLOOD COUNT 4.82 x10^6/uL (4.30-5.70); RED CELL DISTRIBUTION WIDTH 16.7 % (11.5-14.5); WHITE BLOOD COUNT 10.8 x10^3/uL (4.0-11.0)
[2018-04-05 05:54] LABS: CALCIUM 8.9 mg/dL (8.5-10.1); CREATININE 0.9 mg/dL (0.7-1.3); GFR 85.8; POTASSIUM 4.3 mmol/L (3.5-5.1)
[2018-04-05] MEDS: methylPREDNISolone SOD SUCC PF 125 MG/2 ML VIAL. IV SCH (06:08)
[2018-04-05 07:00] VITALS: BP 143/72
[2018-04-05] MEDS: IPRATRPIUM/ALBUTEROL 0.5/2.5MG 3 ML NEBU. NEB SCH ×2 (07:36→12:40)
[2018-04-05] MEDS: ASPIRIN ENTERIC COATED 81 MG TABLET.DR. PO SCH (09:03)
[2018-04-05] MEDS: metFORMIN 500 MG TABLET PO SCH (09:04)
[2018-04-05] MEDS: LISINOPRIL 5 MG TABLET. PO SCH (09:05)
[2018-04-05] MEDS: LINAGLIPTIN 5 MG TABLET PO SCH (09:05)
[2018-04-05] MEDS: ALLOPURINOL 100 MG TABLET. PO SCH (09:05)
[2018-04-05] MEDS: INSULIN LISPRO 300 UNITS/3 ML INSULN.PEN. SQ SCH ×2 (09:16→12:00)
--- NOTE | 2018-04-05 09:50 | PDOC ---
PROGRESS NOTES Chief Complaint Chief Complaint Respiratory Distress History of Present Illness History of Present Illness Pt was seen and examined at bedside today.His chest tube (placed 04/01) pleural fluid analysis showed no malignant cells. CT done showed decrease of pt's effusion and extensive CAD. Cardiology was consulted and they believe pt would be benefited by getting an outpatient stress test. Pulm, card, and Onc are following. COPD, stopped smoking 1 week ago Anxiety post thoracentesis Decrease in volume of the complicated right pleural effusion following pleural tube placement. Moderate residual right lower lobe atelectasis/consolidation. , D/C today planned if spo2 stable, on my walk with patient and RN, he Desatted to 85% on room air NOW , he needs home o2, and we are arranging this [facility], However the patient is angry that he needs to stay and is threatening to leave AMA I assured him with RN to witness we will obtain o2 authorization and delivery [facility] safely Vitals Vitals Vital Signs Date Time Temp Pulse Resp B/P (MAP) Pulse Ox O2 Delivery O2 Flow Rate FiO2 04/05/18 09:05 88 143/72 04/05/18 07:37 97 Nasal Cannula 2.0 04/05/18 07:00 98.1 18 98.1 Physical Exam General: Alert, Oriented X3, No acute distress, mild distress Heart: Regular rate, Normal S1, Normal S2, Other (tachy 111) Lungs: Other (distant bs b/l) Abdomen: Soft, No tenderness Extremities: No cyanosis, No edema, No tenderness/swelling, Other (trace to 1+ bilateral LE pitting edema) Skin: No breakdown, No significant lesion Labs LABS Laboratory Tests Test 04/04/18 11:44 04/04/18 16:21 04/05/18 04:50 04/05/18 08:13 Glucose (Fingerstick) 226 mg/dL (70-99) 186 mg/dL (70-99) 215 mg/dL (70-99) White Blood Count 10.8 x10^3/uL (4.0-11.0) Red Blood Count 4.82 x10^6/uL (4.30-5.70) Hemoglobin 10.5 g/dL (13.0-17.5) Hematocrit 33.3 % (39.0-53.0) Mean Corpuscular Volume 69 fL (79-100) Mean Corpuscular Hemoglobin 22 pg (25-35) Mean Corpuscular Hemoglobin Concent 32 g/dL (31-37) Red Cell Distribution Width 16.7 % (11.5-14.5) Platelet Count 322 x10^3/uL (140-400) Neutrophils (%) (Auto) 82 % (31-73) Lymphocytes (%) (Auto) 12 % (24-48) Monocytes (%) (Auto) 6 % (0-9) Eosinophils (%) (Auto) 0 % (0-3) Basophils (%) (Auto) 0 % (0-3) Neutrophils # (Auto) 8.8 x10^3uL (1.8-7.7) Lymphocytes # (Auto) 1.3 x10^3/uL (1.0-4.8) Monocytes # (Auto) 0.7 x10^3/uL (0.0-1.1) Eosinophils # (Auto) 0.0 x10^3/uL (0.0-0.7) Basophils # (Auto) 0.0 x10^3/uL (0.0-0.2) Sodium Level 140 mmol/L (136-145) Potassium Level 4.3 mmol/L (3.5-5.1) Chloride Level 103 mmol/L (98-107) Carbon Dioxide Level 34 mmol/L (21-32) Anion Gap 3 (6-14) Blood Urea Nitrogen 18 mg/dL (8-26) Creatinine 0.9 mg/dL (0.7-1.3) Estimated GFR (Cockcroft-Gault) 85.8 Glucose Level 236 mg/dL (70-99) Calcium Level 8.9 mg/dL (8.5-10.1) Assessment and Plan Assessmemt and Plan Problems Medical Problems: (1) COPD (chronic obstructive pulmonary disease) Status: Acute (2) Elevated troponin Status: Acute (3) Lymphoma Status: Acute (4) Pleural effusion Status: Acute (5) Respiratory distress Status: Acute Comment Review of Relevant I have reviewed the following items kadie (where applicable) has been applied. Labs Laboratory Tests Test 04/03/18 12:09 04/03/18 16:48 04/04/18 03:00 04/04/18 08:08 Glucose (Fingerstick) 292 mg/dL (70-99) 205 mg/dL (70-99) 179 mg/dL (70-99) White Blood Count 11.8 x10^3/uL (4.0-11.0) Red Blood Count 4.75 x10^6/uL (4.30-5.70) Hemoglobin 10.2 g/dL (13.0-17.5) Hematocrit 33.3 % (39.0-53.0) Mean Corpuscular Volume 70 fL (79-100) Mean Corpuscular Hemoglobin 21 pg (25-35) Mean Corpuscular Hemoglobin Concent 31 g/dL (31-37) Red Cell Distribution Width 16.5 % (11.5-14.5) Platelet Count 316 x10^3/uL (140-400) Neutrophils (%) (Auto) 88 % (31-73) Lymphocytes (%) (Auto) 8 % (24-48) Monocytes (%) (Auto) 4 % (0-9) Eosinophils (%) (Auto) 0 % (0-3) Basophils (%) (Auto) 0 % (0-3) Neutrophils # (Auto) 10.4 x10^3uL (1.8-7.7) Lymphocytes # (Auto) 0.9 x10^3/uL (1.0-4.8) Monocytes # (Auto) 0.5 x10^3/uL (0.0-1.1) Eosinophils # (Auto) 0.0 x10^3/uL (0.0-0.7) Basophils # (Auto) 0.0 x10^3/uL (0.0-0.2) Sodium Level 139 mmol/L (136-145) Potassium Level 4.2 mmol/L (3.5-5.1) Chloride Level 102 mmol/L (98-107) Carbon Dioxide Level 31 mmol/L (21-32) Anion Gap 6 (6-14) Blood Urea Nitrogen 18 mg/dL (8-26) Creatinine 1.0 mg/dL (0.7-1.3) Estimated GFR (Cockcroft-Gault) 76.0 Glucose Level 249 mg/dL (70-99) Calcium Level 8.7 mg/dL (8.5-10.1) Test 04/04/18 11:44 04/04/18 16:21 04/05/18 04:50 04/05/18 08:13 Glucose (Fingerstick) 226 mg/dL (70-99) 186 mg/dL (70-99) 215 mg/dL (70-99) White Blood Count 10.8 x10^3/uL (4.0-11.0) Red Blood Count 4.82 x10^6/uL (4.30-5.70) Hemoglobin 10.5 g/dL (13.0-17.5) Hematocrit 33.3 % (39.0-53.0) Mean Corpuscular Volume 69 fL (79-100) Mean Corpuscular Hemoglobin 22 pg (25-35) Mean Corpuscular Hemoglobin Concent 32 g/dL (31-37) Red Cell Distribution Width 16.7 % (11.5-14.5) Platelet Count 322 x10^3/uL (140-400) Neutrophils (%) (Auto) 82 % (31-73) Lymphocytes (%) (Auto) 12 % (24-48) Monocytes (%) (Auto) 6 % (0-9) Eosinophils (%) (Auto) 0 % (0-3) Basophils (%) (Auto) 0 % (0-3) Neutrophils # (Auto) 8.8 x10^3uL (1.8-7.7) Lymphocytes # (Auto) 1.3 x10^3/uL (1.0-4.8) Monocytes # (Auto) 0.7 x10^3/uL (0.0-1.1) Eosinophils # (Auto) 0.0 x10^3/uL (0.0-0.7) Basophils # (Auto) 0.0 x10^3/uL (0.0-0.2) Sodium Level 140 mmol/L (136-145) Potassium Level 4.3 mmol/L (3.5-5.1) Chloride Level 103 mmol/L (98-107) Carbon Dioxide Level 34 mmol/L (21-32) Anion Gap 3 (6-14) Blood Urea Nitrogen 18 mg/dL (8-26) Creatinine 0.9 mg/dL (0.7-1.3) Estimated GFR (Cockcroft-Gault) 85.8 Glucose Level 236 mg/dL (70-99) Calcium Level 8.9 mg/dL (8.5-10.1) Laboratory Tests Test 12/7/18 11:44 04/04/18 16:21 04/05/18 04:50 04/05/18 08:13 Glucose (Fingerstick) 226 mg/dL (70-99) 186 mg/dL (70-99) 215 mg/dL (70-99) White Blood Count 10.8 x10^3/uL (4.0-11.0) Red Blood Count 4.82 x10^6/uL (4.30-5.70) Hemoglobin 10.5 g/dL (13.0-17.5) Hematocrit 33.3 % (39.0-53.0) Mean Corpuscular Volume 69 fL (79-100) Mean Corpuscular Hemoglobin 22 pg (25-35) Mean Corpuscular Hemoglobin Concent 32 g/dL (31-37) Red Cell Distribution Width 16.7 % (11.5-14.5) Platelet Count 322 x10^3/uL (140-400) Neutrophils (%) (Auto) 82 % (31-73) Lymphocytes (%) (Auto) 12 % (24-48) Monocytes (%) (Auto) 6 % (0-9) Eosinophils (%) (Auto) 0 % (0-3) Basophils (%) (Auto) 0 % (0-3) Neutrophils # (Auto) 8.8 x10^3uL (1.8-7.7) Lymphocytes # (Auto) 1.3 x10^3/uL (1.0-4.8) Monocytes # (Auto) 0.7 x10^3/uL (0.0-1.1) Eosinophils # (Auto) 0.0 x10^3/uL (0.0-0.7) Basophils # (Auto) 0.0 x10^3/uL (0.0-0.2) Sodium Level 140 mmol/L (136-145) Potassium Level 4.3 mmol/L (3.5-5.1) Chloride Level 103 mmol/L (98-107) Carbon Dioxide Level 34 mmol/L (21-32) Anion Gap 3 (6-14) Blood Urea Nitrogen 18 mg/dL (8-26) Creatinine 0.9 mg/dL (0.7-1.3) Estimated GFR (Cockcroft-Gault) 85.8 Glucose Level 236 mg/dL (70-99) Calcium Level 8.9 mg/dL (8.5-10.1) Microbiology 03/31/18 Blood Culture - Preliminary, Resulted NO GROWTH AFTER 4 DAYS 04/01/18 Anaerobic/Aerobic Culture - Final, Complete 04/01/18 Anaerobic Culture Result 1 (GERARDO) - Final, Complete 04/01/18 Aerobic Culture - Final, Complete 04/01/18 Aerobic Culture Result 1 (GERARDO) - Final, Complete 04/01/18 Gram Stain - Final, Complete 04/01/18 Gram Stain Result 1 (GERARDO) - Final, Complete 04/01/18 Gram Stain Result 2 (GERARDO) - Final, Complete 04/01/18 - Final, Complete 04/01/18 - Final, Complete 04/01/18 - Final, Complete 04/01/18 - Final, Complete 04/01/18 Gram Stain Evaluation - Final, Complete 04/01/18 Sputum Culture - Final, Complete 04/01/18 Sputum Result 1 - Final, Complete 04/01/18 Sputum Result 2 - Final, Complete Medications Current Medications Albuterol/ Ipratropium (Duoneb) 3 ml 1X ONCE NEB Last administered on at 15:26; Start 03/31/18 at 15:00; Stop 03/31/18 at 15:01; Status DC Methylprednisolone Sodium Succinate (SOLU-Medrol 125MG VIAL) 125 mg 1X ONCE IV Last administered on 03/31/18at 15:35; Start 03/31/18 at 15:00; Stop 03/31/18 at 15:01; Status DC Ceftriaxone Sodium 50 ml @ 100 mls/hr 1X ONCE IV ; Start 03/31/18 at 15:00; Stop 03/31/18 at 15:29; Status UNV Azithromycin 250 ml @ 250 mls/hr 1X ONCE IV Last administered on 03/31/18at 16 :00; Start 03/31/18 at 15:00; Stop 03/31/18 at 15:59; Status DC Ceftriaxone Sodium (Rocephin) 1 gm 1X ONCE IVP Last administered on 03/31/18at 15:38; Start 03/31/18 at 15:00; Stop 03/31/18 at 15:01; Status DC Lorazepam (Ativan) 1 mg 1X ONCE IV Last administered on 03/31/18at 16:11; Start 03/31/18 at 16:15; Stop 03/31/18 at 16:16; Status DC Allopurinol (Zyloprim) 100 mg BID PO Last administered on 04/05/18 09:05; Start 03/31/18 at 21:00 Aspirin (Ecotrin) 81 mg DAILYWBKFT PO Last administered on 04/05/18at 09:03; Start 04/01/18 at 08:00 Atorvastatin Calcium (Lipitor) 20 mg HS PO Last administered on 04/04/18at 20:36 ; Start 03/31/18 at 21:00 Albuterol/ Ipratropium (Duoneb) 3 ml RTQID NEB Last administered on 04/05/18 07:36; Start 03/31/18 at 20:00 Losartan Potassium (Cozaar) 25 mg BID PO ; Start 03/31/18 at 21:00; Stop at 21:00; Status DC Non-Formulary Medication (Ibrutinib (Imbruvica)) 420 mg DAILY PO ; Start at 09:00; Stop 04/01/18 at 12:30; Status DC Lisinopril (Prinivil) 2.5 mg DAILY PO Last administered on 04/05/18at 09:05; Start 04/01/18 at 09:00 Linagliptin (Tradjenta) 5 mg DAILY PO Last administered on 04/05/18at 09:05; Start 04/01/18 at 09:00 Levofloxacin/ Dextrose 150 ml @ 100 mls/hr Q24H IV ; Start 03/31/18 at 17:15; Stop 03/31/18 at 17:21; Status DC Acetaminophen (Tylenol) 650 mg PRN Q6HRS PRN PO FEVER; Start 03/31/18 at 17:15 Ondansetron HCl (Zofran) 4 mg PRN Q6HRS PRN IV NAUSEA/VOMITING; Start 03/31/18 at 17:15 Morphine Sulfate (Morphine Sulfate) 2 mg PRN Q2HR PRN IV MODERATE TO SEVERE PAIN Last administered on 04/03/18at 09:54; Start 03/31/18 at 17:15 Tramadol HCl (Ultram) 50 mg PRN Q6HRS PRN PO MILD TO MODERATE PAIN; Start 03/31 at 17:15 Docusate Sodium (Colace) 100 mg PRN DAILY PRN PO CONSTIPATION; Start 03/31/18 at 17:15 Insulin Human Lispro (HumaLOG) 0-9 UNITS TIDWMEALS SQ Last administered on 04/05at 09:16; Start 04/01/18 at 08:00 Dextrose (Dextrose 50%-Water Syringe) 12.5 gm PRN Q15MIN PRN IV SEE COMMENTS; Start 03/31/18 at 17:15 Guaifenesin (Mucinex) 600 mg BID PO Last administered on 04/05/18at 09:03; Start 03/31/18 at 21:00 Albuterol Sulfate (Ventolin Neb Soln) 2.5 mg PRN Q4HRS PRN NEB SHORTNESS OF BREATH; Start 03/31/18 at 17:15 Enoxaparin Sodium (Lovenox 40mg Syringe) 40 mg Q24H SQ Last administered on 04/04/18at 17:37; Start 03/31/18 at 18:00 Piperacillin Sod/ Tazobactam Sod 4.5 gm/Sodium Chloride 100 ml @ 200 mls/hr Q6HRS IV ; Start 03/31/18 at 18:00; Stop 03/31/18 at 18:53; Status DC Piperacillin Sod/ Tazobactam Sod (Zosyn Per Pharmacy) 1 each PRN DAILY PRN MC SEE COMMENTS; Start 03/31/18 at 17:30; Stop 03/31/18 at 18:53; Status DC Vancomycin HCl 2 gm/Sodium Chloride 500 ml @ 250 mls/hr Q12H IV ; Start at 17:30; Status UNV Vancomycin HCl (Vanco Per Pharmacy) 1 each PRN DAILY PRN MC SEE COMMENTS Last administered on 04/03/18at 11:40; Start 03/31/18 at 17:30; Stop 04/04/18 at 11:02 ; Status DC Levofloxacin/ Dextrose 150 ml @ 100 mls/hr ONCE ONCE IV ; Start 03/31/18 at 17 :30; Stop 03/31/18 at 18:59; Status Cancel Vancomycin HCl 2 gm/Sodium Chloride 500 ml @ 250 mls/hr 1X ONCE IV Last administered on 03/31/18at 20:32; Start 03/31/18 at 17:30; Stop 03/31/18 at 19:29 ; Status DC Piperacillin Sod/ Tazobactam Sod 4.5 gm/Sodium Chloride 100 ml @ 200 mls/hr 1X ONCE IV Last administered on 03/31/18at 20:32; Start 03/31/18 at 17:30; Stop 03/31/18 at 17:59; Status DC Piperacillin Sod/ Tazobactam Sod 4.5 gm/Sodium Chloride 100 ml @ 200 mls/hr Q6HRS IV Last administered on 04/05/18at 00:07; Start 04/01/18 at 00:00 Metformin HCl (Glucophage) 1,000 mg BIDWMEALS PO Last administered on at 09:04; Start 04/01/18 at 08:00 Methylprednisolone Sodium Succinate (SOLU-Medrol 125MG VIAL) 62.5 mg BID66 IV Last administered on 04/05/18at 06:08; Start 04/01/18 at 06:00 Vancomycin HCl 1.5 gm/Sodium Chloride 500 ml @ 250 mls/hr Q8H IV Last administered on 04/04/18at 06:30; Start 04/01/18 at 04:00; Stop 04/04/18 at 11:00 ; Status DC Vancomycin HCl (Vancomycin Trough Level) 1 each 1X ONCE MC Last administered on 04/01/18at 22:00; Start 04/01/18 at 22:00; Stop 04/01/18 at 22:01; Status DC Influenza Virus Vaccine (Afluria Trivalent 8680-7330 Syringe) 0.5 ml ONCE ONCE VAX IM ; Start 04/02/18 at 09:00; Stop 04/02/18 at 09:01; Status DC Active Scripts Active Levaquin (Levofloxacin) 750 Mg Tablet 750 Mg PO DAILY16 7 Days Duoneb 0.5-3(2.5) Mg/3 Ml (Albuterol/Ipratropium) 3 Ml Ampul.neb 3 Ml NEB RTQID 30 Days Aspirin Ec (Aspirin) 81 Mg Tablet.dr 81 Mg PO DAILYWBKFT 30 Days Reported Glimepiride 4 Mg Tablet 8 Mg PO DAILY Imbruvica (Ibrutinib) 140 Mg Capsule 420 Mg PO DAILY Vascepa (Icosapent Ethyl) 1 Gm Capsule 2 Gm PO Trelegy Ellipta 100-62.5-25 (Fluticasone/Umeclidin/Vilanter) 1 Each Blst.w.dev 1 Each IH Losartan Potassium 25 Mg Tablet 25 Mg PO BID Allopurinol 100 Mg Tablet 100 Mg PO BID Atorvastatin Calcium 20 Mg Tablet 20 Mg PO HS Trulicity (Dulaglutide) 1.5 Mg/0.5 Ml Pen.injctr 1.5 Mg SQ WEEKLY Janumet 50-1,000 Mg Tablet (Sitagliptin Phos/Metformin Hcl) 1 Each Tablet 1 Tab PO BID Lisinopril 2.5 Mg Tablet 1 Tab PO DAILY Vitals/I & O Vital Sign - Last 24 Hours 04/04/18 04/04/18 04/04/18 04/04/18 11:10 12:40 14:39 16:48 Temp 98.4 98.1 98.4 98.1 Pulse 103 105 Resp 20 20 B/P (MAP) 130/61 (84) 138/63 (88) Pulse Ox 92 97 O2 Delivery Nasal Cannula Nasal Cannula Nasal Cannula Nasal Cannula O2 Flow Rate 2.0 2.0 3.0 2.0 04/04/18 04/04/18 04/04/18 04/04/18 19:30 20:00 20:05 23:04 Temp 97.6 97.6 Pulse 71 Resp 18 B/P (MAP) 138/66 (90) Pulse Ox 95 97 O2 Delivery Nasal Cannula Nasal Cannula Nasal Cannula BiPAP/CPAP O2 Flow Rate 3.0 2.0 2.0 04/04/18 04/05/18 04/05/18 04/05/18 23:51 03:56 07:00 07:37 Temp 97.4 98.2 98.1 97.4 98.2 98.1 Pulse 89 90 88 Resp 18 18 18 B/P (MAP) 137/62 (87) 130/66 (87) 143/72 (95) Pulse Ox 98 95 96 97 O2 Delivery BiPAP/CPAP Nasal Cannula Room Air Nasal Cannula O2 Flow Rate 3.0 2.0 04/05/18 09:05 Pulse 88 B/P (MAP) 143/72 Intake and Output 04/04/18 04/04/18 04/05/18 15:00 23:00 07:00 Intake Total 240 ml 360 ml 250 ml Output Total 0 ml Balance 240 ml 360 ml 250 ml Nutrition Consultation Dietary Evaluation: Recommendations by RD: Increase Calorie Intake Comments: Will liberalize diet to regular to allow pt more options, pt complaining about hospital's food; suggested pt ask family/friends to bring him food from outside the hospital per his preference Expected Outcomes/Goals: PO intake to meet >75% est needs - met, goal ongoing Interpretation of weight loss: >7.5% in 3 months Malnutrition Findings: Food and Nutrition Intake (Mod: <75% est energy req 7days Weight Status: Obese KATY HANNAH MD Apr 05, 2018 09:50
--- NOTE | 2018-04-05 10:51 | RAD ---
AP chest x-ray COMPARISON: Chest x-ray April 04, 2018. HISTORY: Pleural effusion. FINDINGS: Heart size normal. Mediastinal silhouette is normal. Small left pleural effusion is stable. Moderate right pleural effusion along with right middle and lower lobe heterogeneous opacities are stable. No pneumothorax. Bones are unremarkable. IMPRESSION: Stable chest as described above. Electronically signed by: Ned Perea MD (04/05/2018 10:47 AM) [facility]
--- NOTE | 2018-04-05 10:55 | PDOC ---
PULMONARY PROGRESS NOTES Subjective wants to go home Vitals Vital Signs Date Time Temp Pulse Resp B/P (MAP) Pulse Ox O2 Delivery O2 Flow Rate FiO2 04/05/18 09:05 88 143/72 04/05/18 07:37 97 Nasal Cannula 2.0 04/05/18 07:00 98.1 18 98.1 ROS: No Nausea, No Chest Pain, No Abdominal Pain, No Increase Cough General: Alert, No acute distress Lungs: Other (distant bs b/l) Cardiovascular: S1, S2 Abdomen: Soft Neuro Exam: Alert Extremities: Other (EDEMA) Skin: Warm Labs Laboratory Tests Test 04/03/18 12:09 04/03/18 16:48 04/04/18 03:00 04/04/18 08:08 Glucose (Fingerstick) 292 mg/dL (70-99) 205 mg/dL (70-99) 179 mg/dL (70-99) White Blood Count 11.8 x10^3/uL (4.0-11.0) Red Blood Count 4.75 x10^6/uL (4.30-5.70) Hemoglobin 10.2 g/dL (13.0-17.5) Hematocrit 33.3 % (39.0-53.0) Mean Corpuscular Volume 70 fL (79-100) Mean Corpuscular Hemoglobin 21 pg (25-35) Mean Corpuscular Hemoglobin Concent 31 g/dL (31-37) Red Cell Distribution Width 16.5 % (11.5-14.5) Platelet Count 316 x10^3/uL (140-400) Neutrophils (%) (Auto) 88 % (31-73) Lymphocytes (%) (Auto) 8 % (24-48) Monocytes (%) (Auto) 4 % (0-9) Eosinophils (%) (Auto) 0 % (0-3) Basophils (%) (Auto) 0 % (0-3) Neutrophils # (Auto) 10.4 x10^3uL (1.8-7.7) Lymphocytes # (Auto) 0.9 x10^3/uL (1.0-4.8) Monocytes # (Auto) 0.5 x10^3/uL (0.0-1.1) Eosinophils # (Auto) 0.0 x10^3/uL (0.0-0.7) Basophils # (Auto) 0.0 x10^3/uL (0.0-0.2) Sodium Level 139 mmol/L (136-145) Potassium Level 4.2 mmol/L (3.5-5.1) Chloride Level 102 mmol/L (98-107) Carbon Dioxide Level 31 mmol/L (21-32) Anion Gap 6 (6-14) Blood Urea Nitrogen 18 mg/dL (8-26) Creatinine 1.0 mg/dL (0.7-1.3) Estimated GFR (Cockcroft-Gault) 76.0 Glucose Level 249 mg/dL (70-99) Calcium Level 8.7 mg/dL (8.5-10.1) Test 04/04/18 11:44 04/04/18 16:21 04/05/18 04:50 04/05/18 08:13 Glucose (Fingerstick) 226 mg/dL (70-99) 186 mg/dL (70-99) 215 mg/dL (70-99) White Blood Count 10.8 x10^3/uL (4.0-11.0) Red Blood Count 4.82 x10^6/uL (4.30-5.70) Hemoglobin 10.5 g/dL (13.0-17.5) Hematocrit 33.3 % (39.0-53.0) Mean Corpuscular Volume 69 fL (79-100) Mean Corpuscular Hemoglobin 22 pg (25-35) Mean Corpuscular Hemoglobin Concent 32 g/dL (31-37) Red Cell Distribution Width 16.7 % (11.5-14.5) Platelet Count 322 x10^3/uL (140-400) Neutrophils (%) (Auto) 82 % (31-73) Lymphocytes (%) (Auto) 12 % (24-48) Monocytes (%) (Auto) 6 % (0-9) Eosinophils (%) (Auto) 0 % (0-3) Basophils (%) (Auto) 0 % (0-3) Neutrophils # (Auto) 8.8 x10^3uL (1.8-7.7) Lymphocytes # (Auto) 1.3 x10^3/uL (1.0-4.8) Monocytes # (Auto) 0.7 x10^3/uL (0.0-1.1) Eosinophils # (Auto) 0.0 x10^3/uL (0.0-0.7) Basophils # (Auto) 0.0 x10^3/uL (0.0-0.2) Sodium Level 140 mmol/L (136-145) Potassium Level 4.3 mmol/L (3.5-5.1) Chloride Level 103 mmol/L (98-107) Carbon Dioxide Level 34 mmol/L (21-32) Anion Gap 3 (6-14) Blood Urea Nitrogen 18 mg/dL (8-26) Creatinine 0.9 mg/dL (0.7-1.3) Estimated GFR (Cockcroft-Gault) 85.8 Glucose Level 236 mg/dL (70-99) Calcium Level 8.9 mg/dL (8.5-10.1) Laboratory Tests Test 04/04/18 11:44 04/04/18 16:21 04/05/18 04:50 04/05/18 08:13 Glucose (Fingerstick) 226 mg/dL (70-99) 186 mg/dL (70-99) 215 mg/dL (70-99) White Blood Count 10.8 x10^3/uL (4.0-11.0) Red Blood Count 4.82 x10^6/uL (4.30-5.70) Hemoglobin 10.5 g/dL (13.0-17.5) Hematocrit 33.3 % (39.0-53.0) Mean Corpuscular Volume 69 fL (79-100) Mean Corpuscular Hemoglobin 22 pg (25-35) Mean Corpuscular Hemoglobin Concent 32 g/dL (31-37) Red Cell Distribution Width 16.7 % (11.5-14.5) Platelet Count 322 x10^3/uL (140-400) Neutrophils (%) (Auto) 82 % (31-73) Lymphocytes (%) (Auto) 12 % (24-48) Monocytes (%) (Auto) 6 % (0-9) Eosinophils (%) (Auto) 0 % (0-3) Basophils (%) (Auto) 0 % (0-3) Neutrophils # (Auto) 8.8 x10^3uL (1.8-7.7) Lymphocytes # (Auto) 1.3 x10^3/uL (1.0-4.8) Monocytes # (Auto) 0.7 x10^3/uL (0.0-1.1) Eosinophils # (Auto) 0.0 x10^3/uL (0.0-0.7) Basophils # (Auto) 0.0 x10^3/uL (0.0-0.2) Sodium Level 140 mmol/L (136-145) Potassium Level 4.3 mmol/L (3.5-5.1) Chloride Level 103 mmol/L (98-107) Carbon Dioxide Level 34 mmol/L (21-32) Anion Gap 3 (6-14) Blood Urea Nitrogen 18 mg/dL (8-26) Creatinine 0.9 mg/dL (0.7-1.3) Estimated GFR (Cockcroft-Gault) 85.8 Glucose Level 236 mg/dL (70-99) Calcium Level 8.9 mg/dL (8.5-10.1) Medications Active Scripts Medications Dose Route/Sig Max Daily Dose Days Date Category Glimepiride 4 Mg Tablet 8 Mg PO DAILY 03/31/18 Reported Imbruvica (Ibrutinib) 140 Mg Capsule 420 Mg PO DAILY 03/31/18 Reported Vascepa (Icosapent Ethyl) 1 Gm Capsule 2 Gm PO 03/31/18 Reported Trelegy Ellipta 100-62.5-25 (Fluticasone/Umeclidin/Vilanter) 1 Each Blst.w.dev 1 Each IH 03/31/18 Reported Losartan Potassium 25 Mg Tablet 25 Mg PO BID 03/31/18 Reported Allopurinol 100 Mg Tablet 100 Mg PO BID 03/31/18 Reported Atorvastatin Calcium 20 Mg Tablet 20 Mg PO HS 03/31/18 Reported Trulicity (Dulaglutide) 1.5 Mg/0.5 Ml Pen.injctr 1.5 Mg SQ WEEKLY 03/31/18 Reported Levaquin (Levofloxacin) 750 Mg Tablet 750 Mg PO DAILY16 7 09/25/16 Rx Duoneb 0.5-3(2.5) Mg/3 Ml (Albuterol/Ipratropium) 3 Ml Ampul.neb 3 Ml NEB RTQID 30 09/25/16 Rx Aspirin Ec (Aspirin) 81 Mg Tablet.dr 81 Mg PO DAILYWBKFT 30 09/25/16 Rx Janumet 50-1,000 Mg Tablet (Sitagliptin Phos/Metformin Hcl) 1 Each Tablet 1 Tab PO BID 07/12/16 Reported Lisinopril 2.5 Mg Tablet 1 Tab PO DAILY 07/12/16 Reported Comments IMPRESSION: CT CHEST REPEAT . Decrease in volume of the complicated right pleural effusion following pleural tube placement. 2. Moderate residual right lower lobe atelectasis/consolidation. 3. Mild mediastinal adenopathy. 4. Extensive coronary artery disease. CXR 04/05 PERSISTENT VOLUME LOSS RLL Impression . 1. Lrsjy-ha-fyjivbd hypercapnic hypoxemic respiratory failure. 2. Abnormal CT of the chest revealing loculated effusion on the right, along with some airspace disease and atelectasis. 3. Mediastinal hilar adenopathy, somewhat improved in comparison of film of . 4. Chronic lymphocytic leukemia. 5. Tobacco dependent. 6. Chronic obstructive pulmonary disease. 7. Obstructive sleep apnea. 8. Type 2 diabetes. 9. Leukocytosis. 10. Protein malnutrition, present upon admission. 11. S/P THORACENTESIS EXUDATE EFFUSION REPEAT CT BETTER CYTOLOGY RIGHT PLEURAL FLUID DIAGNOSIS: 02 RIGHT PLEURAL FLUID NEGATIVE FOR MALIGNANT CELLS. SCANT CELLULARITY. RARE MESOTHELIAL CELLS, FEW INFLAMMATORY CELLS,AND RED BLOOD CELLS PRESENT. THIS INTERPRETATION INCLUDES EVALUATION OF A CELL BLOCK. ANAEROBIC-AEROBIC CULTURE PENDING ANAEROBIC RES 1 PENDING AEROBIC CULT PENDING AEROBIC RES 1 PENDING GRAM STAIN Final Final report GRAM STAIN RES 1 Final No organisms seen GRAM STAIN RES 2 Final Comment No white blood cells seen. Performed at: DA - [facility] [address], [place], [place] [id number] Transportation Mechanic: SIMONE Richards MD, Phone: [phone] Plan . PT BETTER SO FAR CULTURES NEGATIVE CHEST TUBE OUT PER DR HENRIQUEZ RESUME CLL MED ON SATURDAY HOME ON AUGMENTIN / DC VANC AND ZOSYN FOLLOW UP WITH DR CHAVIRA IN 1-[address] WITH A REPEAT [address] CHEST PT OT WILL NEED HOME OXYGEN IS JUDIE MAGANA MD Apr 05, 2018 10:55
[2018-04-05 11:00] VITALS: BP 139/66
--- NOTE | 2018-04-05 11:16 | PDOC3 ---
Discharge Summary Date of Admission: Mar 29, 2018 Date of Discharge: Apr 05, 2018 Follow-Up: 3-5 days Admitting Diagnosis comment: DISCHARGE DX History of Present Illness Pt was seen and examined at bedside today.His chest tube (placed 04/01) pleural fluid analysis showed no malignant cells. CT done showed decrease of pt's effusion and extensive CAD. Cardiology was consulted and they believe pt would be benefited by getting an outpatient stress test. Pulm, card, and Onc are following. DX COPD, stopped smoking 1 week ago Anxiety post thoracentesis Decrease in volume of the complicated right pleural effusion following pleural tube placement. Moderate residual right lower lobe atelectasis/consolidation. PNEUMONIA ACUTE HYPOXIC RESP FAILURE Tobacco use disorder , D/C today planned if spo2 stable, on my walk with patient and RN, he Desatted to 85% on room air NOW , ARRANGING HOME O2 2 L NC WITH ACTIVITY D/W DR MAGANA he needs home o2, and we are arranging this NOAH, However the patient is angry that he needs to stay and is threatening to leave AMA I assured him with RN to witness we will obtain o2 authorization and delivery NOAH safely Vitals Vitals Vital Signs Date Time Temp Pulse Resp B/P (MAP) Pulse Ox O2 Delivery O2 Flow Rate FiO2 04/05/18 09:05 88 143/72 04/05/18 07:37 97 Nasal Cannula 2.0 04/05/18 07:00 98.1 18 98.1 Physical Exam General: Alert, Oriented X3, No acute distress, SPO2 85 % AFTER WALKING 15 FEET ROOM AIR Heart: Regular rate, Normal S1, Normal S2, Other (tachy 111) Lungs: Other (distant bs b/l) Abdomen: Soft, No tenderness Extremities: No cyanosis, No edema, No tenderness/swelling, Other (trace to 1+ bilateral LE pitting edema) Skin: No breakdown, No significant lesion Labs FINAL DIAGNOSIS Problems Medical Problems: (1) COPD (chronic obstructive pulmonary disease) Status: Acute (2) Elevated troponin Status: Acute (3) Lymphoma Status: Acute (4) Pleural effusion Status: Acute (5) Respiratory distress Status: Acute Brief Hospital Course Mr. Baker is a 62 old [sex] who presented with [ ] CONDITION AT DISCHARGE: Comment (fair, needs to stop smoking) Discharge Medications Current Medications Albuterol/ Ipratropium (Duoneb) 3 ml 1X ONCE NEB Last administered on at 15:26; Start 03/31/18 at 15:00; Stop 03/31/18 at 15:01; Status DC Methylprednisolone Sodium Succinate (SOLU-Medrol 125MG VIAL) 125 mg 1X ONCE IV Last administered on 03/31/18at 15:35; Start 03/31/18 at 15:00; Stop 03/31/18 at 15:01; Status DC Ceftriaxone Sodium 50 ml @ 100 mls/hr 1X ONCE IV ; Start 03/31/18 at 15:00; Stop 03/31/18 at 15:29; Status UNV Azithromycin 250 ml @ 250 mls/hr 1X ONCE IV Last administered on 03/31/18at 16 :00; Start 03/31/18 at 15:00; Stop 03/31/18 at 15:59; Status DC Ceftriaxone Sodium (Rocephin) 1 gm 1X ONCE IVP Last administered on 03/31/18at 15:38; Start 03/31/18 at 15:00; Stop 03/31/18 at 15:01; Status DC Lorazepam (Ativan) 1 mg 1X ONCE IV Last administered on 03/31/18at 16:11; Start 03/31/18 at 16:15; Stop 03/31/18 at 16:16; Status DC Allopurinol (Zyloprim) 100 mg BID PO Last administered on 04/05/18at 09:05; Start 03/31/18 at 21:00 Aspirin (Ecotrin) 81 mg DAILYWBKFT PO Last administered on 04/05/18at 09:03; Start 04/01/18 at 08:00 Atorvastatin Calcium (Lipitor) 20 mg HS PO Last administered on 04/04/18at 20:36 ; Start 03/31/18 at 21:00 Albuterol/ Ipratropium (Duoneb) 3 ml RTQID NEB Last administered on 04/05/18at 07:36; Start 03/31/18 at 20:00 Losartan Potassium (Cozaar) 25 mg BID PO ; Start 03/31/18 at 21:00; Stop at 21:00; Status DC Non-Formulary Medication (Ibrutinib (Imbruvica)) 420 mg DAILY PO ; Start at 09:00; Stop 04/01/18 at 12:30; Status DC Lisinopril (Prinivil) 2.5 mg DAILY PO Last administered on 04/05/18at 09:05; Start 04/01/18 at 09:00 Linagliptin (Tradjenta) 5 mg DAILY PO Last administered on 04/05/18at 09:05; Start 04/01/18 at 09:00 Levofloxacin/ Dextrose 150 ml @ 100 mls/hr Q24H IV ; Start 03/31/18 at 17:15; Stop 03/31/18 at 17:21; Status DC Acetaminophen (Tylenol) 650 mg PRN Q6HRS PRN PO FEVER; Start 03/31/18 at 17:15 Ondansetron HCl (Zofran) 4 mg PRN Q6HRS PRN IV NAUSEA/VOMITING; Start 03/31/18 at 17:15 Morphine Sulfate (Morphine Sulfate) 2 mg PRN Q2HR PRN IV MODERATE TO SEVERE PAIN Last administered on 04/03/18at 09:54; Start 03/31/18 at 17:15 Tramadol HCl (Ultram) 50 mg PRN Q6HRS PRN PO MILD TO MODERATE PAIN; Start 03/31 at 17:15 Docusate Sodium (Colace) 100 mg PRN DAILY PRN PO CONSTIPATION; Start 03/31/18 at 17:15 Insulin Human Lispro (HumaLOG) 0-9 UNITS TIDWMEALS SQ Last administered on 04/05at 09:16; Start 04/01/18 at 08:00 Dextrose (Dextrose 50%-Water Syringe) 12.5 gm PRN Q15MIN PRN IV SEE COMMENTS; Start 03/31/18 at 17:15 Guaifenesin (Mucinex) 600 mg BID PO Last administered on 04/05/18at 09:03; Start 03/31/18 at 21:00 Albuterol Sulfate (Ventolin Neb Soln) 2.5 mg PRN Q4HRS PRN NEB SHORTNESS OF BREATH; Start 03/31/18 at 17:15 Enoxaparin Sodium (Lovenox 40mg Syringe) 40 mg Q24H SQ Last administered on 04/04/18at 17:37; Start 03/31/18 at 18:00 Piperacillin Sod/ Tazobactam Sod 4.5 gm/Sodium Chloride 100 ml @ 200 mls/hr Q6HRS IV ; Start 03/31/18 at 18:00; Stop 03/31/18 at 18:53; Status DC Piperacillin Sod/ Tazobactam Sod (Zosyn Per Pharmacy) 1 each PRN DAILY PRN MC SEE COMMENTS; Start 03/31/18 at 17:30; Stop 03/31/18 at 18:53; Status DC Vancomycin HCl 2 gm/Sodium Chloride 500 ml @ 250 mls/hr Q12H IV ; Start at 17:30; Status UNV Vancomycin HCl (Vanco Per Pharmacy) 1 each PRN DAILY PRN MC SEE COMMENTS Last administered on 04/03/18at 11:40; Start 03/31/18 at 17:30; Stop 04/04/18 at 11:02 ; Status DC Levofloxacin/ Dextrose 150 ml @ 100 mls/hr ONCE ONCE IV ; Start 03/31/18 at 17 :30; Stop 03/31/18 at 18:59; Status Cancel Vancomycin HCl 2 gm/Sodium Chloride 500 ml @ 250 mls/hr 1X ONCE IV Last administered on 03/31/18at 20:32; Start 03/31/18 at 17:30; Stop 03/31/18 at 19:29 ; Status DC Piperacillin Sod/ Tazobactam Sod 4.5 gm/Sodium Chloride 100 ml @ 200 mls/hr 1X ONCE IV Last administered on 03/31/18at 20:32; Start 03/31/18 at 17:30; Stop 03/31/18 at 17:59; Status DC Piperacillin Sod/ Tazobactam Sod 4.5 gm/Sodium Chloride 100 ml @ 200 mls/hr Q6HRS IV Last administered on 04/05/18at 00:07; Start 04/01/18 at 00:00 Metformin HCl (Glucophage) 1,000 mg BIDWMEALS PO Last administered on at 09:04; Start 04/01/18 at 08:00 Methylprednisolone Sodium Succinate (SOLU-Medrol 125MG VIAL) 62.5 mg BID66 IV Last administered on 04/05/18at 06:08; Start 04/01/18 at 06:00 Vancomycin HCl 1.5 gm/Sodium Chloride 500 ml @ 250 mls/hr Q8H IV Last administered on 04/04/18at 06:30; Start 04/01/18 at 04:00; Stop 04/04/18 at 11:00 ; Status DC Vancomycin HCl (Vancomycin Trough Level) 1 each 1X ONCE MC Last administered on 04/01/18at 22:00; Start 04/01/18 at 22:00; Stop 04/01/18 at 22:01; Status DC Influenza Virus Vaccine (Afluria Trivalent [id number] Syringe) 0.5 ml ONCE ONCE VAX IM ; Start 04/02/18 at 09:00; Stop 04/02/18 at 09:01; Status DC Active Scripts Active Levaquin (Levofloxacin) 750 Mg Tablet 750 Mg PO DAILY16 7 Days Duoneb 0.5-3(2.5) Mg/3 Ml (Albuterol/Ipratropium) 3 Ml Ampul.neb 3 Ml NEB RTQID 30 Days Aspirin Ec (Aspirin) 81 Mg Tablet.dr 81 Mg PO DAILYWBKFT 30 Days Reported Glimepiride 4 Mg Tablet 8 Mg PO DAILY Imbruvica (Ibrutinib) 140 Mg Capsule 420 Mg PO DAILY Vascepa (Icosapent Ethyl) 1 Gm Capsule 2 Gm PO Trelegy Ellipta 100-62.5-25 (Fluticasone/Umeclidin/Vilanter) 1 Each Blst.w.dev 1 Each IH Losartan Potassium 25 Mg Tablet 25 Mg PO BID Allopurinol 100 Mg Tablet 100 Mg PO BID Atorvastatin Calcium 20 Mg Tablet 20 Mg PO HS Trulicity (Dulaglutide) 1.5 Mg/0.5 Ml Pen.injctr 1.5 Mg SQ WEEKLY Janumet 50-1,000 Mg Tablet (Sitagliptin Phos/Metformin Hcl) 1 Each Tablet 1 Tab PO BID Lisinopril 2.5 Mg Tablet 1 Tab PO DAILY Vital Signs Vital Signs Date Time Temp Pulse Resp B/P (MAP) Pulse Ox O2 Delivery O2 Flow Rate FiO2 04/05/18 09:05 88 143/72 04/05/18 07:37 97 Nasal Cannula 2.0 04/05/18 07:00 98.1 18 98.1 Labs Laboratory Tests Test 04/03/18 12:09 04/03/18 16:48 04/04/18 03:00 04/04/18 08:08 Glucose (Fingerstick) 292 mg/dL (70-99) 205 mg/dL (70-99) 179 mg/dL (70-99) White Blood Count 11.8 x10^3/uL (4.0-11.0) Red Blood Count 4.75 x10^6/uL (4.30-5.70) Hemoglobin 10.2 g/dL (13.0-17.5) Hematocrit 33.3 % (39.0-53.0) Mean Corpuscular Volume 70 fL (79-100) Mean Corpuscular Hemoglobin 21 pg (25-35) Mean Corpuscular Hemoglobin Concent 31 g/dL (31-37) Red Cell Distribution Width 16.5 % (11.5-14.5) Platelet Count 316 x10^3/uL (140-400) Neutrophils (%) (Auto) 88 % (31-73) Lymphocytes (%) (Auto) 8 % (24-48) Monocytes (%) (Auto) 4 % (0-9) Eosinophils (%) (Auto) 0 % (0-3) Basophils (%) (Auto) 0 % (0-3) Neutrophils # (Auto) 10.4 x10^3uL (1.8-7.7) Lymphocytes # (Auto) 0.9 x10^3/uL (1.0-4.8) Monocytes # (Auto) 0.5 x10^3/uL (0.0-1.1) Eosinophils # (Auto) 0.0 x10^3/uL (0.0-0.7) Basophils # (Auto) 0.0 x10^3/uL (0.0-0.2) Sodium Level 139 mmol/L (136-145) Potassium Level 4.2 mmol/L (3.5-5.1) Chloride Level 102 mmol/L (98-107) Carbon Dioxide Level 31 mmol/L (21-32) Anion Gap 6 (6-14) Blood Urea Nitrogen 18 mg/dL (8-26) Creatinine 1.0 mg/dL (0.7-1.3) Estimated GFR (Cockcroft-Gault) 76.0 Glucose Level 249 mg/dL (70-99) Calcium Level 8.7 mg/dL (8.5-10.1) Test 04/04/18 11:44 04/04/18 16:21 04/05/18 04:50 04/05/18 08:13 Glucose (Fingerstick) 226 mg/dL (70-99) 186 mg/dL (70-99) 215 mg/dL (70-99) White Blood Count 10.8 x10^3/uL (4.0-11.0) Red Blood Count 4.82 x10^6/uL (4.30-5.70) Hemoglobin 10.5 g/dL (13.0-17.5) Hematocrit 33.3 % (39.0-53.0) Mean Corpuscular Volume 69 fL (79-100) Mean Corpuscular Hemoglobin 22 pg (25-35) Mean Corpuscular Hemoglobin Concent 32 g/dL (31-37) Red Cell Distribution Width 16.7 % (11.5-14.5) Platelet Count 322 x10^3/uL (140-400) Neutrophils (%) (Auto) 82 % (31-73) Lymphocytes (%) (Auto) 12 % (24-48) Monocytes (%) (Auto) 6 % (0-9) Eosinophils (%) (Auto) 0 % (0-3) Basophils (%) (Auto) 0 % (0-3) Neutrophils # (Auto) 8.8 x10^3uL (1.8-7.7) Lymphocytes # (Auto) 1.3 x10^3/uL (1.0-4.8) Monocytes # (Auto) 0.7 x10^3/uL (0.0-1.1) Eosinophils # (Auto) 0.0 x10^3/uL (0.0-0.7) Basophils # (Auto) 0.0 x10^3/uL (0.0-0.2) Sodium Level 140 mmol/L (136-145) Potassium Level 4.3 mmol/L (3.5-5.1) Chloride Level 103 mmol/L (98-107) Carbon Dioxide Level 34 mmol/L (21-32) Anion Gap 3 (6-14) Blood Urea Nitrogen 18 mg/dL (8-26) Creatinine 0.9 mg/dL (0.7-1.3) Estimated GFR (Cockcroft-Gault) 85.8 Glucose Level 236 mg/dL (70-99) Calcium Level 8.9 mg/dL (8.5-10.1) Laboratory Tests Test 04/04/18 11:44 04/04/18 16:21 04/05/18 04:50 04/05/18 08:13 Glucose (Fingerstick) 226 mg/dL (70-99) 186 mg/dL (70-99) 215 mg/dL (70-99) White Blood Count 10.8 x10^3/uL (4.0-11.0) Red Blood Count 4.82 x10^6/uL (4.30-5.70) Hemoglobin 10.5 g/dL (13.0-17.5) Hematocrit 33.3 % (39.0-53.0) Mean Corpuscular Volume 69 fL (79-100) Mean Corpuscular Hemoglobin 22 pg (25-35) Mean Corpuscular Hemoglobin Concent 32 g/dL (31-37) Red Cell Distribution Width 16.7 % (11.5-14.5) Platelet Count 322 x10^3/uL (140-400) Neutrophils (%) (Auto) 82 % (31-73) Lymphocytes (%) (Auto) 12 % (24-48) Monocytes (%) (Auto) 6 % (0-9) Eosinophils (%) (Auto) 0 % (0-3) Basophils (%) (Auto) 0 % (0-3) Neutrophils # (Auto) 8.8 x10^3uL (1.8-7.7) Lymphocytes # (Auto) 1.3 x10^3/uL (1.0-4.8) Monocytes # (Auto) 0.7 x10^3/uL (0.0-1.1) Eosinophils # (Auto) 0.0 x10^3/uL (0.0-0.7) Basophils # (Auto) 0.0 x10^3/uL (0.0-0.2) Sodium Level 140 mmol/L (136-145) Potassium Level 4.3 mmol/L (3.5-5.1) Chloride Level 103 mmol/L (98-107) Carbon Dioxide Level 34 mmol/L (21-32) Anion Gap 3 (6-14) Blood Urea Nitrogen 18 mg/dL (8-26) Creatinine 0.9 mg/dL (0.7-1.3) Estimated GFR (Cockcroft-Gault) 85.8 Glucose Level 236 mg/dL (70-99) Calcium Level 8.9 mg/dL (8.5-10.1) Allergies Allergies Coded Allergies Type Severity Reaction Last Updated Verified No Known Drug Allergies 07/12/16 No Disposition/Orders: D/C to Home KATY HANNAH MD Apr 05, 2018 11:16
--- NOTE | 2018-04-05 11:19 | DISCH ---
DISCHARGE INSTRUCTIONS Condition on Discharge Condition on Discharge: Guarded Activity After Discharge Activity Instructions for Disc: Activity as tolerated Lifting Instructions after Dis: No heavy lifting, No pulling or pushing Driving Instructions after Dis: Do not drive today Diet after Discharge Diet after Discharge: Cardiac, Diabetic No Calorie Level Liquid Texture: Thin Liquid Checks after Discharge Checks after discharge: Check blood press - daily Contacting the DR. after DC Call your doctor for: If your condition worsens Treatment/Equipment after DC Discharge Respiratory Equipmen: Oxygen KATY HANNAH MD Apr 05, 2018 11:18
[2018-04-05] MEDS ORDERED: AMOX1TAB61 PO (11:23)
[2018-04-05] MEDS ORDERED: TRAM50TA PO (11:23)
[2018-04-05] MEDS ORDERED: DOCU-109 PO (11:23)
[2018-04-05] MEDS ORDERED: GUAI600T47 PO (11:23)
== END 2018-04-05 15:00 | disposition home or self-care (01) | DRG 193 ==
LOC: ER 14:33 → ED HOLD 16:00 → 1 WEST ICU 18:35 → 2 SOUTH 04-03 20:19
PROVIDERS: ADMIT Internal Medicine; ATTEND Internal Medicine
PROC: 0W9930Z Drainage of Right Pleural Cavity with Drainage Device, Percutaneous Approach (ICD-10-PCS; principal; 2018-03-31)
PROC: 5A09357 Assistance with Respiratory Ventilation, Less than 24 Consecutive Hours, Continuous Positive Airway Pressure (ICD-10-PCS; 2018-03-31)
PROC: 5A09357 Assistance with Respiratory Ventilation, Less than 24 Consecutive Hours, Continuous Positive Airway Pressure (ICD-10-PCS; 2018-04-01)
PROC: 5A09357 Assistance with Respiratory Ventilation, Less than 24 Consecutive Hours, Continuous Positive Airway Pressure (ICD-10-PCS; 2018-04-04)
DX: J18.9 Pneumonia, unspecified organism (principal); J96.21 Acute and chronic respiratory failure with hypoxia; J96.22 Acute and chronic respiratory failure with hypercapnia; J44.0 Chronic obstructive pulmonary disease with (acute) lower respiratory infection; C85.90 Non-Hodgkin lymphoma, unspecified, unspecified site; C91.10 Chronic lymphocytic leukemia of B-cell type not having achieved remission; E46 Unspecified protein-calorie malnutrition; I50.32 Chronic diastolic (congestive) heart failure; J98.11 Atelectasis; D63.8 Anemia in other chronic diseases classified elsewhere; E11.9 Type 2 diabetes mellitus without complications; E66.9 Obesity, unspecified; E78.00 Pure hypercholesterolemia, unspecified; E78.5 Hyperlipidemia, unspecified; M19.90 Unspecified osteoarthritis, unspecified site; F17.210 Nicotine dependence, cigarettes, uncomplicated; F41.9 Anxiety disorder, unspecified; G47.33 Obstructive sleep apnea (adult) (pediatric); I11.0 Hypertensive heart disease with heart failure; I25.10 Atherosclerotic heart disease of native coronary artery without angina pectoris; Z82.49 Family history of ischemic heart disease and other diseases of the circulatory system; Z83.3 Family history of diabetes mellitus; Z68.36 Body mass index [BMI] 36.0-36.9, adult
CPT/HCPCS: 32557; 36415; 36600; 71045; 71250; 80048; 80053; 80202; 82553; 82565; 82728; 82805; 82962; 83540; 83550; 83605; 83615; 83735; 83880; 83986; 84155; 84157; 84484; 85007; 85025; 85027; 85045; 85610; 87040; 87070; 87071; 87075; 87102; 87116; 87205; 87641; 88112; 88305; 93005; 93306; 94640; 94660; 94760; 96374; 96375; A4215; C1729; C1894; J0456; J0696; J1650; J1815; J2060; J2270; J2543; J2930; J3370; J7040; J7620; 97116; 97530; 99291-25

== ENCOUNTER 2018-06-10 06:36 | Outpatient (CLI) | payer BC ==
[2018-06-10] VITALS (12 sets, daily range): BP systolic 95–137; BP diastolic 52–73
[~2018-06-10] VITALS: Ht 182.9 cm; Wt 112.5 kg
[~2018-06-10 06:36] MED LIST changes: +ALLO100T PO; +AMOX1TAB61 PO; +ATOR20TA58 PO; +DOCU-109 PO; +DULA1.5P SQ; +FLUT1BLS3 IH; +GLIM4TAB2 PO; +GUAI600T47 PO; +IBRU140C PO; +ICOS1CAP PO; +LOSA25TA54 PO; +TRAM50TA PO
[2018-06-10] MEDS ORDERED: LIDOCAINE 1% Multi-Dose 20 ML VIAL. ONE (07:09)
[2018-06-10] MEDS ORDERED: IODIXANOL 320 MG/ML 100 ML VIAL. ONE ×2 (07:09→08:22)
[2018-06-10] MEDS ORDERED: ALBU2.5V8 INH (07:15)
[2018-06-10 07:28] LABS: CALCIUM 9.4 mg/dL (8.5-10.1); CREATININE 0.9 mg/dL (0.7-1.3); GFR 85.5; POTASSIUM 4.4 mmol/L (3.5-5.1)
[2018-06-10 07:29] LABS: HEMATOCRIT 38.7 % (39.0-53.0); HEMOGLOBIN 11.7 g/dL (13.0-17.5); RED BLOOD COUNT 5.77 x10^6/uL (4.30-5.70); RED CELL DISTRIBUTION WIDTH 17.5 % (11.5-14.5); WHITE BLOOD COUNT 11.9 x10^3/uL (4.0-11.0)
[2018-06-10] MEDS ORDERED: MIDAZOLAM HCL/PF 5 MG/5 ML VIAL. ONE (07:33)
[2018-06-10] MEDS ORDERED: fentaNYL PF VIAL 250 MCG/5 ML VIAL ONE (07:33)
[2018-06-10] MEDS ORDERED: HEPARIN for IV BOLUS 10,000 UNIT/10 ML VIAL. ONE (07:34)
[2018-06-10 07:55] LABS: PROTHROMBIN TIME PATIENT 13.2 SEC (11.7-14.0)
[2018-06-10] MEDS ORDERED: LIDOCAINE 1% Multi-Dose 20 ML VIAL. INJ ONE (08:45)
[2018-06-10] MEDS ORDERED: MIDAZOLAM HCL/PF 5 MG/5 ML VIAL. IV ONE (08:45)
[2018-06-10] MEDS ORDERED: fentaNYL PF VIAL 250 MCG/5 ML VIAL IV ONE (08:45)
[2018-06-10] MEDS ORDERED: IODIXANOL 320 MG/ML 100 ML VIAL. IART ONE (08:45)
--- NOTE | 2018-06-10 09:18 | CARD ---
MR#: [id number] Date of Study: 06/10/2018 Ordering Physician: FARZANEH ARMANDO, Referring Physician: FARZANEH ARMANDO Tech: RT Janice (R) APPROVED REPORT Technologist: RT Janice (R) Nurse: NILAY SMITH RN Procedure(s) performed: Left heart catheterization and selective coronary angiography Moderate sedation total: 46 mins INDICATION The indication(s) include : Unstable angina, positive stress test. CS Clinical Frailty Scale [facility] Clinical Frailty Scale: Mildly Frail Heart Failure Heart Failure: No PROCEDURE NARRATIVE After explaining the risks, benefits and alternative options, informed consent was obtained from dottie ent. Patient was brought to the cardiac Computer Game Tester and his left groin was prepped and draped in the usu al fashion. 20 mL of 2% lidocaine was infiltrated into the skin and subcutaneous tissues for local an esthesia. Arterial access was obtained in the left common femoral artery and a 6 Moldovan sheath was in serted. 6 Moldovan JL4 and 6 Moldovan JR4 catheters were used to perform selective angiography of the lef t and right coronary arteries. LVEDP and transaortic gradients remeasured. Left ventriculography was not performed since recent 2-D echocardiogram showed LVEF 50%. 6 Moldovan pigtail catheter was used to perform aortogram that will be reported separately. Patient tolerated the procedure well. Hemostasis was achieved using mynx closure device. There were no immediate complications. The following findings were noted. FINDINGS 1. Hemodynamics: Left ventricular end-diastolic pressure 16 mmHg. No pullback gradient across the a ortic valve. 2. Coronary angiography: a. The left main coronary artery arose from the left sinus of Valsalva, gave rise to the left anteri or descending and left circumflex arteries and showed 60% distal segment stenosis. b. The left anterior descending artery showed 90% stenosis in the midsegment. c. The left circumflex artery showed 40% stenosis in the midsegment. The first obtuse marginal branc h showed 70% ostial segment stenosis in the second obtuse marginal branch showed 60% proximal segment stenosis. d. The right coronary artery arose from the right sinus of Valsalva and showed 100% chronic total oc clusion involving the proximal to midsegment with distal reconstitution from left to right collateral s. Conclusion Severe three-vessel coronary artery disease including left main coronary artery stenosis Recommendations Cardiothoracic surgery team consultation for possible coronary artery bypass surgery. Signed by : Farzaneh Armando, Electronically Approved : 06/10/2018 09:18:12
--- NOTE | 2018-06-10 09:30 | CARD ---
MR#: [id number] Date of Study: 06/10/2018 Ordering Physician: FARZANEH ARMANDO, Referring Physician: FARZANEH ARMANDO Tech: RT Janice (R) APPROVED REPORT Technologist: RT Janice (R) Nurse: NILAY SMITH Procedure(s) performed: Aortogram and bilateral lower extremity runoff Moderate sedation: 46 mins INDICATION The indication(s) include : Peripheral vascular disease with claudication. PROCEDURE NARRATIVE After explaining the risks, benefits and alternative options, informed consent was obtained from dottie ent. Patient was brought to the cardiac Rn Internal Medicine and his left groin was prepped and draped in the usu al fashion. 20 mL of 2% lidocaine was infiltrated into the skin and subcutaneous tissues for local an esthesia. Arterial access was obtained the left common femoral artery and a 6 Croatian sheath was inser jackie. Selective coronary angiography was performed that will be reported separately. 6 Croatian pigtail catheter was positioned in the descending aorta and aortogram with bilateral lower extremity runoff was performed. Contrast injections were performed through the sheath in the left groin for selective left lower extremity angiography. Patient tolerated the procedure well. Hemostasis was achieved using mynx closure device. There were no immediate complications. FINDINGS 1. No significant stenosis involving the distal descending aorta 2. No significant stenosis involving bilateral common and external iliac arteries 3. No significant stenosis involving bilateral common femoral arteries 4. The right superficial femoral artery showed calcified 90% stenosis involving the distal segment. The left superficial femoral artery showed multiple calcified lesions in the distal segment approachi ng 80% stenosis severity. 5. No significant stenosis involving popliteal arteries bilaterally. 6. There is three vessel runoff in the proximal segments right lower extremity. The mid to distal se gments were not well-visualized used to rapid runoff. The left posterior tibial artery showed severe diffuse disease in the proximal segment followed by 100% occlusion. The left anterior tibial and galen goran arteries did not show any significant stenosis. Conclusion Severe bilateral lower extremity peripheral vascular disease involving bilateral superficial femoral arteries as described above Recommendations Plan for atherectomy/APPLICATION COORDINATOR to bilateral SFA's at later date. Percutaneous intervention was deferred at this time due to the potential of patient going on Plavix ( patient has 3V CAD and needs CABG). Signed by : Farzaneh Armando, Electronically Approved : 06/10/2018 09:30:02
[2018-06-10] MEDS ORDERED: IV 1/2 NORMAL SALINE 1,000 ML IV SCH (09:35)
--- NOTE | 2018-06-10 09:35 | PDOC ---
MODERATE SEDATION ASSESSMENT RISKS/ALTERNATIVES Risks/Alternatives Risks and alternatives of this type of sedation and procedure discussed with: RISK/ALTERNATIVES: Patient H & P ON CHART H & P H & P on chart and reviewed for co-morbid conditions and appropriate labs. H&P ON CHART: Yes STATUS PREG STATUS ASSESSED: N/A MEDS/ALLERGIES REVIEWED Meds/Allergies Reviewed Medications and Allergies including time and route of recently administered narcotics and sedatives. MEDS/ALLERGIES REVIEWED: Yes ASA RATING ASA RATING: II AIRWAY ASSESSMENT Airway Assessment Airway patency, oral function limitations, presence of caps, crowns, dentures, partials, and ability to extend neck assessed. AIRWAY ASSESSMENT: Yes MALLAMPATI SCORE MALLAMPATI SCORE: II PRE-SEDATION ASSESSMENT PRE-SEDATION ASSESSMENT: Yes FARZANEH CYR MD Jun 10, 2018 09:35
[2018-06-10] MEDS ORDERED: NITROGLYCERIN SUBLINGUAL 0.4 MG BOTTLE OF 25. SL PRN (09:45)
== END 2018-06-10 12:03 | disposition home or self-care (01) ==
LOC: CCL 06:36
PROVIDERS: ATTEND Internal Medicine Cardiovascular Disease
DX: I25.110 Atherosclerotic heart disease of native coronary artery with unstable angina pectoris (principal); I25.82 Chronic total occlusion of coronary artery; I10 Essential (primary) hypertension; E78.5 Hyperlipidemia, unspecified; E11.9 Type 2 diabetes mellitus without complications; J44.9 Chronic obstructive pulmonary disease, unspecified; G47.33 Obstructive sleep apnea (adult) (pediatric); Z98.890 Other specified postprocedural states; C91.10 Chronic lymphocytic leukemia of B-cell type not having achieved remission; I87.2 Venous insufficiency (chronic) (peripheral); F17.210 Nicotine dependence, cigarettes, uncomplicated; Z72.89 Other problems related to lifestyle; Z79.899 Other long term (current) drug therapy; Z79.82 Long term (current) use of aspirin; Z79.84 Long term (current) use of oral hypoglycemic drugs
CPT/HCPCS: 36415; 75630; 80048; 85027; 85610; 93458; 99152; 99153; C1713; C1769; C1892; J1644; J2250; J3010; Q9967; G0269

== ENCOUNTER → 2018-06-13 | Outpatient (CLI) | payer BC ==
[2018-06-10 11:15] VITALS: BP 119/64
[~2018-06-13] MED LIST changes: +ALBU2.5V8 INH; +ASPI325T11 PO; +ATOR40TA59 PO; +CARV6.25 PO; +CLOP75TA PO; +LOSA25TA PO
--- NOTE | 2018-06-13 11:18 | RAD ---
EXAM: Renal sonogram. HISTORY: Renal insufficiency. TECHNIQUE: Sonographic imaging of the kidneys and bladder was performed. COMPARISON: None. FINDINGS: The right kidney measures 13.1 cm [id number]. The left kidney measures 12.3 cm [id number]. There is a 4.0 cm right renal cyst with possible thin internal septation. There is no hydronephrosis. The bladder volume is 210 cc. The ureteral jets are both seen. The spleen is enlarged, measuring 15.5 cm. IMPRESSION: 1. 4.0 cm right renal cyst with possible thin internal septation. 2. Splenomegaly. Electronically signed by: Fabiana Reyes MD (06/13/2018 11:15 AM) [id number]
== END | disposition home or self-care (01) ==
LOC: US 09:11
PROVIDERS: ATTEND Internal Medicine Nephrology
DX: I12.9 Hypertensive chronic kidney disease with stage 1 through stage 4 chronic kidney disease, or unspecified chronic kidney disease (principal); E11.22 Type 2 diabetes mellitus with diabetic chronic kidney disease; N18.2 Chronic kidney disease, stage 2 (mild); N28.1 Cyst of kidney, acquired; R16.1 Splenomegaly, not elsewhere classified
CPT/HCPCS: 76770

== ENCOUNTER → 2018-06-13 | Outpatient (CLI) | payer BC ==
[2018-06-10 11:15] VITALS: BP 119/64
[~2018-06-13] MED LIST changes: -ASPI325T11 PO; -ATOR40TA59 PO; -CARV6.25 PO; -CLOP75TA PO; -LOSA25TA PO
--- NOTE | 2018-06-13 11:35 | RAD ---
PQRS Compliance statement: One or more of the following individualized dose reduction techniques were utilized for this examination: 1. Automated exposure control. 2. Adjustment of the mA and/or kV according to patient size. 3. Use of iterative reconstruction technique. Indication:SOA PULMONARY EFFUSION PREV SENT TECHNIQUE: CT chest without IV contrast with multiplanar reformats. COMPARISON: 04/02/2018 FINDINGS: Heart is normal in size. No pericardial effusion. Interval increase in the size of right pleural effusion. There is thickening of the pleura surrounding this effusion. No enlarged axillary adenopathy. Enlarged mediastinal lymph nodes are seen. Index lymph nodes as follows: -1.8 x 1.3 cm lymph node in the right posterolateral superior mediastinum (series 2 image 15), previously 1.4 x 1.3 cm. -3.1 x 2.3 cm right paratracheal lymph node (series 2 image 25), previously 2.3 x 2.2 cm. Evaluation of hilar lymphadenopathy is limited due to lack of IV contrast. Central airways are patent. Subpleural linear opacities are seen in the right middle and right lower lobe with small consolidation in the right lower lobe. Mosaic attenuation is seen in the lungs bilaterally. Noncontrast appearance of the visualized liver, spleen, pancreas, adrenals and kidneys within normal limits. Gallstones noted. No suspicious bony lesion. IMPRESSION: 1. Interval increase in the size of right pleural effusion with adjacent pleural thickening. Findings suggests complicated pleural effusion likely empyema or parapneumonic effusion. 2. Small area of consolidation adjacent to the pleural effusion in the right lower lobe may be secondary to passive atelectasis or pneumonia. 3. Interval increase in the size of mediastinal lymphadenopathy most likely reactive. 4. Cholelithiasis without imaging evidence of acute cholecystitis. Electronically signed by: River Talbot DO (06/13/2018 11:32 AM) [id number]
== END | disposition home or self-care (01) ==
LOC: CT 09:43
PROVIDERS: ATTEND Internal Medicine Critical Care Medicine
DX: J90 Pleural effusion, not elsewhere classified (principal); J92.9 Pleural plaque without asbestos; K80.20 Calculus of gallbladder without cholecystitis without obstruction; R59.0 Localized enlarged lymph nodes; R91.8 Other nonspecific abnormal finding of lung field; I12.9 Hypertensive chronic kidney disease with stage 1 through stage 4 chronic kidney disease, or unspecified chronic kidney disease; E11.22 Type 2 diabetes mellitus with diabetic chronic kidney disease; N18.2 Chronic kidney disease, stage 2 (mild)
CPT/HCPCS: 71250

== ENCOUNTER 2018-06-23 06:49 | Outpatient (CLI) | payer BC ==
[~2018-06-23] VITALS: Ht 182.9 cm; Wt 112.5 kg
[2018-06-23] VITALS (12 sets, daily range): BP systolic 106–140; BP diastolic 55–82
[2018-06-23] MEDS ORDERED: LOSA25TA PO (07:28)
[2018-06-23 07:48] LABS: BASO # 0.1 x10^3/uL (0.0-0.2); BASO % 1 % (0-3); EOS # 0.2 x10^3/uL (0.0-0.7); EOS % 2 % (0-3); HEMATOCRIT 38.1 % (39.0-53.0); HEMOGLOBIN 11.3 g/dL (13.0-17.5); LYMPH # 1.5 x10^3/uL (1.0-4.8); LYMPH % 18 % (24-48); MEAN CORPUSCULAR HEMOGLOBIN 20 pg (25-35); MEAN CORPUSCULAR HGB CONC 30 g/dL (31-37); MEAN CORPUSCULAR VOLUME 68 fL (79-100); MONO # 0.6 x10^3/uL (0.0-1.1); MONO % 7 % (0-9); NEUT # 5.7 x10^3uL (1.8-7.7); NEUT % 71 % (31-73); PLATELET COUNT 354 x10^3/uL (140-400); RED BLOOD COUNT 5.64 x10^6/uL (4.30-5.70); RED CELL DISTRIBUTION WIDTH 18.4 % (11.5-14.5)
[2018-06-23 07:59] LABS: PROTHROMBIN TIME PATIENT 13.3 SEC (11.7-14.0)
[2018-06-23 10:55] LABS: ANISOCYTOSIS PRESENT; HYPOCHROMIA MARKED; PLT ESTIMATE ADEQUATE (ADEQUATE); POIKILOCYTOSIS PRESENT
[2018-06-23 10:56] LABS: MICROCYTOSIS MARKED; OVALOCYTES FEW
--- NOTE | 2018-06-23 11:17 | NUR ---
Pt dressing c/d/i. VSS. Pt denies any pain or increased SOB. Pt discharge instructions reviewed with patient, though pt refused to take discharge instructions home with him. Pt taken out to outpatient entrance and driven home by friend. Pt became inappropriate with RN and by standers while being taken out, by telling sexually inappropriate jokes while in elevator and while in lobby. Mr. Baker was instructed that how he was speaking was not appreciated and inappropriate.
--- NOTE | 2018-06-23 12:50 | RAD ---
EXAM: Chest, single view. HISTORY: Thoracentesis COMPARISON: CT dated 06/13/2018. FINDINGS: A frontal view of the chest obtained. There is been no significant change in a small right pleural effusion. This appears to be partially loculated. There is stable right middle and lower lobe infiltrate. There is blunting of the left costophrenic angle due to a small pleural effusion or basilar pleural thickening. There is diffuse interstitial prominence. The heart is normal in size. There is no pneumothorax. IMPRESSION: 1. No significant change in a suspected loculated or partially loculated small right pleural effusion with right middle and lower lobe infiltrate. 2. Suspected trace left pleural effusion or basilar pleural thickening. 3. Diffuse increased interstitial opacity, suggesting interstitial infiltrate. Electronically signed by: Fabiana Reyes MD (06/23/2018 12:47 PM) [facility]
--- NOTE | 2018-06-23 15:48 | RAD ---
Ultrasound-guided right-sided thoracentesis 06/23/2018 3:43 PM Indication: Right pleural fluid collection, associated pleural thickening. Concern for empyema. Procedure: Informed consent was obtained. A timeout procedure was performed. Sonographic evaluation of the right chest was performed demonstrating small to moderate complex pleural effusion which appears to be multiloculated in nature. The right posterior chest was prepped and draped in sterile fashion. 1% lidocaine without epinephrine was administered for local anesthesia. Real-time ultrasonographic guidance was used in passing a 5 [place]an Deep Domain catheter into the right pleural space. 100 cc of serosanguineous pleural fluid was aspirated. No overt purulence was identified. Fluid was sent for further evaluation per ordering physician request. Further aspiration yielded no significant fluid. Decreased for persistent collection noted by ultrasound. This is likely secondary to multiloculated nature of the collection.. The catheter was removed and pressure held to achieve hemostasis. A sterile dressing was applied. No immediate complications were identified. The patient tolerated the procedure well. Impression: Multiloculated right pleural effusion. Thoracentesis yielded only 100 cc of serosanguineous fluid. The patient will follow-up with communications controller for results of pleural fluid studies.
--- NOTE | 2018-06-24 18:06 | PATHOLOGY ---
Note [facility] Accession Number: [id number] TESTS RESULT FLAG UNITS REF RANGE LAB Clinician Provided Cytology Information No. of containers..01 Other (Miscellaneous) Source: RT PLEURAL FLUID DIAGNOSIS: RT PLEURAL FLUID NEGATIVE FOR MALIGNANT CELLS. RARE MESOTHELIAL CELLS AND FEW INFLAMMATORY CELLS PRESENT. THIS INTERPRETATION INCLUDES EVALUATION OF A CELL BLOCK. Signed out by: 02 Emeterio Hodgson MD, Pathologist NPI- [id number] Performed by: Noé Hope, Cosmetics Demonstrator ([facility]) Gross description: 01 30ML, RED, CLOUDY /LCS FLAG LEGEND: L-Low Normal,H-High Normal,LL-Alert Low,HH-Alert High <-Panic Low,>-Panic High,A-Abnormal,AA-Critical Abnormal Performed at: [facility] [address] [place] [address] Ken Mcghee MD, 02 [facility] [address] [place] [address] Emeterio Hodgson MD, Specimen Comment: A courtesy copy of this report has been sent to Specimen Comment: [phone], , . Specimen Comment: Report sent to DR MILLER,DR CHAVIRA / DR DOMINGO Specimen Comment: A duplicate report has been generated due to demographic updates. Performed at: 01 [facility] [address], [place], [place] [id number] MD Ken Mcghee MD Phone: [phone]
== END 2018-06-23 11:25 | disposition home or self-care (01) ==
LOC: INTRAD 06:49
PROVIDERS: ATTEND Internal Medicine Pulmonary Disease
DX: J90 Pleural effusion, not elsewhere classified (principal); Z79.899 Other long term (current) drug therapy; Z79.01 Long term (current) use of anticoagulants
CPT/HCPCS: 32555; 36415; 71045; 83615; 84157; 85025; 85610; 85730; 87071; 87075; 88112; 88305

== ENCOUNTER 2018-07-22 08:15 | Observation (INO) | payer BC ==
[~2018-07-22] VITALS: Ht 157.5 cm; Wt 109.5 kg
[2018-07-22] VITALS (11 sets, daily range): BP systolic 103–166; BP diastolic 56–86
[~2018-07-22 08:15] MED LIST changes: +LOSA25TA PO
[2018-07-22 08:57] LABS: HEMATOCRIT 38.3 % (39.0-53.0); HEMOGLOBIN 11.8 g/dL (13.0-17.5); RED BLOOD COUNT 5.67 x10^6/uL (4.30-5.70); RED CELL DISTRIBUTION WIDTH 19.2 % (11.5-14.5); WHITE BLOOD COUNT 7.7 x10^3/uL (4.0-11.0)
[2018-07-22 09:08] LABS: CALCIUM 8.8 mg/dL (8.5-10.1); CREATININE 0.9 mg/dL (0.7-1.3); GFR 85.5; POTASSIUM 4.2 mmol/L (3.5-5.1)
[2018-07-22 09:18] LABS: PROTHROMBIN TIME PATIENT 13.1 SEC (11.7-14.0)
[2018-07-22] MEDS ORDERED: IOHEXOL 300 MG/ML 100ML VIAL. ONE ×3 (09:25→10:50)
[2018-07-22] MEDS ORDERED: LIDOCAINE 1% PF 2 ML VIAL. ONE (09:25)
[2018-07-22] MEDS ORDERED: VERAPAMIL 5 MG/2 ML VIAL. ONE (09:33)
[2018-07-22] MEDS ORDERED: fentaNYL PF VIAL 100 MCG/2 ML VIAL ONE ×2 (09:33→10:17)
[2018-07-22] MEDS ORDERED: NITROGLYCERIN 200 MCG/2 ML SYRINGE FOR CATH/VASC LAB. ONE (09:33)
[2018-07-22] MEDS ORDERED: HEPARIN for IV BOLUS 10,000 UNIT/10 ML VIAL. ONE (09:33)
[2018-07-22] MEDS ORDERED: MIDAZOLAM HCL/PF 2 MG/2 ML VIAL. ONE ×2 (09:33→10:17)
[2018-07-22] MEDS ORDERED: LIDOCAINE 1% Multi-Dose 20 ML VIAL. ONE (09:39)
[2018-07-22] MEDS ORDERED: BIVALIRUDIN 250 MG VIAL. IV ONE ×4 (09:53→11:30)
[2018-07-22] MEDS ORDERED: LIDOCAINE 1% Multi-Dose 20 ML VIAL. INJ ONE (10:15)
[2018-07-22] MEDS ORDERED: IODIXANOL 320 MG/ML 100 ML VIAL. IART ONE (10:15)
[2018-07-22] MEDS ORDERED: MIDAZOLAM HCL/PF 2 MG/2 ML VIAL. IV ONE ×2 (10:15→11:15)
[2018-07-22] MEDS ORDERED: CONTRAST GIVEN. MC PRN (10:15)
[2018-07-22] MEDS ORDERED: fentaNYL PF VIAL 100 MCG/2 ML VIAL IV ONE ×2 (10:15→11:15)
[2018-07-22] MEDS ORDERED: IODIXANOL 320 MG/ML 100 ML VIAL. ONE ×2 (11:19→11:53)
[2018-07-22] MEDS ORDERED: diphenhydrAMINE 50 MG/ML VIAL ONE (11:28)
[2018-07-22] MEDS ORDERED: ALBUTEROL SULFATE 2.5 MG/3 ML NEBU. NEB ONE (12:30)
--- NOTE | 2018-07-22 12:35 | PDOC ---
MODERATE SEDATION ASSESSMENT RISKS/ALTERNATIVES Risks/Alternatives Risks and alternatives of this type of sedation and procedure discussed with: RISK/ALTERNATIVES: Patient H & P ON CHART H & P H & P on chart and reviewed for co-morbid conditions and appropriate labs. H&P ON CHART: Yes STATUS PREG STATUS ASSESSED: N/A MEDS/ALLERGIES REVIEWED Meds/Allergies Reviewed Medications and Allergies including time and route of recently administered narcotics and sedatives. MEDS/ALLERGIES REVIEWED: Yes ASA RATING ASA RATING: III AIRWAY ASSESSMENT Airway Assessment Airway patency, oral function limitations, presence of caps, crowns, dentures, partials, and ability to extend neck assessed. AIRWAY ASSESSMENT: Yes MALLAMPATI SCORE MALLAMPATI SCORE: II PRE-SEDATION ASSESSMENT PRE-SEDATION ASSESSMENT: Yes FARZANEH CYR MD Jul 22, 2018 12:35
[2018-07-22] MEDS ORDERED: IV 1/2 NORMAL SALINE 1,000 ML IV SCH (12:36)
[2018-07-22] MEDS ORDERED: ALBUTEROL SULFATE 2.5 MG/3 ML NEBU. ONE (12:36)
--- NOTE | 2018-07-22 13:02 | CARD ---
MR#: [id number] Date of Study: 07/22/2018 Ordering Physician: FARZANEH ARMANDO, Referring Physician: FARZANEH ARMANDO Tech: RT Geri (Jenifer) LAXMI APPROVED REPORT Technologist: RT Geri (R) LAXMI Nurse: Humaira Chatterjee RN Procedure(s) performed: 1. Successful complex PCI/drug eluting stent to left anterior descending art yusef and balloon PTCA to the diagonal branch 2. Instant wave free ratio (IFR) to left main coronary artery stenosis Moderate sedation: 165 mins INDICATION The indication(s) include : 63-year-old male who recently underwent cardiac catheterization in the tting of unstable angina and found to have three-vessel coronary artery disease was referred to cardi othoracic surgery team for possible coronary artery bypass surgery. He was deemed a poor surgical can didate secondary to his comorbidities. He presented today for percutaneous intervention to left anter ior descending artery and IFR and possible PCI to left main coronary artery.. [facility] Clinical Frailty Scale [facility] Clinical Frailty Scale: Mildly Frail Heart Failure Heart Failure: No PROCEDURE NARRATIVE After explaining the risks, benefits and alternative options, informed consent was obtained from dottie ent. Patient was brought to the cardiac Oracle Etl Developer and his right groin was prepped and draped in the us ual fashion. 20 mL of 2% lidocaine was infiltrated into the skin and subcutaneous tissues for local a nesthesia. Arterial access was obtained the right common femoral artery and a 6 Guamanian sheath was ins erted. 6 Guamanian XB 3.5 guide catheter was then used to engage the left main coronary artery and the f luoroscopy guidance and selective angiography was performed that confirmed the previously described 5 0-60% stenosis involving the left main coronary artery and 90% calcified bifurcation stenosis involvi ng midsegment of the left anterior descending artery. Several attempts were made to cross the stenosis in the left anterior descending artery using 0.014 i [facility] AsaDrone.io Pro water guidewire followed by 0.014 inch KOALA.CH miracle bros 6.0, Choice PT and whisper gu idewires with back up support from 3.0 x 15 mm trek balloon but there were unsuccessful secondary to the calcified lesion deflecting the tip of the wire into the diagonal branch. Subsequently, another A chanelle Pro water was advanced into the diagonal branch. Attempts were made to modify the pocket by infl ating the 3.0 x 15 mm trek balloon within the lesion extending into the diagonal branch but again att empts to advance wire across the left anterior descending artery stenosis were unsuccessful. The ball oon was then placed in the proximal segment of the diagonal branch extending into the ostium and with this inflated attempts were made to deflect the tip of wires into the left anterior descending arter y but were again unsuccessful. Subsequently, we attempted to cross the lesion with 0.014 inch [place] guidewires with back up support from 2.5 x 8 mm mini trek balloon. Finally, we were able to cross this lesion with Monorail Car Operator 200 guidewir e with backup support from a 2.5 balloon. The lesion was then dilated with the 3.5 x 15 mm trek ballo on. Attempts at advancing a stent across the lesion again were unsuccessful due to heavy calcificati on. With the help of backup support from 6 Guamanian guide liner inner catheter, a 3 x 34 mm resolute on yx drug-eluting stent was deployed across the lesion successfully. Follow-up angiography showed resol ution of the stenosis to 0% with PEPE-3 distal flow. The lesion in the left main coronary artery was then crossed with a Emergent Discovery verrata PressureWire to a ssess the physiologic significance of this lesion using Instant wave free ratio (IFR measurement). Th is came back physiologically insignificant at 1.0 and hence no interventions were performed on this l esion. Patient tolerated the procedure well other than requiring BiPAP secondary to his sleep apnea. Hemostasis in the right groin was achieved using Angio-Seal. There were no immediate complications. Conclusion 1. Successful complex PCI/drug eluting stent placement to the left anterior descending artery and PTC A to the diagonal branch 2. Left main coronary artery stenosis found to be physiologically insignificant based on IFR measurem ent of 1.0. Recommendations 1. Aspirin 325 mg daily 2. Plavix 75 mg daily for preferably one year 3. Cardiovascular risk factor modification 4. Consider PCI/stent to JUNIOR ACCOUNTANT BOOKKEEPER of RCA if he continues to be symptomatic and has significant ischemia i n RCA territory. Signed by : Farzaneh Armando, Electronically Approved : 07/22/2018 13:02:30
--- NOTE | 2018-07-22 13:42 | RAD ---
Portable chest, 07/22/2018: HISTORY: Wheezing and shortness of breath following heart stent placement Comparison is made to a study from 06/23/2018. The heart is within normal limits in size. There is unchanged bilateral pleural thickening compatible with chronic pleural fluid and/or scarring. There is mild unchanged right basilar infiltrate. There are new moderate bilateral infiltrates in the upper chest obscuring the underlying pulmonary vascularity. There is no evidence of pneumothorax. IMPRESSION: 1. Worsening bilateral pulmonary infiltrates suggesting pulmonary edema versus pneumonia, possibly on an aspiration basis. 2. Unchanged moderate bilateral pleural thickening compatible with chronic pleural fluid and/or scarring. Electronically signed by: Rusty Austin MD (07/22/2018 1:39 PM) [facility]
[2018-07-22] MEDS ORDERED: FUROSEMIDE 40 MG/4 ML VIAL. IVP ONE (14:00)
[2018-07-22] MEDS ORDERED: ASPIRIN 325 MG TABLET ONE (14:01)
[2018-07-22] MEDS ORDERED: CLOPIDOGREL BISULFATE 75 MG TABLET ONE (14:01)
[2018-07-22] MEDS ORDERED: ASPIRIN 325 MG TABLET PO ONE (14:15)
[2018-07-22] MEDS ORDERED: CLOPIDOGREL BISULFATE 75 MG TABLET PO ONE (14:15)
--- NOTE | 2018-07-22 15:02 | NUR ---
received pt as a transfer from CV observation,right groin angioseal clean dry and intact. Pt up on side of bed with assist richie well.
[2018-07-22] MEDS: CARVEDILOL 6.25 MG TABLET. PO SCH (17:33)
--- NOTE | 2018-07-22 18:52 | NUR ---
Pt refused to answer admitting questions as he gave all information at cardiac pre op,please see outpatient admit.
[2018-07-22] MEDS ORDERED: ALBUTEROL SULFATE 2.5 MG/3 ML NEBU. NEB SCH (20:00)
[2018-07-22] MEDS ORDERED: NON FORMULARY ITEM (Icosapent Ethyl (Vascepa) 2 GM) PO SCH (21:00)
[2018-07-22] MEDS ORDERED: ATORVASTATIN CALCIUM 20 MG TABLET PO SCH (21:00)
[2018-07-22] MEDS: BUDESONIDE 0.5 MG/2 ML NEBU. NEB SCH (21:49)
[2018-07-22] MEDS: IPRATRPIUM/ALBUTEROL 0.5/2.5MG 3 ML NEBU. NEB SCH (21:49)
[2018-07-23 03:00] VITALS: BP 112/57
[2018-07-23 07:00] VITALS: BP 136/63
[2018-07-23] MEDS: IPRATRPIUM/ALBUTEROL 0.5/2.5MG 3 ML NEBU. NEB SCH (07:50)
[2018-07-23] MEDS: BUDESONIDE 0.5 MG/2 ML NEBU. NEB SCH (07:51)
[2018-07-23] MEDS ORDERED: GLIMEPIRIDE 2 MG TABLET. PO SCH (08:00)
[2018-07-23] MEDS ORDERED: CLOPIDOGREL BISULFATE 75 MG TABLET PO SCH (08:00)
[2018-07-23] MEDS ORDERED: ASPIRIN ENTERIC COATED 325 MG TABLET.DR. PO SCH (08:00)
[2018-07-23] MEDS: CARVEDILOL 6.25 MG TABLET. PO SCH (08:11)
[2018-07-23 08:12] VITALS: BP 136/63
[2018-07-23] MEDS ORDERED: LINAGLIPTIN 5 MG TABLET PO SCH (09:00)
[2018-07-23] MEDS ORDERED: LOSARTAN POTASSIUM 25 MG TABLET. PO SCH (09:00)
[2018-07-23] MEDS ORDERED: CLOP75TA PO (09:04)
[2018-07-23] MEDS ORDERED: ASPI325T11 PO (09:04)
[2018-07-23] MEDS ORDERED: CARV6.25 PO (09:09)
--- NOTE | 2018-07-23 09:09 | PDOC3 ---
DARIEN MONTOYA MERCHANDISE PLANNER 07/23/18 0909: Discharge Summary Visit Information Date of Admission: Jul 22, 2018 Date of Discharge: Jul 23, 2018 Admitting Diagnosis: CAD, COPD Final Diagnosis COPD, CAD, S/P PCI Brief Hospital Course Allergies Allergies Coded Allergies Type Severity Reaction Last Updated Verified No Known Drug Allergies 07/12/16 No Vital Signs Vital Signs Date Time Temp Pulse Resp B/P (MAP) Pulse Ox O2 Delivery O2 Flow Rate FiO2 07/23/18 08:12 87 136/63 07/23/18 07:51 98 Nasal Cannula 3.0 07/23/18 07:00 98.1 20 98.1 Lab Results Laboratory Tests Test 07/22/18 08:50 07/22/18 16:18 07/22/18 20:38 07/23/18 08:12 White Blood Count 7.7 x10^3/uL (4.0-11.0) Red Blood Count 5.67 x10^6/uL (4.30-5.70) Hemoglobin 11.8 g/dL (13.0-17.5) Hematocrit 38.3 % (39.0-53.0) Mean Corpuscular Volume 68 fL (79-100) Mean Corpuscular Hemoglobin 21 pg (25-35) Mean Corpuscular Hemoglobin Concent 31 g/dL (31-37) Red Cell Distribution Width 19.2 % (11.5-14.5) Platelet Count 316 x10^3/uL (140-400) Prothrombin Time 13.1 SEC (11.7-14.0) Prothromb Time International Ratio 1.0 (0.8-1.1) Sodium Level 140 mmol/L (136-145) Potassium Level 4.2 mmol/L (3.5-5.1) Chloride Level 101 mmol/L (98-107) Carbon Dioxide Level 31 mmol/L (21-32) Anion Gap 8 (6-14) Blood Urea Nitrogen 7 mg/dL (8-26) Creatinine 0.9 mg/dL (0.7-1.3) Estimated GFR (Cockcroft-Gault) 85.5 Glucose Level 94 mg/dL (70-99) Calcium Level 8.8 mg/dL (8.5-10.1) Glucose (Fingerstick) 131 mg/dL (70-99) 166 mg/dL (70-99) 107 mg/dL (70-99) Laboratory Tests Test 07/22/18 16:18 07/22/18 20:38 07/23/18 08:12 Glucose (Fingerstick) 131 mg/dL (70-99) 166 mg/dL (70-99) 107 mg/dL (70-99) Brief Hospital Course Mr. Baker is a 63 yo male admitted for planned PCI. He recently had a cardiac catheterization in the setting of unstable angina and found to have three-vessel coronary artery disease was referred to cardiothoracic surgery team for possible coronary artery bypass surgery. He was deemed a poor surgical candidate secondary to his comorbidities and elected to have PCI. He had a successful complex PCI/drug eluting stent placement to the left anterior descending artery and PTCA to the diagonal branch. Left main coronary artery stenosis found to be physiologically insignificant based on IFR measurement of 1.0. He had no complications and tolerated the procedure well. VSS, no significant arrhythmias overnight. He is ambulatory without difficulty. Right groin arteriotomy site is intact with small hematoma, otherwise no swelling, no erythema and no tenderness. Neurovascular status to bilateral LE intact. He has COPD and O2 dependent but continues to smoke tobacco to which cessation was emphasized. If pt remains to have symptoms then will consider PCI/stent to SIGNAL REPAIRER of RCA. ECASA 325 mg daily. Rx provided for Plavix, coreg and lipitor 40 mg. Cardiac rehab encouraged. Significant discussion in regards to post cath care and emphasized multiple times in regards to lifting restrictions for at least 2 weeks and the consequences it may bring if noncompliant as he is insistent to go back to work that requires heavy exertion and significant lifting. Follow up in 4 weeks and otherwise continue with home meds with bkt to restart the next day. Discharge Information Condition at Discharge: Stable Follow Up: Weeks (4) Disposition/Orders: D/C to Home Scheduled Aspirin (Aspirin Ec) 325 Mg Tablet., 1 TAB PO DAILY for CAD for 30 Days, #30 Ref 5 Prescribed by: DARIEN MONTOYA on 07/23/18 0904 Atorvastatin Calcium (Atorvastatin Calcium) 40 Mg Tablet, 1 TAB PO DAILY for cad , #30 Ref 5 Prescribed by: DARIEN MONTOYA on 07/23/18 0913 Carvedilol (Coreg ) 6.25 Mg Tablet, 6.25 MG PO BIDWMEALS for CARDIAC for 30 Days, #60 Prescribed by: DARIEN MONTOYA on 07/23/18 0909 Clopidogrel Bisulfate (Clopidogrel) 75 Mg Tablet, 1 TAB PO DAILY for CAD, #90 Ref 1 Prescribed by: DARIEN MONTOYA on 07/23/18 0904 Dulaglutide (Trulicity) 1.5 Mg/0.5 Ml Pen.injctr, 1.5 MG SQ WEEKLY, (Reported) Entered as Reported by: RAIN TARIQ on 03/31/181620 Last Action: Reviewed on 07/22/18900 by NILAY SMITH Fluticasone/Umeclidin/Vilanter (Trelegy Ellipta 100-62.5-25) 1 Each Blst.w.dev, 1 EACH IH DAILY for rx, (Reported) Entered as Reported by: RAIN TARIQ on 03/31/18 162 Last Action: Converted on 07/22/181899 by MORENA ORTIZ Glimepiride (Glimepiride) 4 Mg Tablet, 4 MG PO BID for dm, (Reported) Entered as Reported by: RAIN TARIQ on 03/31/181620 Last Action: Converted on 07/22/181899 by MORENA ORTIZ Icosapent Ethyl (Vascepa) 1 Gm Capsule, 2 GM PO BID for rx, (Reported) Entered as Reported by: RAIN TARIQ on 03/31/18 162 Last Action: Converted on 07/22/181899 by MORENA ORTIZ Ipratropium/Albuterol Sulfate (Duoneb 0.5-3(2.5) Mg/3 Ml) 3 Ml Ampul.neb, 3 ML NEB RTQID for 30 Days, #120 Prescribed by: JOHNNY WORTHY on 09/25/16 0942 Last Action: Continued on 07/22/181899 by MORENA ORTIZ Losartan Potassium (Cozaar ) 25 Mg Tablet, 25 MG PO DAILY for HYPERTENSION, ( Reported) Entered as Reported by: CURT DIAZ on 06/23/18 0728 Last Action: Continued on 07/22/181899 by MORENA ORTIZ Sitagliptin Phos/Metformin Hcl (Janumet 50-1,000 Mg Tablet) 1 Each Tablet, 1 TAB PO BID, #60 Ref 5 (Reported) Entered as Reported by: LUIS DIALLO on 07/12/16 1124 Last Action: Converted on 07/22/181899 by MORENA ORTIZ Scheduled PRN Albuterol Sulfate (Proair Hfa Inhaler) 8.5 Gm Hfa.aer.ad, 1 PUFF INH PRN Q6HRS PRN for SHORTNESS OF BREATH, Ref 0 (Reported) Entered as Reported by: CURT DIAZ on 06/10/18 0715 Last Action: Reviewed on 07/22/18900 by NILAY SMITH Discontinued Medications Aspirin (Aspirin Ec) 81 Mg Tablet.dr, 81 MG PO DAILYWBKFT for 30 Days, #30 Prescribed by: JOHNNY WORTHY on 09/25/16 0942 Last Action: Reviewed on 07/22/18900 by NILAY SMITH Atorvastatin Calcium (Atorvastatin Calcium) 20 Mg Tablet, 20 MG PO HS for FOR CHOLESTEROL, #30 Ref 0 (Reported) Entered as Reported by: RAIN TARIQ on 03/31/18 1621 Last Action: Continued on 07/22/181899 by MORENA ORTIZ Patient Instructions Patient Instructions GENERAL INSTRUCTIONS: 1. Your dressing should be removed prior to leaving the hospital. 2. It is OK to shower the day after your procedure. 3. If you received stents, be sure to carry your stent information card with you in your wallet/purse at all times. 4. Call the office immediately at [phone] if you notice any fever or if there is redness, worsening tenderness/pain, increased bruising, or drainage from the puncture site. 5. Should you have bleeding from the site, lie down immediately & put pressure on the site. The pressure should be hard enough to stop the bleeding. Have the nearest person call 911. DO NOT try to drive to the ER with active bleeding. 6. If you notice a change in color, coolness to touch, or loss of feeling in the affected extremity, come to the emergency room. Please have someone drive you or call 911 if no one is available. DO NOT drive yourself. 7. If you normally take glucophage (metformin), please do not take this medicine for 48 hours following your procedure. 8. DO NOT STOP TAKING YOUR PLAVIX OR ASPIRIN UNLESS IT IS CLEARED BY A TREE TRIMMING SUPERVISOR OF YOUR SWITCH OPERATOR AT OUR OFFICE. 9. QUIT SMOKING: the [employer] Heart Association, English Lung Association, & English [employer] Society have cessation resources available on their websites 10. Please have someone available to drive you home from the hospital as you may be limited by sedation medications given during the procedure. Femoral (Groin) access: 1. Do no lifting, pushing, pulling, bending, stooping, or recurrent stair climbing for 3 days following your procedure. 2. Once past the first 3 days, do not do any HEAVY exertion or lifting for one week following the procedure. No gym workouts, running, lifting greater than a gallon of milk, etc 3. Do not submerge in bath or pool for one week. OK to drive 3 days following your procedure, but if going long distance, do not go alone & take hourly breaks to get out of car and walk around. Call the office at [phone] for any questions or concerns. FARZANEH CYR MD 07/24/18 0653: Discharge Summary Brief Hospital Course Brief Hospital Course Patient seen and examined 07/23/18. Agree with ACCOUNT SUPPORT SPECIALIST's assessment and plan. s/p complex PCI/SAMUEL to LAD and IFR to LMCA yesterday, presently stable and chest pain-free. Continue current medications including DAPT. If he continues to be symptomatic and has significant ischemia in RCA territory, we will consider PCI to SIGNAL REPAIRER of RCA at a later date. Follow-up in 1 month. DARIEN MONTOYA APRN Jul 23, 2018 09:09 FARZANEH CYR MD Jul 24, 2018 06:53
[2018-07-23] MEDS ORDERED: ATOR40TA59 PO (09:13)
--- NOTE | 2018-07-23 10:08 | NUR ---
Discharge Note: KATIUSKA AKERS Discharge instructions and discharge home medications reviewed with Patient and a copy given. All questions have been answered and understanding verbalized. Patient was given the information he asked for in regards to his return to work. Specifically told to go on light duty no heavy lifting for 2 weeks.
[2018-07-25] MEDS ORDERED: metFORMIN 500 MG TABLET PO SCH (08:00)
== END 2018-07-23 09:45 | disposition home or self-care (01) ==
LOC: CCL 08:15 → INTOOBSV 14:38 → 2 NORTH 14:38
PROVIDERS: ADMIT Internal Medicine Cardiovascular Disease; ATTEND Internal Medicine Cardiovascular Disease
DX: I25.10 Atherosclerotic heart disease of native coronary artery without angina pectoris (principal); J44.9 Chronic obstructive pulmonary disease, unspecified; J90 Pleural effusion, not elsewhere classified; I10 Essential (primary) hypertension; E11.9 Type 2 diabetes mellitus without complications; F17.200 Nicotine dependence, unspecified, uncomplicated; E78.5 Hyperlipidemia, unspecified; G47.33 Obstructive sleep apnea (adult) (pediatric); E11.51 Type 2 diabetes mellitus with diabetic peripheral angiopathy without gangrene; C91.10 Chronic lymphocytic leukemia of B-cell type not having achieved remission; I87.2 Venous insufficiency (chronic) (peripheral); Z98.890 Other specified postprocedural states; Z98.61 Coronary angioplasty status
CPT/HCPCS: 36415; 36600; 71045; 80048; 82962; 85027; 85610; 92921; 92928; 93571; 94640; 94660; 94760; 96374; 96375; 96376; C1725; C1769; C1771; C1874; C1887; C1892; G0269; G0378; G0379; J0583; J1644; J1940; J2250; J3010; J7613; J7620; J7626; 99152; 99153; C1760; Q9967

== ENCOUNTER → 2019-10-16 | Outpatient (CLI) | payer BC ==
[~2019-10-16] MED LIST changes: +ASPI325T11 PO; +ATOR40TA59 PO; +CARV6.25 PO; +CLOP75TA PO; -GLIM4TAB2 PO; +GLIM4TAB8 PO; +LORA10TA55 PO; +MONT10TA49 PO
== END | disposition home or self-care (01) ==
LOC: LAB 13:18
PROVIDERS: ATTEND Internal Medicine Cardiovascular Disease
DX: Z11.59 Encounter for screening for other viral diseases (principal)
CPT/HCPCS: U0003-CS

== ENCOUNTER 2019-10-19 07:16 | Outpatient (CLI) | payer BC ==
[2019-10-19] VITALS (16 sets, daily range): BP systolic 82–140; BP diastolic 41–71
[~2019-10-19] VITALS: Ht 182.9 cm; Wt 129.3 kg
[~2019-10-19 07:16] MED LIST changes: -LORA10TA55 PO; -MONT10TA49 PO
[2019-10-19] MEDS ORDERED: LIDOCAINE 1% Multi-Dose 20 ML VIAL. ONE (07:30)
[2019-10-19] MEDS ORDERED: IODIXANOL 320 MG/ML 100 ML VIAL. ONE (07:30)
[2019-10-19 07:49] LABS: HEMATOCRIT 42.5 % (39.0-53.0); HEMOGLOBIN 13.7 g/dL (13.0-17.5); RED BLOOD COUNT 5.16 x10^6/uL (4.30-5.70); RED CELL DISTRIBUTION WIDTH 16.1 % (11.5-14.5); WHITE BLOOD COUNT 8.5 x10^3/uL (4.0-11.0)
[2019-10-19 07:54] LABS: CALCIUM 8.6 mg/dL (8.5-10.1); CREATININE 1.2 mg/dL (0.7-1.3); GFR 61.1; POTASSIUM 4.3 mmol/L (3.5-5.1)
[2019-10-19 08:00] LABS: PROTHROMBIN TIME PATIENT 12.1 SEC (11.7-14.0)
[2019-10-19] MEDS ORDERED: MONT10TA49 PO (08:00)
[2019-10-19] MEDS ORDERED: LORA10TA55 PO (08:00)
[2019-10-19] MEDS ORDERED: MIDAZOLAM HCL/PF 5 MG/5 ML VIAL. ONE (08:10)
[2019-10-19] MEDS ORDERED: fentaNYL PF VIAL 100 MCG/2 ML VIAL ONE (08:10)
[2019-10-19] MEDS ORDERED: HEPARIN for IV BOLUS 10,000 UNIT/10 ML VIAL. ONE ×2 (08:11→08:57)
[2019-10-19] MEDS ORDERED: LIDOCAINE 1% Multi-Dose 20 ML VIAL. INJ ONE (08:45)
[2019-10-19] MEDS ORDERED: IODIXANOL 320 MG/ML 100 ML VIAL. IART ONE (08:45)
[2019-10-19] MEDS ORDERED: fentaNYL PF VIAL 100 MCG/2 ML VIAL IV ONE (08:45)
[2019-10-19] MEDS ORDERED: MIDAZOLAM HCL/PF 5 MG/5 ML VIAL. IV ONE (08:45)
[2019-10-19] MEDS ORDERED: NITROGLYCERIN 200 MCG/2 ML SYRINGE FOR CATH/VASC LAB. IART ONE (09:15)
[2019-10-19] MEDS ORDERED: HEPARIN for IV BOLUS 10,000 UNIT/10 ML VIAL. IV ONE (09:15)
[2019-10-19] MEDS ORDERED: IV 1/2 NORMAL SALINE 1,000 ML IV SCH (09:52)
--- NOTE | 2019-10-19 09:52 | PDOC ---
MODERATE SEDATION ASSESSMENT RISKS/ALTERNATIVES Risks/Alternatives Risks and alternatives of this type of sedation and procedure discussed with: RISK/ALTERNATIVES: Patient H & P ON CHART H & P H & P on chart and reviewed for co-morbid conditions and appropriate labs. H&P ON CHART: Yes STATUS PREG STATUS ASSESSED: N/A MEDS/ALLERGIES REVIEWED Meds/Allergies Reviewed Medications and Allergies including time and route of recently administered narcotics and sedatives. MEDS/ALLERGIES REVIEWED: Yes ASA RATING ASA RATING: III AIRWAY ASSESSMENT Airway Assessment Airway patency, oral function limitations, presence of caps, crowns, dentures, partials, and ability to extend neck assessed. AIRWAY ASSESSMENT: Yes MALLAMPATI SCORE MALLAMPATI SCORE: II PRE-SEDATION ASSESSMENT PRE-SEDATION ASSESSMENT: Yes FARZANEH CYR MD Oct 19, 2019 09:52
[2019-10-19] MEDS ORDERED: ATROPINE 0.5 MG/5 ML DISP.SYRINGE. IV PRN (10:00)
[2019-10-19] MEDS ORDERED: ACETAMINOPHEN 325 MG TABLET. PO PRN (10:00)
--- NOTE | 2019-10-19 10:08 | CARD ---
MR#: [id number] Date of Study: 10/19/2019 Ordering Physician: FARZANEH CYR, Referring Physician: FARZANEH CYR, Tech: BROOK LEMUS RTR APPROVED REPORT Patient StatusOUT-PATIENT Country Printer Apprentice: BROOK LEMUS RTR Procedure(s) performed: Selective left lower extremity angiography, orbital atherectomy/balloon DRY FOOD PRODUCTS MIXER t o left superficial femoral artery MODERATE SEDATION TIME: 68 MINUTES FLUORO TIME: 16.9 MIN DOSE: 38.9 GYCM2 CONTRAST: 51CC VISI INDICATION FOR PROCEDURE The indication(s) include : 64-year-old male with peripheral vascular disease with claudication was f ound to have significant bilateral superficial femoral artery stenosis on aortogram with runoff done 2019. We tried conservative measures first but patient continued to be symptomatic and hence presente d today for percutaneous intervention.. PROCEDURE NARRATIVE After explaining the risks, benefits and alternative options, informed consent was obtained from dottie ent. Patient was brought to the cardiac Tint Layer and both his groins were prepped and draped in the usual fashion. 20 cc of 2% lidocaine was infiltrated into the skin and subcutaneous tissues for loca l anesthesia. Arterial access was obtained in the right common femoral artery and a 6 [place] Citizen 45 cm d estination sheath was inserted. A 5 [place] Citizen crossover catheter was used to cross the aortic suraj an d the arterial sheath was advanced into the left common femoral artery. Selective left lower extremi ty angiography confirmed the previously described heavily calcified 80% stenosis involving the mid an d distal segments of the left superficial femoral artery with three-vessel runoff below the knee. The lesions in the left SFA were crossed with a 0.014 inch Viper wire. Multiple orbital atherectomy passes were then performed using 1.5 CSI Diamondback orbital atherectomy catheter. Subsequently, the se lesions were dilated with a 5.5 x 120 mm Brunner Langley balloon. Follow-up angiography showed reso lution of the lesions to 0% with good distal flow. Patient tolerated the procedure well. Hemostasis in the right groin was achieved using Angio-Seal. There were no immediate complications. Conclusion Successful orbital atherectomy and balloon DRY FOOD PRODUCTS MIXER to the left superficial femoral artery. Recommendations Plan for stage atherectomy/DRY FOOD PRODUCTS MIXER to the right superficial femoral artery in 2 to 3 weeks. Signed by : Farzaneh Cyr, Electronically Approved : 10/19/2019 10:07:39
--- NOTE | 2019-10-19 11:46 | NUR ---
slab grinder was notified that patient's right groin site was still oozing and asked to come take a look at the site. Kim felt a small hematoma and Dr. Armando came over to CV/OBS to assess patient. He instructed Kim to hold pressure for 10 minutes and then patient needs to remain flat for another hour (1240). Patient is not happy that he has to continue to lay flat. Explained that he has bleeding at the site and we need him to remain flat, will continue to monitor.
--- NOTE | 2019-10-19 13:49 | NUR ---
Discharge Note: KATIUSKA AKERS Discharge instructions and discharge home medications reviewed with Patient and a copy given. All questions have been answered and understanding verbalized. The following instructions and handouts were given: groin site care and adult moderate sedation Discontinued lines and drains: Peripheral IV intact. Patient discharged to Home or Self Care withFriendvia Wheelchair
== END 2019-10-19 13:45 | disposition home or self-care (01) ==
LOC: CCL 07:16
PROVIDERS: ATTEND Internal Medicine Cardiovascular Disease
DX: I73.9 Peripheral vascular disease, unspecified (principal); I25.10 Atherosclerotic heart disease of native coronary artery without angina pectoris; I87.2 Venous insufficiency (chronic) (peripheral); C91.10 Chronic lymphocytic leukemia of B-cell type not having achieved remission; E11.9 Type 2 diabetes mellitus without complications; G47.30 Sleep apnea, unspecified; E78.5 Hyperlipidemia, unspecified; I10 Essential (primary) hypertension; J44.9 Chronic obstructive pulmonary disease, unspecified; F17.210 Nicotine dependence, cigarettes, uncomplicated; Z98.890 Other specified postprocedural states; Z79.82 Long term (current) use of aspirin; Z79.899 Other long term (current) drug therapy; Z80.8 Family history of malignant neoplasm of other organs or systems
CPT/HCPCS: 36415; 37225; 75710; 80048; 85027; 85610; C1713; C1724; C1725; C1760; C1769; C1894; J1644; J2250; J3010; J3490; J7030; Q9967; 99152; 99153; G0269; C1771

== ENCOUNTER → 2019-11-04 | Outpatient (CLI) | payer BC ==
[2019-10-19 13:24] VITALS: BP 125/67
[~2019-11-04] MED LIST changes: +FURO-69 PO; +LORA10TA55 PO; +MONT10TA49 PO
== END | disposition home or self-care (01) ==
LOC: LAB 14:45
PROVIDERS: ATTEND Internal Medicine Cardiovascular Disease
DX: Z11.59 Encounter for screening for other viral diseases (principal)
CPT/HCPCS: U0003-CS

== ENCOUNTER 2019-11-06 07:04 | Outpatient (CLI) | payer BC ==
[2019-11-06] VITALS (11 sets, daily range): BP systolic 100–144; BP diastolic 54–72
[~2019-11-06] VITALS: Ht 182.9 cm; Wt 129.3 kg
[~2019-11-06 07:04] MED LIST changes: -FURO-69 PO
[2019-11-06] MEDS ORDERED: IODIXANOL 320 MG/ML 100 ML VIAL. ONE (07:38)
[2019-11-06] MEDS ORDERED: LIDOCAINE 1% PF 2 ML VIAL. ONE (07:39)
[2019-11-06 07:50] LABS: HEMATOCRIT 40.7 % (39.0-53.0); HEMOGLOBIN 13.3 g/dL (13.0-17.5); RED BLOOD COUNT 4.93 x10^6/uL (4.30-5.70); WHITE BLOOD COUNT 7.6 x10^3/uL (4.0-11.0)
[2019-11-06 08:11] LABS: CALCIUM 8.4 mg/dL (8.5-10.1); CREATININE 1.1 mg/dL (0.7-1.3); GFR 67.6; POTASSIUM 4.1 mmol/L (3.5-5.1)
[2019-11-06] MEDS ORDERED: fentaNYL PF VIAL 250 MCG/5 ML VIAL ONE (08:37)
[2019-11-06] MEDS ORDERED: MIDAZOLAM HCL/PF 5 MG/5 ML VIAL. ONE (08:37)
[2019-11-06] MEDS ORDERED: HEPARIN for IV BOLUS 10,000 UNIT/10 ML VIAL. ONE ×2 (08:37→09:13)
[2019-11-06] MEDS ORDERED: VERAPAMIL 5 MG/2 ML VIAL. ONE (08:49)
[2019-11-06] MEDS ORDERED: NITROGLYCERIN 200 MCG/2 ML SYRINGE FOR CATH/VASC LAB. IART ONE ×2 (09:00→10:00)
[2019-11-06] MEDS ORDERED: MIDAZOLAM HCL/PF 5 MG/5 ML VIAL. IV ONE (09:00)
[2019-11-06] MEDS ORDERED: VERAPAMIL 5 MG/2 ML VIAL. IART ONE (09:00)
[2019-11-06] MEDS ORDERED: HEPARIN for IV BOLUS 10,000 UNIT/10 ML VIAL. IART ONE (09:00)
[2019-11-06] MEDS ORDERED: LIDOCAINE 1% PF 2 ML VIAL. INJ ONE (09:00)
[2019-11-06] MEDS ORDERED: IODIXANOL 320 MG/ML 100 ML VIAL. IART ONE (09:00)
[2019-11-06] MEDS ORDERED: fentaNYL PF VIAL 100 MCG/2 ML VIAL IV ONE (09:00)
[2019-11-06] MEDS ORDERED: NITROGLYCERIN 200 MCG/2 ML SYRINGE FOR CATH/VASC LAB. ONE ×2 (09:13→09:24)
[2019-11-06] MEDS ORDERED: dilTIAZem IV PUSH 25 MG/5 ML VIAL ONE (09:13)
[2019-11-06] MEDS ORDERED: NITROGLYCERIN 4 MG/20 ML SYRINGE for CATH LAB. ONE ×2 (09:13→09:30)
[2019-11-06] MEDS ORDERED: CONTRAST GIVEN. MC PRN (09:15)
[2019-11-06] MEDS ORDERED: IV NORMAL SALINE 250ML 250 ML IV ONE (09:45)
[2019-11-06] MEDS ORDERED: HEPARIN for IV BOLUS 10,000 UNIT/10 ML VIAL. IV ONE (09:45)
[2019-11-06] MEDS ORDERED: IV 1/2 NORMAL SALINE 1,000 ML IV SCH (09:59)
--- NOTE | 2019-11-06 09:59 | PDOC ---
MODERATE SEDATION ASSESSMENT RISKS/ALTERNATIVES Risks/Alternatives Risks and alternatives of this type of sedation and procedure discussed with: RISK/ALTERNATIVES: Patient H & P ON CHART H & P H & P on chart and reviewed for co-morbid conditions and appropriate labs. H&P ON CHART: Yes STATUS PREG STATUS ASSESSED: N/A MEDS/ALLERGIES REVIEWED Meds/Allergies Reviewed Medications and Allergies including time and route of recently administered narcotics and sedatives. MEDS/ALLERGIES REVIEWED: Yes ASA RATING ASA RATING: III AIRWAY ASSESSMENT Airway Assessment Airway patency, oral function limitations, presence of caps, crowns, dentures, partials, and ability to extend neck assessed. AIRWAY ASSESSMENT: Yes MALLAMPATI SCORE MALLAMPATI SCORE: II PRE-SEDATION ASSESSMENT PRE-SEDATION ASSESSMENT: Yes FARZANEH CYR MD Nov 06, 2019 09:58
[2019-11-06] MEDS ORDERED: fentaNYL PF VIAL 250 MCG/5 ML VIAL IV ONE (10:00)
[2019-11-06] MEDS ORDERED: FUROSEMIDE 40 MG/4 ML VIAL. ONE (10:10)
--- NOTE | 2019-11-06 10:16 | CARD ---
MR#: [id number] Date of Study: 11/06/2019 Ordering Physician: FARZANEH CYR, Referring Physician: FARZANEH CYR, Tech: BROOK LEMUS RTR APPROVED REPORT Patient StatusOUT-PATIENT [facility] Attendant: BROOK LEMUS RTR Procedure(s) performed: Right lower extremity angiography, orbital atherectomy/balloon FIELD MACHINIST to right s uperficial femoral artery via left transradial access MODERATE SEDATION TIME: 75 MINUTES FLUORO TIME: 14.4 MIN DOSE: 36.6 GYCM2 CONTRAST: 57CC VISI INDICATION FOR PROCEDURE The indication(s) include : 64-year-old male with peripheral artery disease with claudication recentl y underwent atherectomy/FIELD MACHINIST to left superficial femoral artery on 10/19/2019. He presented today for s taged atherectomy/FIELD MACHINIST to the right superficial femoral artery.. PROCEDURE NARRATIVE After explaining the risks, benefits and alternative options, informed consent was obtained for paticydney nt. Patient was brought to the cardiac Irrigation Technician and his left wrist was prepped and draped in the usu al fashion after confirming a positive modified Grey's test. Arterial access was obtained in the le ft radial artery and a 6 Thai sheath was inserted. This was then exchanged over J wire to a long 6 F R2P Destination Slender sheath. This was advanced under fluoroscopic guidance the tip was position ed in the right external iliac artery. Selective right lower extremity angiography confirmed the pre viously described 80% calcified stenosis in the midsegment and 90% heavily calcified stenosis in the distal segment of the right superficial femoral artery with three-vessel runoff below the knee. The lesions in the right SFA were crossed with a 0.014 inch Viper guidewire. Multiple orbital athere ctomy passes were then performed within the lesions using CSI 1.75 Diamondback atherectomy catheter. The lesions were then dilated with a Hint Incumo 6.0 x 100 R2P Crosstella Rx balloon. Follow-up angiogra phy showed significant improvement in the lesions with 20% residual and good distal flow. Patient to lerated the procedure well. Hemostasis was achieved using TR band. There were no immediate complica tions. Conclusion Successful orbital atherectomy/balloon FIELD MACHINIST to the right superficial femoral artery. Signed by : Farzaneh Cyr, Electronically Approved : 11/06/2019 10:15:50
[2019-11-06] MEDS ORDERED: FUROSEMIDE 20 MG/2 ML VIAL. IVP ONE (10:30)
[2019-11-06] MEDS ORDERED: FURO-69 PO (12:14)
--- NOTE | 2019-11-06 12:37 | NUR ---
discharge instructions reviewed with patient. TR band dc'd and armboard replaced. Pt states understanding of discharge instructions and new medication called to pharmacy. PIV dc'd.
--- NOTE | 2019-11-06 12:59 | NUR ---
pt wheeled out to outpatient to await ride per his insistence
== END 2019-11-06 13:01 | disposition home or self-care (01) ==
LOC: CCL 07:04
PROVIDERS: ATTEND Internal Medicine Cardiovascular Disease
DX: I70.211 Atherosclerosis of native arteries of extremities with intermittent claudication, right leg (principal); Z79.01 Long term (current) use of anticoagulants
CPT/HCPCS: 36415; 37225; 75710; 80048; 85027; 85610; 99152; 99153; C1724; C1725; C1769; C1892; C1894; J1644; J1940; J2250; J3010; J3490; J7030; J7050; Q9967

== ENCOUNTER → 2020-01-20 | Outpatient (CLI) | payer BC ==
[2019-11-06 12:30] VITALS: BP 124/63
[~2020-01-20] MED LIST changes: -ASPI-612 PO; +ASPI-886 PO; +FURO-69 PO
--- NOTE | 2020-01-20 13:32 | RAD ---
Bilateral lower extremity venous duplex Doppler ultrasound HISTORY: Status post bilateral greater saphenous vein ablation, venous insufficiency, DVT. FINDINGS: No DVT evident with compressibility, patent color Doppler blood flow and augmentation of blood flow the common femoral veins, profunda femoral veins, superficial femoral veins and popliteal veins. No DVT with patent color Doppler blood flow the posterior tibial and peroneal veins in the calves noted. Bilateral greater saphenous veins at the thighs are occluded with absent color Doppler blood flow consistent with recent catheter directed therapeutic occlusion. IMPRESSION: Negative bilateral legs for DVT. See above. Electronically signed by: Ned Perea MD (01/20/2020 1:29 PM) [facility]
== END | disposition home or self-care (01) ==
LOC: US 12:15
PROVIDERS: ATTEND Internal Medicine Cardiovascular Disease
DX: I87.2 Venous insufficiency (chronic) (peripheral) (principal)
CPT/HCPCS: 93970

== ENCOUNTER → 2020-09-29 | Outpatient (CLI) | payer BC ==
[2019-11-06 12:30] VITALS: BP 124/63
[~2020-09-29] MED LIST changes: +LORA-169 PO; -LORA10TA55 PO
--- NOTE | 2020-09-29 14:59 | RAD ---
DUPLEX SONOGRAPHY OF THE PERIPHERAL ARTERIAL SYSTEM OF BOTH LOWER EXTREMITIES Clinical indications: Peripheral arterial disease. Diabetes. Hypertension. Findings: Duplex sonography of the peripheral arterial system of both lower extremities including gra y scale and color flow and spectral waveform analysis was performed. There is diffuse plaque formatio n bilaterally. There is at least a 50 percent stenosis of the mid right superficial femoral artery. C ollateral vessel is seen involving the distal right superficial femoral artery. Below this stenosis, monophasic waveforms are apparent. There is a collateral vessel adjacent to the distal right posterio r tibial artery within the calf. Biphasic waveforms are seen on the left side. There is occlusion of the distal posterior tibial artery. The measurements were performed using the NASCET criteria. Peak systolic flow velocities are as follows: Right leg: common femoral artery- 138 cm/sec, profunda femoral artery -105 cm/sec, proximal superfic ial femoral artery -171 cm/sec, mid superficial femoral artery -204 cm/sec, distal superficial femora l artery- 141 cm/sec, popliteal artery -95 cm/sec, proximal posterior tibial artery- 50 cm/sec, dist al posterior tibial artery- 59 cm/sec, peroneal artery- 69 cm/sec, anterior tibial artery- 62 cm/sec, dorsalis pedis artery -58 cm/sec. Left leg: common femoral artery- 168 cm/sec, profunda femoral artery -99 cm/sec, proximal superficia l femoral artery- 137cm/sec, mid superficial femoral artery- 124 cm/sec, distal superficial femoral a rtery- 171 cm/sec, popliteal artery -74 cm/sec, proximal posterior tibial artery -45 cm/sec, distal p osterior tibial artery- 0 cm/sec, peroneal artery -69 cm/sec, anterior tibial artery -63 cm/sec, dors heather pedis artery- 49 cm/sec. IMPRESSION: Multiple stenoses of the mid right superficial femoral artery with at least a 50 percent stenosis. Occlusion of the distal left posterior tibial artery. Electronically signed by: Toribio Washington MD (09/29/2020 2:56 PM) [id number]
== END ==
LOC: ECHO 09:59
PROVIDERS: ATTEND Internal Medicine Cardiovascular Disease
DX: I70.203 Unspecified atherosclerosis of native arteries of extremities, bilateral legs (principal); I25.10 Atherosclerotic heart disease of native coronary artery without angina pectoris; I10 Essential (primary) hypertension
CPT/HCPCS: 93306; 93925